=== PATIENT | female | born 1990 | race Caucasian/White ===

== ENCOUNTER → 2022-05-18 | Outpatient (CLI) | payer OTHER, SELFPAY ==
[2022-05-18 09:34] LABS: Absolute Lymphocyte Count 2.34 X10^3/uL (0.83-4.51); Absolute Neutrophil Count 5.2 X10^3/uL (2.0-7.7); Basophil# 0.05 X10^3/uL; Basophil% 0.6 % (0-1); Eosinophil# 0.34 X10^3/uL; Eosinophils% 3.9 % (0-5); Hematocrit 41.1 % (37-47); Hemoglobin 13.8 g/dL (12.0-15.0); Lymphocyte # 2.34 X10^3/ul (0.83-4.51); Lymphocyte % 26.8 % (19-41); Mean Corp Hgb Conc 33.6 g/dL (32-36); Mean Corpuscular Volume 83.5 fL (81-99); Mean Platelet Vol. 8.9 fl (6.2-12.0); Monocyte# 0.73 X10^3/uL; Monocyte% 8.4 % (0-10); NRBC Flagged by Analyzer 0 % (0-5); Neutrophil # 5.24 X10^3/uL (2.7-7.7); Platelet Count 380 K/mm3 (150-450); RBC Distribution Width CV 12.9 % (11.6-14.6); Red Blood Count 4.92 M/mm3 (4.2-5.4); White Blood Count 8.7 K/mm3 (4.4-11.0)
[2022-05-18 09:44] LABS: Partial Thromboplast Time 32.9 Seconds (24.1-36.2); Prothrombin Time (Protime)PT. 12.7 SECONDS (11.7-14.9)
[2022-05-18 16:27] LABS: AST(SGOT) 22 U/L (15-37); Alanine Aminotransfer ALT/SGPT 38 U/L (13-56); Albumin, Serum 3.5 g/dL (3.2-5.0); Alkaline Phosphatase 101 U/L (45-117); Bilirubin, Direct 0.11 mg/dL (0.00-0.30); Globulin 3.8 g/dL (2.2-4.2); Magnesium 1.8 mg/dL (1.6-2.6); Protein, Total 7.3 g/dL (6.4-8.2)
== END | disposition home or self-care (01) ==
LOC: LAB 09:08
PROVIDERS: Anesthesiology; Referring Provider Obstetrics & Gynecology; Visit Provider Obstetrics & Gynecology
DX: Z01.812 Encounter for preprocedural laboratory examination (principal)
CPT/HCPCS: 80076; 83735; 85025; 85610; 85730; 86850; 86900; 86901

== ENCOUNTER 2022-05-24 05:27 | Day surgery (SDC) | payer OTHER, SELFPAY ==
--- NOTE | 2022-05-20 22:54 | HP.PCM_ITS ---
History and Physical Intake Vital Signs ? 04/18/2215:18 Height 5 ft 4 in Weight:B 212 lb BMI 36.3 BP 132/86 H Intake Visit Reasons:?Surgical consult 2nd opinion *TK's daughter Chief Complaint: NEW surgical consult for hyst Sports Equipment Racker Required: No Is patient in pain?: No Allergies adhesive tape Allergy (Mild, Verified 04/18/22 15:19) Rash Medications cetirizine 10 mg capsule (Zyrtec) 10 mg PO DAILY PRN 04/18/22 [History Confirmed 04/18/22] Is last menstrual period known: Yes Last Menstrual Period: 04/11/22 Post menopausal: No Patient : No : No PFSH Medical History?(Updated 04/18/22 @ 16:[address] Angela Pressley MD) Anxiety History of endometrial biopsy Mitral valve prolapse Surgical History?(Updated 04/18/22 @ 15:21 by Ioana Robledo) delivery delivered Family History?(Updated 04/18/22 @ 15:22 by Ioana Robledo) Grandfather Diabetes Heart diseaseMother Thyroid disorder Social History?(Updated 04/18/22 @ 15:23 by Ioana Robledo) Smoking Status:? Never smoker details:? social substance use type:? does not use what type of physical activity do you participate in:? walking seatbelt use:? always do you feel safe at home:? Yes additional social history:? 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 patient works for [employer] ? HPI Surgical consult 2nd opinion *TK's daughter Details: RENEA WHITMORE is a 32 year old who presents for long history of heavy painful menses lasting 10-14 days failed nuvaring, nl EMB and US. she has struggled for years and is ready for a hysterectomy.? she was seeing another physician and is here for second opionion and management. records reviewed. she denies dyspareunia postcoital bleeding and chronic pelvic pain, just has pain with menses. Female Reproductive History Last Menstrual Period: 04/11/22 Cycle Length: 21-35 Bleeding Duration: 10 Questions: metorrhagia: No, sexually active: Yes, dyspareunia: Yes (deep) and PCB: No Menopausal Symptoms: No hot flashes, No night sweats, No weight change, No mood changes, No difficulty concentrating, No sleep problems and No change in libido History Past Pregnancies Del. Date Name GA/Weeks Outcome Route Bth Weight Gen Labor Lgth Anesthesia Del Locatn Provider FOB Unknown 2013 Maggie ? live - full term NS VD ? Unknown 2014 Westyn ? live - full term C-s ection ? ROS Const Constitutional: Denies fatigue, night sweats, weight gain or weight loss ENT ENT: Reports system reviewed and no additional complaints, except as documented Cardio Card: Denies chest pain Resp Resp: Denies cough or dyspnea GI GI: Reports as per HPI; Denies constipation, nausea or vomiting : Reports as per HPI; Denies hot flashes, nipple discharge, vaginal discharge, vaginal dryness, vaginal odor or vaginal pruritus Musc Musc: Denies arthralgias, back pain or muscle weakness Skin Skin/Breast: Denies alopecia, change in hair, dry skin, breast mass, breast pain, breast skin changes or nipple discharge Neuro Neuro: Reports system reviewed and no additional complaints, except as documented Psych Psych: Reports system reviewed and no additional complaints, except as documented; Denies change in libido or difficulty concentrating Endo Endo: Denies cold intolerance, excessive sweating, heat intolerance or polydipsia Satnam/Lymph Hematologic/Lymphatic: Denies easy bleeding, Denies easy bruising and Denies lymphadenopathy Exam Const General: cooperative, healthy appearing, comfortable, no acute distress and well developed Orientation: alert [facility] Head: normal to inspection and normocephalic Ears: hearing grossly normal bilaterally and external ears normal Nose: external nose normal and nares normal Face and sinus: normal facial exam Neck Neck: normal visual inspection and no lymphadenopathy Thyroid: thyroid normal Chest Chest palpation & inspection: normal inspection of the chest Resp Effort & Inspection: normal respiratory effort Auscultation: clear to auscultation bilaterally Cardio Rate: regular rate Rhythm: regular rhythm Heart Sounds: S1 normal and S2 normal GI Inspection: normal to inspection and non-distended Palpation: soft and no hepatosplenomegaly General: bladder normal to palpation External Female Exam: normal external appearance and normal appearance of the urethra Urethra: normal appearance of the urethra, normal palpation and no discharge Speculum Exam - Vagina: normal appearance of the vagina and normal vaginal discharge Speculum Exam - Cervix: normal appearance of the cervix and nontender Bimanual Exam- Vagina & Uterus: normal bimanual exam, uterine size normal, bladder normal to palpation, uterine shape normal, No tender, uterine mobility normal, consistency normal, normal palpation and non-tender Bimanual Exam- Adnexa, other: normal adnexae, adnexae mobile, no masses and normal Pelvic Support: normal Musc Other: gross motor intact no deficits, full bilateral strength Skin General: no rashes or lesions noted Neuro General: patient alert, patient awake, moves all extremities and no focal motor deficits Motor: muscle tone normal throughout Extrem General: normal to inspection and no pedal edema Psych Appearance: grossly normal Mental Status: mental status grossly normal Affect: normal affect Speech and Movement: speech and movement normal Coding Level of Care Code Off vis,new,level 5 Diagnoses Abnormal uterine bleeding? N93.9 Assessment and Plan Assessment and Plan (1) Abnormal uterine bleeding: ?Status:?Acute ?Comment: suspect adenomyosis. failed nuvaring not an ablation candidate.? nl cbc tsh, US, EMB. plan LAVHBS. Plan After discussing the patient's diagnosis and treatment plan options, patient wishes to proceed with surgical management.? I have discussed with the patient the risks, benefits, and alternatives of the procedure which include but are not limited to risks of anesthesia, bleeding, infection, possible damage to bowel, bladder, or surrounding vasculature which could lead to additional surgery to evaluate any complications.? Patient agrees to procedure and wishes to proceed.? ACOG/uptodate references given for additional information regarding procedure.? UPDATE- I have seen the patient and performed any clinically relevant updates to the history and physical exam. Angela Pressley MD
[2022-05-24] VITALS (12 sets, daily range): BP systolic 78–118; BP diastolic 52–84; PULSE 56–93; RESP 12–20; TEMP 36.2–36.7; O2SAT 90–100; BMI 36.3
[2022-05-24 06:20] LABS: Internal QC Validated? YES +Cl - CLEAR BKGD; Pregnancy, Urine Negative Negative
[2022-05-24] MEDS: dexAMETHasone 10 MG/ML Vial 8 MG IV (06:24)
[2022-05-24] MEDS: Lactated Ringers 1,000 ML 40 ML IV ×3 (06:25→11:23)
[2022-05-24] MEDS: Magnesium 2 GM for ERAS IV (06:28)
[2022-05-24 06:35] LABS: Bedside Glucose 89 mg/dL (74-106)
[2022-05-24] MEDS: Scopolamine 1mg/72hr Patch 1 PATCH TD (06:39)
[2022-05-24] MEDS: Acetaminophen 500 MG Tablet 1000 MG PO ×2 (06:42→14:43)
[2022-05-24] MEDS: Enoxaparin 40 MG/0.4 ML Syringe SC (06:42)
[2022-05-24] MEDS: Phenazopyridine 95 MG Tablet 190 MG PO (06:42)
[2022-05-24] MEDS: Celecoxib 200 MG Capsule 400 MG PO (06:43)
[2022-05-24] MEDS: Gabapentin 600 MG Tablet PO (06:46)
[2022-05-24] MEDS: Cefazolin 2 GM in 0.9% Normal Saline 100 ML IV (07:30)
--- NOTE | 2022-05-24 07:30 | HYST_PTH ---
PATIENT: RENEA WHITMORE [place]: [facility] [place] U#:[id number] AGE/SX: 32/F ROOM: RE05/24/[address]: Dr. Angela Pressley MD : 1990 BED: DIS: 05/24/2022 SPEC #: [id number] RECD: 05/24/22 11:37 STATUS: CASTILLO REThomas #: [id number] CHERYL: 05/24/22 07:[address]: Angela Pressley DEPT: SURGICAL PATHOLOGY RECD BY: Delisa Tapia ENTERED: 05/24/22 12:48 SP TYPE: HYSTERECT OTHR DR: GHADA DIXON DO Tissues: Uterus, NOS Procedures: Surgery Specimen Level V HEADER OPERATION: ERAS, hysterectomy, LAVH, bilateral salpingectomy PRE-OP DIAGNOSIS: Abnormal uterine bleeding TISSUE SUBMITTED: Uterus, bilateral fallopian tubes MICROSCOPIC DIAGNOSIS Uterus, bilateral fallopian tubes, hysterectomy and bilateral salpingectomy: Cervix ? mild chronic inflammation. Endometrium ? secretory endometrium. Myometrium - no pathologic diagnosis. Bilateral fallopian tubes - no pathologic diagnosis. SJ:josefa 05/27/2022 MICROSCOPIC DESCRIPTION Slides are reviewed. GROSS DESCRIPTION Received in fixative is one container labeled with the patient's name and designated uterus. The specimen consists of a uterus with attached cervix and attached right and left fallopian tubes. The uterus with cervix measures 10 x 7 x 4.5 cm and weighs 119 gm. The ectocervix is unremarkable. The cervical os is ova in contour. The endocervical canal measures 3.3 cm in length and is grossly unremarkable. The triangular endometrial cavity measures 4.5 x 3 cm. The reddish-coyle, velvety endometrium measures up to 0.2 cm in thickness. The myometrium measures 2.5 cm in average thickness and is free of mass lesions. The fallopian tubes are similar in appearance and have an average length of 6 cm and an average diameter of 0.7 cm. Both fallopian tubes have normal fimbriated ends. No mass lesions are identified. 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 / AM:josefa 05/24/2022 TC:3 CPT: 37811
--- NOTE | 2022-05-24 07:31 | PCM.OPRPT ---
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 Patient was taken back to the operating room and placed in the dorsal lithotomy position. General anesthesia was induced and patient was prepped and draped in normal sterile fashion. Uterine manipulator was placed inside the uterus and Arellano catheter placed in the bladder. The umbilicus was grasped with towel clamps and an intraumbilical incision was made after injecting with quarter percent Marcaine and a Veress needle entered into the abdomen confirmed to be intra-abdominal with a low opening pressure. Abdomen was insufflated with CO2 gas and the Veress needle removed and the 5 mm trocar was placed under direct visualization without complication. Right and left lower quadrants were transilluminated and injected with quarter percent Marcaine and 5 mm ports placed under direct visualization. Pelvis was well visualized see operative findings for additional information. Bilateral fallopian tubes were identified and transected with the LigaSure device across the mesosalpinx to the level of the utero-ovarian ligament which was also transected with the LigaSure device. The broad ligament was opened up by transecting the round ligament bilaterally and skeletonizing the uterine vessels bilaterally and creating a bladder flap using the LigaSure device. The uterine arteries were transected bilaterally with good visualization of the bladder and the ureters were seen to be inferior lateral to the operative area. Attention was then paid to the vaginal portion of the procedure and the cervix was grasped with Nette clamps and circumferentially injected with dilute vasopressin. A circumferential incision was made and the vaginal mucosa was mobilized off posteriorly and the cul-de-sac entered into sharply and a longneck speculum placed. The anterior cul-de-sac was then identified and entered into sharply. The uterosacral ligaments were clamped cut and suture ligated with 0 Monocryl bilaterally followed by the cardinal ligaments which were clamped cut and suture ligated bilaterally with 0 Monocryl. The uterus serially descended and was removed without difficulty. Pelvic sidewall pedicles were checked and noted to have excellent hemostasis. The vaginal mucosa was reapproximated incorporating the posterior peritoneum. This was reapproximated using 0 Vicryl [id number] sutures. Excellent hemostasis was noted. The cystoscopy was then performed and bilateral ureteral strong spray was noted and the bladder was noted to have no abnormality or lesions seen. Arellano catheter was replaced and then attention paid to the abdominal portion of the procedure again. The pelvis and cul-de-sac were well visualized and no significant active bleeding noted but some raw areas were seen on the peritoneum and therefore floseal was applied and to the llq port site Pressure was taken down and the areas visualized and noted of excellent hemostasis. All ports were removed under direct visualization without complication and the abdomen was desufflated of air. The instruments were removed from the abdomen and the vaginal sweep was negative. Port sites on the abdomen were closed with 4-0 Monocryl interrupted sutures and Steri's and windows were applied. She was awoken and taken recovery in stable condition. Grafts/Implants Used: none Complications none Admit VTE Documentation VTE Present on Admission: No VTE Mechan Device Prophylaxis: SCD's VTE Pharm Prophylaxis ordered?: Yes Multi Select Codes Urinary/Genital Urinary/Genital CPT Codes: 44480 Cystoscopy and 63339 LAVH+BS/O <250gr Uterus
--- NOTE | 2022-05-24 07:32 | DCINST_ITS ---
Discharge Instructions Diet Discharge Diet: No restrictions Activity May resume sexual activity in: 6 weeks Weight Bearing Status: Full weight bearing Dressing / Incision Call your doctor if your incision/area has: Continuous Slow Oozing, Sudden Increased Bleeding, Increased Pain/ Swelling, Increased Redness and Foul Smelling Discharge Call your doctor if you observe: Fever of 101 or Higher, Using more than 1 pad per hour, Shortness of breath, Chest pain and Uncontrolled pain Suture Line Care: Avoid Pulling/Pushing and Avoid Pinching/Bending Remove Dressing in: 1 week (if present) Cleanse incision/area with: Soap & Water and Keep Dressing Clean & Dry Follow Up Care Please Follow Up With: Angela Pressley MD When: Call to make an appointment with your doctor for a postop visit in 2 and 6 weeks. Test Results: Test results from this visit will be discussed in further detail at your follow- up appointment, if applicable. Discharge Plan Admission Attending Provider: Angela Pressley Primary Care Provider: GHADA DIXON Discharge Orders/Prescriptions Prescriptions: New nystatin [Nystop] 100,000 unit/gram powder 1 applic topical TID Qty: 60 1RF oxycodone-acetaminophen [Percocet] 5-325 mg tablet 1 tab PO Q6H PRN (Reason: pain) 7 Days Qty: 20 0RF naproxen [naproxen] 500 mg tablet 500 mg PO BID PRN PRN (Reason: Pain) Qty: 30 1RF Continued Zyrtec 10 mg capsule 10 mg PO DAILY PRN (Reason: SEASONAL ALLERGIES) rizatriptan 10 mg tablet 10 mg PO DAILY PRN (Reason: MIGRAINES) Label Comments: TAKE 1 TABLET BY MOUTH ONCE NEEDED FOR MIGRAINE MAY REPEAT IN 2 HOURS IF NEEDED Referrals / Follow Up: GHADA DIXON DO [Primary Care Provider] - Disposition Disposition (needs filled in before D/C Order can be placed): Home, Self Care
[2022-05-24] MEDS: Bupivacaine 0.25% 30 ML Vial (09:28)
[2022-05-24] MEDS: Vasopressin 20 UNITS/ML Vial (09:28)
[2022-05-24] MEDS: Ketorolac 30 MG/ML Syringe IV (12:50)
[2022-05-24 13:05] LABS: Absolute Lymphocyte Count 0.93 X10^3/uL (0.83-4.51); Absolute Neutrophil Count 12.1 X10^3/uL (2.0-7.7); Basophil# 0.02 X10^3/uL; Basophil% 0.1 % (0-1); Eosinophil# 0.01 X10^3/uL; Eosinophils% 0.1 % (0-5); Hematocrit 38.4 % (37-47); Hemoglobin 12.3 g/dL (12.0-15.0); Lymphocyte # 0.93 X10^3/ul (0.83-4.51); Mean Corpuscular Hgb 27.6 pg (27.0-32.0); Mean Corpuscular Volume 86.3 fL (81-99); Mean Platelet Vol. 8.8 fl (6.2-12.0); Monocyte# 0.17 X10^3/uL; Monocyte% 1.3 % (0-10); NRBC Flagged by Analyzer 0 % (0-5); Neutrophil # 12.13 X10^3/uL (2.7-7.7); Neutrophil % 90.9 % (47-70); Platelet Count 301 K/mm3 (150-450); RBC Distribution Width SD 40.5 fl (35.1-43.9); Red Blood Count 4.45 M/mm3 (4.2-5.4); White Blood Count 13.3 K/mm3 (4.4-11.0)
[2022-05-24] MEDS: Lactated Ringers 500 ML 999 ML IV (13:30)
== END 2022-05-24 15:00 | disposition home or self-care (01) ==
LOC: SDC 05:28 → AC 05:29
PROVIDERS: Anesthesiology; PCP Family Medicine; Referring Provider Obstetrics & Gynecology; Visit Provider Obstetrics & Gynecology
PROC: 0UT9FZZ Resection of Uterus, Via Natural or Artificial Opening With Percutaneous Endoscopic Assistance (ICD-10-PCS; CPT 58552; principal; 2022-05-24 07:05)
DX: N93.9 Abnormal uterine and vaginal bleeding, unspecified (principal)
CPT/HCPCS: 58552; 00944; 81025; 82962; 85025; 88307; J7120; J2405

== ENCOUNTER → 2022-10-14 | Outpatient (CLI) | payer OTHER, SELFPAY ==
[2022-10-14 11:44] LABS: Anion Gap 6 (5-15); BUN 10 mg/dL (7-18); BUN/Creat Ratio 12.3 RATIO (10-20); Calcium,Total 9.3 mg/dL (8.5-10.1); Chloride 109 mmol/L (98-107); Cholesterol 187 mg/dL (200); Creatinine, Serum 0.81 mg/dL (0.55-1.02); EST Glomerular Filtration Rate 86 mL/min (>60); Est Glom Filt Rate - Afr Amer 104 mL/min (>60); Glucose 102 mg/dL (74-106); High Density Lipoprotein 50 mg/dL; Potassium 3.8 mmol/L (3.5-5.1); Sodium Level 139 mmol/L (136-145); Thyroid Stim Hormone (TSH) 0.56 uIU/mL (0.358-3.74); Triglycerides 140 mg/dL; Very Low Density Lipoprotein 28 mg/dL (5-40)
== END | disposition home or self-care (01) ==
LOC: PAVLAB 10:57
PROVIDERS: PCP Family Medicine; Referring Provider Obstetrics & Gynecology; Visit Provider Obstetrics & Gynecology
DX: E66.8 Other obesity (principal)
CPT/HCPCS: 36415; 80048; 80061; 84443

== ENCOUNTER → 2023-01-06 | Outpatient (CLI) | payer OTHER, SELFPAY ==
[2023-01-06 13:26] LABS: Anion Gap 7 (5-15); BUN 9 mg/dL (7-18); BUN/Creat Ratio 12.7 RATIO (10-20); Calcium,Total 8.9 mg/dL (8.5-10.1); Chloride 110 mmol/L (98-107); Creatinine, Serum 0.71 mg/dL (0.55-1.02); EST Glomerular Filtration Rate 101 mL/min (>60); Est Glom Filt Rate - Afr Amer 122 mL/min (>60); Glucose 95 mg/dL (74-106); Sodium Level 140 mmol/L (136-145)
== END | disposition home or self-care (01) ==
LOC: LAB 12:05
PROVIDERS: PCP Family Medicine; Referring Provider Obstetrics & Gynecology; Visit Provider Obstetrics & Gynecology
DX: E66.8 Other obesity (principal)
CPT/HCPCS: 36415; 80048

== ENCOUNTER → 2023-09-29 | Outpatient (CLI) | payer OTHER, SELFPAY ==
--- OUTSIDE RECORDS SUMMARY | 2023-09-29 09:10 | XMS RPT_ITS | CCD ---
Author Name Unknown Address [address] [place] [address] Organization [facility] [place] Care Team Providers Care Bedspring Assembler Name Role Phone CATHERINE BRAN D.O. Unavailable Unavail able DESTINY Quevedo, CATHERINE Ford Unavailable Unavail able DESTINY Quevedo, CATHERINE Ford Unavailable Unavail able Catherine Bran Primary Care Provider Catherine Bran DO Primary Care Provider Catherine Bran DO Primary Care Provider Catherine Bran DO Primary Care Provider Catherine Bran DO Primary Care Provider Catherine Bran DO Primary Care Provider CATHERINE BRAN Primary Care Unavailable KAMI BARTON Attending Unavailable CATHERINE BRAN Attending Unavailable CATHERINE BRAN Primary Care Unavailable CATHERINE BRAN Attending Unavailable CATHERINE BRAN Primary Care Unavailable CATHERINE BRAN Primary Care Unavailable Allergies Allergy Classification Reported Allergen(s) Allergy Type Date of Onset Reaction(s) Facility (3 sources) Wound Dressing Adhesive Propensity to adverse reactions 09-25-2022 [facility] Medications Current Medications Medication Drug Class(es) Dates Sig (Normalized) Sig (Original) [id number] 200 actuat albuterol 0.09 mg/actuat metered dose inhaler (6 sources) beta2-Adrenergic Agonist Start: 10-15-2021 take 2 puff(s) by inhalation once as needed albuterol 108 (90 Base) MCG/ACT inhaler Inhale 2 puffs Once as needed for shortness of breath. 0 10/15/2021 Active Completed/Discontinued Medications Medication Drug Class(es) Dates Sig (Normalized) Sig (Original) escitalopram 10 mg oral tablet (8 sources) Serotonin Reuptake Inhibitor Start: 10-15-2021 End: 03-18-2023 take 1 tablet by mouth once daily escitalopram (Lexapro) 10 MG tablet Take 1 tablet by mouth daily. 0 10/15/2021 03/18/2023 Discontinued (Med list cleanup) Problems Active Problems Problem Classification Problem Date Documented Da te Episodic/Chronic Deficiency and other anemia (2 sources) Iron deficiency anemia secondary to blood loss (chronic); Translations: [Iron deficiency anemia secondary to blood loss (chronic)] Onset: 03-28-2017 Chronic Deficiency and other anemia (6 sources) Iron deficiency anemia due to blood loss; Translations: [Iron deficiency anemia secondary to blood loss (chronic)] Onset: 11-05-2016 11-05-2016 Chronic Deficiency and other anemia (3 sources) Iron deficiency anemia due to blood loss; Translations: [Iron deficiency anemia due to chronic blood loss] Onset: 11-05-2016 11-05-2016 Diseases of white blood cells (1 source) Leukocytosis; Translations: [Other elevated white blood cell (WBC) count] Chronic Disorders of lipid metabolism (5 sources) Mixed hyperlipidemia; Translations: [Mixed hyperlipidemia] Onset: 03-18-2023 Chronic Immunizations and screening for infectious disease (1 source) Viral screening status; Translations: [Encounter for screening for other viral diseases] Episodic Malaise and fatigue (1 source) Fatigue; Translations: [Other fatigue] Episodic Menstrual disorders (9 sources) Menorrhagia; Translations: [Excessive and frequent menstruation with regular cycle] Onset: 11-05-2016 11-05-2016 Chronic Nutritional deficiencies (9 sources) Vitamin D deficiency; Translations: [Vitamin D deficiency, unspecified] Onset: 11-05-2016 11-05-2016 Chronic Other non-traumatic joint disorders (1 source) Joint pain; Translations: [Pain in other joint] Episodic Other nutritional; endocrine; and metabolic disorders (1 source) Weight gain; Translations: [Abnormal weight gain] Episodic Other screening for suspected conditions (not mental disorders or infectious disease) (7 sources) Patient encounter status; Translations: [Encounter for screening for lipoid disorders] Onset: 03-18-2023 Episodic Other skin disorders (2 sources) Loss of hair; Translations: [Nonscarring hair loss, unspecified] 03-18-2023 Episodic Other skin disorders (2 sources) Nonscarring hair loss, unspecified; Translations: [Nonscarring hair loss, unspecified] Onset: 03-18-2023 Episodic Other upper respiratory infections (10 sources) Laryngitis; Translations: [Acute laryngitis] Onset: 09-25-2022 06-01-2023 Episodic Unclassified (2 sources) Patient encounter status; Translations: [Screening, lipid] Past or Other Problems Problem Classification Problem Date Documented Da te Episodic/Chronic Syncope (11 sources) Syncope; Translations: [Vasovagal syncope] Onset: 11-05-2016 11-05-2016 Episodic Results Test Name Value Interpretation Reference Range Facil ity Vital Signs Date Time Vital Sign Value Performing Clinician Teo loving 06-01-2023 12:45-0500 Body height 163.8 cm Kami Sapper [employer]ING [employer] - [employer] MAIL [employer] Work Phone: [employer] 06-01-2023 12:45-0500 Body mass index (BMI) [Ratio] 28.39 kg/m2 Kami Sapper [employer]ING [employer] - [employer] MAIL [employer]RIER Work Phone: [employer] 06-01-2023 12:45-0500 Body temperature 97.5 [degF] Kami Sapper [employer]ING [employer] - [employer] MAIL [employer]RIER Work Phone: [employer] 06-01-2023 12:45-0500 Body weight 76.2 kg Kami Sapper [employer]ING [employer] - [employer] MAIL [employer]RIER Work Phone: [employer] 06-01-2023 12:45-0500 Diastolic blood pressure 81 mm[Hg] Kami Sapper [employer]AVING [employer]EM[employer] - [employer] MAIL [employer]RIER Work Phone: [employer] 06-01-2023 12:45-0500 Heart rate 96 /min Kami Sapper [employer]ING [employer]EM[employer] - [employer] MAIL [employer]RIER Work Phone: [employer] 06-01-2023 12:45-0500 SaO2% (BldA) [Mass fraction] 98 % Kami Sapper [employer]ING [employer] - [employer]AL MAIL [employer]RIER Work Phone: [employer] 06-01-2023 12:45-0500 Systolic blood pressure 115 mm[Hg] Kami Sapper [employer]ING [employer] - [employer]AL MAIL [employer]RIER Work Phone: [employer] 03-18-2023 08:40-0400 Body height 163.8 cm Catherine Bran DO Work Phone: [employer] 03-18-2023 08:40-0400 Body mass index (BMI) [Ratio] 28.22 kg/m2 Catherine Bran DO Work Phone: [employer] 03-18-2023 08:40-0400 Body weight 75.75 kg Catherine Bran DO Work Phone: [employer] 03-18-2023 08:40-0400 Diastolic blood pressure 68 mm[Hg] Catherine Bran DO Work Phone: [employer] 03-18-2023 08:40-0400 Heart rate 84 /min Catherine Bran DO Work Phone: [employer] 03-18-2023 08:40-0400 SaO2% (BldA) [Mass fraction] 99 % Catherine Bran DO Work Phone: [employer] 03-18-2023 08:40-0400 Systolic blood pressure 115 mm[Hg] Catherine Bran DO Work Phone: [employer] 03-24-2020 18:32-0400 BP Diastolic 67 mm[Hg] [facility] [place] [facility] [place] 03-24-2020 18:32-0400 BP Systolic 108 mm[Hg] [place] [employer] [facility] , [place] 03-24-2020 18:32-0400 Pulse (Heart Rate) 76 /min [place] [employer] [facility], [place] 03-24-2020 18:32-0400 Pulse Oximetry 98 % [place] [employer] [facility] , [place] 03-24-2020 18:32-0400 Respiratory Rate 17 /min [place] [employer] [facility] , [place] 03-24-2020 17:45-0400 BMI (Body Mass Index) 32.61 kg/m2 [place] [employer] [facility] 03-24-2020 17:45-0400 Body Temperature 98.2 [degF] [place] [facility] [place] 03-24-2020 17:45-0400 Body weight 86.18 kg [place] [employer] [facility] , [place] 03-24-2020 17:45-0400 Height 162.6 cm [facility] [place] , [place] Encounters Encounter Date Encounter Type Care Provider Facility Start: 06-01-2023 End: 06-01-2023 ambulatory [facility] Start: 06-01-2023 End: 06-01-2023 Office outpatient visit 15 minutes Kami Readcarmen P[employer]ING [employer]EMAN - [employer] MAIL [employer]RIER Work Phone: [facility] Procedures Date Procedure Procedure Detail Performing Clinician Start: 06-01-2023 Sars-cov-2 detection by dna/rna Kami Sapper [employer]ING [employer]EM[employer] - [employer] MAIL [employer]RIER Work Phone: Start: 03-18-2023 Adult depression scr eening assessment Catherine Brna DO Work Phone: Start: 03-18-2023 Lipid 1996 panel - S delmer or Plasma Catherine Bran DO Work Phone: Start: 03-18-2022 Basic metabolic pane l calcium total Catherine Bran DO Work Phone: Start: 03-18-2022 Lipid panel Catherine Bran DO Work Phone: Start: 12-07-2021 Microscopic observat ion [Identifier] in Cervix by Cyto stain Catherine Bran DO Work Phone: Start: 10-18-2021 Comprehensive metabo lic panel Catherine Bran DO Work Phone: Start: 10-18-2021 Lipid panel Catherine Bran DO Work Phone: Start: 03-20-2021 Basic metabolic pane l calcium total Catherine Bran DO Work Phone: Start: 03-20-2021 Lipid panel Catherine Bran DO Work Phone: Start: 08-16-2020 Microscopic observat ion [Identifier] in Cervix by Cyto stain Catherine Bran DO Work Phone: Start: 04-04-2020 Basic metabolic pane l calcium total Catherine Bran Work Phone: Start: 04-04-2020 Blood count complete automated Catherine Bran Work Phone: Start: 03-24-2020 Blood count complete automated Fabian Sanders Work Phone: Start: 03-24-2020 Gonadotropin chorion ic qualitative Fabian Juan Sanders Work Phone: Start: 03-04-2020 Basic metabolic pane l calcium total Catherine Bran Work Phone: Start: 03-04-2020 Lipid panel Catherine Bran Work Phone: Plan of Treatment Date Care Activity Detail Author Start: 2039 Zoster Vaccines (1 of 2) Zoster Vaccines (1 of 2) [facility] Start: 03-18-2028 Lipid panel Lipid Panel [facility] Start: 03-18-2027 Lipid panel Lipid Panel [facility] Start: 12-07-2026 Screening for malignant neoplasm of cervix [facility] Start: 12-07-2024 Screening for malignant neoplasm of cervix Pap smear [facility] Start: 03-18-2024 Depression Screening Depression Screening [facility] Start: 03-18-2024 End: 03-18-2024 Patient encounter procedure [facility] Start: 08-16-2023 Screening for malignant neoplasm of cervix [facility] Start: 03-21-2023 Influenza vaccination Influenza Vaccine (#1) [facility] Start: 03-18-2023 Depression Screen Depression Screen [facility] Start: 03-18-2023 End: 03-18-2023 Patient encounter procedure 03/18/2023 Office Visit Family Medicine Catherine Bran, DO [address] [place] [address] [facility] Start: 04-09-2022 End: 04-09-2022 Patient encounter procedure 04/09/2022 Office Visit Obstetrics and Gynecology Sandrine Christiansen MD [address] [place] [address], [address] [place] [address] [facility] Start: 03-21-2022 Influenza vaccination Flu vaccine (#1) [facility] Start: 02-28-2022 Depression Screen Depression Screen [facility] Start: 11-13-2021 End: 11-13-2021 Patient encounter procedure 11/13/2021 Office Visit Obstetrics and Gynecology Sandrine Christiansen MD [address] [place], [address] [place] [address] [facility] Start: 03-21-2021 Influenza vaccination Flu vaccine (#1) [facility] Start: 03-21-2020 Influenza vaccination Flu vaccine (#1) [place], [place] Start: 2019 Screening for malignant neoplasm of cervix HPV (without or with Pap) [facility] Start: 2010 Screening for malignant neoplasm of cervix Cervical cancer screen [place], [place] Start: 01-25-2008 DTaP/Tdap/Td vaccine (1 - Tdap) DTaP/Tdap/Td vaccine (1 - Tdap) [facility] Start: 01-25-2008 DTaP/Tdap/Td Vaccines (1 - Tdap) DTaP/Tdap/Td Vaccines (1 - Tdap) [facility] Start: 01-25-2004 HIV screening HIV screen [facility] Start: 2001 COVID-19 Vaccine (1) COVID-19 Vaccine (1) [facility] Work Phone: Start: 1994 COVID-19 Vaccine (1) COVID-19 Vaccine (1) [facility] Start: 1990 MMR Vaccines (1 of 1 - Standard series) MMR Vaccines (1 of 1 - Standard series) [facility] Start: 1990 Varicella vaccination Varicella Vaccines (1 of 2 - 2-dose childhood series) [facility] Start: 1990 Varicella vaccine (1 of 2 - 2-dose childhood series) Varicella vaccine (1 of 2 - 2-dose childhood series) [facility] Start: 1989 COVID-19 Vaccine (#1) COVID-19 Vaccine (#1) [facility] Start: 1989 Hepatitis B Vaccines (1 of 3 - 3-dose series) Hepatitis B Vaccines (1 of 3 - 3-dose series) [facility] Start: 1989 HIV screening HIV Screening [facility] End: 10-18-2021 Nuclear Ab [Titer] in Serum by Immunofluorescence [facility] Work Phone: Payers Date Payer Category Payer Unknown [id number] 1. [id number] 2013 Unknown Social History Date Type Detail Facility Start: 08-31-2019 End: 03-18-2023 Tobacco smoking status NHIS Never smoker [place] Start: 08-31-2019 End: 03-18-2023 Tobacco use and exposure Never used [place], [place] Start: 08-31-2019 End: 03-18-2022 Alcohol intake Current non-drinker of alcohol (finding) [place], [place] Start: 1989 Sex Assigned At Not on file [place] Start: 10-05-2021 End: 03-18-2023 Exposure to SARS-CoV-2 (event) Not sure [place] Start: 04-17-2020 Alcohol Comment occasional may be once per month [facility] Work Phone: Start: 11-13-2021 History SDOH Alcohol Frequency 2 [facility] Work Phone: Start: 11-13-2021 History SDOH Social Connections Phone 5 [employer] Work Phone: Start: 11-13-2021 History SDOH Social Connections Zoroastrian 3 [facility] Work Phone: Start: 11-13-2021 History SDOH Social Connections Membership 1 [facility] Work Phone: Start: 11-13-2021 History SDOH Financial 4 [facility] Work Phone: Start: 03-18-2023 End: 06-01-2023 Alcohol intake Current drinker of alcohol (finding) [facility] Start: 03-18-2023 End: 06-01-2023 Alcohol intake [facility] Start: 09-25-2022 End: 03-18-2023 Tobacco use panel [facility] Start: 03-18-2023 Tobacco Comment Never [facility] Clinical Notes 04-05-2020 to 06-01-2023 LAKSHMI Aquino NP - 06/01/2023 1:00 PM Siomara Logan Bran, DO - 03/18/2023 8:40 AM EDTAddendum Note - Kami Ray - 03/18/2023 8:40 AM EDT Note Date & Type Note Facility 06-01-2023 History of Presen t illness Narrative Images from the original note were not included. [facility] [address] [facility] [address] Dept: [phone] Dept Loc: [phone] Subjective Renea Vallecillo is a 33 y.o. year old female who presents to the office with the following complaint(s): Chief Complaint Patient presents with URI Cough, congestion, loss of voice, x3days Patient is here today for symptoms that started about 3 days ago. Patient reports some nasal congestion with laryngitis but no actual sore throat. Patient reports she does have a cough but states it is only at nighttime that is bothersome. No fever or chills reported. Patient has not taken any [id number] medications for her symptoms since they have been so minimal. History provided by: Patient URI Presenting symptoms: congestion and cough Presenting symptoms: no ear pain, no facial pain, no fatigue, no fever, no rhinorrhea and no sore throat Congestion: Location: Nasal Interferes with sleep: no Interferes with eating/drinking: no Cough: Cough characteristics: Non-productive Severity: Mild Timing: Intermittent Progression: Waxing and waning Relieved by: Nothing Worsened by: Certain positions (Cough is worse at nighttime when laying down) Ineffective treatments: None tried Associated symptoms: no headaches, no myalgias, no sinus pain, no swollen glands and no wheezing Risk factors: recent illness Review of Systems Constitutional: Negative for appetite change, chills, fatigue and fever. HENT: Positive for congestion and voice change. Negative for ear pain, nosebleeds, rhinorrhea, sinus pressure, sinus pain, sore throat and trouble swallowing. Respiratory: Positive for cough. Negative for chest tightness, shortness of breath and wheezing. Cardiovascular: Negative for chest pain, palpitations and leg swelling. Gastrointestinal: Negative for abdominal pain, constipation, diarrhea, nausea and vomiting. Musculoskeletal: Negative for myalgias. Skin: Negative for rash. Neurological: Negative for headaches. Allergies Allergen Reactions Wound Dressing Adhesive Rash Current Outpatient Medications on File Prior to Visit Medication Sig Dispense Refill biotin 10 MG tablet Take by mouth. Cetirizine HCl 10 MG capsule Take 10 mg by mouth. Multiple Vitamin (multivitamin) tablet Take 1 tablet by mouth daily. phentermine (Adipex-P) 37.5 MG tablet TAKE 37.5 MG BY MOUTH DAILY BMI 32.5 rizatriptan (Maxalt) 10 MG tablet Take 10 mg by mouth Once as needed. topiramate (Topamax) 25 MG tablet TAKE 1 TABLET BY MOUTH 1 TO 2 TIMES DAILY albuterol 108 (90 Base) MCG/ACT inhaler Inhale 2 puffs Once as needed for shortness of breath. No current facility-administered medications on file prior to visit. Patient Active Problem List Diagnosis Iron deficiency anemia due to chronic blood loss Menorrhagia with regular cycle Vitamin D deficiency Syncope, vasovagal Social History Socioeconomic History Marital status: Tobacco Use Smoking status: Never Smokeless tobacco: Never Tobacco comments: Never Substance and Sexual Activity Alcohol use: Yes Alcohol/week: 1.0 standard drink of alcohol Types: 1 Standard drinks or equivalent per week Drug use: No Sexual activity: Yes Partners: Male control/protection: Other Comment: Hysterectomy Past Surgical History: Procedure Laterality Date ABDOMINAL SURGERY 2013 & 2021 SECTION (HISTORICAL) SECTION, LOW TRANSVERSE 10/20/14 HYSTERECTOMY 05/24/22 Family History Problem Relation Name Age of Onset Substance Abuse Father Jaime Berumen Mental illness Father Jaime Berumen Thyroid disease Mother Leonora Sue Arthritis Mother Leonora Sue Arthritis Maternal Grandfather Chris Mason Cancer Maternal Grandfather Chris Mason Diabetes Maternal Grandfather Chris Mason Heart disease Maternal Grandfather Chris Mason Uterine cancer Neg Hx Colon cancer Neg Hx Breast cancer Neg Hx Ovarian cancer Neg Hx Objective BP 115/81 (BP Location: Right arm, Patient Position: Sitting, BP Cuff Size: Adult) Pulse 96 Temp 36.4 C (97.5 F) Ht 5' 4.5 (1.638 m) Wt 168 lb (76.2 kg) SpO2 98% BMI 28.39 kg/m Physical Exam Vitals reviewed. Constitutional: General: She is not in acute distress. Appearance: Normal appearance. She is not ill-appearing, toxic-appearing or diaphoretic. HENT: Right Ear: Tympanic membrane, ear canal and external ear normal. Tympanic membrane is not injected, scarred, perforated, erythematous, retracted or bulging. Left Ear: Tympanic membrane, ear canal and external ear normal. Tympanic membrane is not injected, scarred, perforated, erythematous, retracted or bulging. Nose: Congestion present. No rhinorrhea. Right Turbinates: Swollen. Left Turbinates: Swollen. Right Sinus: No maxillary sinus tenderness or frontal sinus tenderness. Left Sinus: No maxillary sinus tenderness or frontal sinus tenderness. Mouth/Throat: Mouth: Mucous membranes are moist. Pharynx: Oropharynx is clear. Uvula midline. Posterior oropharyngeal erythema (minimal) present. No pharyngeal swelling, oropharyngeal exudate or uvula swelling. Eyes: Conjunctiva/sclera: Conjunctivae normal. Cardiovascular: Rate and Rhythm: Normal rate and regular rhythm. Pulses: Normal pulses. Heart sounds: Normal heart sounds. No murmur heard. Pulmonary: Effort: Pulmonary effort is normal. No respiratory distress. Breath sounds: Normal breath sounds. No stridor. No decreased breath sounds, wheezing, rhonchi or rales. Musculoskeletal: Cervical back: Full passive range of motion without pain. Lymphadenopathy: Head: Right side of head: No submental, submandibular, tonsillar, preauricular, posterior auricular or occipital adenopathy. Left side of head: No submental, submandibular, tonsillar, preauricular, posterior auricular or occipital adenopathy. Skin: General: Skin is warm and dry. Capillary Refill: Capillary refill takes less than 2 seconds. Coloration: Skin is not pale. Findings: No rash. Neurological: Mental Status: She is alert and oriented to person, place, and time. Assessment: 1. Viral URI with cough 2. Laryngitis Plan: 1. Viral URI with cough - AMB POC COVID-19 COV 2. Laryngitis Results for orders placed or performed in visit on 06/01/23 AMB POC COVID-19 COV Result Value Ref Range POC SARS-CoV-2 Negative Negative Recommend throat lozenges along with salt water gargles. Patient was given information about laryngitis on her after visit summary. Treat symptoms as they come with [id number] medications as needed. Close follow-up with primary care provider There are no discontinued medications. Medication indications, directions, and side effects were discussed. Goals None No follow-ups on file. LAKSHMI Aquino NP 06/01/23 1:08 PM (Please note that portions of this note may have been completed with a voice recognition program. Efforts were made to edit the dictations but occasionally words are mis-transcribed.) documented in this encounter [facility] 03-18-2023 History of Presen t illness Narrative Images from the original note were not included. [facility] [address] [facility] [facility] [id number] Visit type: Established Patient Reason for Visit: Annual Exam Assessment and Plan Diagnoses and all orders for this visit: Well adult exam Screening for diabetes mellitus - Basic metabolic panel; Future - Hemoglobin A1c; Future Hypertriglyceridemia - Lipid panel; Future Hair loss UTD on immunizations. Encouraged avoidance of tobacco and alcohol, safe sexual practice. Healthy diet with plenty of fruits, vegetables, whole grains, and lean proteins. Exercise 3-5 times per week for 30-45 minutes. Wear seatbelts. Wear sunscreen. Reviewed age appropriate screening tests. Follow up in about 1 year (around 03/18/2024). Subjective HPI She is getting 7000 steps per day Had a hysterectomy in May She is on adipex and topamax through her tie tamper - has lost almost 50 lbs Also doing WW Has been having some hair loss Review of Systems Constitutional: Negative for appetite change, chills, fatigue and fever. HENT: Negative for congestion, ear pain, hearing loss, postnasal drip, sore throat and trouble swallowing. Eyes: Negative for discharge, itching and visual disturbance. Respiratory: Negative for cough, shortness of breath and wheezing. Cardiovascular: Negative for chest pain, palpitations and leg swelling. Gastrointestinal: Negative for abdominal pain, constipation, diarrhea, nausea and vomiting. Endocrine: Negative for cold intolerance, heat intolerance, polydipsia, polyphagia and polyuria. Genitourinary: Negative for difficulty urinating, frequency, urgency, vaginal bleeding, vaginal discharge and vaginal pain. Musculoskeletal: Negative for arthralgias, back pain, joint swelling and myalgias. Skin: Negative for color change, rash and wound. Neurological: Negative for dizziness, tremors, seizures, speech difficulty, weakness, numbness and headaches. Hematological: Negative for adenopathy. Does not bruise/bleed easily. Psychiatric/Behavioral: Negative for agitation, decreased concentration, dysphoric mood and sleep disturbance. The patient is not nervous/anxious. Allergies Allergen Reactions Wound Dressing Adhesive Rash Outpatient Medications Prior to Visit Medication Sig Dispense Refill albuterol 108 (90 Base) MCG/ACT inhaler Inhale 2 puffs Once as needed for shortness of breath. biotin 10 MG tablet Take by mouth. Multiple Vitamin (multivitamin) tablet Take 1 tablet by mouth daily. phentermine (Adipex-P) 37.5 MG tablet TAKE 37.5 MG BY MOUTH DAILY BMI 32.5 rizatriptan (Maxalt) 10 MG tablet Take 10 mg by mouth Once as needed. topiramate (Topamax) 25 MG tablet TAKE 1 TABLET BY MOUTH 1 TO 2 TIMES DAILY Cetirizine HCl 10 MG capsule Take 10 mg by mouth. escitalopram (Lexapro) 10 MG tablet Take 1 tablet by mouth daily. No facility-administered medications prior to visit. Past Medical History: Diagnosis Date 2018 novel coronavirus disease (COVID-19) 2019 & 2021 Allergic Teenager Anemia Anxiety Headache 17 years old IBS (irritable bowel syndrome) Irritable bowel syndrome 2021 Mitral valve prolapse 2013 & 2014 Syncope Varicella 1990s Social History Socioeconomic History Marital status: Tobacco Use Smoking status: Never Smokeless tobacco: Never Tobacco comments: Never Substance and Sexual Activity Alcohol use: Yes Alcohol/week: 1.0 standard drink of alcohol Types: 1 Standard drinks or equivalent per week Drug use: No Sexual activity: Yes Partners: Male control/protection: Other Comment: Hysterectomy Past Surgical History: Procedure Laterality Date ABDOMINAL SURGERY 2013 & 2021 SECTION (HISTORICAL) SECTION, LOW TRANSVERSE 10/20/14 HYSTERECTOMY 05/24/22 Past Surgical History: Procedure Laterality Date ABDOMINAL SURGERY 2013 & 2021 SECTION (HISTORICAL) SECTION, LOW TRANSVERSE 10/20/14 HYSTERECTOMY 05/24/22 Family History Problem Relation Name Age of Onset Substance Abuse Father Jaime Berumen Mental illness Father Jaime Berumen Thyroid disease Mother Leonora Sue Arthritis Mother Leonora Sue Arthritis Maternal Grandfather Chris Mason Cancer Maternal Grandfather Chris Mason Diabetes Maternal Grandfather Chris Mason Heart disease Maternal Grandfather Chris Mason Uterine cancer Neg Hx Colon cancer Neg Hx Breast cancer Neg Hx Ovarian cancer Neg Hx Objective BP 115/68 Pulse 84 Ht 5' 4.5 (1.638 m) Wt 167 lb (75.8 kg) SpO2 99% BMI 28.22 kg/m Physical Exam Vitals and nursing note reviewed. Constitutional: General: She is not in acute distress. Appearance: Normal appearance. She is not ill-appearing. HENT: Head: Normocephalic and atraumatic. Right Ear: Tympanic membrane, ear canal and external ear normal. Left Ear: Tympanic membrane, ear canal and external ear normal. Nose: Nose normal. Eyes: Extraocular Movements: Extraocular movements intact. Conjunctiva/sclera: Conjunctivae normal. Pupils: Pupils are equal, round, and reactive to light. Cardiovascular: Rate and Rhythm: Normal rate and regular rhythm. Heart sounds: No murmur heard. No friction rub. Pulmonary: Effort: Pulmonary effort is normal. No respiratory distress. Breath sounds: Normal breath sounds. No stridor. No wheezing, rhonchi or rales. Chest: Chest wall: No tenderness. Abdominal: General: Abdomen is flat. Bowel sounds are normal. There is no distension. Palpations: Abdomen is soft. There is no mass. Tenderness: There is no abdominal tenderness. There is no guarding or rebound. Hernia: No hernia is present. Musculoskeletal: General: Normal range of motion. Cervical back: Normal range of motion and neck supple. Right lower leg: No edema. Left lower leg: No edema. Skin: General: Skin is warm and dry. Neurological: General: No focal deficit present. Mental Status: She is alert and oriented to person, place, and time. Psychiatric: Mood and Affect: Mood normal. Behavior: Behavior normal. Thought Content: Thought content normal. Judgment: Judgment normal. Data Reviewed POCT: Labs: Imaging/Testing: Chart Clean Up: Medications Discontinued During This Encounter Medication Reason Cetirizine HCl 10 MG capsule Med list cleanup escitalopram (Lexapro) 10 MG tablet Med list cleanup Catherine Bran DO 03/18/2023 9:08 AM documented in this encounter [facility] 03-18-2023 Miscellaneous Notes Addended by: KAMI RAY on: 03/18/2023 09:25 AM Modules accepted: Orders documented in this encounter [facility] 03-18-2023 Note Addended by: KAMI MARINA on: 03/18/2023 09:25 AM Modules accepted: Orders [facility] 03-18-2023 Note Addended by: KAMI MARINA on: 03/18/2023 09:25 AM Modules accepted: Orders [facility] 09-11-2020 Note HNO ID: [id number] Author: Anival Calderon Service: ? 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 Otherwise, normal appearing pelvic ultrasound. Doing well with OCP. Menses was very light at end of first pack. Had a couple of AYOUB since starting Levora, but nothing that resembles her usual migraines. 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 Happy to continue with OCP. No pain with last menses. Obstetric History T1 L2 SAB0 TAB0 Ectopic0 Multiple0 Live Births0 OBJECTIVE ALLERGIES No Known Allergies Current Outpatient Medications Medication Sig - escitalopram oxalate (LEXAPRO) 20 mg tablet Take 20 mg by mouth once daily. - levonorgestrel-ethinyl estradiol (LEVORA-28) 0.15-0.03 mg per tab Take 1 tablet by mouth once daily. - ipratropium bromide (ATROVENT) 42 mcg (0.06 %) nasal spray Use 2 Sprays in the nose four times daily. - MULTIVITAMIN ORAL Take by mouth. - escitalopram oxalate (LEXAPRO) 10 mg tablet Take 10 mg by mouth once daily. No current facility-administered medications for this visit. Review of Systems Constitutional: Negative for fatigue and unintentional weight changes Gastrointestinal: Negative for diarrhea, bloody stool, nausea/vomiting and constipation Genitourinary: See HPI Medical, Surgical, Family and Social histories reviewed. Physical Exam BP 108/68 Ht 5' 4 (1.63m) Wt 197 lb (89.4kg) LMP 02/19/2020 BMI 33.80 kg/(m2). General: No Acute Distress, Well nourished, Well developed, No obvious deformities and Alert/Oriented x 3 Mood/Affect: Normal ASS/PLAN: - Menstrual normal on Levora - Monitor bleeding and if becomes abnormal, let me know - No migraines on Levora. Let me know if that changes MAD Total time in direct patient contact = 20 min. Greater than 50% of the time was spent in counseling and/or coordination of care. [facility] 08-24-2020 Note HNO ID: [id number] Author: Michaela Batres Service: ? Author Type: Physician Type: Progress Notes Filed: 08/24/2020 1:01 PM Note Text: Hematology/Oncology TeleVisit Renea Ford Ruth Ann 1990 Encounter Date: 08/24/2020 Patient name and date confirmed. Patient calling from home. Permission for telephone visit was obtained. Cancer Staging No matching staging information was found for the patient. HPI: Renea Berumen is a 30 year old woman with iron deficiency. Ms. Berumen reports that she has had issues with anemia. She is unable to tolerate oral iron secondary to nausea and constipation. She has no fevers, chills, night sweats, or weight loss. She has no chest pain or shortness of breath. She denies nausea, vomiting, diarrhea, constipation. She has heavy periods, which are somewhat improved with lysteda. She denies any family history of bleeding. She has no history of epistaxis, bleeding complications from surgery or child . Interval History Ms. Berumen presents today in follow up of her iron deficiency. She is back to feeling fatigued, craving red meat. Periods are occurring frequently and are quite heavy despite OCP use. She denies fevers, chills, night sweats. No ice pica. Denies restless leg. PAST MEDICAL HISTORY Diagnosis Date - Anemia - Anemia - Dysmenorrhea - Mitral valve prolapse - PMDD (premenstrual dysphoric disorder) PAST SURGICAL HISTORY Procedure Laterality Date - SECTION HX Current Outpatient Medications Medication Sig Dispense Refill - levonorgestrel-ethinyl estradiol (LEVORA-28) 0.15-0.03 mg per tab Take 1 tablet by mouth once daily. 3 Package 3 - ipratropium bromide (ATROVENT) 42 mcg (0.06 %) nasal spray Use 2 Sprays in the nose four times daily. 1 Bottle 0 - escitalopram oxalate (LEXAPRO) 10 mg tablet Take 10 mg by mouth once daily. - MULTIVITAMIN ORAL Take by mouth. No current facility-administered medications for this visit. ALLERGIES No Known Allergies FAMILY HISTORY Problem Relation Age of Onset - Arthritis Mother - other (Endometrosis) Mother Hysterectomy - Multiple Sclerosis Maternal Grandmother - other (ALS) Other MGGFA - Cancer Other Great Grandfather Social History Tobacco Use - Smoking status: Never Smoker - Smokeless tobacco: Never Used Substance Use Topics - Alcohol use: Yes Comment: Occasionally - Drug use: No Review of Systems: Negative except as noted in HPI Physical Exam: LMP 02/19/2020 ECOG PS: 0 Pain Intensity: 0/10 General: Age-appropriate well developed. Appears well. HEENT: Normocephalic, no sclera icterus, external ears normal, oral cavity clear. Neck: Supple Chest: Not labored. Psychiatric: Alert and oriented x3. Emotional well-being assessment was performed. Pt denies depression, distress, and or problems with coping or adjustment. I have performed the physical exam today (12/29/2019) and have edited the note to correlate with current findings. Lab Results Component Value Date WBC 8.58 08/24/2020 HB 13.9 08/24/2020 MCV 88.9 08/24/2020 PLT 359 08/24/2020 Lab Results Component Value Date NA 137 06/25/2016 K 3.4 (L) 06/25/2016 CO2 24 06/25/2016 BUN 8 06/25/2016 CREAT 0.62 06/25/2016 TBILI 0.6 06/25/2016 TPROT 8.4 (H) 06/25/2016 ALB 3.9 06/25/2016 ALKPHOS 99 06/25/2016 ALT 20 06/25/2016 AST 14 (L) 06/25/2016 Assessment and Plan: Ms. Berumen is a pleasant 28 year old woman with iron deficiency anemia. Iron deficiency anemia -Secondary to heavy menses -Unable to tolerate oral iron secondary to nausea, contipation. -S/p Injectafer x 2 09/2019. -Hgb 13.8, ferritin pending. Will repeat if ferritin <75 -Patient is symptomatic with fatigue and pica currently. Would be useful to decrease her menorrhagea. OCPs have been only moderately effective. She is considering hysterectomy, which may be useful in decreasing need for IV iron. -RTC 1 year with repeat CBC, ferritin q3 months Menorrhagia -No evidence of VWD I spent 8 minutes in direct conversation with the patient and >50% was in counseling and coordination of care. Michaela Batres MD [facility] 08-16-2020 Note HNO ID: [id number] Author: Anival Calderon Service: ? Author Type: Physician Type: Progress Notes Filed: 08/16/2020 5:58 PM Note Text: Renea is a 30 year old who presents for an annual gynecologic exam with complaints, issues with OCP. Was having migraines in February around the time of her menses. Her OCP was changed, and she then began to bleed for a solid 10 days. She is currently talking Levora and has not had any difficulties, but has not yet had a menses on Levora. C/O LLQ pain. She is inquiring about a hyst to stop her bleeding and eliminate the need for the OCP. She has a history of one C/S followed by a successful . Had a normal US in 10/04. Menses: cycles every 28 days and 7 days of flow. Contraception: combined hormonal contraceptives and condoms HPV vaccine: No Last Pap: 09/27/2010 normal HPV: N/A History of abnormal pap: No Last mammogram: never Sexually active: Yes Pain with intercourse: No Postcoital bleeding: No Hot flashes: No Night sweats: No Vaginal dryness: No Mood swings: No Insomnia: No Exercise: No Medical, Surgical, Family and Social histories reviewed. OB History T1 L2 SAB0 TAB0 Ectopic0 Multiple0 Live Births0 PAST MEDICAL HISTORY Diagnosis Date - Anemia - Anemia - Dysmenorrhea - Mitral valve prolapse - PMDD (premenstrual dysphoric disorder) PAST SURGICAL HISTORY Procedure Laterality Date - SECTION HX FAMILY HISTORY Problem Relation Age of Onset - Arthritis Mother - other (Endometrosis) Mother Hysterectomy - Multiple Sclerosis Maternal Grandmother - other (ALS) Other MGGFA - Cancer Other Great Grandfather SOCIAL HISTORY Social History Tobacco Use - Smoking status: Never Smoker - Smokeless tobacco: Never Used Substance Use Topics - Alcohol use: Yes Comment: Occasionally - Drug use: No REVIEW OF SYSTEMS Abdomen: No abdominal pain, nausea, vomiting, diarrhea, or constipation. No bloating, early satiety, indigestion, or increased flatulence. Bladder: No dysuria, gross hematuria, urinary frequency, urinary urgency, or incontinence. Breast: No breast lumps, nipple d/c, overlying skin changes, redness or skin retraction. Allergies and current medication updated:Yes EXAM: Wt 195 lb (88.5kg) LMP 02/19/2020 GENERAL: pleasant, female in no apparent distress HEENT: Normocephalic, atraumatic, mucus membranes moist and no lesions NECK: Supple, full range of motion, no adenopathy and thyroid normal DERMATOLOGY: Normal, without lesions, non-icteric and non-hirsute BREAST: soft, non-tender, symmetric, no dominant mass, normal nipple-areolar complex, no lymphadenopathy and no nipple discharge CHEST: Clear to auscultation, Normal inspiratory effort, Regular rate and rhythm and No murmurs, clicks, rubs or gallops ABDOMEN: Benign, soft, non-tender, no hernia, no masses, no hepatosplenomegaly and no lymphadenopathy PELVIC: external genitalia normal, normal Bartholin's glands, urethra, Cochiti's glands, no vulvar lesions, no cervical lesions, good vaginal support, physiologic discharge present, normal appearing perineal body and perianal region BIMANUAL: no adnexal masses, non-tender and enlarged uterus 8 week size RECTOVAGINAL: deferred. NEURO: alert and oriented x3,exam grossly non-focal EXTREMITIES: normal ASSESSMENT/PLAN: 1) Health maintenance: Pap done with HPV. Nutrition, exercise and routine health maintenance exams reviewed. Calcium/Vitamin D supplementation information provided. Get US to check for cause of LLQ pain. 2) Contraception: combined hormonal contraceptives. Contraceptive options reviewed and information provided. 3) STD screening: Declined STD check. 4) Follow up one year or sooner as needed Anival Calderon MD [facility] 04-05-2020 Note HNO ID: [id number] Author: Anival Calderon Service: ? Author Type: Physician Type: Progress Notes Filed: 04/05/2020 5:33 PM Note Text: Renea Vallecillo is a 30 year old female who presents with a chief complaint of Consult (ED f/u passed out from abd pain. Recently started new BC. Irreg bleeding ) SUBJECTIVE Was seen in ER for syncope in early March. All testing was wnl. Patient states that her menses has been much recreational director since starting the OCP. Feels good at this time. Obstetric History T1 L2 SAB0 TAB0 Ectopic0 Multiple0 Live Births0 OBJECTIVE ALLERGIES No Known Allergies Current Outpatient Medications Medication Sig - Drospirenone-Ethinyl Estradiol (BRINDA, 28,) 3-0.03 mg per tablet Take 1 tablet by mouth once daily. - escitalopram oxalate (LEXAPRO) 10 mg tablet Take 10 mg by mouth once daily. - MULTIVITAMIN ORAL Take by mouth. No current facility-administered medications for this visit. Review of Systems Constitutional: Negative for fatigue and unintentional weight changes Gastrointestinal: Negative for diarrhea, bloody stool, nausea/vomiting and constipation Genitourinary: See HPI Physical Exam BP 122/72 Wt 190 lb (86.2kg) LMP 02/19/2020 General: No Acute Distress, Well nourished, Well developed, No obvious deformities and Alert/Oriented x 3 Mood/Affect: Normal ASS/PLAN: - Syncope - no tie tamper cause. - Call with any issues. MAD Total time in direct patient contact = 15 min. Greater than 50% of the time was spent in counseling and/or coordination of care. [facility] documented in this encounter [facility] Work Phone: Evaluation note* Diagnosis Mixed hyperlipidemia Other fatigue Pain in other joint documented in this encounter [facility] Work Phone: Evaluation note* Diagnosis Screening for diabetes mellitus Screening, lipid Screening for lipoid disorders documented in this encounter [facility] Work Phone: Evaluation note* Diagnosis Well adult exam- Primary Routine general medical examination at a health care facility Screening for diabetes mellitus Hypertriglyceridemia Pure hyperglyceridemia Hair loss Unspecified alopecia [facility]* Diagnosis Viral URI with cough- Primary Laryngitis Acute laryngitis, without mention of obstruction documented in this encounter [facility] HealthInstructions* Attachments The following attachments cannot be sent through Care Everywhere. * [facility]Vincentian[facility] Purpose Family History No Family History Records FoundNo Family History Records FoundNo Family History Records FoundNo Family History Records FoundNo Family History Records Found Advance Directives No Advanced Directives Records FoundDocuments on File Type Date Recorded Patient Supervisor Cell Room Expl anation Advance Directives and Living Will Power of Floor Refinisher Documents on File Type Date Recorded Patient Supervisor Cell Room Expl anation ACP-Advance Directive ACP-Power of Floor Refinisher Assessments Diagnosis Screening, lipid Screening for lipoid disorders Screening for diabetes mellitus Diagnosis Vasovagal syncope Syncope and collapse Diagnosis Vasovagal syncope Syncope and collapse Other elevated white blood cell (WBC) count Discharge Instructions * Attachments The following attachments cannot be sent through Care Everywhere. * Vasovagal Syncope (Vincentian) documented in this encounter Additional Source Comments INFORMATION SOURCE (unrecogn ized section and content) DATE CREATED AUTHOR AUTHOR'S ORGANIZ ATION 09/11/2020 [facility] DATE CREATED AUTHOR AUTHOR'S ORGANIZ ATION 02/01/2021 [facility] DATE CREATED AUTHOR AUTHOR'S ORGANIZ ATION 03/20/2022 [facility] DATE CREATED AUTHOR AUTHOR'S ORGANIZ ATION 06/02/2023 [facility] Reason for Visit (unrecogniz ed section and content) Reason Comments Annual Exam Reason Comments URI Cough, congestion, l oss of voice, x3days Care Teams (unrecognized sec tion and content) Bedspring Assembler Relationship Specialty Start Date End Date Catherine Bran DO [address] [place] [address] PCP - General Internal Medicine 10/22/16 Bedspring Assembler Relationship Specialty Start Date End Date Catherine Bran DO [address] [place] [address] PCP - General 10/22/16 Bedspring Assembler Relationship Specialty Start Date End Date Catherine Bran DO [address] [place] [address] PCP - General 10/22/16 FOR RECORDS PERTAINING TO PATIENTS WHO ARE OR HAVE BEEN ENROLLED IN A CHEMICAL DEPENDENCY/SUBSTANCEABUSE PROGRAM, SOME INFORMATION MAY BE OMITTED. This clinical summary was aggregated from multiple sources. Caution should be exercised in using it in the provision of clinical care. This summary normalizes information from multiple sources, and as a consequence, information in this document may materially change the coding, format and clinical context of patient data. In addition, data may be omitted in some cases. CLINICAL DECISIONS SHOULD BE BASED ON THE PRIMARY CLINICAL RECORDS. [facility] [employer] [facility]. provides no warranty or guarantee of the accuracy or completeness of information in this document.
[2023-09-29 09:40] LABS: Vitamin D,25 Hydroxy 15.5 ng/mL
[2023-09-29 09:42] LABS: Hemoglobin A1c 5.2 % (3.8-5.6)
[2023-09-29 10:12] LABS: Cholesterol 175 mg/dL (200); High Density Lipoprotein 64 mg/dL; Thyroid Stim Hormone (TSH) 0.99 uIU/mL (0.358-3.74); Triglycerides 87 mg/dL; Very Low Density Lipoprotein 17 mg/dL (5-40)
== END | disposition home or self-care (01) ==
LOC: PAVLAB 08:45
PROVIDERS: PCP Family Medicine; Referring Provider Obstetrics & Gynecology; Visit Provider Obstetrics & Gynecology
DX: E78.1 Pure hyperglyceridemia (principal)
CPT/HCPCS: 36415; 80061; 82306; 83036; 84443

== ENCOUNTER → 2024-04-03 | Outpatient (CLI) | payer OTHER, SELFPAY ==
[2024-04-03 12:10] LABS: Anion Gap 6 (5-15); BUN 12 mg/dL (7-18); BUN/Creat Ratio 14.7 RATIO (10-20); Calcium,Total 8.7 mg/dL (8.5-10.1); Chloride 110 mmol/L (98-107); Creatinine, Serum 0.82 mg/dL (0.55-1.02); EST Glomerular Filtration Rate 85 mL/min (>60); Est Glom Filt Rate - Afr Amer 103 mL/min (>60); Glucose 96 mg/dL (74-106); Potassium 4.2 mmol/L (3.5-5.1); Sodium Level 138 mmol/L (136-145)
== END | disposition home or self-care (01) ==
LOC: LAB 11:39
PROVIDERS: PCP Family Medicine; Referring Provider Obstetrics & Gynecology; Visit Provider Obstetrics & Gynecology
DX: E78.1 Pure hyperglyceridemia (principal); E66.8 Other obesity
CPT/HCPCS: 36415; 80048

== ENCOUNTER → 2024-10-09 | Outpatient (CLI) | payer OTHER, SELFPAY ==
--- NOTE | 2024-10-09 10:10 | US_ITS ---
EXAM: Pelvic ultrasound CLINICAL HISTORY: Ovarian cyst COMPARISON: None available TECHNIQUE: Transabdominal and transvaginal scanning of the pelvis FINDINGS: Uterus surgically absent. Bilateral ovaries are identified with symmetric preserved vascular flow. There is a large primarily cystic mass within the right ovary with septations measuring 8.3 x 8.1 x 5.3 cm. With a similar appearing cystic structure in the left ovary measuring 2.0 x 1.3 x 1.5 cm. US/Pelvic w/ Transvaginal IMPRESSION: Bilateral cystic ovarian structures on the right measuring up to 8.3 cm, on the left measuring up to 2.0 cm. Consider surgical consultation for possible excision as deemed clinically necessary. Reading Location: [facility]
== END | disposition home or self-care (01) ==
LOC: US 10:08
PROVIDERS: PCP Family Medicine; Referring Provider Obstetrics & Gynecology; Visit Provider Obstetrics & Gynecology
DX: N83.299 Other ovarian cyst, unspecified side (principal)
CPT/HCPCS: 76830; 76856

== ENCOUNTER 2024-10-26 12:35 | Day surgery (SDC) | payer OTHER, SELFPAY ==
--- NOTE | 2024-10-19 09:43 | PAT.ANE_ITS ---
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 When Was Last Pacemaker Check QUESTION #4 FULL TEXT: You/Your Family Experience fever (hyperthermia) with Anesthesia Last Oral Intake Last Oral intake: Last Oral Intake NPO since Meds taken in AM with sips of water? 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 engineer Female Yes 10/18/24 15:38 HX of Motion Sickness No 10/18/24 15:38 HX of N/V After Surgery No 10/18/24 15:38 Non-Smoker Yes 10/18/24 15:38 Duration of Surgery greater Yes 10/18/24 15:38 than 60 minutes Number of Risk Factors 3 10/18/24 15:38 PONV Score Moderate Risk 10/18/24 15:38 Height & Weight Height & Weight: Anesthesia: Height & Weight Height 5 ft 6 in 05/31/24 13:54 Respiratory Assessment Respiratory Assessment - electrical products sales engineer: Respiratory Tract Infection Hx - electrical products sales engineer Hx Respiratory Tract Infection No 10/18/24 15:38 STOP Sleep Apnea STOP Sleep Apnea - electrical products sales engineer: STOP Sleep Apnea - electrical products sales engineer Hx Hypertension No 10/18/24 15:38 Hx Sleep Apnea No 10/18/24 15:38 CPAP BIPAP Do you snore loudly (louder No 10/18/24 15:38 than talking or can be heard Do you often feel tired/ No 10/18/24 15:38 fatigued/ sleepy during daytime? Has anyone observed you stop No 10/18/24 15:38 breathing during sleep? STOP Results Negative 10/18/24 15:38 QUESTION #5 FULL TEXT : Do you snore loudly (louder than talking or can be heard through closed doors)? 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 Specify any problems Hx of Preganancy in last 3 No 10/18/24 15:38 Months Nurse Filling Out Transfusion MGRIFFITH 10/18/24 15:38 & Questions: Date: 10/18/24 10/18/24 15:38 Time: 15:40 10/18/24 15:38 Patient unable to answer at this time (ie. confused, unrespo /Reproduction History /Reproductive History - electrical products sales engineer: /Reproductive Hx- electrical products sales engineer Hx Now No 10/18/24 15:38 Gestational Age (in weeks): EDC: Hx Hx Para Hx Section SAB No 10/18/24 15:38 PFSH Medical History Wears contact lenses Wears glasses Alcohol use High cholesterol Low iron Easy bruising Injury of head and neck Migraine headache Syncope History of IBS Cardiology follow-up encounter Non-smoker History of echocardiogram Abnormal uterine bleeding Mitral valve prolapse Anxiety History of endometrial biopsy Home Medications ?Medication ?Instructions ?Recorded ?Last Taken ?Type cetirizine 10 mg capsule (Zyrtec) 10 mg PO DAILY PRN S EASONAL 04/18/22 Unknown History ALLERGIES rizatriptan 10 mg tablet 10 mg PO DAILY PRN MIGRAINES 05/17/22 Unknown History nystatin 100,000 unit/gram topical 1 applic topical TI D PRN YEAST 03/29/24 Unknown History powder (Nystop) INFECTION Allergy/AdvReac Type Severity Reaction Status Date / Time adhesive tape Allergy Mild Rash Verified 10/18/24 16:04 Family History Grandfather Diabetes Heart disease Mother Thyroid disorder Surgical History S/P laparoscopic assisted vaginal hysterectomy (LAVH) History of wisdom tooth extraction delivery delivered Social History Smoking Status: Never smoker details: social substance use type: does not use what type of physical activity do you participate in: walking seatbelt use: always do you feel safe at home: Yes additional social history: [employer] patient works for [employer] Audit: Pertinent Findings Pertinent Findings EKG Perinent findings: May 24, 2022. Sinus rhythm at 66 bpm. October 07, 2021. Sinus rhythm. Echo (EF%) pertinent findings: November 14, 2016. Ejection fraction 67%. Right ventricular systolic pressure is 11 mmHg. Consult pertinent findings: September 25, 2021. 1. Vasovagal syncope-blood pressure is controlled. Very infrequent symptoms at this point. Only 1 episode in the past year. She knows to staying well-hydrated and wear thigh-high compression hose. Continue conservative management. Recommendation Anesthesia Recommendation Anesthesia recommendation: OPTIMIZED for anesthesia
[2024-10-26] VITALS (9 sets, daily range): BP systolic 105–122; BP diastolic 71–95; PULSE 76–94; RESP 16–18; TEMP 36.6–36.8; O2SAT 96–100; BMI 29.5
--- NOTE | 2024-10-26 12:58 | PCM.HP.BLA ---
History and Physical Date of Admission: 10/26/24 Intake Vital Signs 05/31/2413:54 10/19/2515:03 10/19/2515:07 Height 5 ft 6 in 5 ft 6 in 5 ft 6 in Weight: 172 lb 171 lb 4 oz BMI 27.7 27.6 BP 121/80 H 120/82 H Intake Visit Reasons: US follow up surgical consult Crate Liner Required: No Is patient in pain?: No (has pain on and off, sporadic) Allergies adhesive tape Allergy (Mild, Verified 10/18/24 16:04) Rash Medications ?Medication ?Instructions ?Recorded ?Confirmed ?Type cetirizine 10 mg capsule (Zyrtec) 10 mg PO DAILY PRN SEASONAL 04/18/22 10/18/24 History ALLERGIES rizatriptan 10 mg tablet 10 mg PO DAILY PRN MIGRAINES 05/17/22 10/18/24 History nystatin 100,000 unit/gram topical 1 applic topical TID PRN YEAST 03/29/24 10/18/24 History powder (Nystop) INFECTION Post menopausal: No Patient : No : No PFSH Medical History Wears contact lenses Wears glasses Alcohol use High cholesterol Low iron Easy bruising Injury of head and neck Migraine headache Syncope History of IBS Cardiology follow-up encounter Non-smoker History of echocardiogram Abnormal uterine bleeding Mitral valve prolapse Anxiety History of endometrial biopsy Surgical History S/P laparoscopic assisted vaginal hysterectomy (LAVH) History of wisdom tooth extraction delivery delivered Family History Grandfather Diabetes Heart diseaseMother Thyroid disorder Social History Smoking Status: Never smoker details: social substance use type: does not use what type of physical activity do you participate in: walking seatbelt use: always do you feel safe at home: Yes additional social history: [employer] top patient works for [employer] US follow up surgical consult Details: RENEA WHITMORE is a 34 year old who presents for intermittent lower pelvic pain increasing over the last several months. Patient has had a complex ovarian cyst that is increased in size over the last 2 months and has not resolved. She is not acutely having pain today but it does come and go. Good blood flow was seen. She has a history of a hysterectomy. She denies any fevers abnormal discharge or vaginal bleeding. She denies any nausea vomiting or bowel complaints. History Past Pregnancies Del. Date Name GA/Weeks Outcome Route Bth Weight [facility] - full term Unknown 2014 Westyn live - full term ROS Const Constitutional: Denies fatigue, weight gain or weight loss ENT ENT: Reports system reviewed and no additional complaints, except as documented Cardio Card: Denies chest pain Resp Resp: Denies cough or dyspnea GI GI: Reports as per HPI; Denies constipation, nausea or vomiting : Reports as per HPI; Denies nipple discharge, vaginal discharge, vaginal dryness, vaginal odor or vaginal pruritus Musc Musc: Denies arthralgias, back pain or muscle weakness Skin Skin/Breast: Denies alopecia, change in hair, dry skin, breast mass, breast pain, breast skin changes or nipple discharge Neuro Neuro: Reports system reviewed and no additional complaints, except as documented Psych Psych: Reports system reviewed and no additional complaints, except as documented Endo Endo: Denies cold intolerance, excessive sweating, heat intolerance or polydipsia Satnam/Lymph Hematologic/Lymphatic: Denies easy bleeding, Denies easy bruising and Denies lymphadenopathy Exam Const General: cooperative, healthy appearing, comfortable, no acute distress and well developed Orientation: alert [facility] Head: normal to inspection and normocephalic Ears: hearing grossly normal bilaterally and external ears normal Nose: external nose normal and nares normal Face and sinus: normal facial exam Neck Neck: normal visual inspection and no lymphadenopathy Thyroid: thyroid normal Chest Chest palpation & inspection: normal inspection of the chest Resp Effort & Inspection: normal respiratory effort Auscultation: clear to auscultation bilaterally Cardio Rate: regular rate Rhythm: regular rhythm Heart Sounds: S1 normal and S2 normal GI Inspection: normal to inspection and non-distended Palpation: soft and no hepatosplenomegaly Musc Other: gross motor intact no deficits, full bilateral strength Skin General: no rashes or lesions noted Neuro General: patient alert, patient awake, moves all extremities and no focal motor deficits Motor: muscle tone normal throughout Extrem General: normal to inspection and no pedal edema Psych Appearance: grossly normal Mental Status: mental status grossly normal Affect: normal affect Speech and Movement: speech and movement normal Coding Level of Care Code Off vis,est,level 4 Diagnoses Complex ovarian cyst N83.299 Assessment and Plan Assessment and Plan (1) Complex ovarian cyst: Status: Acute Comment: now 8 cm recommend proceeding wtih laparoscopic ovarian cystectomy possible oophorectomy Plan After discussing the patient's diagnosis and treatment plan options, patient wishes to proceed with surgical management. I have discussed with the patient the risks, benefits, and alternatives of the procedure which include but are not limited to risks of anesthesia, bleeding, infection, possible damage to bowel, bladder, or surrounding vasculature which could lead to additional surgery to evaluate any complications. Patient agrees to procedure and wishes to proceed. ACOG/uptodate references given for additional information regarding procedure. UPDATE- I have seen the patient and performed any clinically relevant updates to the history and physical exam. Angela Pressley MD
[2024-10-26] MEDS: 0.9% Normal Saline (1000mL) 1,000 ML 15 ML IV (13:07)
[2024-10-26 13:17] LABS: Hematocrit 41.5 % (37-47); Hemoglobin 13.9 g/dL (12.0-15.0); Mean Corp Hgb Conc 33.5 g/dL (32-36); Mean Corpuscular Hgb 28.5 pg (27.0-32.0); Mean Platelet Vol. 8.7 fl (6.2-12.0); Platelet Count 304 K/mm3 (150-450); RBC Distribution Width CV 12.6 % (11.6-14.6); RBC Distribution Width SD 38.5 fl (35.1-43.9); Red Blood Count 4.88 M/mm3 (4.2-5.4); White Blood Count 8.7 K/mm3 (4.4-11.0)
--- NOTE | 2024-10-26 14:07 | PRE.ANES_ITS ---
ASA Classification* ASA Classification ASA Classification: 2 Assessment & Plan Anesthesia* Anesthesia Assessment Anesthesia Assessment: Discussed sedation and/or anesthesia options, risks, benefits, and alternatives with patient/parents/legal guardian/POA. Questions invited. The patient/parents/legal guardian/POA seems to understand and agrees to proceed with anesthesia plan. Reviewed the physical assessment, medical history, allergy history and patient home medications list prior to surgery/procedure/anesthetic and documented any changes. Performed airway and anesthesia risk assessments. Anesthesia Type Anesthesia Type: General History Source History Obtained from:: Patient and Chart Anesthesia Focused Assessment* Temperature: 97.8 F Pulse Rate: 76 Blood Pressure: 112/95 Respiratory Rate: 18 Pulse Ox: 100 Oxygen Delivery Method: Room Air Airway Assessment Mouth opens: >3 cm Mallampati Score: II Teeth Condition: Chipped/Broken (Patient has a broken tooth #10 on top. And a broken molar on the right lower jaw.) Neck Range of motion (ROM): Full ROM Focused Labs Anesthesia Preop lab: CBC WBC 8.7 K/mm3 (4.4-11.0) 10/26/24 13:00 10/26/24 RBC 4.88 M/mm3 (4.2-5.4) 10/26/24 13:00 10/26/24 Hgb 13.9 g/dL (12.0-15.0) 10/26/24 13:00 10/26/24 Hct 41.5 % (37-47) 10/26/24 13:00 10/26/24 Plt Count 304 K/mm3 (150-450) 10/26/24 13:00 10/26/24 CHEMISTRY Potassium 4.2 mmol/L (3.5-5.1) 04/03/24 11:41 04/03/24 Sodium 138 mmol/L (136-145) 04/03/24 11:41 04/03/24 Magnesium 1.8 mg/dL (1.6-2.6) 05/18/22 09:11 05/18/22 BUN 12 mg/dL (7-18) 04/03/24 11:41 04/03/24 Creatinine 0.82 mg/dL (0.55-1.02) 04/03/24 11:41 04/03/24 Glucose 96 mg/dL (74-106) 04/03/24 11:41 04/03/24 POC Glucose 89 mg/dL (74-106) 05/24/22 06:07 05/24/22 TSH 0.99 uIU/mL (0.358-3.74) 09/29/23 08:55 COAG PT 12.7 SECONDS (11.7-14.9) 05/18/22 09:11 Urine Test Negative Negative 05/24/22 05:55 05/24/22 Pre-Assessment Diagnosis/Proposed Procedure Planned Operative Procedure(s): (R) Laparoscopic, Ovarian Cystectomy Anesthesia History 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 When Was Last Pacemaker Check QUESTION #4 FULL TEXT: You/Your Family Experience fever (hyperthermia) with Anesthesia Last Oral Intake Last Oral intake: Last Oral Intake NPO since 08:30 10/26/24 13:01 Meds taken in AM with sips of No 10/26/24 13:01 water? Meds patient instructed to take am of surgery Any additional information?: Yes NPO since: 08:30 (Patient had Gatorade 8:30 AM.) PONV PONV - engineering production worker: PONV - engineering production worker Female Yes 10/18/24 15:38 HX of Motion Sickness No 10/18/24 15:38 HX of N/V After Surgery No 10/18/24 15:38 Non-Smoker Yes 10/18/24 15:38 Duration of Surgery greater Yes 10/18/24 15:38 than 60 minutes Number of Risk Factors 3 10/18/24 15:38 PONV Score Moderate Risk 10/18/24 15:38 Height & Weight Height & Weight: Anesthesia: Height & Weight Height 5 ft 4 in 10/26/24 13:01 Weight: 78 kg 10/26/24 13:01 Body Mass Index (BMI) 29.5 10/26/24 13:01 Respiratory Assessment Respiratory Assessment - engineering production worker: Respiratory Tract Infection Hx - engineering production worker Hx Respiratory Tract Infection No 10/18/24 15:38 STOP Sleep Apnea STOP Sleep Apnea - engineering production worker: STOP Sleep Apnea - engineering production worker Hx Hypertension No 10/18/24 15:38 Hx Sleep Apnea No 10/18/24 15:38 CPAP BIPAP Do you snore loudly (louder No 10/18/24 15:38 than talking or can be heard Do you often feel tired/ No 10/18/24 15:38 fatigued/ sleepy during daytime? Has anyone observed you stop No 10/18/24 15:38 breathing during sleep? STOP Results Negative 10/18/24 15:38 QUESTION #5 FULL TEXT : Do you snore loudly (louder than talking or can be heard through closed doors)? Tobacco Use History Tobacco Use History - engineering production worker: Tobacco Use History - engineering production worker Tobacco Use Smoking Status Never smoker 10/18/24 15:38 Hx Tobacco Use No 10/18/24 15:38 Years Smoking Packs Smoked per Day Smoking Cessation Date was within the last 15 years Hx Smoking Cessation Date Hx Smoking Cessation Counseling Hematologic Medial History Hematologic Hx - engineering production worker: Hematologic Medical Hx - resolution specialist Hx of Blood Transfusion No 10/18/24 15:38 Hx of Transfusion in last 3 No 10/18/24 15:38 Months Date of Last Transfusion (if within last 3 months) Ever experience any problems No 10/18/24 15:38 with transfusion(s)? Specify any problems Hx of Preganancy in last 3 No 10/18/24 15:38 Months Nurse Filling Out Transfusion MGRIFFITH 10/18/24 15:38 & Questions: Date: 10/18/24 10/18/24 15:38 Time: 15:40 10/18/24 15:38 Patient unable to answer at this time (ie. confused, unrespo /Reproduction History /Reproductive History - engineering production worker: /Reproductive Hx- engineering production worker Hx Now No 10/18/24 15:38 Gestational Age (in weeks): EDC: Hx Hx Para Hx Section SAB No 10/18/24 16:07 Active Medications Active Medications: Current Medications Generic Name Dose Route Start Last Admin Trade Name Freq PRN Reason Stop Dose Admin Sodium Chloride 1,000 mls @ 15 mls/hr 10/26/24 12:50 10/26/24 13:07 IV 15 mls/hr .Q48H TERESA Administration PFSH Medical History Wears contact lenses Wears glasses Alcohol use High cholesterol Low iron Easy bruising Injury of head and neck Migraine headache Syncope History of IBS Cardiology follow-up encounter Non-smoker History of echocardiogram Abnormal uterine bleeding Mitral valve prolapse Anxiety History of endometrial biopsy Home Medications ?Medication ?Instructions ?Recorded ?Last Taken ?Type cetirizine 10 mg capsule (Zyrtec) 10 mg PO DAILY PRN S EASONAL 04/18/22 Unknown History ALLERGIES rizatriptan 10 mg tablet 10 mg PO DAILY PRN MIGRAINES 05/17/22 Unknown History nystatin 100,000 unit/gram topical 1 applic topical TI D PRN YEAST 03/29/24 Unknown History powder (Nystop) INFECTION Allergy/AdvReac Type Severity Reaction Status Date / Time adhesive tape Allergy Mild Rash Verified 10/26/24 12:55 Family History Grandfather Diabetes Heart disease Mother Thyroid disorder Surgical History S/P laparoscopic assisted vaginal hysterectomy (LAVH) History of wisdom tooth extraction delivery delivered Social History Smoking Status: Never smoker details: social substance use type: does not use what type of physical activity do you participate in: walking seatbelt use: always do you feel safe at home: Yes additional social history: [employer] patient works for [employer] Review of Systems (Anesthesia) ROS Narrative System reviewed and no additional complaints, except as documented.
--- NOTE | 2024-10-26 14:10 | OV_PTH ---
PATIENT: RENEA WHITMORE LOC: [facility] [place] U#:[id number] AGE/SX: 34/F ROOM: RE10/26/[address]: Dr. Angela Pressley MD : 1990 BED: DIS: 10/26/2024 SPEC #: [id number] RECD: 10/27/24 07:13 STATUS: CASTILLO FELICITAS #: [id number] CHERYL: 10/26/24 14:[address]: Angela Pressley DEPT: SURGICAL PATHOLOGY RECD BY: Zachary Regan ENTERED: 10/27/24 08:54 SP TYPE: OVARY OTHR DR: GHADA DIXON DO Tissues: A - CYST Procedures: Immunohistochemical Stains Surgery Specimen Level III HEADER OPERATION: Laparoscopic, ovarian cystectomy PRE-OP DIAGNOSIS: Complex ovarian cyst TISSUE SUBMITTED: A- Right ovarian cyst wall MICROSCOPIC DIAGNOSIS A. Right ovary, complex ovarian cyst, cystectomy: * Cyst with bland epithelium surrounded by CD10+ stroma with abundant hemosiderin. * The findings are consistent with endometriotic cyst. MICROSCOPIC DESCRIPTION Slides are reviewed. All matched controls reacted appropriately. These tests were developed and their performance characteristics determined by [facility]. They may not have been cleared or approved by the [place]. Food and Drug Administration. The FDA has determined that such clearance or approval is not necessary. The above immunohistochemical/dualISH markers are ordered and reviewed by the Pathologist. GROSS DESCRIPTION A. Received in formalin in a container labeled with the patient's name, date of , and right ovarian cyst wall is a 14.4 g, unoriented and previously disrupted fragment of rubbery soft tissue measuring 5.0 x 3.0 x 2.4 cm. One aspect is white-wall, smooth and glistening (inked black) and the opposing surface is roughened with adherent red-brown hemorrhagic material. Serial sections reveal coyle-pink rubbery surfaces with an average thickness of 0.7 cm. No firm or papillary areas are identified. Fruit Packer Face And Fill sections are submitted in A1-3 (5 sections submitted; 1 section per centimeter in greatest dimension). [facility] 10-27-2024 CPT:39009, 68747
[2024-10-26] MEDS: Bupivacaine 0.25% 30 ML Vial (16:40)
--- NOTE | 2024-10-26 16:45 | OP.PCM_ITS ---
Problems Associated Problem List Diagnoses (1) Complex ovarian cyst: (2) BMI 26.0-26.9,adult: (3) Hypertriglyceridemia: (4) Other obesity: Operative Report (Standard) Operative Information Date of Procedure: 10/26/24 RN Documented Start/Stop Times: Operation Date: 10/26/24 14:10 Case Time Into Pre-Op 10/26/24 12:43 Out of Pre-Op 10/26/24 15:13 Anesthesia Start 10/26/24 15:21 Into Room 10/26/24 15:21 Procedure Start 10/26/24 15:42
--- NOTE | 2024-10-26 16:45 | PCM.OPRPT ---
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: Yes Manager Physical: Bijal Francis Tasks completed by first aid nurse: Opening & closing, Altering tissue and Insert Trochanter Additional department assistant?: No Type of Anesthesia: General RN Documented Start/Stop Times: Operation Date: 10/26/24 14:10 Case Time Into Pre-Op 10/26/24 12:43 Out of Pre-Op 10/26/24 15:13 Anesthesia Start 10/26/24 15:21 Into Room 10/26/24 15:21 Procedure Start 10/26/24 15:42 Procedure End 10/26/24 16:51 Anesthesia End 10/26/24 17:04 Out of Room 10/26/24 17:04 Into Recovery 10/26/24 17:07 Out of Recovery 10/26/24 17:46 Into Phase II Recovery 10/26/24 17:48 Out of Phase II 10/26/24 19:02 Procedure Start Time: 15:42 Procedure Stop Time: 16:51 Select all DRAINS/GRAFTS/IMPLANTS that apply: None Estimated Blood Loss: 50 Specimen collected: Yes Description of specimen(s) removed: right ovarian cyst wall Description of surgery: Patient was taken in the operating room and was placed under general anesthesia was prepped and draped in normal sterile fashion in the dorsal lithotomy position. Bladder was drained of clear urine and SCDs were on preoperatively. sponge stick placed in the vagina. Attention was then paid to the abdominal portion of the procedure and the umbilicus was elevated with towel clamps and injected with Marcaine and after a 5 mm incision was made and the Veress needle was entered into the abdomen confirmed to be intra-abdominal with a low opening pressure of less than 5 mmHg. Abdomen was insufflated with CO2 gas and a 5 mm optical trocar was placed under direct visualization. Left and right lower quadrant 5 mm ports were placed under direct visualization. Bilateral ovaries were inspected and the right ovary was noted to be significantly enlarged and encompassed with a large cyst. The left ovary was noted to be within normal limits. Sigmoid colon adhesions to the left pelvic sidewall were seen and taken down with the LigaSure device. Using monopolar energy the right ovary was opened and what was thought to be an endometrioma was encountered with chocolate cyst fluid erupting from the cyst contents. This was copiously irrigated and it was attempted to remove the cyst wall but there was no clear demarcation between the layers. Therefore part of the ovary was removed using the LigaSure device with remaining healthy ovary left in situ. Cauterization of any possible remaining cyst wall on the ovary was treated to reduce the risk of recurrence. Hemostasis was obtained by electrocautery and then Surgiflo hemostatic product. Hemostasis was noted. No other abnormalities were seen. An additional suprapubic trocar site was placed to obtain adequate visualization and manipulation during surgery. The umbilical site had been enlarged to a 12 mm trocar site to aid in surgical technique. The umbilical site was closed with an 0 Vicryl stitch in the fascia using a Tim Rodriguez.. Excellent hemostasis was noted in the pelvis. Liver and upper abdomen were visualized notably within normal limits and no other gross abnormalities were seen in the abdomen. All instruments removed from the abdomen after gas was desufflated. Port sites were closed with 3-0 Monocryl Steri's and op sites were applied. All instruments removed from the vagina and patient was awoken and taken recovery in stable condition. Surgical Findings: right ovarian endometrioma, left sigmoid colon adhesions. Complications Complications: No
--- NOTE | 2024-10-26 16:50 | DCINST_ITS ---
Discharge Instructions Diet Discharge Diet: No restrictions DC O2, CPAP, BIPAP needs Home O2 Discharge instructions: No Dressing / Incision Discharge Activity: Return to Normal Activity, May Not Drive ( while taking narcotic pain meds, when pain free), May Shower and May Take a Tub Bath (in 7 days) May resume sexual activity in: 1 week Weight Bearing Status: Full weight bearing Dressing / Incision Call your doctor if your incision/area has: Continuous Slow Oozing, Sudden Increased Bleeding, Increased Pain/ Swelling, Increased Redness and Foul Smelling Discharge Call your doctor if you observe: Fever of 101 or Higher, Using more than 1 pad per hour, Shortness of breath, Chest pain and Uncontrolled pain Suture Line Care: Avoid Pulling/Pushing and Avoid Pinching/Bending Remove Dressing in: 1 week (if present) Cleanse incision/area with: Soap & Water and Keep Dressing Clean & Dry Follow Up Care When: Call to make an appointment with your doctor for a fu/incision check in 1- 2 weeks. Test Results: Test results from this visit will be discussed in further detail at your follow- up appointment, if applicable. Discharge Plan Admission Attending Provider: Angela Pressley Primary Care Provider: GHADA DIXON Instructions Print Language: Bulgarian Discharge Orders/Prescriptions Prescriptions: New oxycodone-acetaminophen [Percocet] 5-325 mg tablet 1 tab PO Q4H PRN (Reason: pain) 7 Days Qty: 20 0RF naproxen 500 mg tablet 500 mg PO BID PRN PRN (Reason: Pain) Qty: 30 1RF No Action Zyrtec 10 mg capsule 10 mg PO DAILY PRN (Reason: SEASONAL ALLERGIES) nystatin [Nystop] 100,000 unit/gram powder 1 applic topical TID PRN (Reason: YEAST INFECTION) rizatriptan 10 mg tablet 10 mg PO DAILY PRN (Reason: MIGRAINES) Patient Comments: TAKE 1 TABLET BY MOUTH ONCE NEEDED FOR MIGRAINE MAY REPEAT IN 2 HOURS IF NEEDED Referrals / Follow Up: GHADA DIXON DO [Primary Care Provider] - Disposition Disposition (needs filled in before D/C Order can be placed): Home, Self Care
--- NOTE | 2024-10-26 17:13 | PCM.POST.ANE ---
Anesthesia: Postop Eval I Current Vital Signs Temperature: 98.1 F Pulse Rate: 89 Blood Pressure: 122/79 Respiratory Rate: 16 Pulse Ox: 96 Oxygen Delivery Method: Room Air Assessment Airway patent: Yes Spontaneous unlabored respirations: Yes Mental status: Asleep (Arousable) nausea: No Vomiting: No Anesthesia Complication: No Fluid Hydration Crystalloid volume administer (ml): 1,000 Total IV fluid infused: 1,000 Progress Note Anesthesia document: Postop Eval 1 completed: Yes
[2024-10-26] MEDS: HYDROcodone Bitartrate/Apap 5/325 Tablet PO (18:02)
--- NOTE | 2024-10-26 20:35 | PCM.POSTANE2 ---
Anesthesia Postop Eval I Sum Postop Eval Completion status Anesthesia document: Postop Eval 1 completed: Yes Anesthesia Postop Eval I Summary Anesthesia Postop Eval I Summary: Anesthesia Postop Eval I: Assessment Summary Airway patent Yes 10/26/24 17:14 Spontaneous unlabored Yes 10/26/24 17:14 respirations Mental status Asleep - Arousable 10/26/24 17:14 nausea No 10/26/24 17:14 Vomiting No 10/26/24 17:14 Anesthesia Postop Eval I: Fluid Summary Crystalloid volume administer 1,000 10/26/24 17:14 (ml) Colloids volume administered ( ml) Blood Product volume administered (ml) Total IV fluid infused 1,000 10/26/24 17:14 Anesthesia Postop Eval I: Summary Notes Anesthesia Complication No 10/26/24 17:14 Anesthesia Complication Comment: Post-operative progress note Anesthesia: Postop Eval II Evaluation Mental status: Awake and Calm Pain Level: 1 nausea: No Vomiting: No Complications Anesthesia Complication: No
== END 2024-10-26 19:03 | disposition home or self-care (01) ==
LOC: SDC 12:36 → AC 12:38
PROVIDERS: PCP Family Medicine; Referring Provider Obstetrics & Gynecology; Visit Provider Obstetrics & Gynecology
PROC: (CPT 58720; principal; 2024-10-26 13:55)
DX: N80.101 Endometriosis of right ovary, unspecified depth (principal); N73.6 Female pelvic peritoneal adhesions (postinfective); E78.1 Pure hyperglyceridemia; E66.89 Other obesity not elsewhere classified; Z68.26 Body mass index [BMI] 26.0-26.9, adult; Z90.710 Acquired absence of both cervix and uterus
CPT/HCPCS: 58662; 00840; 85027; 86850; 86900; 86901; 88304; 88342; J2405

== ENCOUNTER → 2025-04-12 | Outpatient (CLI) | payer OTHER, SELFPAY ==
--- NOTE | 2025-04-12 16:14 | US_ITS ---
PROCEDURE: PELVIC W/ TRANSVAGINAL 04/12/2025 REASON FOR EXAM: PELVIC PAIN TECHNIQUE: Procedure Code: [id number] Modality: US Procedure: PELVIC W/ TRANSVAGINAL COMPARISON: 10/09/2024 FINDINGS: Uterus is surgically removed. Right ovary measures 4 x 2 x 1.8 cm. Normal vasculature is noted within the right ovary. Left ovary measures 6.1 x 2 5 x 3.9 cm. Normal vascular flow is noted within the left ovary. The left ovary contains 2 complex cystic masses measuring 3.8 x 3.8 x 2.9 cm and 3.6 x 4.4 x 3.1 cm. The latter complex cystic lesion is more solid component. There is mild fluid within the cul-de-sac. Distended urinary bladder. US/Pelvic w/ Transvaginal IMPRESSION: Complex cystic masses with solid components within the left ovary as above. No ovarian torsion. CT/MR may be warranted to assess for neoplastic process. Reading Location: [id number]
== END | disposition home or self-care (01) ==
PROVIDERS: PCP Family Medicine; Referring Provider Nurse Practitioner Women's Health; Visit Provider Nurse Practitioner Women's Health
DX: R10.2 Pelvic and perineal pain (principal)
CPT/HCPCS: 76830; 76856

== ENCOUNTER → 2025-04-13 | Outpatient (CLI) | payer OTHER, SELFPAY ==
--- OUTSIDE RECORDS SUMMARY | 2025-04-13 18:57 | XMS RPT_ITS | CCD ---
Author Organization [facility] Care Team Providers Care Reaming Machine Tender Name Role Phone DESTINY Quevedo, CATHERINE Ford Unavailable Unavail able DESTINY D.Bulmaro, CATHERINE M Unavailable Unavail able DESTINY Snow.Bulmaro, CATHERINE M Unavailable Unavail able Catherine Dixon Primary Care Provider Catherine Dixon DO Primary Care Provider Catherine Dixon DO Primary Care Provider Catherine Dixon DO Primary Care Provider [phone] Dr. Angela Pressley Attending Provider Dr. Angela Pressley Referring Provider Dr. Angela Pressley Other Provider DO CATHERINE DIXON Primary Care Provider DO CATHERINE DIXON Primary Care Provider DO CATHERINE DIXON Referring Provider Dr. Angela Pressley Attending Provider Mark MOTOR DRIVER, DARIA-Abdullahi Miranda Attending Provider DO CATHERINE DIXON Primary Care Provider DO CATHERINE DIXON Referring Provider Dr. Angela Pressley Attending Provider Catherine Dixon DO Primary Care Provider Catherine Dixon DO Primary Care Provider DO CATHERINE DIXON Primary Care Provider DO CATHERINE DIXON Referring Provider Dr. Angela Pressley Attending Provider Dixon DO, Catherine M Primary Care Provider [phone] Teresa Bates Unavailable Katty Hernandez Unavailable Dixon DO, Catherine M Primary Care Provider [phone] DIXON, CATHERINE M Primary Care Unavailable DIXON DO, CATHERINE Primary Care Provider [phone] Wendie MORALEZ, Dr. Miller Attending Provider [phone] Wendie MORALEZ, Dr. Miller Referring Provider DIXON DO, CATHERINE Referring Provider Wendie MORALEZ, Dr. Miller Other Provider [phone] Henry MOTOR DRIVER-C, Eliana Attending Provider [phone] Unavailable Primary Care Provider Unavailabl e DIXON, CATHERINE Primary Care Unavailable OSKVAREK, MANUEL Attending Unavailable DIXON, CATHERINE Attending Unavailable DIXON, CATHERINE Primary Care Unavailable OSKVAREK, MANUEL Referring Unavailable DIXON, CATHERINE Primary Care Unavailable OSKVAREK, MANUEL Referring Unavailable DIXON, CATHERINE Primary Care Unavailable DIXON, CATHERINE Attending Unavailable DIXON, CATHERINE Referring Unavailable DIXON, CATHERINE Primary Care Unavailable DIXON, CATHERINE Primary Care Unavailable MarcanthonyAngela Attending Unavailable Marcanthony Angela Referring Unavailable DIXON, CATHERINE Primary Care Unavailable MarcanthonyAngela Attending Unavailable Marcanthony Angela Referring Unavailable Marcanthony Angela Attending Unavailable DIXON, CATHERINE Referring Unavailable DIXON, CATHERINE Primary Care Unavailable DIXON, CATHERINE Referring Unavailable DIXON, CATHERINE Primary Care Unavailable Eliana Figueroa Attending Unavailable DIXON, CATHERINE Primary Care Unavailable DIXON, CATHERINE Referring Unavailable BarkEliana landry Attending Unavailable DIXON, CATHERINE Primary Care Unavailable DIXON, CATHERINE Referring Unavailable MarcanthonyAngela Attending Unavailable Marcanthony Angela Attending Unavailable DIXON, CATHERINE Referring Unavailable DIXON, CATHERINE Primary Care Unavailable DIXON, CATHERINE Primary Care Unavailable [place] MOTOR DRIVER, Ruth Attending Unavailable Mark MOTOR DRIVER, Ruth Referring Unavailable RichardonyAngela Attending Unavailable DIXON, CATHERINE Referring Unavailable DIXON, CATHERINE Primary Care Unavailable Marcanthony, Angela Attending Unavailable DIXON, CATHERINE Primary Care Unavailable Marcanthony, Angela Referring Unavailable Satishanthony Angela Consulting Unavailable DIXON, CATHERINE Primary Care Unavailable DIXON, CATHERINE Referring Unavailable Angela Pressley Attending Unavailable Allergies Allergy Classification Reported Allergen(s) Allergy Type Date of Onset Reaction(s) Facility (9 sources) Adhesive Tape; Translations: [adhesive tape] Allergy to substance 2 [facility] (17 sources) Wound Dressing Adhesive Propensity to adverse reactions 3 [facility] (1 source) 2-octyl cyanoacrylate Allergy to substance 5 [facility] Comment on above: Dermabond allergy (4 sources) Cyanoacrylate Allergy to substance 5 [facility] (1 source) 2-octyl cyanoacrylate Drug allergy (disorder) 5 [facility] Repository Medications Current Medications Medication Drug Class(es) Dates Sig (Normalized) Sig (Original) [id number] actuat albuterol 0.09 mg/actuat metered dose inhaler (20 sources) beta2-Adrenergic Agonist Start: 03-22-2025 take 2 puff(s) by inhalation every four hours albuterol 90 mcg/actuation inhaler Inhale 2 puffs every 4 hours if needed. 03/22/2025 Active Start: 03-18-2024 End: 03-22-2025 take 2 puff(s) by inhalation once as needed albuterol 108 (90 Base) MCG/ACT inhaler Inhale 2 puffs Once as needed for shortness of breath. 18 g 3 03/22/2025 Active Start: 10-15-2021 End: 03-18-2024 take 2 puff(s) by inhalation once as needed albuterol 108 (90 Base) MCG/ACT inhaler Inhale 2 puffs Once as needed for shortness of breath. 10/15/2021 03/18/2024 Discontinued (Reorder) Start: 10-15-2021 take 2 puff(s) by in halation every six hours as needed albuterol 108 (90 Base) MCG/ACT inhaler Inhale 2 puffs every 6 hours as needed. 0 10/15/2021 Active Start: 05-04-2020 take 2 puff(s) by in halation every six hours as needed for wheezing albuterol sulfate HFA (PROAIR HFA) 108 (90 Base) MCG/ACT inhaler Indications: Exposure to SARS-associated coronavirus Inhale 2 puffs into the lungs every 6 hours as needed for Wheezing 1 Inhaler 3 05/04/2020 Active azithromycin 500 mg oral tablet (1 source) Macrolide Antimicrobial Start: 09-25-2022 End: 09-30-2022 take 1 tablet by mouth once daily azithromycin (Zithromax) 500 MG tablet Indications: Sore throat , Strep throat Take 1 tablet (500 mg) by mouth daily for 5 days. 5 tablet 0 09/25/2022 09/30/2022 Active brompheniramine maleate 0.4 mg/ml / dextromethorphan hydrobromide 2 mg/ml / pseudoephedrine hydrochloride 6 mg/ml oral solution (1 source) alpha-Adrenergic Agonist, Uncompetitive D-vauflf-G-aspartate Receptor Antagonist, Sigma-1 Agonist Start: 08-01-2024 take 5 mL by mouth four times daily as needed Brompheniramine-Pse udoeph-DM (BROMFED DM) 2-30-10 mg/5 mL syrup Indications: Viral URI with cough , Otalgia of both ears Take 5 mL by mouth four times a day as needed. 118 mL 08/01/2024 Active cephalexin 500 mg oral capsule (2 sources) Cephalosporin Antibacterial Start: 03-02-2024 End: 03-09-2024 cephalexin (Keflex) 500 MG capsule Indications: Cellulitis of right upper extremity Take 1 capsule (500 mg) by mouth in the morning and 1 capsule (500 mg) at noon and 1 capsule (500 mg) in the evening and 1 capsule (500 mg) before bedtime. Do all this for 7 days. 28 capsule 03/02/2024 03/09/2024 Active cetirizine hydrochloride 10 mg oral capsule (20 sources) Histamine-1 Receptor Antagonist Start: 04-18-2022 End: 03-18-2023 Cetirizine HCl 10 MG capsule Take 10 mg by mouth. 04/18/2022 Active cyclobenzaprine hydrochloride 10 mg oral tablet (1 source) Muscle Relaxant Start: 04-08-2025 End: 04-18-2025 take 0.5 tablet by mouth three times daily as needed for muscle spasms cyclobenzaprine (Flexeril) 10 mg tablet Indications: Muscle strain Take 0.5 tablets (5 mg) by mouth 3 times a day as needed for muscle spasms for up to 10 days. 20 tablet 04/08/2025 04/18/2025 Active desonide 0.5 mg/ml topical cream (1 source) Corticosteroid Start: 02-28-2021 desonide (DESOWEN) 0.05 % cream Apply topically 2 times daily. 1 Tube 0 02/28/2021 Active dicyclomine hydrochloride 20 mg oral tablet (2 sources) Anticholinergic Start: 04-09-2021 take 1 tablet by mouth four times daily dicyclomine (BENTYL) 20 MG tablet Indications: Other irritable bowel syndrome TAKE 1 TABLET BY MOUTH 4 TIMES DAILY 120 tablet 5 04/09/2021 Active Start: 03-15-2021 take 1 tablet by deep th four times daily dicyclomine (BENTYL) 20 MG tablet Indications: Other irritable bowel syndrome Take 1 tablet by mouth 4 times daily 120 tablet 3 03/15/2021 Active drospirenone 3 mg / ethinyl estradiol 0.03 mg oral tablet (2 sources) Progestin, Estrogen Start: 04-13-2020 take 1 tablet by mouth once daily drospirenone-ethinyl estradiol 3-0.03 MG TABS TAKE 1 TABLET BY MOUTH EVERY DAY 0 04/13/2020 Active Start: 02-23-2020 End: 03-24-2020 take 1 tablet by mouth once daily drospirenone-ethinyl estradiol 3-0.03 MG TABS Take 1 tablet by mouth daily 0 02/23/2020 03/24/2020 Discontinued (LIST CLEANUP) Ethinyl Estradiol / Ferrous fumarate / Norethindrone (3 sources) Estrogen Start: 09-21-2019 take 1 tablet by mouth once daily Norethin Zaheer-Eth Estrad-FE (MINASTRIN 24 FE) 1-20 MG-MCG(24) CHEW Take 1 tablet by mouth daily 0 09/21/2019 Active Ethinyl Estradiol / Levonorgestrel (1 source) Progestin, Estrogen, Progestin-containing Intrauterine Device Start: 08-16-2020 take 1 tablet by mouth once daily levonorgestrel-eth inyl estradiol (LEVORA-28) 0.15-0.03 mg per tab Indications: Encounter for surveillance of contraceptive pills Take 1 tablet by mouth once daily. 3 Package 3 08/16/2020 Active fluticasone propionate 0.05 mg/actuat metered dose nasal spray (5 sources) Corticosteroid Start: 08-31-2019 End: 03-12-2020 fluticasone (FLONASE) 50 MCG/ACT nasal spray Indications: Non-seasonal allergic rhinitis, unspecified trigger 1 spray by Nasal route daily 1 Bottle 5 02/11/2020 Active ibuprofen 800 mg oral tablet (6 sources) Nonsteroidal Anti-inflammatory Drug Start: 04-08-2025 End: 04-18-2025 take 1 tablet by mouth every eight hours for pain ibuprofen 800 mg tablet Indications: Muscle strain Take 1 tablet (800 mg) by mouth every 8 hours if needed for mild pain (1 - 3) for up to 10 days. 30 tablet 04/08/2025 04/18/2025 Active Start: 05-07-2019 take 1 tablet by deep th every six hours as needed for pain ibuprofen (ADVIL;MOTRIN) 600 MG tablet TAKE 1 TABLET BY MOUTH EVERY 6 HOURS NEEDED FOR PAIN 0 05/07/2019 Active ipratropium bromide 0.042 mg/actuat metered dose nasal spray (1 source) Anticholinergic Start: 05-03-2020 ipratropium bromide (ATROVENT) 42 mcg (0.06 %) nasal spray Indications: Sinus congestion Use 2 Sprays in the nose four times daily. 1 Bottle 05/03/2020 Active ketotifen 0.25 mg/ml ophthalmic solution (5 sources) Histamine-1 Receptor Inhibitor Start: 03-06-2020 [facility] ITCH [facility]IE[facility] 0.025 % ophthalmic solution Indications: Non-seasonal allergic rhinitis, unspecified trigger PLACE 1 DROP INTO BOTH EYES 2 TIMES DAILY FOR 10 DAYS 5 mL 3 03/06/2020 Active lactase 3000 unt oral tablet (5 sources) Start: 03-22-2025 End: 03-22-2026 take 1 tablet by mouth three times daily at mealtime lactase (Lactaid) 3000 units tablet Take 1 tablet (3,000 Units) by mouth 3 times daily (with meals). 90 tablet 03/22/2025 03/22/2026 Active loratadine 10 mg oral tablet (8 sources) Start: 08-31-2019 take 1 tablet by mouth once daily loratadine (CLARITIN) 10 MG tablet Indications: Non-seasonal allergic rhinitis, unspecified trigger Take 1 tablet by mouth daily 30 tablet 5 02/11/2020 Active Multiple Vitamin (multivitamin) tablet (16 sources) take 1 tablet by mouth once daily Multiple Vitamin (multivitamin) tablet Take 1 tablet by mouth daily. Active take 1 tablet by mouth once jessica y Multiple Vitamin (multivitamin) tablet Take 1 tablet by mouth daily. 0 Active MULTIVITAMIN ORAL (1 source) MULTIVITAMIN ORA L Take by mouth. Active naproxen 500 mg oral tablet (10 sources) Nonsteroidal Anti-inflammatory Drug Start: End: take 1 tablet by mouth twice daily naproxen (Naprosyn) 500 mg tablet Take 500 mg by mouth 2 times daily (morning and late afternoon). 10/26/2024 Active Start: 05-24-2022 End: 03-03-2023 take 1 tablet by mouth twice daily as needed for pain Naproxen 500 mg tablet Discontinued 500 mg PO TWICE DAILY NEEDED as needed for Pain May 24, 2022 12:00am March 03, 2023 9:43am nystatin 100 unt/mg topical powder (10 sources) Polyene Antifungal Start: 05-24-2022 End: 03-29-2024 Nystatin (Nystop) 100,000 unit/gram powder Active 1 NMA TOPICAL THREE TIMES A DAY as needed for YEAST INFECTION March 29, 2024 10:16am Start: 05-24-2022 Nystatin (Nyst op) 100,000 unit/gram powder Active 1 APPLIC TOPICAL THREE TIMES A DAY May 24, 2022 12:00am predniSONE 10 mg oral tablet (1 source) Start: 08-01-2024 End: 08-10-2024 take 3 tablets by mouth once daily, then take 2 tablets by mouth once daily, then take 1 tablet by mouth once daily predniSONE (DELTASONE) 10 mg tablet Indications: Viral URI with cough , Otalgia of both ears Take 3 tablets by mouth once daily for 3 days, THEN 2 tablets once daily for 3 days, THEN 1 tablet once daily for 3 days. 18 tablet 08/01/2024 08/10/2024 Active rizatriptan 10 mg oral tablet (20 sources) Serotonin-1b and Serotonin-1d Receptor Agonist Start: 10-15-2021 End: 03-22-2025 take 1 tablet by mouth once as needed rizatriptan (Maxalt) 10 MG tablet Take 1 tablet (10 mg) by mouth Once as needed for migraine. 9 tablet 3 03/22/2025 Active triamcinolone acetonide 1 mg/ml topical cream (1 source) Corticosteroid Start: 03-15-2021 triamcinolone (KENALOG) 0.1 % cream Indications: Poison saige Apply topically 2 times daily. 45 g 0 03/15/2021 Active Completed/Discontinued Medications Medication Drug Class(es) Dates Sig (Normalized) Sig (Original) acetaminophen 325 mg oral capsule (6 sources) Start: 06-06-2022 End: 03-03-2023 take 1 capsule by mouth once as needed Acetaminophen (Tylenol) 325 mg capsule Discontinued 325 mg PO ONCE as needed June 06, 2022 1:00am March 03, 2023 9:43am acetaminophen 325 mg / oxyCODONE hydrochloride 5 mg oral tablet (15 sources) Opioid Agonist Start: 10-26-2024 End: 11-02-2024 Oxycodone-Acetamino phen (Percocet) 5-325 mg tablet Discontinued 1 {tbl} PO Q4H as needed for pain 06 02October 26, 2024 November 02, 2024 2:05pm Start: 04-28-2024 End: 04-28-2024 Oxycodone-Acetaminophen (Per cocet) 5-325 mg tablet Discontinued 1 {tbl} PO EVERY 6 HOURS 04 26April 28, 2024 May 04, 2024 12:00am April 28, 2024 10:57am Start: 04-28-2024 End: 05-05-2024 Oxycodone-Acetaminophen (Per cocet) 5-325 mg tablet Discontinued 1 {tbl} PO EVERY 6 HOURS 04 26April 28, 2024 May 04, 2024 12:00am May 05, 2024 12:08am Start: 04-28-2024 End: 05-05-2024 Oxycodone-Acetaminophen (Per cocet) 5-325 mg tablet Discontinued 1 {tbl} PO EVERY 6 HOURS 04 26April 28, 2024 May 04, 2024 12:00am May 05, 2024 12:08am Start: 05-24-2022 End: 06-06-2022 Oxycodone-Acetaminophen (Per cocet) 5-325 mg tablet Discontinued 1 {tbl} PO EVERY 6 HOURS as needed for pain 20 May 24, 2022 June 06, 2022 11:48am biotin 10 mg oral tablet (13 sources) End: 03-22-2025 biotin 10 MG tablet Take by mouth. 03/22/2025 Discontinued (Med list cleanup) escitalopram 10 mg oral tablet (11 sources) Serotonin Reuptake Inhibitor Start: 08-26-2020 take 1 tablet by mouth once daily escitalopram (LEXAPRO) 20 MG tablet Indications: Anxiety TAKE 1 TABLET BY MOUTH EVERY DAY 30 tablet 3 12/25/2020 Active Start: 10-28-2019 End: 03-18-2023 take 1 tablet by mouth once daily escitalopram (Lexapro) 10 MG tablet Take 1 tablet by mouth daily. 0 10/15/2021 03/18/2023 Discontinued (Med list cleanup) 1 ml ketorolac tromethamine 15 mg/ml cartridge (2 sources) Nonsteroidal Anti-inflammatory Drug, Cyclooxygenase Inhibitor Start: 04-28-2024 End: 04-28-2024 15 mg, IntraVENous, Once, On Fri04/28/24 at 0800, For 1 dose nitrofurantoin, macrocrystals 25 mg / nitrofurantoin, monohydrate 75 mg oral capsule (7 sources) Nitrofuran Antibacterial Start: 03-24-2024 End: 05-31-2024 take 1 capsule by mouth twice daily at mealtime Nitrofurantoin Monohyd/M-Cryst (Macrobid) 100 mg capsule Discontinued 100 mg PO TWICE A DAY March 29, 2024 12:00am May 31, 2024 3:08pm must administer with a meal/food phentermine hydrochloride 37.5 mg oral tablet (20 sources) Sympathomimetic Amine Anorectic Start: 12-02-2023 End: 10-18-2024 Phentermine (Adipex-P) 37.5 mg tablet Discontinued 18.75 mg PO daily February 18, 2024 12:50pm March 29, 2024 10:54am current BMI 26 original BMI 42 at beginning of therapy. Start: 11-11-2022 End: 12-02-2023 Phentermine (Adipex-P) 37.5 mg tablet Discontinued 18.75 mg PO daily December 01, 2023 10:33am December 02, 2023 7:52am BMI 26 Start: 07-23-2022 End: 03-22-2025 phentermine (Adipex-P) 37.5 MG tablet TAKE 37.5 MG BY MOUTH DAILY BMI 32.5 09/18/2022 03/22/2025 Discontinued (Med list cleanup) topiramate 25 mg oral tablet (20 sources) Start: 09-18-2022 End: 03-22-2025 topiramate (Topamax) 25 MG t ablet TAKE 1 TABLET BY MOUTH 1 TO 2 TIMES DAILY 09/18/2022 03/22/2025 Discontinued (Med list cleanup) Start: 07-23-2022 End: 10-18-2024 take 1-2 tablets by mouth once daily Topiramate (Topamax) 25 mg tablet Discontinued 25 mg PO TWICE A DAY 60 February 18, 2024 12:51pm October 18, 2024 4:04pm 1-2 x daily. NEGATED: Highlighted row has not occurred! (4 sources) Start: 03-29-2024 End: 03-29-2024 Start: 03-26-2024 End: 03-26-2024 Problems Active Problems Problem Classification Problem Date Documented Date Episodic/Chronic Abdominal pain (5 sources) Right flank pain; Translations: [Unspecified abdominal pain] Onset: 04-28-2024 04-28-2024 Episodic Conditions associated with dizziness or vertigo (1 source) Vertigo; Translations: [Dizziness and giddiness] 03-18-2024 Episodic Deficiency and other anemia (2 sources) Iron deficiency anemia secondary to blood loss (chronic); Translations: [Iron deficiency anemia secondary to blood loss (chronic)] Onset: 03-28-2017 Chronic Deficiency and other anemia (20 sources) Iron deficiency anemia due to blood [...] (WBC) count] Chronic Disorders of lipid metabolism (17 sources) Mixed hyperlipidemia; Translations: [Mixed hyperlipidemia] Chronic Comment on above: weight loss achieved - 23% lost. 10/10 repeat labs WNL Endometriosis (1 source) Endometriosis (clinical); Translations: [Endometriosis, unspecified] 11-05-2024 Chronic Comment on above: right ovarian endome trioma Immunizations and screening for infectious disease (1 source) Viral screening status; Translations: [Encounter for screening for other viral diseases] Episodic Malaise and fatigue (1 source) Fatigue; Translations: [Other fatigue] Episodic Menstrual disorders (20 sources) Menorrhagia; Translations: [Excessive and frequent menstruation with regular cycle] Onset: 12-20-2011 Resolved: 11-06-2012 11-05-2016 Chronic Nutritional deficiencies (20 sources) Vitamin D deficiency; Translations: [Vitamin D deficiency, unspecified] Onset: 11-05-2016 11-05-2016 Chronic Other ear and sense organ disorders (1 source) Bilateral earache; Translations: [Otalgia, bilateral] 08-01-2024 Episodic Other female genital disorders (8 sources) Abnormal uterine bleeding; Translations: [Abnormal uterine and vaginal bleeding, unspecified] 05-28-2022 Chronic Comment on above: suspect adenomyosis. failed nuvaring not an ablation candidate. nl cbc tsh, US, EMB. plan LAVHBS. Other female genital disorders (3 sources) Abnormal uterine and vaginal bleeding, unspecified; Translations: [Unspecified disorders of menstruation and other abnormal bleeding from female genital tract] Chronic Other female genital disorders (2 sources) Cyst of uterine adnexa; Translations: [Unspecified condition associated with female genital organs and menstrual cycle] 04-28-2024 Episodic Other injuries and conditions due to external causes (1 source) Muscle strain; Translations: [Other injury of unspecified body region, initial encounter] 04-08-2025 Episodic Other nervous system disorders (2 sources) Other chronic pain; Translations: [Other chronic pain] Onset: 03-22-2025 Chronic Other non-traumatic joint disorders (1 source) Joint pain; Translations: [Pain in other joint] Episodic Other non-traumatic joint disorders (5 sources) Pain in left knee; Translations: [Pain in joint, lower leg] Onset: 03-22-2025 03-22-2025 Episodic Other nutritional; endocrine; and metabolic disorders (9 sources) Obesity; Translations: [Other obesity] 10-14-2022 Chronic Comment on above: Nutrition plan: [employer] nutritional plan. Medication plan: increased to full tab phentermine, 25-50 mg topamax BID. control- hystBehavior intervention: recommend daily journal of food intake with electronic methodsExercise plan: increase daily steps and NEAT activity, 30 min 3x weekly, add resistance training [facility]. Medication plan: previously on phent/topiramate. did okay with this. Would like to try without medication. control- hystBehavior intervention: recommend daily journal of food intake with electronic methodsExercise plan: increase daily steps and NEAT activity, 30 min 3x weekly, add resistance training Other nutritional; endocrine; and metabolic disorders (12 sources) Body mass index 30+ - obesity; Translations: [Body mass index (BMI) 30.0-30.9, adult] 10-14-2022 Chronic Other nutritional; endocrine; and metabolic disorders (8 sources) Other obesity; Translations: [Obesity, unspecified] 06-28-2022 Chronic Other nutritional; endocrine; and metabolic disorders (1 source) Body mass index (BMI) 32.0-32.9, adult; Translations: [Body Mass Index 32.0-32.9, adult] 08-20-2022 Chronic Other nutritional; endocrine; and metabolic disorders (3 sources) Body mass index (BMI) 30.0-30.9, adult; Translations: [Body Mass Index 30.0-30.9, adult] 10-14-2022 Chronic Other nutritional; endocrine; and metabolic disorders (1 source) Obese class I; Translations: [Obesity, Class I, BMI 30-34.9] Onset: 09-16-2018 09-16-2018 Chronic Other nutritional; endocrine; and metabolic disorders (1 source) Weight gain; Translations: [Abnormal weight gain] Episodic Other nutritional; endocrine; and metabolic disorders (7 sources) Overweight in adulthood with body mass index of 25 or more but less than 30; Translations: [Body mass index (BMI) 26.0-26.9, adult] 06-30-2023 Episodic Comment on above: - 216 07/23/21s/p 23 % weight reduction with nutritional and medication intervention recommendations. discussed weight maintenance. repeat labs next visit - 216 07/23/21; 168 lb. s/p 23% weight reduction with nutritional and medication intervention recommendations. discussed weight maintenance. Pursuing 5% weight loss over the course of 3 months. Other nutritional; endocrine; and metabolic disorders (2 sources) Body mass index (BMI) 26.0-26.9, adult; Translations: [Body Mass Index 26.0-26.9, adult] 06-30-2023 Episodic Other screening for suspected conditions (not mental disorders or infectious disease) (13 sources) Patient encounter status; Translations: [Encounter for screening for lipoid disorders] Onset: 03-22-2025 Episodic Other skin disorders (2 sources) Loss of hair; Translations: [Nonscarring hair loss, unspecified] 03-18-2023 Episodic Other upper respiratory infections (5 sources) Laryngitis; Translations: [Acute laryngitis] 06-01-2023 Episodic Residual codes; unclassified (7 sources) History of vaginal hysterectomy; Translations: [Acquired absence of both cervix and uterus] 05-28-2022 Episodic Unclassified (2 sources) Patient encounter status; Translations: [Screening, lipid] Past or Other Problems Problem Classification Problem Date Documented Date Episodic/Chronic Deficiency and other anemia (1 source) Iron deficiency anemia; Translations: [Iron deficiency anemia, unspecified] Onset: 11-08-2019 11-08-2019 Episodic E Codes: Adverse effects of medical drugs (4 sources) Iron adverse reaction; Translations: [Adverse effect of iron and its compounds, initial encounter] Onset: 09-25-2018 09-25-2018 Episodic Nutritional deficiencies (1 source) Iron deficiency; Translations: [Iron deficiency] Onset: 09-25-2018 09-25-2018 Episodic Other female genital disorders (2 sources) Unspecified condition associated with female genital organs and menstrual cycle; Translations: [Unspecified condition associated with female genital organs and menstrual cycle] Onset: 04-28-2024 Episodic Ovarian cyst (10 sources) Complex ovarian cyst; Translations: [Other ovarian cyst, unspecified side] Onset: 10-15-2024 04-29-2024 Episodic Comment on above: 6-7 cm repeat US In 6-8 weeks torsion precautions reviewed, percocet given. now 8 cm recommend p roceeding wtih laparoscopic ovarian cystectomy possible oophorectomy Poisoning by nonmedicinal substances (14 sources) Insect sting; Translations: [Toxic effect of venom of other arthropod, accidental (unintentional), initial encounter] Onset: 03-02-2024 03-02-2024 Episodic Skin and subcutaneous tissue infections (14 sources) Cellulitis of right upper limb; Translations: [Cellulitis of right upper limb] Onset: 03-02-2024 03-02-2024 Episodic Syncope (20 sources) Syncope; Translations: [Vasovagal syncope] Onset: 11-05-2016 11-05-2016 Episodic Urinary tract infections (8 sources) Urinary tract infection, site not specified; Translations: [Urinary tract infection, site not specified] Onset: 03-24-2024 Episodic Viral infection (1 source) Herpesvirus infection; Translations: [Herpesviral gingivostomatitis and pharyngotonsillitis] Onset: 12-31-2015 09-15-2018 Episodic Results Test Name Value Interpretation Reference Range Facility 36on 04-08-2025 36 Noted Normal [facility] 36 S Patient calling friday A patient calling with mid back pain. Worse towards the left but having pain on the right as well. Rates pain on average 7-8/10 Advil, takes the edge off. Trouble walking. No bowel or bladder issues R Nothing in pcps. Offered pod appt today but unable to make the time offered. Patient will monitor and may go to C. Advised ED if symptoms worsen and become severe. Advised to call back if follow up care is needed. Thank you. Reason for Disposition MODERATE back pain (e.g., interferes with normal activities) and present > 3 days Protocols used: Back [id number] Normal [facility] Office Visiton 03-22-2025 Follow-up visit [id number] Ashley Vallecillo 1990 F Date Provider Department Center 03/22/2025 [id number] DIXON [facility] Family History Problem Relation Age of Onset Substance Abuse Father Mental illness Father Thyroid disease Mother Arthritis Mother Arthritis Maternal Grandfather Cancer Maternal Grandfather Diabetes Maternal Grandfather Heart disease Maternal Grandfather Uterine cancer Neg Hx Colon cancer Neg Hx Breast cancer Neg Hx Ovarian cancer Neg Hx Alcohol abuse Father Diabetes Maternal Grandmother Immunodeficiency Son Autoimmune disease Son Family Status - Relation Status Age at Father Alive Mother Alive Maternal Grandfather Neg Hx Maternal Grandmother Alive Son Alive Level of Service:41300 HI PERIODIC PREVENTIVE MED EST PATIENT 18-39 YRS (25) Reason for Visit and Comments: Annual Exam [83] Normal [facility] Progress Noteon 03-22-2025 Progress Note [facility] [address] [facility] [id number] Visit type: Established Patient Reason for Visit: Annual Exam Assessment and Plan Assessment & Plan Well adult exam UTD on immunizations. Encouraged avoidance of tobacco and alcohol, safe sexual practice. Healthy diet with plenty of fruits, vegetables, whole grains, and lean proteins. Exercise 3-5 times per week for 30-45 minutes. Wear seatbelts. Wear sunscreen. Reviewed age appropriate screening tests. Screening, lipid Orders: Lipid panel; Future Screening for diabetes mellitus Orders: Hemoglobin A1c; Future Basic metabolic panel; Future Chronic pain of left knee Exercises given. Check xray. Naprosyn and tylenol prn Orders: XR knee 3 views left; Future Follow up in about 1 year (around 03/22/2026). Subjective HPI L knee is bothering her - can be painful when squatting No significant injury Not really swelling Making noise when moving knee She is walking regularly Review of Systems Constitutional: Negative for appetite [...] bleeding, vaginal discharge and vaginal pain. Musculoskeletal: Positive for arthralgias. Negative for back pain, joint swelling and myalgias. Skin: Negative for color change, rash and wound. Neurological: Negative for dizziness, tremors, seizures, speech difficulty, weakness, numbness and headaches. Hematological: Negative for adenopathy. Does not bruise/bleed easily. Psychiatric/Behavioral: Negative for agitation, decreased concentration, dysphoric mood and sleep disturbance. The patient is not nervous/anxious. Allergies[1] Current Medications[2] Medical History[3] Social History[4] Surgical History[5] Surgical History[6] Family History[7] Objective BP 101/70 Pulse 64 Temp 36.7 ?C (98 ?F) Ht 5' 4 (1.626 m) Wt 167 lb (75.8 kg) SpO2 98% BMI 28.67 kg/m? Physical Exam Vitals and nursing note reviewed. Constitutional: General: She is not in acute distress. Appearance: Normal appearance. She is not ill-appearing. HENT: Head: Normocephalic and atraumatic. Right Ear: Tympanic membrane, ear canal and external ear normal. Left Ear: Tympanic membrane, ear canal and external ear normal. Nose: Nose normal. Mouth/Throat: Mouth: Mucous membranes are dry. Eyes: Extraocular Movements: Extraocular movements intact. Conjunctiva/sclera: [...] Medications Discontinued During This Encounter Medication Reason phentermine (Adipex-P) 37.5 MG tablet Med list cleanup biotin 10 MG tablet Med list cleanup topiramate (Topamax) 25 MG tablet Med list cleanup rizatriptan (Maxalt) 10 MG tablet Reorder albuterol 108 (90 Base) MCG/ACT inhaler Reorder Catherine Dixon DO 03/22/2025 8:29 AM [1] Allergies Allergen Reactions Cyanoacrylate Rash Wound Dressing Adhesive Rash [2] Current Outpatient Medications: Cetirizine HCl 10 MG capsule, Take 10 mg by mouth., Disp: , Rfl: Multiple Vitamin (multivitamin) tablet, Take 1 tablet by mouth daily., Disp: , Rfl: albuterol 108 (90 Base) MCG/ACT inhaler, Inhale 2 puffs Once as needed for shortness of breath., (more content not included)... Normal [facility] Film Writer Office Visit Reporton 12-08-2024 Film Writer Office Visit Report [facility] [address], [address] [place] [address] OFFICE VISIT Date of Service: 12/08/24 MR#: [id number] Acct: [id number] Name: RENEA VALLECILLO Rep #: [id number] : 1990 Provider: EVGENY Moreno Age/Sex: 34/F [place] [facility] [place] Signed Intake Vital Signs 11/05/24 14:23 12/08/24 14:13 Height 5 ft 4 in 5 ft 4 in Weight: 172 lb 8 oz 168 lb 4 oz BMI 29.6 28.8 BP 115/76 99/67 Pulse 68 Temp 98.0 F Intake Visit Reasons: RESTART PROGRAM *copay $25 Chief Complaint: Restart program Diagnostic Technician Required: No Is patient in pain?: No Allergies adhesive tape Allergy (Mild, Verified 11/05/24 15:20) Rash 2-octyl cyanoacrylate Allergy (Verified 11/05/24 15:21) Rash Medications ???Medication ???Instructions ???Recorded ???Confirmed ???Type cetirizine 10 mg capsule (Zyrtec) 10 mg PO DAILY PRN SEASONAL 04/1812/08/24 History ALLERGIES rizatriptan 10 mg tablet 10 mg PO DAILY PRN MIGRAINES 05/1712/08/24 History nystatin 100,000 unit/gram topical 1 applic topical TID PRN YEAST 0 03/29/24 12/08/24 History powder (Nystop) INFECTION Last Menstrual Period: 04/11/22 Zika: Zika virus screening: Negative : No PFSH PFSH Medical History Wears contact lenses Wears glasses Alcohol use High cholesterol Low iron Easy bruising Injury of head and neck Migraine headache Syncope History of IBS Cardiology follow-up encounter Non-smoker History of echocardiogram Abnormal uterine bleeding Mitral valve prolapse Anxiety History of endometrial biopsy Surgical History H/O ovarian cystectomy S/P laparoscopic assisted vaginal hysterectomy (LAVH) History of wisdom tooth extraction delivery delivered Family History Grandfather Diabetes Heart disease Mother Thyroid disorder Social History Smoking Status: Never smoker details: social substance use type: does not use what type of physical activity do you participate in: walking seatbelt use: always do you feel safe at home: Yes additional social history: [employer] patient works for [employer] History Past Pregnancies Del. Date Name GA/Weeks Outcome Route Bth Weight Gen Labor Lgth Anesthesia Del Locatn Provider FOB Unknown 2013 Maggie live - full term Unknown 2014 Westyn live - full term HPI RESTART PROGRAM *copay $25 Details: RENEA VALLECILLO is a 34 year old Female presenting for a weight management follow up and to restart into program. She has not been following a nutritional fan, she has been mindfully watching what foods she is eating and trying to manage her diet this way. She previously took phen/top. While she did not have side effects and felt this was effective, she also did not feel great on them. Continues to walk 3 times a week for 30 minutes. Female Reproductive History Last Menstrual Period: 04/11/22 ROS Const Reports as per HPI, Denies difficulty sleeping, Denies excessive sweating, Denies fatigue (new onset severe) and Denies fever(s) Eyes Denies change in vision and Denies diplopia ENT Denies dizziness Card Denies chest pain, Denies dyspnea, Denies dyspnea on exertion, Denies palpitations and Denies rapid heart rate Resp Denies dyspnea and Denies dyspnea on exertion GI Reports as per HPI, Denies abdominal pain and Denies constipation Musc Denies numbness Neuro No confusion, No dizziness, No memory loss and No numbness Psych Denies confusion, Denies depression, Denies memory loss, Denies mood swings and Denies suicidal ideation Endo Denies excessive sweating, Denies fatigue (new onset severe), Denies palpitations and Reports other (denies symptoms of hypoglycemia) Exam Const General: cooperative, healthy appearing, comfortable and no acute distress Orientation: alert HENWI Head: normal to inspection and normocephalic Eyes General: appearance normal, both eyes and all related structures Neck Neck: normal visual inspection, no lymphadenopathy and trachea midline Thyroid: thyroid normal Resp Effort Inspection: normal respiratory effort Auscultation: clear to auscultation bilaterally Cardio Rate: regular rate Rhythm: regular rhythm Heart Sounds: S1 normal and S2 normal Musc Other: gross motor intact no deficits, full bilateral strength Skin General: no rashes or lesions noted Neuro Motor: muscle tone normal throughout Extrem General: no pedal edema Assessment and Plan Assessment and Plan (1) Hypertriglyceridemia: Status: Acute (more content not included)... Normal [facility] Film Writer Office Visit Reporton 11-05-2024 Film Writer Office Visit Report [address], [address] [place] [address] OFFICE VISIT Date of Service: 11/05/24 MR#: [id number] Acct: [id number] Name: RENEA VALLECILLO Rep #: [id number] : 1990 Provider: Dr. Angela roman MD Age/Sex: 34/F [place] [facility] [place] Signed Intake Vital Signs 11/02/24 14:04 11/05/24 14:23 Height 5 ft 4 in 5 ft 4 in Weight: 172 lb 2 oz 172 lb 8 oz BMI 29.5 29.6 BP 137/83 H 115/76 Temp 98.0 F Intake Visit Reasons: Post op redness, bumps, itchy rash Diagnostic Technician Required: No Is patient in pain?: No Allergies adhesive tape Allergy (Mild, Verified 11/05/24 14:26) Rash Medications ???Medication ???Instructions ???Recorded ???Confirmed ???Type cetirizine 10 mg capsule (Zyrtec) 10 mg PO DAILY PRN SEASONAL 04/1811/05/24 History ALLERGIES rizatriptan 10 mg tablet 10 mg PO DAILY PRN MIGRAINES 05/1711/05/24 History nystatin 100,000 unit/gram topical 1 applic topical TID PRN YEAST 0 03/29/24 11/05/24 History powder (Nystop) INFECTION Post menopausal: No Patient : No : No PFSH Medical History Wears contact lenses Wears glasses Alcohol use High cholesterol Low iron Easy bruising Injury of head and neck Migraine headache Syncope History of IBS Cardiology follow-up encounter Non-smoker History of echocardiogram Abnormal uterine bleeding Mitral valve prolapse Anxiety History of endometrial biopsy Surgical History H/O ovarian cystectomy S/P laparoscopic assisted vaginal hysterectomy (LAVH) History of wisdom tooth extraction delivery delivered Family History Grandfather Diabetes Heart disease Mother Thyroid disorder Social History Smoking Status: Never smoker details: social substance use type: does not use what type of physical activity do you participate in: walking seatbelt use: always do you feel safe at home: Yes additional social history: [employer]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 she does have a hisotry of adhesive tape allergy. History Past Pregnancies Del. Date Name GA/Weeks Outcome Route Bth Weight Gen Labor Lgth Anesthesia Del Locatn Provider FOB Unknown 2013 Maggie live - full term Unknown 2014 Westyn live - full term ROS Const Constitutional: Reports system reviewed and no additional complaints, except as documented GI GI: Denies abdominal pain, cramping, nausea or vomiting : Denies pelvic pain, urinary frequency, urinary incontinence, urinary urgency, vaginal discharge, vaginal dryness or vaginal odor Exam Const General: cooperative, healthy appearing, comfortable and no acute distress GI Inspection: normal to inspection Palpation: soft and nontender Other: Incisions: C/D/I erythema around each incision especially where dermabond was placed on skin papular rash over trunk Coding Level of Care Code No Charge Diagnoses Drug reaction T50.905A Assessment and Plan Assessment and Plan (1) Drug reaction: Status: Acute Plan Problem list updated and treatment plans were reviewed with the patient and relevant educational handouts given. See problem list details for specific plan information. 11/05/24 1505 Date [facility]: Date (if applicable) CC: Normal [facility] Film Writer Office Visit Reporton 11-02-2024 Film Writer Office Visit Report [facility] [address], [address] [place] [address] OFFICE VISIT Date of Service: 11/02/24 MR#: [id number] Acct: [id number] Name: RENEA VALLECILLO Rep #: [id number] : 1990 Provider: Dr. Angela roman MD Age/Sex: 34/F [place] [facility] [place]: Signed Intake Vital Signs 10/27/24 10:30 11/02/24 14:04 Height 5 ft 4 in 5 ft 4 in Weight: 172 lb 2 oz BMI 29.5 BP 137/83 H Intake Visit Reasons: cystectomy follow up Diagnostic Technician Required: No Is patient in pain?: Yes (rib pain) Allergies adhesive tape Allergy (Mild, Verified 10/26/24 12:55) Rash Medications ???Medication ???Instructions ???Recorded ???Confirmed ???Type cetirizine 10 mg capsule (Zyrtec) 10 mg PO DAILY PRN SEASONAL 04/1811/02/24 History ALLERGIES rizatriptan 10 mg tablet 10 mg PO DAILY PRN MIGRAINES 05/1711/02/24 History nystatin 100,000 unit/gram topical 1 applic topical TID PRN YEAST 0 03/29/24 11/02/24 History powder (Nystop) INFECTION Post menopausal: No Patient : No : No PFSH Medical History Wears contact lenses Wears glasses Alcohol use High cholesterol Low iron Easy bruising Injury of head and neck Migraine headache Syncope History of IBS Cardiology follow-up encounter Non-smoker History of echocardiogram Abnormal uterine bleeding Mitral valve prolapse Anxiety History of endometrial biopsy Surgical History H/O ovarian cystectomy S/P laparoscopic assisted vaginal hysterectomy (LAVH) History of wisdom tooth extraction delivery delivered Family History Grandfather Diabetes Heart disease Mother Thyroid disorder Social History Smoking Status: Never smoker details: social substance use type: does not use what type of physical activity do you participate in: walking seatbelt use: always do you feel safe at home: Yes additional social history: [employer] patient works for [employer] [facility] cystectomy follow up Details: RENEA VALLECILLO is a 34 year old who presents for postop improving now, had pain initially but recovering. History Past Pregnancies Del. Date Name GA/Weeks Outcome Route Bth Weight Gen Labor Lgth Anesthesia Del Locatn Provider FOB Unknown 2013 Maggie live - full term Unknown 2014 Westyn live - full term ROS Const Constitutional: Reports system reviewed and no additional complaints, except as documented GI GI: Denies abdominal pain, cramping, nausea or vomiting : Denies pelvic pain, urinary frequency, urinary incontinence, urinary urgency, vaginal discharge, vaginal dryness or vaginal odor Exam Const General: cooperative, healthy appearing, comfortable and no acute distress GI Inspection: normal to inspection Palpation: soft and nontender Other: Incisions: C/D/I Coding Level of Care Code No Charge Diagnoses Complex ovarian cyst N83.299 Assessment and Plan Assessment and Plan (1) Complex ovarian cyst: Status: Acute Comment: now 8 cm recommend proceeding wtih laparoscopic ovarian cystectomy possible oophorectomy Plan Problem list updated and treatment plans were reviewed with the patient and relevant educational handouts given. See problem list details for specific plan information. 11/02/24 1437 Date Angela Pressley MD Cosigner Signature: Date (if applicable) CC: Normal [facility] Automated blood erythrocyte countOrdered By: Angela Pressley on 10-26-2024 RBC (Bld) [#/Vol] 4.88 10*6/uL Normal 4.2-5.4 [facility] Comment on above: Performed By: #### L 100.0500, BTSPAT #### [facility] [address] [place], [address] Automated blood hematocrit ( percentage)Ordered By: Angela Pressley on 10-26-2024 Hematocrit (Bld) [Volume fraction] 41.5 % Normal 37-47 [facility] Comment on above: Performed By: #### L 100.0500, BTSPAT #### [facility] [address] [place], [place], [id number] CBC-Complete Blood Cnt No Di ffon 10-26-2024 RDW SD 38.5 fl Normal 35.1-43.9 [facility] Comment on above: Performed By: #### L 100.0500, BTSPAT #### [facility] [address] [place], [address] Discharge Instructionon -0 Discharge Instruction [facility] Medical Records Department [address] [place] [address] Instructions for Home/Discharge Instructions 10/26/24 1650 MR#: [id number] Acct: [id number] Name: RENEA VALLECILLO Rep #: [id number] : 1990 34 From: Angela Pressley MD PCP: CATHERINE DIXON DO Status:REG SDC Discharge Instructions Diet Discharge Diet: No restrictions DC O2, CPAP, BIPAP needs Home O2 Discharge instructions: No Dressing / Incision Discharge Activity: Return to Normal Activity, May Not Drive ( while taking narcotic pain meds, when pain free), May Shower and May Take a Tub Bath (in 7 days) May resume sexual activity in: 1 week Weight Bearing Status: Full weight bearing Dressing / Incision Call your doctor if your incision/area has: Continuous Slow Oozing, Sudden Increased Bleeding, Increased Pain/ Swelling, Increased Redness and Foul Smelling Discharge Call your doctor if you observe: Fever of 101 or Higher, Using more than 1 pad per hour, Shortness of breath, Chest pain and Uncontrolled pain Suture Line Care: Avoid Pulling/Pushing and Avoid Pinching/Bending Remove Dressing in: 1 week (if present) Cleanse incision/area with: Soap Water and Keep Dressing Clean Dry Follow Up Care When: Call to make an appointment with your doctor for a fu/incision check in 1-2 weeks. Test Results: Test results from this visit will be discussed in further detail at your follow-up appointment, if applicable. Discharge Plan Admission Attending Provider: Angela Pressley Primary Care Provider: CATHERINE DIXON Instructions Print Language: [place] Discharge Orders/Prescriptions Prescriptions: New oxycodone-acetaminophen [Percocet] 5-325 mg tablet 1 tab PO Q4H PRN (Reason: pain) 7 Days Qty: 20 0RF naproxen 500 mg tablet 500 mg PO BID PRN PRN (Reason: Pain) Qty: 30 1RF No Action Zyrtec 10 mg capsule 10 mg PO DAILY PRN (Reason: SEASONAL ALLERGIES) nystatin [Nystop] 100,000 unit/gram powder 1 applic topical TID PRN (Reason: YEAST INFECTION) rizatriptan 10 mg tablet 10 mg PO DAILY PRN (Reason: MIGRAINES) Patient Comments: TAKE 1 TABLET BY MOUTH ONCE NEEDED FOR MIGRAINE MAY REPEAT IN 2 HOURS IF NEEDED Referrals / Follow Up: CATHERINE DIXON DO [Primary Care Provider] - Disposition Disposition (needs filled in before D/C Order can be placed): Home, Self Care 10/26/24 7836 Angela Pressley MD CC: CATHERINE DIXON DO Signed Normal [facility] Erythrocyte distribution wid th (RBC) [Ratio]Ordered By: Angela Pressley on 10-26-2024 Erythrocyte distribution width (RBC) [Entitic vol] 38.5 fL 35.1-43.9 [facility] Erythrocyte distribution wid th ratioOrdered By: Angela Pressley on 10-26-2024 Erythrocyte distribution width (RBC) [Ratio] 12.6 % Normal 11.6-14.6 [facility] Comment on above: Performed By: #### L 100.0500, BTSPAT #### [facility] [address] [place], [address] Erythrocyte distribution wid th standard deviationOrdered By: Angela Pressley on 10-26-2024 Erythrocyte distribution width (RBC) [Ratio] 38.5 fl 35.1-43.9 [facility] Hemoglobin measurementOrdere d By: Angela Pressley on 10-26-2024 Hemoglobin (Bld) [Mass/Vol] 13.9 g/dL Normal 12.0-15.0 [facility] Comment on above: Performed By: #### L 100.0500, BTSPAT #### [facility] [address] [place], [address] Immunohistochemical Stainson 10-26-2024 Immunohistochemical Stains Patient Age/Sex Location Account Attending Physician ANGELITORENEA MEYER 34/F [facility] [id number] Dr. Angela Pressley MD Specimen: [id number] Received: 10/27/24 Status: CASTILLO Zepeda Num: [id number] Spec Type: OVARY Subm Dr: Dr. Angela Pressley MD HEADER OPERATION: Laparoscopic, ovarian cystectomy PRE-OP DIAGNOSIS: Complex ovarian cyst TISSUE SUBMITTED: A- Right ovarian cyst wall MICROSCOPIC DIAGNOSIS A. Right ovary, complex ovarian cyst, cystectomy: * Cyst with bland epithelium surrounded by CD10+ stroma with abundant hemosiderin. * The findings are consistent with endometriotic cyst. MICROSCOPIC DESCRIPTION Slides are reviewed. All matched controls reacted appropriately. These tests were developed and their performance characteristics determined by [facility]. They may not have been cleared or approved by the U.S. Food and Drug Administration. The FDA has determined that such clearance or approval is not necessary. The above immunohistochemical/dual YVONNE markers are ordered and reviewed by the Pathologist. GROSS DESCRIPTION A. Received in formalin in a container labeled with the patient's name, date of , and right ovarian cyst wall is a 14.4 g, unoriented and previously disrupted fragment of rubbery soft tissue measuring 5.0 x 3.0 x 2.4 cm. One aspect is white-wall, smooth and glistening (inked black) and the opposing surface is roughened with adherent red-brown hemorrhagic material. Serial sections reveal coyle-pink rubbery surfaces with an average thickness of 0.7 cm. No firm or papillary areas are identified. [employer] Techn[employer] sections are submitted in A1-3 (5 sections submitted; 1 section per centimeter in greatest dimension). [facility] 10-27-2024 [facility]:[id number], [address] Patient Age/Sex Location Account Attending Physician RENEA VALLECILLO 34/F [facility] [id number] Dr. Angela Pressley MD Signed (signature on file) Dr. Kaya Dodson MD 11/05/24 1147 Normal [facility] Comment on above: Performed By: #### P IMHI #### [facility] [address] [place], [place], [address] MCV (mean corpuscular volume ) determinationOrdered By: Angela Pressley on 10-26-2024 MCV (RBC) [Entitic vol] 85.0 fL Normal 81-99 [facility] Comment on above: Performed By: #### L 100.0500, BTSPAT #### [facility] [address] [place], [place], [address] MR/POSTOP.ANEon 10-26-2024 MR/POSTOP.[facility] Medical Records Department [address] [place] [address] Anesthesia Postop Eval I 10/26/241712 MR#: [id number] Acct: [id number] Name: RENEA VALLECILLO Rep #: [id number] : 1990 34 From: Roney Nagel MD PCP: CATHERINE DIXON, DO Status:REG SDC Y Race: C Location: [place] [address] Anesthesia: Postop Eval I Current Vital Signs Temperature: 98.1 F Pulse Rate: 89 Blood Pressure: 122/79 Respiratory Rate: 16 Pulse Ox: 96 Oxygen Delivery Method: Room Air Assessment Airway patent: Yes Spontaneous unlabored respirations: Yes Mental status: Asleep (Arousable) nausea: No Vomiting: No Anesthesia Complication: No Fluid Hydration Crystalloid volume administer (ml): 1,000 Total IV fluid infused: 1,000 Progress Note Anesthesia document: Postop Eval 1 completed: Yes 10/26/241713 Date Roney Nagel MD Cosigner Signature: Date CC: Signed Normal [facility] MR/[id number] 10-26-2024 MR/POSTOPAN2 [facility] Medical Records Department [address] [place] [address] Anesthesia Postop Eval II 10/26/242034 MR#: [id number] Acct: [id number] Name: RENEA VALLECILLO Rep #: [id number] : 1990 34 From: Roney Nagel MD PCP: CATHERINE DIXON, DO Status:[facility] Y Race: C Location: [facility] Anesthesia Postop Eval I Sum Postop Eval Completion status Anesthesia document: Postop Eval 1 completed: Yes Anesthesia Postop Eval I Summary Anesthesia Postop Eval I Summary: Anesthesia Postop Eval I: Assessment Summary Airway patent Yes 10/26/24 17:14 Spontaneous unlabored Yes 10/26/24 17:14 respirations Mental status Asleep - Arousable 10/26/24 17:14 nausea No 10/26/24 17:14 Vomiting No 10/26/24 17:14 Anesthesia Postop Eval I: Fluid Summary Crystalloid volume administer 1,000 10/26/24 17:14 (ml) Colloids volume administered ( ml) Blood Product volume administered (ml) Total IV fluid infused 1,000 10/26/24 17:14 Anesthesia Postop Eval I: Summary Notes Anesthesia Complication No 10/26/24 17:14 Anesthesia Complication Comment: Post-operative progress note Anesthesia: Postop Eval II Evaluation Mental status: Awake and Calm Pain Level: 1 nausea: No Vomiting: No Complications Anesthesia Complication: No 10/26/242035 Date Roney Nagel MD Cosigner Signature: CC: Signed Normal [facility] Mean corpuscular hemoglobin (MCH) determinationOrdered By: Angela Pressley on 10-26-2024 MCH (RBC) [Entitic mass] 28.5 pg Normal 27.0-32.0 [facility] Comment on above: Performed By: #### L 100.0500, BTSPAT #### [facility] [address] [place], [place], [id number] Mean corpuscular hemoglobin concentration (MCHC) determinationOrdered By: Angela Pressley on 10-26-2024 MCHC (RBC) [Mass/Vol] 33.5 g/dL Normal 32-36 [facility] Comment on above: Performed By: #### L 100.0500, BTSPAT #### [facility] [address] [place], [address] Mean platelet volume determi nationOrdered By: Angela Pressley on 10-26-2024 Platelet mean volume (Bld) [Entitic vol] 8.7 fL Normal 6.2-12.0 [facility] Comment on above: Performed By: #### L 100.0500, BTSPAT #### [facility] [address] [place], [address] Operative Reporton Operative Report [facility] Medical Records Department [address] [place] [address] Operative Report 10/26/24 1645 MR#: [id number] Acct: [id number] Name: RENEA VALLECILLO Rep #: [id number] : 1990 34 From: Angela Pressley MD PCP: CATHERINE DIXON, DO Status:[facility] Location: [facility] Problems Associated Problem List Diagnoses (1) Complex ovarian cyst: (2) BMI 26.0-26.9,adult: (3) Hypertriglyceridemia: (4) Other obesity: Multi Select Codes Urinary/Genital Urinary/Genital CPT Codes: 94552 Laproscopic BS/O Operative Report (Standard) Operative Information Date of Procedure: 10/26/24 Pre-Operative Diagnosis: see problem list Post-Operative Diagnosis: same Surgery/Procedure Performed: laparoscopic right ovarian cystectomy adhesioloysis magazine grinder loader: Yes Rn Training: Bijal Francis Tasks completed by benefits assistant: Opening closing, Altering tissue and Insert Trochanter Additional clinic office assistant?: No Type of Anesthesia: General RN Documented Start/Stop Times: Operation Date: 10/26/24 14:10 Case Time Into Pre-Op 10/26/24 12:43 Out of Pre-Op 10/26/24 15:13 Anesthesia Start 10/26/24 15:21 Into Room 10/26/24 15:21 Procedure Start 10/26/24 15:42 Procedure End 10/26/24 16:51 Anesthesia End 10/26/24 17:04 Out of Room 10/26/24 17:04 Into Recovery 10/26/24 17:07 Out of Recovery 10/26/24 17:46 Into Phase II Recovery 10/26/24 17:48 Out of Phase II 10/26/24 19:02 Procedure Start Time: 15:42 Procedure Stop Time: 16:51 Select all DRAINS/GRAFTS/IMPLANTS that apply: None Estimated Blood Loss: 50 Specimen collected: Yes Description of specimen(s) removed: right ovarian cyst wall Description of surgery: Patient was taken in the operating room and was placed under general anesthesia was prepped and draped in normal sterile fashion in the dorsal lithotomy position. Bladder was drained of clear urine and SCDs were on preoperatively. sponge stick placed in the vagina. Attention was then paid to the abdominal portion of the procedure and the umbilicus was elevated with towel clamps and injected with Marcaine and after a 5 mm incision was made and the Veress needle was entered into the abdomen confirmed to be intra-abdominal with a low opening pressure of less than 5 mmHg. Abdomen was insufflated with CO2 gas and a 5 mm optical trocar was placed under direct visualization. Left and right lower quadrant 5 mm ports were placed under direct visualization. Bilateral ovaries were inspected and the right ovary was noted to be significantly enlarged and encompassed with a large cyst. The left ovary was noted to be within normal limits. Sigmoid colon adhesions to the left pelvic sidewall were seen and taken down with the LigaSure device. Using monopolar energy the right ovary was opened and what was thought to be an endometrioma was encountered with chocolate cyst fluid erupting from the cyst contents. This was copiously irrigated and it was attempted to remove the cyst wall but there was no clear demarcation between the layers. Therefore part of the ovary was removed using the LigaSure device with remaining healthy ovary left in situ. Cauterization of any possible remaining cyst wall on the ovary was treated to reduce the risk of recurrence. Hemostasis was obtained by electrocautery and then Surgiflo hemostatic product. Hemostasis was noted. No other abnormalities were seen. An additional suprapubic trocar site was placed to obtain adequate visualization and manipulation during surgery. The umbilical site had been enlarged to a 12 mm trocar site to aid in surgical technique. The umbilical site was closed with an 0 Vicryl stitch in the fascia using a Tim Rodriguez.. Excellent hemostasis was noted in the pelvis. Liver and upper abdomen were visualized notably within normal limits and no other gross abnormalities were seen in the abdomen. All instruments removed from the abdomen after gas was desufflated. Port sites were closed with 3-0 Monocryl Steri's and op sites were applied. All instruments removed from the vagina and patient was awoken and taken recovery in stable condition. Surgical Findings: right ovarian endometrioma, left sigmoid colon adhesions. Complications Complications: No 10/27/24 0736 Cosigner Signature (if applicable): CC: CATHERINE DIXON DO; Dr. Angela Pressley MD Signed Normal [facility] Platelet countOrdered By: Verna Pressley on 10-26-2024 Platelets (Bld) [#/Vol] 304 10*3/uL Normal 150-450 [facility] Comment on above: Performed By: #### L 100.0500, BTSPAT #### [facility] [address] [place], [address] Type AND Screen - PAT ONLYon 10-26-2024 ABO and Rh group Nom (Bld) Blood group O Rh(D) positive Normal [facility] Comment on above: Order Comment: Surge ry Date: 10/26/24 Reason for Laboratory Test PREOP [id number] No N N S 1230 LAP RIGHT OVARIAN CYSTECTOMY Performed By: #### L 100.0500, BTSPAT #### [facility] [address] [place], [place], [address] White blood cell (WBC) count Ordered By: Angela Pressley on 10-26-2024 WBC (Bld) [#/Vol] 8.7 10*3/uL Normal 4.4-11.0 [facility] Comment on above: Performed By: #### L 100.0500, BTSPAT #### [facility] [address] [place], [place], [address] MR/PAT.Blaise 10-19-2024 MR/PAT.DOMINIC [facility] Medical Records Department [address] [address] PAT - Anesthesia 10/19/24 0943 MR#: [id number] Acct: [id number] Name: REENA VALLECILLO Rep #: [id number] : 1990 34 From: Roney Nagel MD PCP: CATHERINE DIXON, DO Status:PRE [facility] Y Race: C Location: [facility] Pre-Assessment Diagnosis/Proposed Procedure Planned Operative Procedure(s): (R) Laparoscopic, Ovarian Cystectomy Anesthesia History Anesthesia History - auto travel counselor: Anesthesia History - auto travel counselor Hx Hospitalization No 10/18/24 15:38 Any Problems With Anesthesia No 10/18/24 15:38 Cholinesterase deficiency No 10/18/24 15:38 You/Your Family Experience No 10/18/24 15:38 fever (hyperthermia) with Relationship Recent Exposure to Contagious No 06/06/22 11:30 Disease Does patient have nerve No 10/18/24 15:38 stimulator Patient instructed to have device shut off --Does patient have Pacemaker or ICD? When Was Last Pacemaker Check QUESTION #4 FULL TEXT: You/Your Family Experience fever (hyperthermia) with Anesthesia Last Oral Intake Last Oral intake: Last Oral Intake NPO since Meds taken in AM with sips of water? Meds patient instructed to take am of surgery PONV PONV - auto travel counselor: PONV - auto travel counselor Female Yes 10/18/24 15:38 HX of Motion Sickness No 10/18/24 15:38 HX of N/V After Surgery No 10/18/24 15:38 Non-Smoker Yes 10/18/24 15:38 Duration of Surgery greater Yes 10/18/24 15:38 than 60 minutes Number of Risk Factors 3 10/18/24 15:38 PONV Score Moderate Risk 10/18/24 15:38 Height Weight Height Weight: Anesthesia: Height Weight Height 5 ft 6 in 05/31/24 13:54 Respiratory Assessment Respiratory Assessment - auto travel counselor: Respiratory Tract Infection Hx - auto travel counselor Hx Respiratory Tract Infection No 10/18/24 15:38 STOP Sleep Apnea STOP Sleep Apnea - auto travel counselor: STOP Sleep Apnea - auto travel counselor Hx Hypertension No 10/18/24 15:38 Hx Sleep Apnea No 10/18/24 15:38 CPAP BIPAP Do you snore loudly (louder No 10/18/24 15:38 than talking or can be heard Do you often feel tired/ No 10/18/24 15:38 fatigued/ sleepy during daytime? Has anyone observed you stop No 10/18/24 15:38 breathing during sleep? STOP Results Negative 10/18/24 15:38 QUESTION #5 FULL TEXT : Do you snore loudly (louder than talking or can be heard through closed doors)? 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 Specify any problems Hx of Preganancy in last 3 No 10/18/24 15:38 Months Nurse Filling Out Transfusion MGRIFFITH 10/18/24 15:38 Questions: Date: 10/18/24 10/18/24 15:38 Time: 15:40 10/18/24 15:38 Patient unable to answer at this time (ie. confused, unrespo /Reproduction History /Reproductive History - auto travel counselor: /Reproductive Hx- auto travel counselor Hx Now No 10/18/24 15:38 Gestational Age (in weeks): EDC: Hx Hx Para Hx Section SAB No 10/18/24 15:38 PFSH Medical History Wears contact lenses Wears glasses Alcohol use High cholesterol Low iron Easy bruising Injury of head and neck Migraine headache Syncope History of IBS Cardiology follow-up encounter Non-smoker History of echocardiogram Abnormal uterine bleeding Mitral valve prolapse Anxiety History of endometrial biopsy Home Medications ???Medication ???Instructions ???Recorded ???Last Taken ???Type cetirizine 10 mg capsule (Zyrtec) 10 mg PO DAILY PRN SEASONAL 04/18 Unknown History ALLERGIES rizatriptan 10 mg tablet 10 mg PO DAILY PRN MIGRAINES 05/17 Unknown History nystatin 100,000 unit/gram topical 1 applic topical TID PRN YEAST 0 03/29/24 Unknown History powder (Nystop) INFECTION Allergy/AdvReac Type Severity Reaction Status Date / Time adhesive tape Allergy Mild Rash Verified 10/18/24 16:04 Family History (Reviewe (more content not included)... Normal [facility] Film Writer Office Visit Reporton 10-18-2024 Film Writer Office Visit Report [facility] [address], [address] [place] [address] OFFICE VISIT Date of Service: 10/18/24 MR#: [id number] Acct: [id number] Name: RENEA VALLECILLO Rep #: [id number] : 1990 Provider: Dr. Angela roman MD Age/Sex: 34/F [place] [facility] [place]: Signed Intake Vital Signs 05/31/24 13:54 10/18/24 16:03 10/18/24 16:07 Height 5 ft 6 in 5 ft 6 in 5 ft 6 in Weight: 172 lb 171 lb 4 oz BMI 27.7 27.6 BP 121/80 H 120/82 H Intake Visit Reasons: US follow up surgical consult Diagnostic Technician Required: No Is patient in pain?: No (has pain on and off, sporadic) Allergies adhesive tape Allergy (Mild, Verified 10/18/24 16:04) Rash Medications ???Medication ???Instructions ???Recorded ???Confirmed ???Type cetirizine 10 mg capsule (Zyrtec) 10 mg PO DAILY PRN SEASONAL 04/1810/18/24 History ALLERGIES rizatriptan 10 mg tablet 10 mg PO DAILY PRN MIGRAINES 05/1710/18/24 History nystatin 100,000 unit/gram topical 1 applic topical TID PRN YEAST 0 03/29/24 10/18/24 History powder (Nystop) INFECTION Post menopausal: No Patient : No : No PFSH Medical History Wears contact lenses Wears glasses Alcohol use High cholesterol Low iron Easy bruising Injury of head and neck Migraine headache Syncope History of IBS Cardiology follow-up encounter Non-smoker History of echocardiogram Abnormal uterine bleeding Mitral valve prolapse Anxiety History of endometrial biopsy Surgical History S/P laparoscopic assisted vaginal hysterectomy (LAVH) History of wisdom tooth extraction delivery delivered Family History Grandfather Diabetes Heart disease Mother Thyroid disorder Social History Smoking Status: Never smoker details: social substance use type: does not use what type of physical activity do you participate in: walking seatbelt use: always do you feel safe at home: Yes additional social history: [employer]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 Patient has had a complex ovarian cyst that is increased in size over the last 2 months and has not resolved. She is not acutely having pain today but it does come and go. Good blood flow was seen. She has a history of a hysterectomy. She denies any fevers abnormal discharge or vaginal bleeding. She denies any nausea vomiting or bowel complaints. History Past Pregnancies Del. Date Name GA/Weeks Outcome Route Bth Weight Gen Labor Lgth Anesthesia Del Locatn Provider FOB Unknown 2013 Maggie live - full term Unknown 2014 Daniele live - full term ROS Const Constitutional: Denies fatigue, weight gain or weight loss ENT ENT: Reports system reviewed and no additional complaints, except as documented Cardio Card: Denies chest pain Resp Resp: Denies cough or dyspnea GI GI: Reports as per HPI; Denies constipation, nausea or vomiting : Reports as per HPI; Denies nipple discharge, vaginal discharge, vaginal dryness, vaginal odor or vaginal pruritus Musc Musc: Denies arthralgias, back pain or muscle weakness Skin Skin/Breast: Denies alopecia, change in hair, dry skin, breast mass, breast pain, breast skin changes or nipple discharge Neuro Neuro: Reports system reviewed and no additional complaints, except as documented Psych Psych: Reports system reviewed and no additional complaints, except as documented Endo Endo: Denies cold intolerance, excessive sweating, heat intolerance or polydipsia Satnam/Lymph Hematologic/Lymphatic: Denies easy bleeding, Denies easy bruising and Denies lymphadenopathy Exam Const General: cooperative, healthy appearing, comfortable, no acute distress and well developed Orientation: alert [facility] Head: normal to inspection and normocephalic Ears: hearing grossly normal bilaterally and external ears normal Nose: external nose normal and nares normal Face and sinus: normal facial exam Neck Neck: normal visual inspection and no lymphadenopathy Thyroid: thyroid normal Chest Chest palpation inspection: normal inspection of the chest Resp Effort Inspection: normal respiratory effort Auscultation: clear to auscultation bilaterally Cardio Rate: regular rate Rhythm: regular rhythm Heart Sounds: S1 normal and S2 normal GI Inspection: normal to inspection and non-distended Palpation: soft and no hepatosplenomegaly Musc (more content not included)... Normal [facility] Pelvic w/ Transvaginalon Pelvic w/ Transvaginal [facility] Imaging Services [address] [place] [address] Pelvic w/ Transvaginal MR#: [id number] Acct: [id number] Name: RENEA VALLECILLO Rep #: [id number] : 1990 F 34 From: Terry An MD PCP: CATHERINE DIXON, DO Status: REG CLI Study: Pelvic w/ Transvaginal Date of Exam: 10/09/24 Exam# [id number] Ordering Dr: Angela Pressley EXAM: Pelvic ultrasound CLINICAL HISTORY: Ovarian cyst COMPARISON: None available TECHNIQUE: Transabdominal and transvaginal scanning of the pelvis FINDINGS: Uterus surgically absent. Bilateral ovaries are identified with symmetric preserved vascular flow. There is a large primarily cystic mass within the right ovary with septations measuring 8.3 x 8.1 x 5.3 cm. With a similar appearing cystic structure in the left ovary measuring 2.0 x 1.3 x 1.5 cm. US/Pelvic w/ Transvaginal IMPRESSION: Bilateral cystic ovarian structures on the right measuring up to 8.3 cm, on the left measuring up to 2.0 cm. Consider surgical consultation for possible excision as deemed clinically necessary. Reading Location: [facility] CC: CATHERINE DIXON DO; Dr. Angela Pressley MD Speech Language Therapist: Signed [facility] Office Visit (ALICIA ) -------- RENEA VALLECILLO ([id number]) 1990 F Date Time Provider Department 08/01/24 9:55 AM AIME HAUSER During your visit today, we recorded the following information about you: Temperature Pulse Respiration Blood pressure 98.6 degrees 75/minute 16/minute 112/75 Weight 77.7 kg Aime Hauser APRN.OPTICAL DISPENSER 08/01/2024 10:23 AM Signed This note was created using NoteWriter. Subjective Renea Vallecillo is a 34 year old female. HPI by patient: Renea is a 34 year old presenting to the office with the complaint of URI Started approximately a week ago but got worse yesterday Associated symptoms include scracthy throat and ear pain that radiates down her neck Denies any other concerns Covid Immunization Dates Overdue - Covid-19 Vaccine ( season) Never done No completion, postpone, frequency change, or communication history exists for this topic. Sick contacts: no Smoking history/second hand smoke: no OTC nothing No antibiotic use in the last 60 days. ALLERGIES No Known Allergies Family History Reviewed Including Cardiac Diseases, Psychiatric Diseases, AND Substance Abuse Problem: Arthritis Relation: Mother Age of Onset: (Not Specified) Problem: other (Endometrosis) Relation: Mother Age of Onset: (Not Specified) Comment: Hysterectomy Problem: Multiple Sclerosis Relation: Maternal Grandmother Age of Onset: (Not Specified) Problem: other (ALS) Relation: Other Age of Onset: (Not Specified) Comment: MGGFA Problem: Cancer Relation: Other Age of Onset: (Not Specified) Comment: Great Grandfather Social History Tobacco Use Smoking status: Never Smokeless tobacco: Never Vaping Use Vaping status: Never Used Alcohol use: Yes Comment: Occasionally Drug use: No Review of Systems Constitutional: Negative for chills and fever. HENT: Positive for ear pain, rhinorrhea and sore throat. Negative for congestion. Respiratory: Negative for cough. Cardiovascular: Negative for chest pain. Allergic/Immunologic: Negative for immunocompromised state. Hematological: Negative for adenopathy. Objective BP 112/75 Pulse 75 Temp 37 ?C (98.6 ?F) (Tympanic) Resp 16 Wt 77.7 kg (171 lb 6.5 oz) LMP 02/19/2020 SpO2 99% BMI 29.42 kg/m? Physical Exam Vitals and nursing note reviewed. HENT: Right Ear: Tympanic membrane and ear canal normal. Left Ear: Tympanic membrane and ear canal normal. Nose: Rhinorrhea present. No congestion. Mouth/Throat: Pharynx: Uvula midline. Posterior oropharyngeal erythema present. No oropharyngeal exudate. Cardiovascular: Rate and Rhythm: Normal rate and regular rhythm. Heart sounds: Normal heart sounds. Pulmonary: Effort: Pulmonary effort is normal. No respiratory distress. Breath sounds: Normal breath sounds. No stridor. No wheezing, rhonchi or rales. Chest: Chest wall: No tenderness. Lymphadenopathy: Cervical: No cervical adenopathy. Skin: General: Skin is warm and dry. Neurological: Mental Status: She is alert and oriented to person, place, and time. Assessment and Plan ASSESSMENT/PLAN: 1. Viral URI with cough - ICD9: 465.9, ICD10: J06.9 (primary diagnosis) - Discussed viral etiology and rationale for treatment. - Symptomatic treatment with prn analgesia - Supportive care with fluids and rest - PREDNISONE 10 MG TABLET - BROMPHENIRAMINE-PSEUDOEP HEDRINE-DM 2 MG-30 MG-10 MG/5 ML ORAL SYRUP 2. Otalgia of both ears - ICD9: 388.70, ICD10: H92.03 - PREDNISONE 10 MG TABLET - BROMPHENIRAMINE-PSEUDOEP HEDRINE-DM 2 MG-30 MG-10 MG/5 ML ORAL SYRUP Aime Hauser APRN.CNP Medical Decision Making: Problems: Moderate: New problem with uncertain prognosis Data: Unique source(s) for external note(s) reviewed: 1 Risk: Moderate: Drug management Medical Decision Making Level: 4 - Moderate Aime Hauser APRN.CNP 08/01/2024 10:23 AM Signed -------- UPPER RESPIRATORY INFECTIONS Most cases are caused by viruses and most cases are mild, temporary, and harmless. Symptoms can last 2 to 3 weeks and can include: nasal congestion, sore throat, coughing, muscles aches, headaches, nausea, diarrhea, fatigue and fever. Rhinovirus, RSV, Covid, Influenza A and B, Parainfluenza are just a few COMMON respiratory viruses that cause sinus symptoms and cough. Antibiotics do NOT treat viruses. Taking 1 round of antibiotics can destroy your gut normal diana (good bacteria) for up to 6 months. This can affect your weight, skin, digestion, mental health and immune system. 1. Drink plenty of fluids. 2. Get lots of rest. 3. Avoid dehydrants such as caffeine and alcohol. 4. Nasal saline is an effective decongestant and be used frequently throughout the day. 5. To loosen phlegm and help coughing (more content not included)... Normal [facility] Film Writer Office Visit Reporton 05-31-2024 Film Writer Office Visit Report [facility] [address], [address] [place] [address] OFFICE VISIT Date of Service: 05/31/24 MR#: [id number] Acct: [id number] Name: RENEA VALLECILLO Rep #: [id number] : 1990 Provider: EVGENY Moreno Age/Sex: 34/F [place] [facility] [place]: Signed Intake Vital Signs 03/29/24 10:23 04/29/24 11:19 05/31/24 13:54 Height 5 ft 6 in 5 ft 6 in 5 ft 6 in Weight: 172 lb BMI 27.7 BP 121/80 H Intake Visit Reasons: Annual ([employer]) Diagnostic Technician Required: No Is patient in pain?: No Allergies adhesive tape Allergy (Mild, Verified 05/31/24 13:57) Rash Is last menstrual period known: No Post menopausal: No Patient : No PFSH Medical History Wears contact lenses Wears glasses Alcohol use High cholesterol Low iron Anemia Easy bruising Injury of head and neck Migraine headache Syncope History of IBS Shortness of breath on exertion Cardiology follow-up encounter Non-smoker History of echocardiogram Abnormal uterine bleeding Mitral valve prolapse Anxiety History of endometrial biopsy Surgical History S/P laparoscopic assisted vaginal hysterectomy (LAVH) History of wisdom tooth extraction delivery delivered Family History Grandfather Diabetes Heart disease Mother Thyroid disorder Social History Smoking Status: Never smoker details: social substance use type: does not use what type of physical activity do you participate in: walking seatbelt use: always do you feel safe at home: Yes additional social history: [employer] patient works for [employer] History Past Pregnancies Del. Date Name GA/Weeks Outcome Route Bth Weight Infant Gen Labor Lgth Anesthesia Del Locatn Provider FOB Unknown 2013 Maggie live - full term Unknown 2014 Westyn live - full term HPI Encounter for routine gynecological examination Details: RENEA VALLECILLO is a 34 year old who presents for annual exam. Recently diagnosed with ovarian cyst; has repeat scanning in 6 weeks. Last PAP: 2021; s/p hysterectomy. History of abnormal PAP: none Last mammogram: None History of abnormal mammogram: None Colon cancer screening: None Other preventative health care screenings: Dr. Dixon ([facility]). Female Reproductive History Questions: metorrhagia: No, sexually active: Yes, dyspareunia: No and PCB: No ROS Const Constitutional: Reports as per HPI; Denies fatigue, increased appetite, poor appetite, weight gain or weight loss Cardio Card: Denies chest pain Resp Resp: Denies cough or dyspnea GI GI: Reports as per HPI, abdominal pain and bloating; Denies constipation, nausea or vomiting : Reports as per HPI and other; Denies difficulty voiding, dysuria, hematuria, nipple discharge, pelvic pain, prolapse symptoms, urinary frequency, urinary incontinence, urinary urgency, vaginal discharge, vaginal dryness, vaginal odor or vaginal pruritus Skin Skin/Breast: Denies changing lesions, breast mass, breast pain, breast skin changes or nipple discharge Psych Psych: Denies anxiety or depression Exam Const General: cooperative, healthy appearing, comfortable, no acute distress, well groomed and well hydrated Nutritional Appearance: well nourished Orientation: alert, awake and oriented x3 HENMT Head: normal to inspection and normocephalic Ears: hearing grossly normal bilaterally and external ears normal Nose: external nose normal Face and sinus: normal facial exam Eyes General: appearance normal, both eyes and all related structures Neck Neck: normal visual inspection, full ROM and no lymphadenopathy Thyroid: thyroid normal Chest Chest palpation inspection: normal inspection of the chest Breast inspection: normal inspection of the breasts and normal inspection of the axillae Breast palpation: normal palpation of the breasts, normal palpation of the axillae and no axillary lymphadenopathy Resp Effort Inspection: normal respiratory effort, able to speak in complete sentences and symmetric chest movement GI Inspection: normal to inspection Palpation: soft and no hepatosplenomegaly General: bladder normal to palpation External Female Exam: normal external appearance and normal appearance of the urethra Urethra: normal appearance of the urethra Speculum Exam - Vagina: normal appearance of the vagina, normal vaginal discharge, no lesions and nontender Speculum Exam - Cervix: normal appearance of the cervix, no lesions and no masses Bimanual Exam- Vagina Uterus: normal bimanual exam, uterine size normal, bl (more content not included)... 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 Angela roman MD Age/Sex: 34/F [place] [facility] [place]: Signed Intake Vital Signs 03/29/24 10:23 04/29/24 11:16 04/29/24 11:19 Height 5 ft 6 in 5 ft 6 in 5 ft 6 in Weight: 162 lb BMI 26.1 BP 112/79 Intake Visit Reasons: ER Follow up Diagnostic Technician Required: No Is patient in pain?: Yes (Constant sharp back pain ) Pain scale (1-10): 6 Allergies adhesive tape Allergy (Mild, Verified 04/29/24 11:17) Rash Medications ???Medication ???Instructions ???Recorded ???Confirmed ???Type cetirizine 10 mg capsule (Zyrtec) 10 mg PO DAILY PRN SEASONAL 04/18/22 04/29/24 History ALLERGIES rizatriptan 10 mg tablet 10 mg PO DAILY PRN MIGRAINES 05/17/22 04/29/24 History topiramate 25 mg tablet (Topamax) 25 mg PO BID #60 tabs 02/18/24 04/29/24 Rx nitrofurantoin 100 mg PO BID 03/29/24 04/29/24 History monohydrate/macrocrystal s 100 mg capsule (Macrobid) nystatin 100,000 unit/gram topical 1 applic topical TID PRN 03/29/24 04/29/24 History powder (Nystop) phentermine 37.5 mg tablet 37.5 mg PO QDAY #30 tabs 03/29/24 04/29/24 Rx (Adipex-P) oxycodone-acetaminophen 5 mg-325 1 tab PO Q6H 7 days #10 tabs 04/28/24 04/29/24 Rx mg tablet (Percocet) Is last menstrual period known: No Post menopausal: No Patient : No : No Control Method: hyst PFSH Medical History Wears contact lenses Wears glasses Alcohol use High cholesterol Low iron Anemia Easy bruising Injury of head and neck Migraine headache Syncope History of IBS Shortness of breath on exertion Cardiology follow-up encounter Non-smoker History of echocardiogram Abnormal uterine bleeding Mitral valve prolapse Anxiety History of endometrial biopsy Surgical History S/P laparoscopic assisted vaginal hysterectomy (LAVH) History of wisdom tooth extraction delivery delivered Family History Grandfather Diabetes Heart disease Mother Thyroid disorder Social History Smoking Status: Never smoker details: social substance use type: does not use what type of physical activity do you participate in: walking seatbelt use: always do you feel safe at home: Yes additional social history: [employer] 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 She was seen in the ER yesterday and a CT scan and pelvic ultrasound that showed a complex 7 cm right ovarian cyst and a left 3 cm ovarian cyst. Torsion was ruled out and patient was sent home to follow-up. Pain was improved with Percocet overnight. She is still having intermittent nausea and lower pelvic pain. She denies any vaginal bleeding or abnormal discharge. History Past Pregnancies Del. Date Name GA/Weeks Outcome Route Bth Weight Infant Gen Labor Lgth Anesthesia Del Locatn Provider FOB Unknown 2013 Maggie live - full term Unknown 2014 Westyn live - full term ROS Const Constitutional: Reports as per HPI; Denies fatigue, increased appetite, poor appetite, weight gain or weight loss Cardio Card: Denies chest pain Resp Resp: Denies cough or dyspnea GI GI: Reports as per HPI, abdominal pain, bloating and nausea; Denies constipation or vomiting : Reports as per HPI and other; Denies difficulty voiding, dysuria, hematuria, nipple discharge, pelvic pain, prolapse symptoms, urinary frequency, urinary incontinence, urinary urgency, vaginal discharge, vaginal dryness, vaginal odor or vaginal pruritus Skin Skin/Breast: Denies changing lesions, breast mass, breast pain, breast skin changes or nipple discharge Psych Psych: Denies anxiety or depression Exam Const General: cooperative, healthy appearing, comfortable, no acute distress, well developed and well groomed [facility] Head: normal to inspection and normocephalic Ears: hearing grossly normal bilaterally and external ears normal Nose: external nose normal Face and sinus: normal facial exam Neck Neck: normal visual inspection, full ROM and no lymphadenopathy Thyroid: thyroid normal Resp Effort Inspection: normal respiratory effort GI Inspection: normal to inspection and non-distended Palpation: soft, no hepatosplenomegaly, no guarding and tender in the LLQ, in the RLQ and suprapubicly; wit (more content not included)... Normal [facility] Progress Noteon 04-29-2024 Progress Note Chart reviewed of ED follow up Seen in [facility] ED on 04/28/24 Reason: Back pain Discharge instructions: PATIENT REFERRED TO: Catherine Dixon, DO [address] [place] [address] [address] [place] [address] Schedule an appointment as soon as possible for a visit [facility] - [address] [place] [phone] Schedule an appointment as soon as possible for a visit ED message and education sent via [employer]. Normal [facility] CBC W Auto Differential pane l (Bld)on 04-28-2024 Basophils (Bld) [#/Vol] 0.1 10*3/uL 0.0 - 0.2 10*3/uL [facility] Basophils/100 WBC (Bld) 0.6 % 0.0 - 2.0 % [facility] Eosinophils (Bld) [#/Vol] 0.1 10*3/uL 0.0 - 0.5 10*3/uL [facility] [employer] Eosinophils/100 WBC (Bld) 1.6 % 0.0 - 6.0 % [facility] Erythrocyte distribution width (RBC) [Ratio] 12.4 % 11.5 - 15.0 % [facility] Hematocrit (Bld) [Volume fraction] 43.1 % 35.0 - 47.0 % [facility] Hemoglobin (Bld) [Mass/Vol] 14.5 g/dL 11.7 - 16.0 g/dL [facility] Immature granulocytes (Bld) [#/Vol] 0.0 10*3/uL NINF - 0.1 10*3/uL [facility] Immature granulocytes/100 WBC (Bld) 0.2 % 0.0 - 2.0 % [facility] Interpretation and review of laboratory results Abnormal [facility] Lymphocytes (Bld) [#/Vol] 1.6 10*3/uL 1.0 - 4.3 10*3/uL [facility] Lymphocytes/100 WBC (Bld) 20.1 % 15.0 - 45.0 % [facility] MCH (RBC) [Entitic mass] 28.9 pg 26.0 - 34.0 pg [facility] MCHC (RBC) [Mass/Vol] 33.6 % 30.5 - 36.0 % [facility] MCV (RBC) [Entitic vol] 85.9 fL 77.0 - 99.0 fL [facility] Monocytes (Bld) [#/Vol] 0.6 10*3/uL 0.0 - 0.9 10*3/uL [facility] Monocytes/100 WBC (Bld) 7.1 % 5.0 - 13.0 % [facility] Neutrophils (Bld) [#/Vol] 5.7 10*3/uL 1.8 - 7.5 10*3/uL [facility] Neutrophils/100 WBC (Bld) 70.4 % 38.0 - 82.0 % [facility] Nucleated RBC/100 WBC (Bld) [Ratio] 0.0 % [facility] Platelet mean volume (Bld) [Entitic vol] 8.8 fL Low 9.0 - 12.7 fL [facility] Comment on above: MPV is a calculated measurement using platelet volume ratio Platelets (Bld) [#/Vol] 280 10*3/uL 140 - 440 10*3/uL [facility] RBC (Bld) [#/Vol] 5.02 10*6/uL 3.80 - 5.2 0 10*6/uL [facility] WBC (Bld) [#/Vol] 8.2 10*3/uL 3.6 - 10.7 10*3/uL [facility] CBC WITH AUTO DIFFERENTIALon 04-28-2024 Basophils (Bld) [#/Vol] 0.1 10*3/uL Normal 0.0-0.2 [facility] Comment on above: Performed By: #### L [id number] #### Earth Sciences Professor: LESA MANZANO ([id number]) [facility] [place] ([place]) [address] [place] [address] [place] Basophils/100 WBC (Bld) 0.6 % Normal 0.0-2.0 [facility] Comment on above: Performed By: #### L [id number] #### Earth Sciences Professor: LESA MANZANO ([id number]) [facility] [place] ([place]) [address] [place] [address] [place] Eosinophils (Bld) [#/Vol] 0.1 10*3/uL Normal 0.0-0.5 [facility] Comment on above: Performed By: #### L [id number] #### Earth Sciences Professor: LESA MANZANO ([id number]) [facility] [place] ([place]) [address] [place] [address] [place] Eosinophils/100 WBC (Bld) 1.6 % Normal 0.0-6.0 [facility] Comment on above: Performed By: #### L [id number] #### Earth Sciences Professor: LESA MANZANO ([id number]) [facility] [place] ([place]) [address] [place] [address] [place] Erythrocyte distribution width (RBC) [Ratio] 12.4 % Normal 11.5-15.0 [facility] Comment on above: Performed By: #### L [id number] #### Earth Sciences Professor: LESA MANZANO ([id number]) [facility] [place] ([place]) [address] [place] [address] [place] Hematocrit (Bld) [Volume fraction] 43.1 % Normal 35.0-47.0 [facility] Comment on above: Performed By: #### L [id number] #### Earth Sciences Professor: LESA MANZANO ([id number]) [facility] [place] ([place]) [address] [place] [address] Hemoglobin (Bld) [Mass/Vol] 14.5 g/dL Normal 11.7-16.0 [facility] Comment on above: Performed By: #### L [id number] #### Earth Sciences Professor: LESA MANZANO ([id number]) [facility] [place] ([place]) [address] [place] [address] IMMATURE GRANS % 0.2 % Normal 0.0-2.0 [facility] Comment on above: Performed By: #### L [id number] #### Earth Sciences Professor: LESA MANZANO ([id number]) [facility] [place] ([place]) [address] [place] [address] IMMATURE GRANS ABSOLUTE 0.0 10*3/uL Normal <0.1 [facility] Comment on above: Performed By: #### L [id number] #### Earth Sciences Professor: LESA MANZANO ([id number]) [facility] [place] ([place]) [address] [place] [address] [place] Lymphocytes (Bld) [#/Vol] 1.6 10*3/uL Normal 1.0-4.3 [facility] Comment on above: Performed By: #### L [id number] #### Earth Sciences Professor: LESA MANZANO ([id number]) [facility] [place] ([place]) [address] [place] [address] [place] Lymphocytes/100 WBC (Bld) 20.1 % Normal 15.0-45.0 [facility] Comment on above: Performed By: #### L [id number] #### Earth Sciences Professor: LESA MANZANO ([id number]) [facility] [place] ([place]) [address] [place] [address] MCH (RBC) [Entitic mass] 28.9 pg Normal 26.0-34.0 [facility] Comment on above: Performed By: #### L [id number] #### Earth Sciences Professor: LESA MANZANO ([id number]) [facility] [place] ([place]) [address] [place] [address] MCHC 33.6 % Normal 30.5-36.0 [facility] Comment on above: Performed By: #### L [id number] #### Earth Sciences Professor: LESA MANZANO ([id number]) [facility] [place] ([place]) [address] [place] [address] MCV (RBC) [Entitic vol] 85.9 fL Normal 77.0-99.0 S [facility] Comment on above: Performed By: #### L [id number] #### Earth Sciences Professor: LESA MANZANO ([id number]) [facility] [place] ([place]) [address] [place] [address] Monocytes (Bld) [#/Vol] 0.6 10*3/uL Normal 0.0-0.9 [facility] Comment on above: Performed By: #### L [id number] #### Earth Sciences Professor: LESA MANZANO ([id number]) [facility] [place] ([place]) [address] [place] [address] Monocytes/100 WBC (Bld) 7.1 % Normal 5.0-13.0 [facility] Comment on above: Performed By: #### L [id number] #### Earth Sciences Professor: LESA MANZANO ([id number]) [facility] [place] ([place]) [address] [place] [address] NEUTROPHILS ABSOLUTE 5.7 10*3/uL Normal 1.8-7.5 [facility] Comment on above: Performed By: #### L [id number] #### Earth Sciences Professor: LESA MANZANO ([id number]) [facility] [place] ([place]) [address] [place] [address] [place] Neutrophils/100 WBC (Bld) 70.4 % Normal 38.0-82.0 [facility] Comment on above: Performed By: #### L [id number] #### Earth Sciences Professor: LESA MANZANO ([id number]) [facility] [place] ([place]) [address] [place] [address] NRBC 0.0 /100 WBCs Normal 0.0-2.0 [facility] Comment on above: Performed By: #### L [id number] #### Earth Sciences Professor: LESA MANZANO ([id number]) [facility] [place] ([place]) [address] [place] [address] Platelet mean volume (Bld) [Entitic vol] 8.8 fL Low 9.0-12.7 [facility] Comment on above: Result Comment: MPV is a calculated measurement using platelet volume ratio Performed By: #### L [id number] #### Earth Sciences Professor: LESA MANZANO ([id number]) [facility] [place] ([place]) [address] [place] [address] Platelets (Bld) [#/Vol] 280 10*3/uL Normal 140-440 [facility] Comment on above: Performed By: #### L [id number] #### Earth Sciences Professor: LESA MANZANO ([id number]) [facility] [place] ([place]) [address] [place] [address] RBC (Bld) [#/Vol] 5.02 10*6/uL Normal 3.80-5.20 [facility] Comment on above: Performed By: #### L [id number] #### Earth Sciences Professor: LESA MANZANO ([id number]) [facility] [place] ([place]) [address] [place] [address] WBC (Bld) [#/Vol] 8.2 10*3/uL Normal 3.6-10.7 [facility] Comment on above: Performed By: #### L [id number] #### Earth Sciences Professor: LESA MANZANO ([id number]) [facility] [place] ([place]) [address] [place] [address] COMPLETE URINALYSISon 2023 BACTERIA (#/HPF) IN URINE Moderate Abnormal Negative [facility] Comment on above: Performed By: #### L [id number] #### Earth Sciences Professor: LESA MANZANO ([id number]) [facility] [place] ([place]) [address] [place] [address] BILIRUBIN, TOTAL PRESENCE IN URINE Negative Normal Negative [facility] Comment on above: Performed By: #### L [id number] #### Earth Sciences Professor: LESA MANZANO ([id number]) [facility] [place] ([place]) [address] [place] [address] Clarity (U) Clear Normal Clear [facility] Comment on above: Performed By: #### L [id number] #### Earth Sciences Professor: LESA MANZANO ([id number]) [facility] [place] ([place]) [address] [place] [address] Color (U) Yellow Normal Lt. Yellow [facility] Comment on above: Performed By: #### L [id number] #### Earth Sciences Professor: LESA MANZANO ([id number]) [facility] [place] ([place]) [address] [place] [address] [place] GLUCOSE (MG/DL) IN URINE Normal Normal Normal (<70) [facility] Comment on above: Performed By: #### L [id number] #### Earth Sciences Professor: LESA MANZANO ([id number]) [facility] [place] ([place]) [address] [place] [address] HEMOGLOBIN PRESENCE IN URINE 0.03 mg/dL Abnormal Negative [facility] Comment on above: Performed By: #### L [id number] #### Earth Sciences Professor: LESA MANZANO ([id number]) [facility] [place] ([place]) [address] [place] [address] [place] Ketones Ql (U) Negative Normal Negative [facility] Comment on above: Performed By: #### L [id number] #### Earth Sciences Professor: LESA MANZANO ([id number]) [facility] [place] ([place]) [address] [place] [address] [place] LEUKOCYTE ESTERASE PRESENCE IN URINE BY TEST STRIP 75 [place]/uL Abnormal Negative [facility] Comment on above: Performed By: #### L [id number] #### Earth Sciences Professor: LESA MANZANO ([id number]) [facility] [place] ([place]) [address] [place] [address] [place] MUCUS (#/LPF) IN URINE SEDIMENT Moderate Abnormal Negative [facility] Comment on above: Performed By: #### L [id number] #### Earth Sciences Professor: LESA MANZANO ([id number]) [facility] [place] ([place]) [address] [place] [address] [place] NITRITE PRESENCE IN URINE Negative Normal Negative [facility] Comment on above: Performed By: #### L [id number] #### Earth Sciences Professor: LESA MANZANO ([id number]) [facility] [place] ([place]) [address] [place] [address] pH (U) 7.0 [pH] Normal 5.0-8.0 [facility] Comment on above: Performed By: #### L [id number] #### Earth Sciences Professor: LESA MANZANO ([id number]) [facility] [place] ([place]) [address] [place] [address] Protein (U) [Mass/Vol] 10 mg/dL Abnormal Negative [facility] Comment on above: Performed By: #### L [id number] #### Earth Sciences Professor: LESA MANZANO ([id number]) [facility] [place] ([place]) [address] [place] [address] [place] RBC (#/HPF) IN URINE SEDIMENT 0-2 Normal 0-2 [facility] Comment on above: Performed By: #### L [id number] #### Earth Sciences Professor: LESA MANZANO ([id number]) [facility] [place] ([place]) [address] [place] [address] Specific gravity (U) [Rel density] 1.026 Normal 1.005-1.030 [facility] Comment on above: Performed By: #### L [id number] #### Earth Sciences Professor: LESA MANZANO ([id number]) [facility] [place] ([place]) [address] [place] [address] [place] SQUAMOUS EPITHELIAL CELLS (#/HPF) IN URINE SEDIMENT 3-5 Normal 3-5 [facility] Comment on above: Performed By: #### L [id number] #### Earth Sciences Professor: LESA MANZANO ([id number]) [facility] [place] ([place]) [address] [place] [address] [place] UROBILINOGEN (MG/DL) IN URINE Normal Normal Normal (0-1) [facility] Comment on above: Performed By: #### L [id number] #### Earth Sciences Professor: LESA MANZANO ([id number]) [facility] [place] ([place]) [address] [place] [address] VOLUME OF URINE 8-12 mL Normal [facility] Comment on above: Performed By: #### L [id number] #### Earth Sciences Professor: LESA MANZANO ([id number]) [facility] [place] ([place]) [address] [place] [address] [place] WBC (LEUKOCYTE) (#/HPF) IN URINE SEDIMENT 0-2 Normal 0-5 [facility] Comment on above: Performed By: #### L [id number] #### Earth Sciences Professor: LESA MANZANO ([id number]) [facility] [place] ([place]) [address] [place] [address] COMPREHENSIVE METABOLIC PANE Jesus 04-28-2024 Albumin [Mass/Vol] 4.3 g/dL Normal 3.5-5.0 [facility] Comment on above: Performed By: #### L [id number] #### Earth Sciences Professor: LESA MANZANO ([id number]) [facility] [place] ([place]) [address] ALP [Catalytic activity/Vol] 62 U/L Normal 38-126 [facility] Comment on above: Performed By: #### L [id number] #### Earth Sciences Professor: LESA MANZANO ([id number]) [facility] [place] ([place]) [address] ALT [Catalytic activity/Vol] 18 U/L Normal 0-34 [facility] Comment on above: Performed By: #### L [id number] #### Earth Sciences Professor: LESA MANZANO ([id number]) [facility] [place] ([place]) [address] Anion gap [Moles/Vol] 6 mmol/L Normal 3-13 [facility] Comment on above: Performed By: #### L [id number] #### Earth Sciences Professor: LESA MANZANO ([id number]) [facility] [place] ([place]) [address] [place] [address] AST [Catalytic activity/Vol] 26 U/L Normal 15-46 [facility] Comment on above: Performed By: #### L [id number] #### Earth Sciences Professor: LESA MANZANO ([id number]) [facility] [place] ([place]) [address] [place] [address] [place] Bilirubin [Mass/Vol] 0.9 mg/dL Normal 0.2-1.3 [facility] Comment on above: Performed By: #### L [id number] #### Earth Sciences Professor: LESA MANZANO ([id number]) [facility] [facility] (SWRLAB) [address] Calcium [Mass/Vol] 9.0 mg/dL Normal 8.4-10.4 [facility] Comment on above: Performed By: #### L [id number] #### Earth Sciences Professor: LESA MANZANO ([id number]) [facility] (SWRL[facility]) [address] [place] [address] [place] Chloride [Moles/Vol] 108 mmol/L High 98-107 [facility] Comment on above: Performed By: #### L [id number] #### Earth Sciences Professor: LESA MANZANO ([id number]) [facility] (SWRLAB) [address] [place] [address] [place] CO2 [Moles/Vol] 24 mmol/L Normal 22-30 [facility] Comment on above: Performed By: #### L [id number] #### Earth Sciences Professor: LESA MANZANO ([phone]) [facility] (SWRL[place]) [address] [place] [address] Creatinine [Mass/Vol] 0.71 mg/dL Normal 0.52-1.04 [facility] Comment on above: Performed By: #### L [id number] #### Earth Sciences Professor: LESA MANZANO ([id number]) [facility] (SWRLAB) [address] [place] [address] GLOMERULAR FILTRATION RATE ML/MIN/1.73 SQ M.PREDICTED >90.0 Normal >60.0 [facility] Comment on above: Result Comment: Calc ulation based on the Chronic Kidney Disease Epidemiology Collaboration (CKD-EPI) equation refit without adjustment for race Performed By: #### L [id number] #### Earth Sciences Professor: LESA MANZANO ([id number]) [facility] (SWRLAB) [address] [place] [address] [place] Glucose [Mass/Vol] 114 mg/dL High 70-100 [facility] Comment on above: Performed By: #### L AB17 #### Earth Sciences Professor: LESA MANZANO ([id number]) [facility] (SWRL[facility]) [address] [place] [address] [place] Potassium [Moles/Vol] 3.8 mmol/L Normal 3.5-5.1 [facility] Comment on above: Performed By: #### L [id number] #### Earth Sciences Professor: LESA MANZANO ([id number]) [facility] (SWRLAB) [address] [place] [address] Protein [Mass/Vol] 7.5 g/dL Normal 6.3-8.2 [facility] Comment on above: Performed By: #### L [id number] #### Earth Sciences Professor: LESA MANZANO ([id number]) [facility]ITALA PERRI RITTMAN (SWRLAB) [address] [place] [address] Sodium [Moles/Vol] 138 mmol/L Normal 135-145 [facility] Comment on above: Performed By: #### L [id number] #### Earth Sciences Professor: LESA MANZANO ([id number]) [facility] (SWRLAB) [address] [place] [address] Urea nitrogen [Mass/Vol] 11 mg/dL Normal 7-17 [facility] Comment on above: Performed By: #### L AB17 #### Earth Sciences Professor: LESA MANZANO ([id number]) [facility] (SWRLAB) [address] [place] [address] CT ABDOMEN PELVIS WO IV CONT [facility] 04-28-2024 CT ABDOMEN PELVIS WO IV CONTRAST Patient Name[facility] RENEA [facility]CILLO : 1990 [id number] Exam Date/Time: 04/28/2024 08:20 Procedure: CT ABDOMEN PELVIS WO IV CONTRAST Ordering Provider: HAZEL JONATHAN Reason For Exam: FLANK PAIN EXAM: CT Abdomen and pelvis INDICATION: Flank pain COMPARISON: none TECHNIQUE: CT of the abdomen and pelvis was performed without intravenous contrast. Coronal and sagittal reformats were obtained. Dose reduction was employed with automated exposure control. FINDINGS: LOWER CHEST: within normal limits. ABDOMEN: LIVER: Subcentimeter hypoattenuated lesion noted in the inferior right hepatic lobe, likely a cyst. No routine follow-up is recommended.. BILE DUCTS: normal caliber. GALLBLADDER: No calcified gallstones. Normal caliber wall. PANCREAS: within normal limits. SPLEEN: within normal limits. ADRENALS: within normal limits. KIDNEYS: No renal calculi or hydronephrosis. PELVIS: REPRODUCTIVE ORGANS: Hysterectomy. Right adnexal cystic mass measuring 7.4 x 7.4 cm within adjacent 1.3 cm cyst noted anteriorly. URETERS: No ureteral calculi or hydroureter. BLADDER: Under distended. BOWEL: Bowel is normal in caliber. Appendix within normal limits. No enlarged mesenteric lymph nodes. PERITONEUM: no ascites or free air, no fluid collection. VESSELS: Within normal limits. LYMPH NODES: No enlarged nodes. RETROPERITONEUM: within normal limits. ABDOMINAL WALL: within normal limits. BONES: within normal limits. IMPRESSION: 1. Right adnexal cystic mass measuring up to 7.4 cm. Recommend pelvic ultrasound for further evaluation. 2. No urinary calculi or hydroureteronephrosis. Report Dictated on Electronically Signed By: Willi Parmar MD Electronically Signed Date/Time: 04/28/2024 8:29 AM EDT Pt ambulatory to ED4 with c/o right lower back pain that woke her in the middle of the night. Pain has been constant since, rated 7/10 at present, with no meds taken for this [employer]. Pt reports approx 1 mo ago having hematuria and being diagnosed with UTI. She took abx and s/s resolved. Pt denies n/v/dysuria/hematuria. LBM yesterday, pt states was rabbit poop like which is not normal for her. SX: HYSTER Normal [facility] CT Abdomen WO contraston Patient Name: RENEA VALLECILLO : 1990 Exam Date/Time: 04/28/2024 08:20 Procedure: CT ABDOMEN PELVIS WO IV CONTRAST Ordering Provider: HAZEL JONATHAN Reason For Exam: FLANK PAIN EXAM: CT Abdomen and pelvis INDICATION: Flank pain COMPARISON: none TECHNIQUE: CT of the abdomen and pelvis was performed without intravenous contrast. Coronal and sagittal reformats were obtained. Dose reduction was employed with automated exposure control. FINDINGS: LOWER CHEST: within normal limits. ABDOMEN: LIVER: Subcentimeter hypoattenuated lesion noted in the inferior right hepatic lobe, likely a cyst. No routine follow-up is recommended.. BILE DUCTS: normal caliber. GALLBLADDER: No calcified gallstones. Normal caliber wall. PANCREAS: within normal limits. SPLEEN: within normal limits. ADRENALS: within normal limits. KIDNEYS: No renal calculi or hydronephrosis. PELVIS: REPRODUCTIVE ORGANS: Hysterectomy. Right adnexal cystic mass measuring 7.4 x 7.4 cm within adjacent 1.3 cm cyst noted anteriorly. URETERS: No ureteral calculi or hydroureter. BLADDER: Under distended. BOWEL: Bowel is normal in caliber. Appendix within normal limits. No enlarged mesenteric lymph nodes. PERITONEUM: no ascites or free air, no fluid collection. VESSELS: Within normal limits. LYMPH NODES: No enlarged nodes. RETROPERITONEUM: within normal limits. ABDOMINAL WALL: within normal limits. BONES: within normal limits. [facility] Willi Parmar MD - 04/28/2024 Patient Name: REN[facility]LLO : 1990 [id number] Exam Date/Time: 04/28/2024 08:20 Procedure: CT ABDOMEN PELVIS WO IV CONTRAST Ordering Provider: HAZEL JONATHAN Reason For Exam: FLANK PAIN EXAM: CT Abdomen and pelvis INDICATION: Flank pain COMPARISON: none TECHNIQUE: CT of the abdomen and pelvis was performed without intravenous contrast. Coronal and sagittal reformats were obtained. Dose reduction was employed with automated exposure control. FINDINGS: LOWER CHEST: within normal limits. ABDOMEN: LIVER: Subcentimeter hypoattenuated lesion noted in the inferior right hepatic lobe, likely a cyst. No routine follow-up is recommended.. BILE DUCTS: normal caliber. GALLBLADDER: No calcified gallstones. Normal caliber wall. PANCREAS: within normal limits. SPLEEN: within normal limits. ADRENALS: within normal limits. KIDNEYS: No renal calculi or hydronephrosis. PELVIS: REPRODUCTIVE ORGANS: Hysterectomy. Right adnexal cystic mass measuring 7.4 x 7.4 cm within adjacent 1.3 cm cyst noted anteriorly. URETERS: No ureteral calculi or hydroureter. BLADDER: Under distended. BOWEL: Bowel is normal in caliber. Appendix within normal limits. No enlarged mesenteric lymph nodes. PERITONEUM: no ascites or free air, no fluid collection. VESSELS: Within normal limits. LYMPH NODES: No enlarged nodes. RETROPERITONEUM: within normal limits. ABDOMINAL WALL: within normal limits. BONES: within normal limits. IMPRESSION: 1. Right adnexal cystic mass measuring up to 7.4 cm. Recommend pelvic ultrasound for further evaluation. 2. No urinary calculi or hydroureteronephrosis. Report Dictated on Electronically Signed By: Willi Parmar MD Electronically Signed Date/Time: 04/28/2024 8:29 AM EDT [facility] [employer] Radiology Study observation (narrative) [facility] CT Abdomen WO contrastOrdere d By: Willi Parmar on 04-28-2024 [facility] [employer] Work Phone: Comprehensive metabolic 1998 panelon 04-28-2024 Albumin [Mass/Vol] 4.3 g/dL 3.5 - 5.0 g/dL [facility] [employer] ALP [Catalytic activity/Vol] 62 U/L 38 - 126 U/L [facility] [employer] ALT [Catalytic activity/Vol] 18 U/L 0 - 34 U/L [facility] [employer] Anion gap [Moles/Vol] 6 mmol/L 3 - 13 mmol/L [facility] [employer] AST [Catalytic activity/Vol] 26 U/L 15 - 46 U/L [facility] [employer] Bilirubin [Mass/Vol] 0.9 mg/dL 0.2 - 1 .3 mg/dL [facility] [employer] Calcium [Mass/Vol] 9.0 mg/dL 8.4 - 10. 4 mg/dL [facility] [employer] Chloride [Moles/Vol] 108 mmol/L High 98 - 10 7 mmol/L [facility] [employer] CO2 [Moles/Vol] 24 mmol/L 22 - 30 mmol/L [facility] [employer] Creatinine [Mass/Vol] 0.71 mg/dL 0.52 - 1.04 mg/dL [facility] [employer] GFR/1.73 sq M.predicted (S/P/Bld) [Vol rate/Area] - PINF [facility] [employer] Comment on above: Calculation based on the Chronic Kidney Disease Epidemiology Collaboration (CKD-EPI) equation refit without adjustment for race Glucose [Mass/Vol] 114 mg/dL High 70 - 100 mg/dL [facility] Interpretation and review of laboratory results Abnormal [facility] Potassium [Moles/Vol] 3.8 mmol/L 3.5 - 5.1 mmol/L [facility] Protein [Mass/Vol] 7.5 g/dL 6.3 - 8.2 g/dL [facility] Sodium [Moles/Vol] 138 mmol/L 135 - 145 mmol/L [facility] Urea nitrogen [Mass/Vol] 11 mg/dL 7 - 17 mg/dL [facility] ED Nursing Noteon 04-28-2024 ED Nursing Note Pt ambulatory to ED4 with c/o right lower back pain that woke her in the middle of the night. Pain has been constant since, rated 7/10 at present, with no meds taken for this [employer]. Pt reports approx 1 mo ago having hematuria and being diagnosed with UTI. She took abx and s/s resolved. Pt denies n/v/dysuria/hematuria. LBM yesterday, pt states was rabbit poop like which is not normal for her. Pt is A&Ox3, respirations even and unlabored, skin warm and dry, no distress noted. Normal [facility] ED Provider Noteon ED Provider Note [facility] ED EMERGENCY DEPARTMENT ENCOUNTER Pt Name: Renea Vallecillo Birthdate 1990 Date of evaluation: 04/28/2024 Provider: Manuel Hazel MD CHIEF COMPLAINT Chief Complaint Patient presents with Back Pain HISTORY OF PRESENT ILLNESS I wore proper PPE for the entirety of this encounter. Renea Vallecillo is a 34 y.o. female who presents to the emergency department with right flank pain started this morning. No dysuria, hematuria, vaginal bleeding, vaginal discharge. Pain does not radiate to the abdomen. No recent falls or injuries. Denies weakness or numbness, fever, night sweats, saddle anesthesia, incontinence, weight loss, history of cancer, history of IV drug use. Nursing Notes were reviewed. REVIEW OF SYSTEMS As above PAST MEDICAL HISTORY Past Medical History: Diagnosis Date 2019 novel coronavirus disease (COVID-19) 2019 & 2021 Allergic Teenager Anemia Anxiety Headache 17 years old IBS (irritable bowel syndrome) Irritable bowel syndrome 2021 Mitral valve prolapse 2013 & 2014 Syncope Varicella 1990s SURGICAL HISTORY Past Surgical History: Procedure Laterality Date ABDOMINAL SURGERY 2013 & 2021 SECTION (HISTORICAL) SECTION, LOW TRANSVERSE 10/20/14 HYSTERECTOMY 05/24/22 CURRENT MEDICATIONS Previous Medications ALBUTEROL 108 (90 BASE) MCG/ACT INHALER Inhale 2 puffs Once as needed for shortness of breath. BIOTIN 10 MG TABLET Take by mouth. CETIRIZINE HCL 10 MG CAPSULE Take 10 mg by mouth. MULTIPLE VITAMIN (MULTIVITAMIN) TABLET Take 1 tablet by mouth daily. PHENTERMINE (ADIPEX-P) 37.5 MG TABLET TAKE 37.5 MG BY MOUTH DAILY BMI 32.5 RIZATRIPTAN (MAXALT) 10 MG TABLET Take 10 mg by mouth Once as needed. TOPIRAMATE (TOPAMAX) 25 MG TABLET TAKE 1 TABLET BY MOUTH 1 TO 2 TIMES DAILY ALLERGIES Wound dressing adhesive FAMILY HISTORY Family History Problem Relation Name Age of [...] cancer Neg Hx Ovarian cancer Neg Hx SOCIAL HISTORY Social History Socioeconomic History Marital status: Other Tobacco Use Smoking status: Never Smokeless tobacco: Never Tobacco comments: Never Vaping Use Vaping status: Never Used Substance and Sexual Activity Alcohol use: Yes Alcohol/week: 1.0 standard drink of alcohol Types: 1 Standard drinks or equivalent per week Comment: occ Drug use: No Sexual activity: Yes Partners: Male control/protection: Other Comment: Hysterectomy Social Determinants of Health Financial Resource Strain: Low Risk (03/18/2024) Overall Financial Resource Strain (CARDIA) Difficulty of Paying Living Expenses: Not hard at all Food Insecurity: No Food Insecurity (03/18/2024) Hunger Vital Sign Worried About Running Out of Food in the Last Year: Never true Ran Out of Food in the Last Year: Never true Transportation Needs: No Transportation Needs (03/18/2024) PRAPARE - Transportation Lack of Transportation (Medical): No Lack of Transportation (Non-Medical): No Physical Activity: Inactive (03/18/2024) Exercise Vital Sign Days of Exercise per Week: 0 days Minutes of Exercise per Session: 0 min Stress: No Stress Concern Present (03/18/2024) [place] [employer] - Occupational Stress Questionnaire Feeling of Stress : Only a little Social Connections: Moderately Isolated (03/18/2024) Social Connection and Isolation Panel [NHANES] Frequency of Communication with Friends and Family: More than three times a week Frequency of Social Gatherings with Friends and Family: Twice a week Attends Restorationist Services: Never Active Member of Clubs or Organizations: Yes Attends Club or Organization Meetings: 1 to 4 times per year Marital Status: Intimate Partner Violence: Not At Risk (03/18/2024) Humiliation, Afraid, Rape, and Kick questionnaire Fear of Current or Ex-Partner: No Emotionally Abused: No Physically Abused: No Sexually Abused: No Housing Stability: Unknown (03/18/2024) Housing Stability Vital Sign Unable to Pay for Housing in the Last Year: No Homeless in the Last Year: No SCREENINGS PHYSICAL EXAM ED Triage Vitals [04/28/24 0742] Temp Heart Rate Resp BP 36.8 ?C (98.2 ?F) 95 16 117/78 SpO2 Temp Source Heart Rate Source Patient Position 100 % Oral -- -- BP Location FiO2 (%) -- -- Constitutional: No acute distress HEENT:Head: Atraumatic Eyes: Conjunctivae normal. ENT: Mucous membranes moist Neck: Normal ROM, supple CV: RRR RESP: CTAB, good respiratory effort, no increased wob GI: Abdomen soft, non-tende (more content not included)... Normal [facility] US PELVIS TRANSVAGINALon US PELVIS TRANSVAGINAL Patient Name: RENEA [facility]ACOBSEN : 1990 [id number] Exam Date/Time: 04/28/2024 09:53 Procedure: US PELVIS TRANSVAGINAL Ordering Provider: HAZEL JONATHAN Reason For Exam: Right adnexal mass ULTRASOUND PELVIS: CLINICAL INDICATION: Adnexal mass LMP: Unknown COMPARISON: 11/28/2021 TECHNIQUE: Grayscaletransvaginal and color Doppler flow signal imaging performed. FINDINGS: Uterus: Absent Right Ovary: Size: 7.8 x 7.7 x 5.8 cm Mass: none Cyst: Cystic structure with debris 7.1 x 5.5 x 5.5 cm. Color flow/Doppler waveform: normal Left Ovary: Size: 3.8 x 2.1 x 1.8 cm Mass: none Cyst: Complex appearing cystic structure 2.0 x 1.6 x 1.2 cm. Color flow/Doppler waveform: normal Cul-de-sac: No free fluid IMPRESSION: Nonsimple, nonspecific appearing adnexal cystic structures. Recommend follow-up or further evaluation. Report Dictated on Electronically Signed By: Rigoberto Gomez MD Electronically Signed Date/Time: 04/28/2024 10:14 AM EDT [facility] US Pelvis transvaginalon Patient Name: RENEA VALLECILLO : 1990 Exam Date/Time: 04/28/2024 09:53 Procedure: US PELVIS TRANSVAGINAL Ordering Provider: HAZEL JONATHAN Reason For Exam: Right adnexal mass ULTRASOUND PELVIS: CLINICAL INDICATION: Adnexal mass LMP: Unknown COMPARISON: 11/28/2021 TECHNIQUE: Grayscaletransvaginal and color Doppler flow signal imaging performed. FINDINGS: Uterus: Absent Right Ovary: Size: 7.8 x 7.7 x 5.8 cm Mass: none Cyst: Cystic structure with debris 7.1 x 5.5 x 5.5 cm. Color flow/Doppler waveform: normal Left Ovary: Size: 3.8 x 2.1 x 1.8 cm Mass: none Cyst: Complex appearing cystic structure 2.0 x 1.6 x 1.2 cm. Color flow/Doppler waveform: normal Cul-de-sac: No free fluid [facility] Rigoberto Gomez MD - 04/28/2024 Patient Name: RENEA VALLECILLO : 1990 Exam Date/Time: 04/28/2024 09:53 Procedure: US PELVIS TRANSVAGINAL Ordering Provider: HAZEL JONATHAN Reason For Exam: Right adnexal mass ULTRASOUND PELVIS: CLINICAL INDICATION: Adnexal mass LMP: Unknown COMPARISON: 11/28/2021 TECHNIQUE: Grayscaletransvaginal and color Doppler flow signal imaging performed. FINDINGS: Uterus: Absent Right Ovary: Size: 7.8 x 7.7 x 5.8 cm Mass: none Cyst: Cystic structure with debris 7.1 x 5.5 x 5.5 cm. Color flow/Doppler waveform: normal Left Ovary: Size: 3.8 x 2.1 x 1.8 cm Mass: none Cyst: Complex appearing cystic structure 2.0 x 1.6 x 1.2 cm. Color flow/Doppler waveform: normal Cul-de-sac: No free fluid IMPRESSION: Nonsimple, nonspecific appearing adnexal cystic structures. Recommend follow-up or further evaluation. Report Dictated on Electronically Signed By: Rigoberto Gomez MD Electronically Signed Date/Time: 04/28/2024 10:14 AM EDT [facility] Radiology Study observation (narrative) [facility] alth US Pelvis transvaginalOrdere d By: Rigoberto Gomez on 04-28-2024 [facility] Work Phone: Urinalysis complete panel (U )Ordered By: Bryson Dunbar on 04-28-2024 Bacteria LM.HPF (Urine sed) [#/Area] Moderate Abnormal Negative /HPF [facility] Bilirubin Ql (U) Negative Negative mg/dL [facility] Clarity (U) Clear Clear [facility] Color (U) Yellow Lt. Yellow [facility] Epithelial cells.squamous LM.HPF (Urine sed) [#/Area] 3-5 [facility] h Glucose Ql (U) Normal Normal (<70) mg/dL [facility] Hemoglobin Ql (U) 0.03 mg/dL Abnormal Negative [facility] Interpretation and review of laboratory results Abnormal [facility] Ketones (U) [Mass/Vol] Negative Negat linda mg/dL [facility] Leukocyte esterase Test strip Ql (U) 75 Abnormal Negative Froilan/uL [facility] Mucus LM.HPF (Urine sed) [#/Area] Moderate Abnormal Negative /LPF [facility] Nitrite Ql (U) Negative Negative [facility] th pH (U) 7.0 [pH] 5.0 - 8.0 pH [facility] Protein (U) [Mass/Vol] 10 mg/dL Abnormal Negative [facility] RBC LM.HPF (Urine sed) [#/Area] 0-2 [facility] Specific gravity (U) [Rel density] 1.026 1.005 - 1.030 [facility] Urobilinogen (U) [Mass/Vol] Normal Normal (0-1) mg/dL [facility] Volume, Urine 8-12 mL [facility]alt h WBC LM.HPF (Urine sed) [#/Area] 0-2 [facility] Bacteria identifiedon 2023 Bacteria identified Cx Nom (U) Test: Urine Culture Specimen Source: Clean Catch/Voided Specimen Type: Urine Specimen Date: 03/24/20241737 Result Date: 03/28/20241358 Result Status: Final result Abnormal: Yes Resulting Lab: [facility] [id number] [id number] CULTURE >100,000 Escherichia coli (Abnormal) SUSCEPTIBILITY Escherichia coli METHOD MICROSCAN --- AMOXICILLIN/CLAVULANATE >16/8 ug/mL Resistant AMPICILLIN >16.000 ug/mL Resistant AMPICILLIN/SULBACTAM 16/8 ug/mL Intermediate AZTREONAM <=4.000 ug/mL Susceptible CEFAZOLIN >16 ug/mL Resistant CEFAZOLIN (UNCOMPLICATED UTIS ONLY) >16 ug/mL Resistant CEFEPIME <=2 ug/mL Susceptible CEFOTAXIME 16.0 ug/mL Resistant CEFTAZIDIME 8.000 ug/mL Intermediate CEFTRIAXONE >2.000 ug/mL Resistant CIPROFLOXACIN <=0.250 ug/mL Susceptible ERTAPENEM <=0.500 ug/mL Susceptible GENTAMICIN <=2.000 ug/mL Susceptible MEROPENEM <=1.000 ug/mL Susceptible NITROFURANTOIN <=32 ug/mL Susceptible PIPERACILLIN/TAZOBACTAM <=8.000 ug/mL Susceptible TRIMETHOPRIM/SULFAMETHOX AZOLE <=2/38 ug/mL Susceptible Abnormal [facility] Comment on above: Performed By: #### 6 30-4 #### MAMTA Rich ([id number]) [facility] ([facility]) [address] [place] [address] Basophil percentageOrdered B y: Angela Pressley on 09-29-2023 Cholesterol [Mass/Vol] 175 mg/dL <200 [facility] Comment on above: <200 mg/dL Desirable 200-240 mg/dL Borderline >240 mg/dL High Risk Triglyceride [Mass/Vol] 87 mg/dL <199 [facility] Comment on above: The drugs N-Acetylcy steine and Metamizole may falsely depress this assay.Serum Triglycerides Reference Interval Normal <150 mg/dL Borderline high 150 - 199 mg/dL High 200 - 499 mg/dL Very High > or = 500 mg/dL Laboratory - Chemistry and C hemistry - challengeOrdered By: Angela Pressley on 09-29-2023 Cholesterol in HDL [Mass/Vol] 64 mg/dL >40 [facility] Comment on above: The drugs N-Acetylcy steine and Metamizole may falsely depress this assay. Reference Range HDL <40 mg/dL Low HDL Cholesterol HDL >or= 60 mg/dL High HDL Cholesterol Cholesterol in LDL [Mass/Vol] 94 mg/dL 0-130 [facility] No Panel InformationOrdered By: Angela Pressley on 09-29-2023 Vitamin D 25-Hydroxy 15.5 ng/mL [facility] Comment on above: Vitamin D 25(OH) Sta tus Range Deficiency <20 ng/mL (50nmol/L) Insufficiency 20 - 30 ng/mL (50 - 75 nmol/L) Sufficiency 30 - 100 ng/mL (75 - 250 nmol/L) Toxicity >100 ng/mL (>250 nmol/L) VLDL Cholesterol 17 mg/dL 5-40 [facility] Serum or plasma thyroid stim ulating hormone (TSH) measurement (units/volume)Ordered By: Angela Pressley on 09-29-2023 TSH Qn 0.99 uIU/mL 0.358-3.74 [facility] Whole blood hemoglobin A1c/t otal hemoglobin ratio (mass fraction)Ordered By: Angela Pressley on 09-29-2023 HbA1c (Bld) [Mass fraction] 5.2 % 3.8-5.6 [facility] Comment on above: Normal < 5.7 % Predi abetic 5.7 - 6.4 % Diabetic >or= 6.5 % Please note range changes. AMB POC COVID-19 COVon 06-01 Interpretation and review of laboratory results Normal [facility] SARS-CoV-2 (COVID-19) RNA ELY+non-probe Ql (Nph) Negative Negative [facility] Basic metabolic 1998 panelon 03-18-2023 Anion gap [Moles/Vol] 6 mmol/L 3 - 13 mmol/L [facility] Calcium [Mass/Vol] 8.8 mg/dL 8.4 - 10. 4 mg/dL [facility] Chloride [Moles/Vol] 107 mmol/L 98 - 10 7 mmol/L [facility] CO2 [Moles/Vol] 25 mmol/L 22 - 30 mmol/L [facility] Creatinine [Mass/Vol] 0.75 mg/dL 0.52 - 1.04 mg/dL [facility] GFR/1.73 sq M.predicted MDRD (S/P/Bld) [Vol rate/Area] - PINF [facility] Comment on above: Calculation based on the Chronic Kidney Disease Epidemiology Collaboration (CKD-EPI) equation refit without adjustment for race Glucose [Mass/Vol] 87 mg/dL 70 - 100 mg/dL [facility] Interpretation and review of laboratory results Normal [facility] Potassium [Moles/Vol] 4.0 mmol/L 3.5 - 5.1 mmol/L [facility] Sodium [Moles/Vol] 137 mmol/L 135 - 145 mmol/L [facility] Urea nitrogen [Mass/Vol] 11 mg/dL 7 - 17 mg/dL [facility] HbA1c (Bld) [Mass fraction]o n 03-18-2023 Average glucose Estimated from glycated hemoglobin (Bld) [Mass/Vol] 114 mg/dL [facility] Laboratory - Hematology and Cell countson 03-18-2023 HbA1c (Bld) [Mass fraction] 5.6 % NINF - 5.7 % [facility] Comment on above: Normal less than 5.7 % Prediabetes 5.7% to 6.4% Diabetes 6.5% or higher --HgbA1C levels may not be accurate in patients who have renal disease, received recent blood transfusions, are anemic, or who have dyshemoglobinemia. Lipid 1996 panelon 3 Cholesterol [Mass/Vol] 182 mg/dL NINF - 200 mg/dL [facility] Cholesterol in HDL [Mass/Vol] 38 mg/dL Low 40 - 60 mg/dL [facility] Cholesterol in LDL [Mass/Vol] 117 mg/dL High 0 - <100 [facility] Cholesterol.total/Eklley sterol in HDL [Mass ratio] 5 {ratio} [facility] Comment on above: Ref Range: < 3 Low Risk for CHD 3-6 Mod Risk for CHD > 6 High Risk for CHD Interpretation and review of laboratory results Abnormal [facility] Triglyceride [Mass/Vol] 135 mg/dL NINF - 150 mg/dL [facility] No Panel Informationon 03-18 [facility] Basophil percentageOrdered B y: Dr. Pressley on 01-06-2023 Chloride [Moles/Vol] 110 mmol/L 98-107 [facility] Glucose [Mass/Vol] 95 mg/dL 74-106 [facility] Potassium [Moles/Vol] 4.0 mmol/L 3.5-5.1 [facility] Sodium [Moles/Vol] 140 mmol/L 136-145 [facility] Laboratory - Chemistry and C hemistry - challengeOrdered By: Dr. Pressley on 01-06-2023 CO2 [Moles/Vol] 23.0 mmol/L 21.0-32.0 [facility] Urea nitrogen/Creatinine [Mass ratio] 12.7 mg/mg 10-20 [facility] No Panel InformationOrdered By: Dr. Pressley on 01-06-2023 Estimated GFR (MDRD) Amer 122 mL/min >60 [facility] Comment on above: GFR Calc Estimated GFR (MDRD) Non-Af Amer 101 mL/min >60 [facility] Comment on above: Non- GFR Calc Serum or plasma calcium elgin urement (mass/volume)Ordered By: Dr. Pressley on 01-06-2023 Calcium [Mass/Vol] 8.9 mg/dL 8.5-10.1 [facility] Serum or plasma creatinine m easurement (mass/volume)Ordered By: Dr. Pressley on 01-06-2023 Creatinine [Mass/Vol] 0.71 mg/dL 0.55-1.02 [facility] Comment on above: The validity of the calculated GFR & GFRAA in patients over 70 years has not been determined. Clinical correlation is essential. Serum or plasma urea nitroge n measurement (mass/volume)Ordered By: Dr. Pressley on 01-06-2023 Urea nitrogen [Mass/Vol] 9 mg/dL 7-18 [facility] Thin prep Papanicolaou smear with manual screeningOrdered By: Dr. Pressley on 01-06-2023 Thin prep Papanicolaou smear with manual screening 7 5-15 [facility] Basophil percentageOrdered B y: Dr. Pressley on 10-14-2022 Chloride [Moles/Vol] 109 mmol/L 98-107 [facility] Cholesterol [Mass/Vol] 187 mg/dL <200 [facility] Comment on above: <200 mg/dL Desirable 200-240 mg/dL Borderline >240 mg/dL High Risk Glucose [Mass/Vol] 102 mg/dL 74-106 [facility] Comment on above: Fasting Glucose resu lt from 100 to 125 mg/dL suggests IMPAIRED HOMEOSTASIS per A.D.A. criteria. Potassium [Moles/Vol] 3.8 mmol/L 3.5-5.1 [facility] Sodium [Moles/Vol] 139 mmol/L 136-145 [facility] Triglyceride [Mass/Vol] 140 mg/dL <199 [facility] Comment on above: The drugs N-Acetylcy steine and Metamizole may falsely depress this assay.Serum Triglycerides Reference Interval Normal <150 mg/dL Borderline high 150 - 199 mg/dL High 200 - 499 mg/dL Very High > or = 500 mg/dL Laboratory - Chemistry and C hemistry - challengeOrdered By: Dr. Pressley on 10-14-2022 CO2 [Moles/Vol] 24.0 mmol/L 21.0-32.0 [facility] Urea nitrogen/Creatinine [Mass ratio] 12.3 mg/mg 10-20 [facility] No Panel InformationOrdered By: Dr. Pressley on 10-14-2022 Estimated GFR (MDRD) Amer 104 mL/min >60 [facility] Comment on above: GFR Calc Estimated GFR (MDRD) Non-Af Amer 86 mL/min >60 [facility] Comment on above: Non- GFR Calc Thyroid Stimulating Hormone (TSH) 0.56 uIU/mL 0.358-3.74 [facility] Serum or plasma calcium elgin urement (mass/volume)Ordered By: Dr. Pressley on 10-14-2022 Calcium [Mass/Vol] 9.3 mg/dL 8.5-10.1 [facility] Serum or plasma cholesterol in HDL measurement (mass/volume)Ordered By: Dr. Pressley on 10-14-2022 Cholesterol in HDL [Mass/Vol] 50 mg/dL >40 [facility] Comment on above: The drugs N-Acetylcy steine and Metamizole may falsely depress this assay. Reference Range HDL <40 mg/dL Low HDL Cholesterol HDL >or= 60 mg/dL High HDL Cholesterol Serum or plasma cholesterol in VLDL measurement (mass/volume)Ordered By: Dr. Pressley on 10-14-2022 Cholesterol in VLDL [Mass/Vol] 28 mg/dL 5-40 [facility] Serum or plasma creatinine m easurement (mass/volume)Ordered By: Dr. Pressley on 10-14-2022 Creatinine [Mass/Vol] 0.81 mg/dL 0.55-1.02 [facility] Comment on above: The validity of the calculated GFR & GFRAA in patients over 70 years has not been determined. Clinical correlation is essential. Serum or plasma low density lipoprotein (LDL) cholesterol measurement (mass/volume)Ordered By: Dr. Pressley on 10-14-2022 Cholesterol in LDL [Mass/Vol] 109 mg/dL 0-130 [facility] Serum or plasma urea nitroge n measurement (mass/volume)Ordered By: Dr. Pressley on 10-14-2022 Urea nitrogen [Mass/Vol] 10 mg/dL 7-18 [facility] Thin prep Papanicolaou smear with manual screeningOrdered By: Dr. Pressley on 10-14-2022 Thin prep Papanicolaou smear with manual screening 6 5-15 [facility] AMB POC RAPID STREP Aon 03-0 8-2023 Interpretation and review of laboratory results Abnormal [facility] S. pyogenes Ag Ql (Throat) Positive Abnormal Negative, None Detected [facility] Absolute lymphocyte counton 05-24-2022 Lymphocytes Auto (Unsp spec) [#/Vol] 0.93 10*3/uL 0.83-4.51 [facility] Work Phone: Basophil percentageon 2021 Basophils/100 WBC (Bld) 0.1 % 0-1 [facility] Work Phone: Eosinophils/100 WBC (Bld) 0.1 % 0-5 [facility] Work Phone: Neutrophils (Bld) [#/Vol] 12.1 10*3/uL 2.0-7.7 [facility] Work Phone: Neutrophils/100 WBC (Bld) 90.9 % 47-70 [facility] Work Phone: WBC (Bld) [#/Vol] 13.3 10*3/uL 4.4-11.0 [facility] Work Phone: Blood erythrocytes count (nu mber/volume)on 05-24-2022 RBC (Bld) [#/Vol] 4.45 10*6/uL 4.2-5.4 [facility] Work Phone: Blood hemoglobin measurement (mass/volume)on 05-24-2022 Hemoglobin (Bld) [Mass/Vol] 12.3 g/dL 12.0-15.0 [facility] Work Phone: Blood lymphocytes/100 leukoc yteson 05-24-2022 Lymphocytes/100 WBC (Bld) 7.0 % 19-41 [facility] Work Phone: Blood monocytes/100 leukocyt eson 05-24-2022 Monocytes/100 WBC (Bld) 1.3 % 0-10 [facility] Work Phone: Blood platelet mean volumeon 05-24-2022 Platelet mean volume (Bld) [Entitic vol] 8.8 fL 6.2-12.0 [facility] Work Phone: [phone] Determination of erythrocyte mean corpuscular volume (MCV)on 05-24-2022 MCV (RBC) [Entitic vol] 86.3 fL 81-99 [facility] Work Phone: [phone] Glucose Glucometer (BldC) [M ass/Vol]on 05-24-2022 Glucose [Mass/Vol] 89 mg/dL 74-106 [facility] Work Phone: [phone] Comment on above: MANAGEMENT OF PATIEN T CARE PER NURSING PROTOCOL Hematocrit Auto (Bld) [Volum e fraction]on 05-24-2022 Hematocrit (Bld) [Volume fraction] 38.4 % 37-47 [facility] Work Phone: [phone] Laboratory - Chemistry and C hemistry - challengeon 05-24-2022 HCG ( test) Ql (U) Negative [facility] Work Phone: [phone] Comment on above: Very dilute urine sp ecimens, as indicated by a low specificgravity, may not contain business development representative levels of hCG. If is still suspected, a first morning urinespecimen should be collected 48 hours later and tested. Laboratory - Hematology and Cell countson 05-24-2022 Erythrocyte distribution width (RBC) [Entitic vol] 40.5 fL 35.1-43.9 [facility] Work Phone: [phone] Erythrocyte distribution width (RBC) [Ratio] 13.0 % 11.6-14.6 [facility] Work Phone: [phone] Immature granulocytes/100 WBC (Bld) 0.600 % 0.0-0.9 [facility] Work Phone: [phone] Comment on above: IG% - Immature Granu locytes (promyelocytes, myelocytes and metamyelocytes) > 1% indicates that a LEFT SHIFT is Present. MCH (RBC) [Entitic mass] 27.6 pg 27.0-32.0 [facility] Work Phone: [phone] Nucleated RBC/100 WBC (Bld) [Ratio] 0 % 0-5 [facility] Work Phone: [phone] MCHC Auto (RBC) [Mass/Vol]on 05-24-2022 MCHC (RBC) [Mass/Vol] 32.0 g/dL 32-36 [facility] Work Phone: Platelets bldon 05-24-2022 Platelets (Bld) [#/Vol] 301 10*3/uL 150-450 [facility] Work Phone: Absolute lymphocyte counton 05-18-2022 Lymphocytes Auto (Unsp spec) [#/Vol] 2.34 10*3/uL 0.83-4.51 [facility] Work Phone: Basophil percentageon 2021 Basophils/100 WBC (Bld) 0.6 % 0-1 [facility] Work Phone: Eosinophils/100 WBC (Bld) 3.9 % 0-5 [facility] Work Phone: Neutrophils (Bld) [#/Vol] 5.2 10*3/uL 2.0-7.7 [facility] Work Phone: Neutrophils/100 WBC (Bld) 60.0 % 47-70 [facility] Work Phone: WBC (Bld) [#/Vol] 8.7 10*3/uL 4.4-11.0 [facility] Work Phone: Bilirubin [Mass/Vol] 0.30 mg/dL 0.20-1.00 [facility] Work Phone: Comment on above: For patients on eltr ombopag therapy, use of Dimension [place] TBIL is not recommended. Protein [Mass/Vol] 7.3 g/dL 6.4-8.2 [facility] Work Phone: Blood erythrocytes count (nu mber/volume)on 05-18-2022 RBC (Bld) [#/Vol] 4.92 10*6/uL 4.2-5.4 [facility] Work Phone: Blood hemoglobin measurement (mass/volume)on 05-18-2022 Hemoglobin (Bld) [Mass/Vol] 13.8 g/dL 12.0-15.0 [facility] Work Phone: Blood lymphocytes/100 leukoc yteson 05-18-2022 Lymphocytes/100 WBC (Bld) 26.8 % 19-41 [facility] Work Phone: Blood monocytes/100 leukocyt eson 05-18-2022 Monocytes/100 WBC (Bld) 8.4 % 0-10 [facility] Work Phone: Blood platelet mean volumeon 05-18-2022 Platelet mean volume (Bld) [Entitic vol] 8.9 fL 6.2-12.0 [facility] Work Phone: Determination of erythrocyte mean corpuscular volume (MCV)on 05-18-2022 MCV (RBC) [Entitic vol] 83.5 fL 81-99 [facility] Work Phone: Direct bilirubinon Bilirubin.direct [Mass/Vol] 0.11 mg/dL 0.00-0.30 [facility] Work Phone: Hematocrit Auto (Bld) [Volum e fraction]on 05-18-2022 Hematocrit (Bld) [Volume fraction] 41.1 % 37-47 [facility] Work Phone: INR in Blood by Coagulation assayon 05-18-2022 INR Coag (Bld) [Relative time] 1.0 {INR} [facility] Work Phone: Laboratory - Chemistry and C hemistry - challengeon 05-18-2022 ALP [Catalytic activity/Vol] 101 U/L 45-117 [facility] Work Phone: ALT [Catalytic activity/Vol] 38 U/L 13-56 [facility] Work Phone: Globulin (S) [Mass/Vol] 3.8 g/dL 2.2-4.2 [facility] Work Phone: Magnesium [Mass/Vol] 1.8 mg/dL 1.6-2.6 [facility]: Laboratory - Coagulationon aPTT Coag (Bld) [Time] 32.9 s 24.1-36.2 [facility] Work Phone: [phone] PT Coag (PPP) [Time] 12.7 s 11.7-14.9 [facility] Work Phone: [phone] Laboratory - Hematology and Cell countson 05-18-2022 Erythrocyte distribution width (RBC) [Entitic vol] 39.0 fL 35.1-43.9 [facility] Work Phone: [phone] Erythrocyte distribution width (RBC) [Ratio] 12.9 % 11.6-14.6 [facility] Work Phone: [phone] Immature granulocytes/100 WBC (Bld) 0.300 % 0.0-0.9 [facility] Work Phone: [phone] Comment on above: IG% - Immature Granu locytes (promyelocytes, myelocytes and metamyelocytes) > 1% indicates that a LEFT SHIFT is Present. MCH (RBC) [Entitic mass] 28.0 pg 27.0-32.0 [facility] Work Phone: [phone] Nucleated RBC/100 WBC (Bld) [Ratio] 0 % 0-5 [facility] Work Phone: [phone] MCHC Auto (RBC) [Mass/Vol]on 05-18-2022 MCHC (RBC) [Mass/Vol] 33.6 g/dL 32-36 [facility] Work Phone: [phone] Platelets bldon 05-18-2022 Platelets (Bld) [#/Vol] 380 10*3/uL 150-450 [facility] Work Phone: [phone] Serum or plasma albumin elgin urement (mass/volume)on 05-18-2022 Albumin [Mass/Vol] 3.5 g/dL 3.2-5.0 [facility] Work Phone: [phone] Thin prep Papanicolaou smear with manual screeningon 05-18-2022 Thin prep Papanicolaou smear with manual screening 22 U/L 15-37 [facility] Work Phone: Basic Metabolic Panelon 08-2 Calcium [Mass/Vol] 9.1 mg/dL Normal 8.4-10.4 [facility] Comment on above: Performed By: #### B MP3, LIPD2 #### [facility] [address] [place] [address] Glucose [Mass/Vol] 98 mg/dL Normal 70-100 [facility] Comment on above: Performed By: #### Evita MP3, LIPD2 #### [facility] [address] [place] [address] Urea nitrogen [Mass/Vol] 11 mg/dL Normal 9-20 [facility] Comment on above: Performed By: #### Evita MP3, LIPD2 #### [facility] [address] [place] [address] Anion gap [Moles/Vol] 7 mmol/L Normal 3-13 [facility] Comment on above: Performed By: #### Evita MP3, LIPD2 #### [facility] [address] [place] [address] CO2 [Moles/Vol] 23 mmol/L Normal 22-30 [facility] Comment on above: Performed By: #### Evita MP3, LIPD2 #### [facility] [address] [place] [address] Creatinine [Mass/Vol] 0.69 mg/dL Normal 0.52-1.25 [facility] Comment on above: Performed By: #### Evita MP3, LIPD2 #### [facility] [address] [place] [address] eGFR OTHER > 90.0 Normal >60 [facility] Comment on above: Result Comment: KDIG O guidelines provide the following GFR categories: Stage GFR(ml/min/1.73 m2) Terms G1 >=90 Normal or high G2 60-89 Mildly decreased* G3a 45-59 Mildly to moderately decreased G3b 30-44 Moderately to severely decreased G4 15-29 Severely decreased G5 <15 Kidney failure *Relative to young adult level. In the absence of evidence of kidney damage, neither GFR category G1 nor G2 fulfill the criteria for CKD. The CKD-EPI equation is validated in individuals 18 years of age and older. Currently the best equation for estimating glomerular filtration rate (GFR) from serum creatinine in children is the Bedside Dickson equation. It is less accurate in patients with extremes of muscle mass, restriction of dietary protein, ingestion of creatine, extra-renal metabolism of creatinine, or treatment with medications that affect renal tubular creatinine secretion. Performed By: #### Evita BROOKS3, LIPD2 #### [facility] [address] [place] [address] GFR/1.73 sq M.predicted among blacks MDRD (S/P/Bld) [Vol rate/Area] mL/min/{1.73_m2} Normal >60 [facility] Comment on above: Performed By: #### Evita BROOKS3, LIPD2 #### [facility] [address] [place] [address] Potassium [Moles/Vol] 4.5 mmol/L Normal 3.5-5.1 [facility] Comment on above: Performed By: #### Evita BROOKS3, LIPD2 #### [facility] [address] [place] [address] Sodium [Moles/Vol] 138 mmol/L Normal 135-145 [facility] Comment on above: Performed By: #### Evita BROOKS3, LIPD2 #### [facility] [address] [place] [address] Chloride [Moles/Vol] 108 mmol/L High 98-107 [facility] Comment on above: Performed By: #### Evita BROOKS3, LIPD2 #### [facility] [address] [place] [address] Anion gap [Moles/Vol] 7 mmol/L 3 - 13 mmol/L [facility] Calcium [Mass/Vol] 9.1 mg/dL 8.4 - 10. 4 mg/dL [facility] Chloride [Moles/Vol] 108 mmol/L High 98 - 10 7 mmol/L [facility] CO2 [Moles/Vol] 23 mmol/L 22 - 30 mmol/L [facility] Creatinine [Mass/Vol] 0.69 mg/dL 0.52 - 1.25 mg/dL [facility] eGFR mL/min 60 - P INF mL/min [facility] EGFR IF NonAfrican Beninese mL/min 60 - PINF mL/min [facility] Comment on above: KDIGO guidelines pro vide the following GFR categories: Stage GFR(ml/min/1.73 m2) Terms G1 >=90 Normal or high G2 60-89 Mildly decreased* G3a 45-59 Mildly to moderately decreased G3b 30-44 Moderately to severely decreased G4 15-29 Severely decreased G5 <15 Kidney failure *Relative to young adult level. In the absence of evidence of kidney damage, neither GFR category G1 nor G2 fulfill the criteria for CKD. The CKD-EPI equation is validated in individuals 18 years of age and older. Currently the best equation for estimating glomerular filtration rate (GFR) from serum creatinine in children is the Bedside Dickson equation. It is less accurate in patients with extremes of muscle mass, restriction of dietary protein, ingestion of creatine, extra-renal metabolism of creatinine, or treatment with medications that affect renal tubular creatinine secretion. Glucose [Mass/Vol] 98 mg/dL 70 - 100 mg/dL [facility] Potassium [Moles/Vol] 4.5 mmol/L 3.5 - 5.1 mmol/L [facility] Sodium [Moles/Vol] 138 mmol/L 135 - 145 mmol/L [facility] Urea nitrogen (BldV) [Mass/Vol] 11 mg/dL 9 - 20 mg/dL [facility] Lipid Panelon 03-18-2022 Chol/HDL 4 Normal [facility] Comment on above: Result Comment: Ref Range: < 3 Low Risk for CHD 3-6 Mod Risk for CHD > 6 High Risk for CHD Performed By: #### B MP3, LIPD2 #### [facility] [address] [place] [address] Cholesterol in HDL [Mass/Vol] 44 mg/dL Normal 40-60 [facility] Comment on above: Performed By: #### B MP3, LIPD2 #### [facility] [address] [place] [address] Low Density Lipoprotein 95 mg/dL Normal <100 [facility] Comment on above: Performed By: #### B MP3, LIPD2 #### [facility] [address] [place] [address] Triglyceride [Mass/Vol] 237 mg/dL Abnormal <150 [facility] Comment on above: Performed By: #### B MP3, LIPD2 #### [facility] [address] [place] [address] Cholesterol [Mass/Vol] 186 mg/dL Normal < 200 [facility] Comment on above: Performed By: #### B MP3, LIPD2 #### [facility] [address] [place] [address] Cholesterol [Mass/Vol] 186 mg/dL NINF - 200 mg/dL [facility] Cholesterol in HDL [Mass/Vol] 44 mg/dL 40 - 60 mg/dL [facility] Cholesterol in LDL [Mass/Vol] 95 mg/dL NINF - 100 mg/dL [facility] Cholesterol.total/Kelley sterol in HDL [Mass ratio] 4 {ratio} [facility] Comment on above: Ref Range: < 3 Low Risk for CHD 3-6 Mod Risk for CHD > 6 High Risk for CHD Triglyceride [Mass/Vol] 237 mg/dL Abnormal NINF - 150 mg/dL [facility] No Panel Informationon 03-18 Interpretation and review of laboratory results Abnormal [facility] Test Performed by [facility], [address] , [place], [place] [id number] [place] [address] LAB [facility] Testo,Free/Total-Femaleon SHBG 51 nmol/L Normal 25-122 [facility] Comment on above: Result Comment: REFE RENCE INTERVAL: Sex Hormone Binding Globulin Access complete set of age- and/or gender-specific reference intervals for this test in the [facility] Test Directory ([email or web address]). Performed By: #### Q WNT5 #### [facility] [address] [place] [address] #### TSTFO, DHEAO, 17HPO #### The performing lab is in the report. #### PRLA3 #### [facility] [address] [place] [address] Testosterone [Mass/Vol] 31 ng/dL Normal 9-55 [facility] Comment on above: Result Comment: REFE RENCE INTERVAL: Testosterone by Screen Printing Machine Operator Females Premenopausal 9-55 ng/dL Postmenopausal 5-32 ng/dL INTERPRETIVE INFORMATION: Testosterone by Screen Printing Machine Operator Free or bioavailable testosterone measurements may provide supportive information. For individuals on testosterone-suppressing hormone therapies (e.g., antiandrogens or estrogens), refer to cisgender female reference intervals. For a complete set of all established reference intervals, refer to [email or web address]. This test was developed and its performance characteristics determined by [facility]. It has not been cleared or approved by the [place] Food and Drug Administration. This test was performed in a CLIA certified laboratory and is intended for clinical purposes. Performed By: #### Q WNT5 #### [facility] [address] [place] [address] #### TSTFO, DHEAO, 17HPO #### The performing lab is in the report. #### PRLA3 #### [facility] [address] [place] [address] Testosterone, Free 4.0 pg/mL Normal 1.3-9.2 [facility] Comment on above: Result Comment: REFE RENCE INTERVAL: Testosterone, Free by Screen Printing Machine Operator Females Postmenopausal: 0.6 - 3.8 pg/mL INTERPRETIVE INFORMATION: Testosterone, Free by Screen Printing Machine Operator Free testosterone concentration is calculated using total testosterone (measured by mass spectrometry) and the binding constant of testosterone and sex hormone-binding globulin (SHBG). For individuals on testosterone-suppressing hormone therapies (e.g., antiandrogens or estrogens), refer to cisgender female reference intervals. For a complete set of all established reference intervals, refer to [email or web address]. This test was developed and its performance characteristics determined by [facility]. It has not been cleared or approved by the [place] Food and Drug Administration. This test was performed in a CLIA certified laboratory and is intended for clinical purposes. Performed By: [facility] [address] [place] [address] [employer] Screen Watcher: Marilee Melchor MD Performed By: #### Q WNT5 #### [facility] [address] [place] [address] #### TSTFO, DHEAO, 17HPO #### The performing lab is in the report. #### PRLA3 #### [facility] [address] [place] [address] 17-Hydroxyprogesterone, Thomas ton 12-03-2021 17 [place] Progesterone 40.72 ng/dL Normal <=206.00 [facility] Comment on above: Result Comment: INTE RPRETIVE INFORMATION for 17-Hydroxyprogesterone in females: Follicular 15 to 70 ng/dL Luteal 35 to 290 ng/dL REFERENCE INTERVAL: 17-Hydroxyprogesterone Qnt, HPLC-MS/MS Access complete set of age- and/or gender-specific reference intervals for this test in the [facility] Test Directory ([email or web address]). This test was developed and its performance characteristics determined by [facility]. It has not been cleared or approved by the [place] Food and Drug Administration. This test was performed in a CLIA certified laboratory and is intended for clinical purposes. Performed By: [facility] [address] [place] [id number] [employer] Screen Watcher: Marilee Melchor MD Performed By: #### Q WNT5 #### [facility] [employer] [facility] [address] [place] [address] #### TSTFO, DHEAO, 17HPO #### The performing lab is in the report. #### PRLA3 #### [facility] [employer] [facility] [address] [place] [address] DHEA SO4on 11-30-2021 DHEA SO4 83 ug/dL Low 99-340 [facility] Comment on above: Result Comment: REFE RENCE INTERVAL: DHEAS Access complete set of age- and/or gender-specific reference intervals for this test in the [facility] Test Directory ([email or web address]). Performed By: Branch [address] [place] [id number] [employer] Screen Watcher: Marilee Melchor MD Performed By: #### Q WNT5 #### [facility] [address] [facility] [place] [address] #### TSTFO, DHEAO, 17HPO #### The performing lab is in the report. #### PRLA3 #### [facility] [address] [place] [address] Prolactinon 11-28-2021 Prolactin 9.1 ng/mL Normal 2.8-27.0 [facility] Comment on above: Result Comment: Valu es below 35 ng/mL may be of doubtful significance. Recommend send-out testing to rule out macroprolactin to confirm the result. Performed By: #### Q WNT5 #### [facility] [address] [place] [address] #### TSTFO, DHEAO, 17HPO #### The performing lab is in the report. #### PRLA3 #### [facility] [address] [place] [address] hCG Quantitativeon 2 hCG Quantitative < 2 Normal [facility] Comment on above: Result Comment: Fema les < 5 Values in should double every 2 to 3 days for the first 6 weeks.Elevated concentrations of human chorionic gonadotropin (hCG) measured in the first trimester of are observed in normal , but may serve as an indication of chorionic carcinoma, hydatiform mole, or multiple .Decreasing hCG concentrations indicate threatened or missed , recent termination of , ectopic , gestosis or intrauterine . [place]- and postmenopausal females may have detectable hCG concentrations (< or = to 14 mIU/mL) due to pituitary production of hCG. Serum follicle-stimulating hormone measurement may aid in ruling-out in this population. Cutoffs of greater than 20 to 45 mIU/mL have been suggested and are method dependent. False-elevations (called phantom human chorionic gonadotropin: hCG) may occur with patients who have human antianimal or heterophilic antibodies. Some specimens may not dilute linearly due to abnormal forms of hCG. Elevated hCG concentrations not associated with are found in patients with other diseases such as tumors of the germ cells, ovaries, bladder, pancreas, stomach, lungs, and liver. This test is not intended to detect or monitor tumors or gestational trophoblastic disease. Performed By: #### Q WNT5 #### [facility] [address] [place] [address] #### TSTFO, DHEAO, 17HPO #### The performing lab is in the report. #### PRLA3 #### [facility] [address] [place] [address] Anti-Nuclear Antibodyon 04-0 TARAN Pattern Midbody Normal [facility] Comment on above: Performed By: #### Q WNT5 #### [facility] [address] [place] [address] #### TSTFO, DHEAO, 17HPO #### The performing lab is in the report. #### PRLA3 #### [facility] [address] [place] [address] TARAN Titer 1 : 80 Abnormal <1:80 [facility] Comment on above: Result Comment: Test ed by Indirect Immunofluorescence Assay (IFA). Performed By: #### Q WNT5 #### [facility] [address] [facility] [place] [address] #### TSTFO, DHEAO, 17HPO #### The performing lab is in the report. #### PRLA3 #### [facility] [address] [place] [address] C-Reactive Proteinon 022 CRP [Mass/Vol] 7.2 mg/L Normal 0.0-9.9 [facility] Comment on above: Result Comment: . Performed By: #### Q WNT5 #### [facility] [address] [facility] [place] [address] #### TSTFO, DHEAO, 17HPO #### The performing lab is in the report. #### PRLA3 #### [facility] [address] [place] [address] CRP [Mass/Vol] 7.2 mg/L 0.0 - 9.9 mg/L [facility] Comment on above: . CBCon 10-18-2021 Hematocrit (Bld) [Volume fraction] 42.5 % 35.0 - 47.0 % [facility] Hemoglobin.gastrointest inal spec 1 Ql (Stl) 14.0 g/dL 11.7 - 16.0 g/dL [facility] Interpretation and review of laboratory results Abnormal [facility] MCH (RBC) [Entitic mass] 28.3 pg 26.0 - 34.0 pg [facility] MCHC (RBC) [Mass/Vol] 33.0 % 32.0 - 36.0 % [facility] MCV (RBC) [Entitic vol] 85.6 fL 79.0 - 98.0 fL [facility] Platelet distribution width (Bld) [Ratio] 13.2 % 11.5 - 14.5 % [facility] Platelet mean volume (Bld) [Entitic vol] 7.0 fL Low 7.4 - 10.4 fL [facility] Platelets (Bld) [#/Vol] 317 10*3/uL 140 - 440 10*3/uL [facility] RBC (Bld) [#/Vol] 4.97 10*6/uL 3.80 - 5.2 0 10*6/uL [facility] WBC (Bld) [#/Vol] 6.7 10*3/uL 3.6 - 10.7 10*3/uL [facility] Test Performed by [facility], [address] [facility] , [place], [place] [id number] [place] [address] LAB [facility] Comp Metabolic Panelon 10-18 Calcium [Mass/Vol] 9.3 mg/dL Normal 8.4-10.4 [facility] Comment on above: Performed By: #### Q WNT5 #### [facility] [address] [place] [address] #### TSTFO, DHEAO, 17HPO #### The performing lab is in the report. #### PRLA3 #### [facility] [address] [place] [address] ALP [Catalytic activity/Vol] 71 U/L Normal 38-126 [facility] Comment on above: Performed By: #### Q WNT5 #### [facility] [address] [place] [address] #### TSTFO, DHEAO, 17HPO #### The performing lab is in the report. #### PRLA3 #### [facility] [address] [place] [address] ALT [Catalytic activity/Vol] 29 U/L Normal 0-34 [facility] Comment on above: Result Comment: The ALT test is performed by an updated assay method. Please note that the reference intervals have been changed and are now sex specific. Performed By: #### Q WNT5 #### [facility] [address] [place] [address] #### TSTFO, DHEAO, 17HPO #### The performing lab is in the report. #### PRLA3 #### [facility] [address] [place] [address] Anion gap [Moles/Vol] 9 mmol/L Normal 3-13 [facility] Comment on above: Performed By: #### Q WNT5 #### [facility] [address] [place] [address] #### TSTFO, DHEAO, 17HPO #### The performing lab is in the report. #### PRLA3 #### [facility] [address] [place] [address] AST [Catalytic activity/Vol] 34 U/L Normal 15-46 [facility] Comment on above: Performed By: #### Q WNT5 #### [facility] [address] [place] [address] #### TSTFO, DHEAO, 17HPO #### The performing lab is in the report. #### PRLA3 #### [facility] [facility] [address] [place] [address] Bilirubin [Mass/Vol] 0.7 mg/dL Normal 0.2-1.3 [facility] Comment on above: Performed By: #### Q WNT5 #### [facility] [address] [place] [address] #### TSTFO, DHEAO, 17HPO #### The performing lab is in the report. #### PRLA3 #### [facility] [address] [place] [address] CO2 [Moles/Vol] 22 mmol/L Normal 22-30 [facility] Comment on above: Performed By: #### Q WNT5 #### [facility] [address] [place] [address] #### TSTFO, DHEAO, 17HPO #### The performing lab is in the report. #### PRLA3 #### [facility] [address] [place] [address] Glucose [Mass/Vol] 100 mg/dL Normal 70-100 [facility] Comment on above: Performed By: #### Q WNT5 #### [facility] [address] [place] [address] #### TSTFO, DHEAO, 17HPO #### The performing lab is in the report. #### PRLA3 #### [facility] [address] [place] [address] Protein [Mass/Vol] 7.3 g/dL Normal 6.3-8.2 [facility] Comment on above: Performed By: #### Q WNT5 #### [facility] [address] [place] [address] #### TSTFO, DHEAO, 17HPO #### The performing lab is in the report. #### PRLA3 #### [facility] [address] [place] [address] Urea nitrogen [Mass/Vol] 8 mg/dL Low 9-20 [facility] Comment on above: Performed By: #### Q WNT5 #### [facility] [address] [place] [address] #### TSTFO, DHEAO, 17HPO #### The performing lab is in the report. #### PRLA3 #### [facility] [address] [place] [address] Creatinine [Mass/Vol] 0.68 mg/dL Normal 0.52-1.25 [facility] Comment on above: Performed By: #### Q WNT5 #### [facility] [address] [place] [address] #### TSTFO, DHEAO, 17HPO #### The performing lab is in the report. #### PRLA3 #### [place] [address] [place] [address] eGFR OTHER > 90.0 Normal >60 [facility] Comment on above: Result Comment: KDIG O guidelines provide the following GFR categories: Stage GFR(ml/min/1.73 m2) Terms G1 >=90 Normal or high G2 60-89 Mildly decreased* G3a 45-59 Mildly to moderately decreased G3b 30-44 Moderately to severely decreased G4 15-29 Severely decreased G5 <15 Kidney failure *Relative to young adult level. In the absence of evidence of kidney damage, neither GFR category G1 nor G2 fulfill the criteria for CKD. The CKD-EPI equation is validated in individuals 18 years of age and older. Currently the best equation for estimating glomerular filtration rate (GFR) from serum creatinine in children is the Bedside Dickson equation. It is less accurate in patients with extremes of muscle mass, restriction of dietary protein, ingestion of creatine, extra-renal metabolism of creatinine, or treatment with medications that affect renal tubular creatinine secretion. Performed By: #### Q WNT5 #### [facility] [address] [facility] [place] [address] #### TSTFO, DHEAO, 17HPO #### The performing lab is in the report. #### PRLA3 #### [place] [address] [place] [address] GFR/1.73 sq M.predicted among blacks MDRD (S/P/Bld) [Vol rate/Area] mL/min/{1.73_m2} Normal >60 [facility] Comment on above: Performed By: #### Q WNT5 #### [address] [place] [address] #### TSTFO, DHEAO, 17HPO #### The performing lab is in the report. #### PRLA3 #### [place] [address] [place] [address] Potassium [Moles/Vol] 4.0 mmol/L Normal 3.5-5.1 [facility] Comment on above: Performed By: #### Q WNT5 #### [address] [place] [address] #### TSTFO, DHEAO, 17HPO #### The performing lab is in the report. #### PRLA3 #### [place] [address] [place] [address] Albumin [Mass/Vol] 4.2 g/dL Normal 3.5-5.0 [facility] Comment on above: Performed By: #### Q WNT5 #### [address] [place] [address] #### TSTFO, DHEAO, 17HPO #### The performing lab is in the report. #### PRLA3 #### [place] [address] [place] [address] Chloride [Moles/Vol] 108 mmol/L High 98-107 [facility] Comment on above: Performed By: #### Q WNT5 #### [facility] [address] [place] [address] #### TSTFO, DHEAO, 17HPO #### The performing lab is in the report. #### PRLA3 #### [facility] [address] [place] [address] Sodium [Moles/Vol] 139 mmol/L Normal 135-145 [facility] Comment on above: Performed By: #### Q WNT5 #### [facility] [address] [place] [address] #### TSTFO, DHEAO, 17HPO #### The performing lab is in the report. #### PRLA3 #### [facility] [address] [place] [address] Comprehensive Metabolic Pane jesus 10-18-2021 Albumin [Mass/Vol] 4.2 g/dL 3.5 - 5.0 g/dL [facility] ALP (Bld) [Catalytic activity/Vol] 71 U/L 38 - 126 U/L [facility] ALT [Catalytic activity/Vol] 29 U/L 0 - 34 U/L [facility] Comment on above: The ALT test is perf ormed by an updated assay method. Please note that the reference intervals have been changed and are now sex specific. Anion gap [Moles/Vol] 9 mmol/L 3 - 13 mmol/L [facility] AST [Catalytic activity/Vol] 34 U/L 15 - 46 U/L [facility] Bilirubin [Mass/Vol] 0.7 mg/dL 0.2 - 1 .3 mg/dL [facility] Calcium [Mass/Vol] 9.3 mg/dL 8.4 - 10. 4 mg/dL [facility] Chloride [Moles/Vol] 108 mmol/L High 98 - 10 7 mmol/L [facility] CO2 [Moles/Vol] 22 mmol/L 22 - 30 mmol/L [facility] Creatinine [Mass/Vol] 0.68 mg/dL 0.52 - 1.25 mg/dL [facility] EGFR IF NonAfrican Beninese >90.0 >60 mL/min [facility] Comment on above: KDIGO guidelines pro vide the following GFR categories: Stage GFR(ml/min/1.73 m2) Terms G1 >=90 Normal or high G2 60-89 Mildly decreased* G3a 45-59 Mildly to moderately decreased G3b 30-44 Moderately to severely decreased G4 15-29 Severely decreased G5 <15 Kidney failure *Relative to young adult level. In the absence of evidence of kidney damage, neither GFR category G1 nor G2 fulfill the criteria for CKD. The CKD-EPI equation is validated in individuals 18 years of age and older. Currently the best equation for estimating glomerular filtration rate (GFR) from serum creatinine in children is the Bedside Dickson equation. It is less accurate in patients with extremes of muscle mass, restriction of dietary protein, ingestion of creatine, extra-renal metabolism of creatinine, or treatment with medications that affect renal tubular creatinine secretion. Free PSA/Total PSA [Mass fraction] 7.3 g/dL 6.3 - 8.2 g/dL [facility] GFR/1.73 sq M.predicted among blacks MDRD (S/P/Bld) [Vol rate/Area] mL/min/{1.73_m2} >60 mL/min [facility] Glucose [Mass/Vol] 100 mg/dL 70 - 100 mg/dL [facility] Potassium [Moles/Vol] 4.0 mmol/L 3.5 - 5.1 mmol/L [facility] Sodium [Moles/Vol] 139 mmol/L 135 - 145 mmol/L [facility] Urea nitrogen (BldV) [Mass/Vol] 8 mg/dL Low 9 - 20 mg/dL [facility] Hemogramon 10-18-2021 Erythrocyte distribution width (RBC) [Ratio] 13.2 % Normal 11.5-14.5 [facility] [employer] [facility] Comment on above: Performed By: #### T SH5, CMP3, HEMOG, CRP2, ESR, LIPD2 #### [facility] [employer] [address] [place] [address] #### RFB #### [facility] [employer] [address] [facility] [place] [address] #### ANA3 #### [facility] [employer] [address] [place] [address] Hematocrit (Bld) [Volume fraction] 42.5 % Normal 35.0-47.0 [facility] [employer] [facility] Comment on above: Performed By: #### T SH5, CMP3, HEMOG, CRP2, ESR, LIPD2 #### [facility] [address] [place] [address] #### RFB #### [address] [place] [address] #### ANA3 #### [address] [address] Hemoglobin (Bld) [Mass/Vol] 14.0 g/dL Normal 11.7-16.0 [facility] Comment on above: Performed By: #### T SH5, CMP3, HEMOG, CRP2, ESR, LIPD2 #### [facility] [place] [address] #### RFB #### [address] [place] [address] #### ANA3 #### [address] [address] MCH (RBC) [Entitic mass] 28.3 pg Normal 26.0-34.0 [facility] Comment on above: Performed By: #### T SH5, CMP3, HEMOG, CRP2, ESR, LIPD2 #### [facility] [place] [address] #### RFB #### [address] [place] [address] #### ANA3 #### [address] [address] MCHC 33.0 % Normal 32.0-36.0 [facility] Comment on above: Performed By: #### T SH5, CMP3, HEMOG, CRP2, ESR, LIPD2 #### [facility] [place] [address] #### RFB #### [address] [place] [address] #### ANA3 #### [address] [address] MCV (RBC) [Entitic vol] 85.6 fL Normal 79.0-98.0 [facility] Comment on above: Performed By: #### T SH5, CMP3, HEMOG, CRP2, ESR, LIPD2 #### [facility] [address] [place] [address] #### RFB #### [facility] [address] [place] [address] #### ANA3 #### [address] Platelet mean volume (Bld) [Entitic vol] 7.0 fL Low 7.4-10.4 [facility] Comment on above: Performed By: #### T SH5, CMP3, HEMOG, CRP2, ESR, LIPD2 #### [facility] [place] [address] #### RFB #### [address] [place] [address] #### ANA3 #### [address] Platelets (Bld) [#/Vol] 317 10*3/uL Normal 140-440 [facility] Comment on above: Performed By: #### T SH5, CMP3, HEMOG, CRP2, ESR, LIPD2 #### [facility] [place] [address] #### RFB #### [address] [facility] [place] [address] #### ANA3 #### [address] RBC (Bld) [#/Vol] 4.97 10*6/uL Normal 3.80-5.20 [facility] Comment on above: Performed By: #### T SH5, CMP3, HEMOG, CRP2, ESR, LIPD2 #### [facility] [place] [address] #### RFB #### [facility] [address] [place] [address] #### ANA3 #### [address] WBC (Bld) [#/Vol] 6.7 10*3/uL Normal 3.6-10.7 [facility] Comment on above: Performed By: #### T SH5, CMP3, HEMOG, CRP2, ESR, LIPD2 #### [facility] [address] [place] [address] #### RFB #### [facility] [address] [place] [address] #### ANA3 #### [facility] [address] [place] [address] Lipid Panelon 10-18-2021 Chol/HDL 4 Normal [facility] Comment on above: Result Comment: Ref Range: < 3 Low Risk for CHD 3-6 Mod Risk for CHD > 6 High Risk for CHD Performed By: #### Q WNT5 #### [facility] [address] [place] [address] #### TSTFO, DHEAO, 17HPO #### The performing lab is in the report. #### PRLA3 #### [facility] [address] [place] [address] Cholesterol in HDL [Mass/Vol] 47 mg/dL Normal 40-60 [facility] Comment on above: Performed By: #### Q WNT5 #### [facility] [address] [place] [address] #### TSTFO, DHEAO, 17HPO #### The performing lab is in the report. #### PRLA3 #### [facility] [address] [place] [address] Low Density Lipoprotein 112 mg/dL Abnormal <100 [facility] Comment on above: Performed By: #### Q WNT5 #### [facility] [address] [place] [address] #### TSTFO, DHEAO, 17HPO #### The performing lab is in the report. #### PRLA3 #### [facility] [address] [place] [address] Triglyceride [Mass/Vol] 97 mg/dL Normal <150 [facility] Comment on above: Performed By: #### Q WNT5 #### [facility] [address] [place] [address] #### TSTFO, DHEAO, 17HPO #### The performing lab is in the report. #### PRLA3 #### [facility] [address] [place] [address] Cholesterol [Mass/Vol] 178 mg/dL Normal < 200 [facility] Comment on above: Performed By: #### Q WNT5 #### [facility] [address] [place] [address] #### TSTFO, DHEAO, 17HPO #### The performing lab is in the report. #### PRLA3 #### [facility] [address] [place] [address] Cholesterol [Mass/Vol] 178 mg/dL <200 [facility] Cholesterol in HDL [Mass/Vol] 47 mg/dL 40 - 60 mg/dL [facility] Cholesterol in LDL [Mass/Vol] 112 mg/dL Abnormal <[address] [facility] Cholesterol.total/Kelley sterol in HDL [Mass ratio] 4 {ratio} [facility] Comment on above: Ref Range: < 3 Low Risk for CHD 3-6 Mod Risk for CHD > 6 High Risk for CHD Triglyceride [Mass/Vol] 97 mg/dL <150 [facility] No Panel Informationon 10-18 Interpretation and review of laboratory results Abnormal [facility] Test Performed by [facility], [address] [place] [address]. [address] LAB [facility] Rheumatiod Factor, Bloodon 0 10-18-2021 Rheumatoid Factor-Blood < 9 Normal 0-12 [facility] Comment on above: Performed By: #### T SH5, CMP3, HEMOG, CRP2, ESR, LIPD2 #### [facility] [address] [place] [address] #### RFB #### [address] [place] [address] #### ANA3 #### [address] [address] Rheumatoid Factoron 10-19-19 22 Rheumatoid Factor <9 0 - 12 [IU]/mL [facility] Test Performed by [facility], [address], [place], [place] [id number] [place] [address] LAB [facility] Sed Rateon 10-18-2021 Sed Rate 12 mm/h Normal 0-20 [facility] Comment on above: Performed By: #### T SH5, CMP3, HEMOG, CRP2, ESR, LIPD2 #### [facility] [address] [place] [address] #### RFB #### [facility] [address] [place] [address] #### ANA3 #### [facility] [address] [place] [address] Sedimentation Rateon 022 Sed Rate 12 mm/h 0 - 20 mm/h [facility] Test Performed by [facility], [facility] [address] LAB [facility] TSHon 10-18-2021 TSH Qn 0.819 u[IU]/mL 0.465 - 4.680 u[IU]/mL [facility] Test Performed by [facility], [facility] [address] LAB [facility] Thyroid Stim. Hormoneon 09-20 Thyroid Stim. Hormone 0.819 u[IU]/mL Normal 0.465-4.68 0 [facility] Comment on above: Performed By: #### Q WNT5 #### [facility] [address] [place] [address] #### TSTFO, DHEAO, 17HPO #### The performing lab is in the report. #### PRLA3 #### [facility] [address] [place] [address] Basic Metabolic PanelOrdered By: Catherine Dixon on 03-20-2021 Anion gap [Moles/Vol] 9 mmol/L 3 - 13 mmol/L [facility] Work Phone: Calcium [Mass/Vol] 9.4 mg/dL 8.4 - 10. 4 mg/dL [facility] Work Phone: Chloride [Moles/Vol] 108 mmol/L High 98 - 10 7 mmol/L [facility] Work Phone: [phone] CO2 [Moles/Vol] 21 mmol/L Low 22 - 30 mmol/L [facility] Work Phone: [phone] Creatinine [Mass/Vol] 0.72 mg/dL 0.52 - 1.25 mg/dL [facility] Work Phone: [phone] EGFR IF NonAfrican Beninese >90.0 >60 mL/min [facility] Work Phone: [phone] Comment on above: KDIGO guidelines pro vide the following GFR categories: Stage GFR(ml/min/1.73 m2) Terms G1 >=90 Normal or high G2 60-89 Mildly decreased* G3a 45-59 Mildly to moderately decreased G3b 30-44 Moderately to severely decreased G4 15-29 Severely decreased G5 <15 Kidney failure *Relative to young adult level. In the absence of evidence of kidney damage, neither GFR category G1 nor G2 fulfill the criteria for CKD. The CKD-EPI equation is validated in individuals 18 years of age and older. Currently the best equation for estimating glomerular filtration rate (GFR) from serum creatinine in children is the Bedside Dickson equation. It is less accurate in patients with extremes of muscle mass, restriction of dietary protein, ingestion of creatine, extra-renal metabolism of creatinine, or treatment with medications that affect renal tubular creatinine secretion. GFR/1.73 sq M.predicted among blacks MDRD (S/P/Bld) [Vol rate/Area] mL/min/{1.73_m2} >60 mL/min [facility] Work Phone: [phone] Glucose [Mass/Vol] 96 mg/dL 70 - 100 mg/dL [facility] Work Phone: [phone] Potassium [Moles/Vol] 4.1 mmol/L 3.5 - 5.1 mmol/L [facility] Work Phone: [phone] Sodium [Moles/Vol] 139 mmol/L 135 - 145 mmol/L [facility] Work Phone: [phone] Urea nitrogen (BldV) [Mass/Vol] 11 mg/dL 7 - 20 mg/dL [facility] Work Phone: [phone] Hepatitis C AntibodyOrdered By: Catherine Dixon on 03-20-2021 Hepatitis C Ab Not detected Not Detected NA [facility] Work Phone: [phone] Comment on above: Patients with DETECTED Hepatitis C Ab results should have a new specimen submitted for supplemental testing with a Hepatitis C Quantitative RNA assay (viral load), if clinically indicated. Test Performed by [employer], [address] [place] [id number] [facility] Work Phone: [address] [facility] Work Phone: Lipid PanelOrdered By: Michael Dixon on 03-20-2021 Cholesterol [Mass/Vol] 254 mg/dL Abnormal <200 [facility] Work Phone: [phone] Cholesterol in HDL [Mass/Vol] 64 mg/dL High 40 - 60 mg/dL [facility] Work Phone: [phone] Cholesterol in LDL [Mass/Vol] 171 mg/dL Abnormal <[address] [facility] Work Phone: [phone] Cholesterol.total/Kelley sterol in HDL [Mass ratio] 4 {ratio} [facility] Work Phone: [phone] Comment on above: Ref Range: < 3 Low Risk for CHD 3-6 Mod Risk for CHD > 6 High Risk for CHD Triglyceride [Mass/Vol] 97 mg/dL <150 S [place] Work Phone: 1 No Panel InformationOrdered By: Catherine Dixon on 03-20-2021 Interpretation and review of laboratory results Abnormal [facility] Work Phone: 1 Test Performed by [facility], [address] [place] [address] [facility] Work Phone: [facility] Work Phone: 1 T4, FreeOrdered By: Tamara Dixon on 03-20-2021 Free T4 [Mass/Vol] 0.97 ng/dL 0.78 - 2. 19 ng/dL [facility] Work Phone: 1 Test Performed by [employer] [facility], [address] Work Phone: [address] [facility] Work Phone: 1 TSH without ReflexOrdered By : Catherine Dixon on 03-20-2021 TSH Qn 1.104 u[IU]/mL 0.465 - 4.680 u[IU]/mL [facility] Work Phone: Test Performed by [facility], [address] , [place], [place] [address] [facility] Work Phone: [phone] [facility] Work Phone: [phone] CBC W Auto Differential pane l (Bld)on 01-27-2021 Basophils (Bld) [#/Vol] 0.03 10*3/uL Normal <0.11 [facility] Comment on above: Order Comment: Speci men Type: BLOOD SPECIMEN Performed By: #### 5 7021-8 #### [facility] CLIA [id number] 1 [place] [address] Basophils/100 WBC (Bld) 0.4 % Normal [facility] Comment on above: Order Comment: Speci men Type: BLOOD SPECIMEN Performed By: #### 5 7021-8 #### [facility] CLIA [id number] 1 [place] [address] Differential cell count method Nom (Bld) Auto Normal [facility] Comment on above: Order Comment: Speci men Type: BLOOD SPECIMEN Performed By: #### 5 7021-8 #### [facility] CLIA [id number] 1 [place] [address] Eosinophils (Bld) [#/Vol] 0.29 10*3/uL Normal <0.46 [facility] Comment on above: Order Comment: Speci men Type: BLOOD SPECIMEN Performed By: #### 5 7021-8 #### [facility] CLIA [id number] 1 [place] [address] Eosinophils/100 WBC (Bld) 3.7 % Normal [facility] Comment on above: Order Comment: Speci men Type: BLOOD SPECIMEN Performed By: #### 5 7021-8 #### [facility] CLIA [id number] 1 [place] [address] Erythrocyte distribution width (RBC) [Ratio] 13.0 % Normal 11.5-15.0 [facility] Comment on above: Order Comment: Speci men Type: BLOOD SPECIMEN Performed By: #### 5 7021-8 #### [facility] CLIA [id number] 1 [place] [address] Hematocrit (Bld) [Volume fraction] 45.0 % Normal 36.0-46.0 [facility] Comment on above: Order Comment: Speci men Type: BLOOD SPECIMEN Performed By: #### 5 7021-8 #### [facility] CLIA [id number] 1 [place] [address] Hemoglobin (Bld) [Mass/Vol] 15.0 g/dL Normal 11.5-15.5 [facility] Comment on above: Order Comment: Speci men Type: BLOOD SPECIMEN Performed By: #### 5 7021-8 #### [facility] CLIA [id number] 1 [place] [address] IMMATURE GRAN % 0.4 % Normal [facility] Comment on above: Order Comment: Speci men Type: BLOOD SPECIMEN Performed By: #### 5 7021-8 #### [facility] CLIA [id number] 1 [place] [address] IMMATURE GRAN ABS 0.03 k/uL Normal <0.10 [facility] Comment on above: Order Comment: Speci men Type: BLOOD SPECIMEN Performed By: #### 5 7021-8 #### [facility] CLIA [id number] 1 [place] [address] Lymphocytes (Bld) [#/Vol] 1.80 10*3/uL Normal 1.00-4.00 [facility] Comment on above: Order Comment: Speci men Type: BLOOD SPECIMEN Performed By: #### 5 7021-8 #### [facility] CLIA [id number] 1 [place] [address] Lymphocytes/100 WBC (Bld) 23.0 % Normal [facility] Comment on above: Order Comment: Speci men Type: BLOOD SPECIMEN Performed By: #### 5 7021-8 #### [facility] CLIA [id number] 1 [place] [address] MCH (RBC) [Entitic mass] 29.1 pg Normal 26.0-34.0 [facility] Comment on above: Order Comment: Speci men Type: BLOOD SPECIMEN Performed By: #### 5 7021-8 #### [facility] CLIA [id number] 1 [place] [address] MCHC (RBC) [Mass/Vol] 33.3 g/dL Normal 30.5-36.0 [facility] Comment on above: Order Comment: Speci men Type: BLOOD SPECIMEN Performed By: #### 5 7021-8 #### [facility] CLIA [id number] 1 [place] [address] MCV (RBC) [Entitic vol] 87.4 fL Normal 80.0-100.0 [facility] Comment on above: Order Comment: Speci men Type: BLOOD SPECIMEN Performed By: #### 5 7021-8 #### [facility] CLIA [id number] 1 [place] [address] Monocytes (Bld) [#/Vol] 0.48 10*3/uL Normal <0.87 [facility] Comment on above: Order Comment: Speci men Type: BLOOD SPECIMEN Performed By: #### 5 7021-8 #### [facility] CLIA [id number] 1 [place] [address] Monocytes/100 WBC (Bld) 6.1 % Normal [facility] Comment on above: Order Comment: Speci men Type: BLOOD SPECIMEN Performed By: #### 5 7021-8 #### [facility] CLIA [id number] 1 [place] [address] Neutrophils (Bld) [#/Vol] 5.21 10*3/uL Normal 1.45-7.50 [facility] Comment on above: Order Comment: Speci men Type: BLOOD SPECIMEN Performed By: #### 5 7021-8 #### [facility] CLIA [id number] 1 [place] [address] Neutrophils/100 WBC (Bld) 66.4 % Normal [facility] Comment on above: Order Comment: Speci men Type: BLOOD SPECIMEN Performed By: #### 5 7021-8 #### [facility] CLIA [id number] 1 [place] [address] Nucleated RBC (Bld) [#/Vol] 10*3/uL Normal <0.01 [facility] Comment on above: Order Comment: Speci men Type: BLOOD SPECIMEN Performed By: #### 5 7021-8 #### [facility] CLIA [id number] 1 [place] [address] Nucleated RBC/100 WBC (Bld) [Ratio] 0.0 /100 WBC Normal 0.0 [facility] Comment on above: Order Comment: Speci men Type: BLOOD SPECIMEN Performed By: #### 5 7021-8 #### [facility] CLIA [id number] 1 [place] [address] Platelet mean volume (Bld) [Entitic vol] 8.8 fL Low 9.0-12.7 [facility] Comment on above: Order Comment: Speci men Type: BLOOD SPECIMEN Performed By: #### 5 7021-8 #### [facility] CLIA [id number] 1 [place] [address] Platelets (Bld) [#/Vol] 329 10*3/uL Normal 150-400 [facility] Comment on above: Order Comment: Speci men Type: BLOOD SPECIMEN Performed By: #### 5 7021-8 #### [facility] CLIA [id number] 1 [place] [address] RBC (Bld) [#/Vol] 5.15 10*6/uL Normal 3.90-5.20 [facility] Comment on above: Order Comment: Speci men Type: BLOOD SPECIMEN Performed By: #### 5 7021-8 #### [facility] CLIA [id number] 1 [place] [address] WBC (Bld) [#/Vol] 7.84 10*3/uL Normal 3.70-11.00 [facility] Comment on above: Order Comment: Speci men Type: BLOOD SPECIMEN Performed By: #### 5 7021-8 #### [facility] CLIA [id number] 1 [place] [address] FERRITIN BLDon 01-27-2021 Ferritin [Mass/Vol] 461.2 ng/mL High 14.7-205.1 [facility] Comment on above: Order Comment: Speci men Type: BLOOD SPECIMEN Performed By: #### F ERR #### [facility] CLIA [id number] 1 [place] [address] CNOVon 09-11-2020 CNOV Office Visit (CARLOS Stark) -------- RUTH ANNRENEA ([id number]) 1990 F Date Time Provider Department 09/11/20 10:45 AM KRIS CALDERON During your visit today, we recorded the following information about you: Blood pressure Weight Height 108/68 89.4 kg 1.626 m Kris Calderon MD 09/11/2020 12:37 PM Signed Renea Ford Ruth Ann is a 30 year old female who presents with a chief complaint of [employer] Ultrasound SUBJECTIVE Probable uterine fibroid (9 X 9 X 12 mm). Otherwise, normal appearing pelvic ultrasound. Doing well with OCP. Menses was very light at end of first pack. Had a couple of AYOUB since starting [facility], but nothing that resembles her usual migraines. Recent visit with branch credit counselor found her ferritin level to actually be [...] spent in counseling and/or coordination of care. Kris Calderon MD 09/11/2020 12:37 PM Signed ? Please call the office before going to the hospital. ? If you are , go to the ER at the [facility] main [facility]. Do not go to the outlying ER?s ([place], [place] or [place]). ? If you need to go to an ER and cannot or will not go downtown, please use one of [facility]?s ER?s (not [facility], [place] or [facility]). Referring Provider: SELF [200] Allergies As of Date: 09/11/2020 (No Known Allergies) Date Reviewed: 09/11/2020 Reviewed by: Christie Aranda - Fully Assessed Reason for Visit: [employer] Ultrasound [[id number]] Primary Visit Diagnosis:Menorrhagia with regular cycle [N92.0] Other Visit Diagnosis:Dysmenorrhea [N94.6] Prescriptions as of 09/11/2020 Sig: ESCITALOPRAM 20 MG TABLET Take 20 mg by mouth once jessica* LEVONORGESTREL 0.15 MG-ETHINY* Take 1 tablet by mouth once d* IPRATROPIUM BROMIDE 42 MCG (0* Use 2 Sprays in the nose four* MULTIVITAMIN ORAL Take by mouth. 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 Please call the office before going to the hospital. ? If you are , go to the ER at the [facility] main [facility]. Do not go to the outlying ER?s ([place] or [place]). ? If you need to go to an ER and cannot or will not go downtown, please use one of [facility]?s ER?s (not [facility], [place] or [facility]). Disposition: Return if symptoms worsen or fail to improve. 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 LE During your visit today, we recorded the following information about you: Referring Provider: SELF [200] Allergies As of Date: 09/11/2020 (No Known Allergies) Date Reviewed: 09/11/2020 Reviewed by: Christie Aranda - Fully Assessed Reason for Visit: Us Procedure [4086] Visit Diagnosis:LLQ pain [R10.32] Prescriptions as of 09/11/2020 Sig: ESCITALOPRAM 20 MG TABLET Take 20 mg by mouth once jessica* LEVONORGESTREL 0.15 MG-ETHINY* Take 1 tablet by mouth once d* IPRATROPIUM BROMIDE 42 MCG (0* Use 2 Sprays in the nose four* ESCITALOPRAM 10 MG TABLET Take 10 mg by mouth once jessica* MULTIVITAMIN ORAL Take by mouth. 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 [id number] [place] [address] Basophils/100 WBC (Bld) 0.2 % Normal [facility] Comment on above: Order Comment: Speci men Type: BLOOD SPECIMEN Performed By: #### 5 7021-8 ####[facility] [id number] [place] [address] Differential cell count method Nom (Bld) Auto Normal [facility] Comment on above: Order Comment: Speci men Type: BLOOD SPECIMEN Performed By: #### 5 7021-8 ####[facility] [id number] [facility] [place] [address] Eosinophils (Bld) [#/Vol] 0.37 10*3/uL Normal <0.46 [facility] Comment on above: Order Comment: Speci men Type: BLOOD SPECIMEN Performed By: #### 5 7021-8 ####[facility] [id number] [facility] [place] [address] Eosinophils/100 WBC (Bld) 4.3 % Normal [facility] Comment on above: Order Comment: Speci men Type: BLOOD SPECIMEN Performed By: #### 5 7021-8 ####[facility] [id number] [facility] [place] [address] Erythrocyte distribution width (RBC) [Ratio] 12.8 % Normal 11.5-15.0 [facility] Comment on above: Order Comment: Speci men Type: BLOOD SPECIMEN Performed By: #### 5 7021-8 ####[facility] [id number] [facility] [place] [address] Hematocrit (Bld) [Volume fraction] 42.5 % Normal 36.0-46.0 [facility] Comment on above: Order Comment: Speci men Type: BLOOD SPECIMEN Performed By: #### 5 7021-8 ####[facility] [id number] [facility] [place] [address] Hemoglobin (Bld) [Mass/Vol] 13.9 g/dL Normal 11.5-15.5 [facility] Comment on above: Order Comment: Speci men Type: BLOOD SPECIMEN Performed By: #### 5 7021-8 ####[facility] [id number] [facility] [place] [address] Lymphocytes (Bld) [#/Vol] 1.82 10*3/uL Normal 1.00-4.00 [facility] Comment on above: Order Comment: Speci men Type: BLOOD SPECIMEN Performed By: #### 5 7021-8 ####[facility] [id number] [place] [address] Lymphocytes/100 WBC (Bld) 21.2 % Normal [facility] Comment on above: Order Comment: Speci men Type: BLOOD SPECIMEN Performed By: #### 5 7021-8 ####[facility] [id number] [facility] [place] [address] MCH (RBC) [Entitic mass] 29.1 pg Normal 26.0-34.0 [facility] Comment on above: Order Comment: Speci men Type: BLOOD SPECIMEN Performed By: #### 5 7021-8 ####[facility] [id number] [facility] [place] [address] MCHC (RBC) [Mass/Vol] 32.7 g/dL Normal 30.5-36.0 [facility] Comment on above: Order Comment: Speci men Type: BLOOD SPECIMEN Performed By: #### 5 7021-8 ####[facility] [id number] [facility] [place] [address] MCV (RBC) [Entitic vol] 88.9 fL Normal 80.0-100.0 [facility] Comment on above: Order Comment: Speci men Type: BLOOD SPECIMEN Performed By: #### 5 7021-8 ####[facility] [id number] [place] [address] Monocytes (Bld) [#/Vol] 0.55 10*3/uL Normal <0.87 [facility] Comment on above: Order Comment: Speci men Type: BLOOD SPECIMEN Performed By: #### 5 7021-8 ####[facility] [id number] [place] [address] Monocytes/100 WBC (Bld) 6.4 % Normal A [facility] Comment on above: Order Comment: Speci men Type: BLOOD SPECIMEN Performed By: #### 5 7021-8 ####[facility] [id number] [facility] [place] [address] Neutrophils (Bld) [#/Vol] 5.82 10*3/uL Normal 1.45-7.50 [facility] Comment on above: Order Comment: Speci men Type: BLOOD SPECIMEN Performed By: #### 5 7021-8 ####[facility] [id number] [facility] [place] [address] Neutrophils/100 WBC (Bld) 67.9 % Normal [facility] Comment on above: Order Comment: Speci men Type: BLOOD SPECIMEN Performed By: #### 5 7021-8 ####[facility] [id number] [facility] [place] [address] Platelet mean volume (Bld) [Entitic vol] 8.8 fL Low 9.0-12.7 [facility] Comment on above: Order Comment: Speci men Type: BLOOD SPECIMEN Performed By: #### 5 7021-8 ####[facility] [id number] [facility] [place] [address] Platelets (Bld) [#/Vol] 359 10*3/uL Normal 150-400 [facility] Comment on above: Order Comment: Speci men Type: BLOOD SPECIMEN Performed By: #### 5 7021-8 ####[facility] [id number] [facility] [place] [address] RBC (Bld) [#/Vol] 4.78 10*6/uL Normal 3.90-5.20 [facility] Comment on above: Order Comment: Speci men Type: BLOOD SPECIMEN Performed By: #### 5 7021-8 ####[facility] [id number] [place] [address] WBC (Bld) [#/Vol] 8.58 10*3/uL Normal 3.70-11.00 [facility] Comment on above: Order Comment: Speci men Type: BLOOD SPECIMEN Performed By: #### 5 7021-8 ####[facility] [id number] [place] [address] FERRITIN BLDon 08-24-2020 Ferritin [Mass/Vol] 626.5 ng/mL High 14.7-205.1 [facility] Comment on above: Order Comment: Speci men Type: BLOOD SPECIMEN Performed By: #### F ERR #### [facility] CLIA [id number] [place] [address] CNOVon 08-16-2020 CNOV Office Visit (OBGWMA ) -------- RUTH ANNRENEA ([id number]) 1990 F Date Time Provider Department 08/16/20 4:45 PM KRIS CALDERON OBGWMA During your visit today, we recorded the following information about you: Weight 88.5 kg Kris Calderon MD 08/16/2020 5:58 PM Signed Renea is a 30 year old who [...] external genitalia normal, normal Bartholin's glands, urethra, [place]'s glands, no vulvar lesions, no cervical lesions, [...] up one year or sooner as needed MD Kris Aragon MD 08/16/2020 5:27 PM Signed Calcium and Vitamin D Supplementation (from the National Institutes of Health Office of Dietary Supplements 2010) Calcium is required by the body for blood vessel, muscle, hormone and nerve functioning. Most of the body's calcium is stored in the bones and teeth where it supports structure and function. Bone is continuously broken down and reformed. When bone breakdown exceeds formation, especially in postmenopausal women, bone loss can increase the risk of osteoporosis and fractures. In addition to low calcium intake, women who smoke, have a family history of osteoporosis, are thin, or , or who take certain medications such as cancer chemotherapy, seizure mediations and steroids are at increased risk of osteoporosis. The calcium requirements in women change with age. The National Institutes of Health (NIH) recommends: 1000mg elemental calcium (more content not included)... Normal [facility] HPV W/GENOTYPE THIN PREPon 0 08-16-2020 HPV 16 DNA ELY+probe Ql (Unsp spec) Negative Normal [facility] Comment on above: Order Comment: Speci men Type: FLUID SAMPLE Performed By: #### H PVHRT #### [facility] CLIA [id number] [address] [place] [address] HPV 18 DNA ELY+probe Ql (Unsp spec) Negative Normal [facility] Comment on above: Order Comment: Speci men Type: FLUID SAMPLE Performed By: #### H PVHRT #### [facility] CLIA [id number] [address] [place] [address] HPV 31+33+35+39+45+51+52+56 +58+59+66+68 DNA ELY+probe Ql (Cvx) Negative for HPV DNA high risk types: 31,33,35,39,45,51,52,56, 58,59,66,68 by PCR. Normal [facility] Comment on above: Order Comment: Speci men Type: FLUID SAMPLE Result Comment: This test was developed and its performance characteristics determined by [facility] [place] ([facility]). It has not been cleared or approved by the FDA. [facility] is regulated under CLIA as qualified to perform high-complexity testing. This test is used for clinical purposes. It should not be regarded as investigational or for research. Performed By: #### H PVHRT #### [facility] CLIA [id number] [address] [place] [address] PAP FLUID CERVICAL SCREENING on 08-16-2020 CASE REPORT Normal [facility] Comment on above: Order Comment: Speci men Type: FLUID SAMPLE Result Comment: Gyne cologic Cytology Report Case: [id number] Authorizing Provider: Kris Calderon Collected: 08/16/2020 05:28 PM Ordering Location: [facility] Received: 08/17/2020 05:11 AM General Obstetrics and Gynecology First Screen: Curly (Lab) [place] Specimen: PAP MANUAL SCREENING, CERVICAL SCREENING FLUID Performed By: #### L [id number] ####[facility] [id number] [place] [id number] CLINICAL HISTORY ROUTINE EXAM Normal [facility] Comment on above: Order Comment: Speci men Type: FLUID SAMPLE Performed By: #### L [id number] ####[facility] [id number] [place] [address] CYTOLOGY INTERPRETATION PAP Normal [facility] Comment on above: Order Comment: Speci men Type: FLUID SAMPLE Result Comment: Nega tive for Intraepithelial lesion or malignancy. Performed By: #### L [id number] ####[facility] [id number] [place] [address] FINAL DIAGNOSIS [facility] Comment on above: Order Comment: Speci men Type: FLUID SAMPLE Result Comment: A - CERVICAL SCREENING FLUID Satisfactory for interpretation, Transformation zone present Negative for Intraepithelial lesion or malignancy. Performed By: #### L [id number] ####[facility] [id number] [place] [address] FINAL PERFORMING LAB Normal [facility] Comment on above: Order Comment: Speci men Type: FLUID SAMPLE Result Comment: Tech nical component, landscape technician screening performed at [facility], [address] [place] [address] CLIA# [id number] Diagnostic interpretation performed at [facility], [address] [place] [address] CLIA# [id number] [employer] Screen Watcher: Austin Michelle M.D. Performed By: #### L [id number] ####[facility] [id number] [place] [address] HPV REQUESTED? Yes, automatic HPV patients over 30 [facility] Comment on above: Order Comment: Speci men Type: FLUID SAMPLE Performed By: #### L [id number] ####[facility] [id number] [place] [address] LMP Drug Induced Amenorrhea [facility] Comment on above: Order Comment: Speci men Type: FLUID SAMPLE Performed By: #### L [id number] ####[facility] [facility]ORY[facility]IA [id number] [place] [address] PAP DISCLAIMER COMMENT The Pap Smear is a screening test for cervical cancer. False negative results occur with all screening tests, emphasizing the need for rescreening at recommended intervals, and clinical correlation. [facility] Comment on above: Order Comment: Speci men Type: FLUID SAMPLE Performed By: #### L [id number] ####[facility] [id number] [place] [address] LORENAOVon 04-05-2020 CNOV Office Visit (OBGWMA ) -------- RENEA VALLECILLO ([id number]) 1990 F Date Time Provider Department 04/05/20 10:45 AM KRIS CALDERON OBGWMA During your visit today, we recorded the following information about you: Blood pressure Weight Last Period 122/72 86.2 kg 02/19/20 Kris Calderon MD 04/05/2020 5:33 PM Signed Renea Vallecillo is a 30 year old female who presents with a chief complaint of Consult (ED f/u passed out from abd pain. Recently started new BC. Irreg bleeding ) SUBJECTIVE Was seen in ER for syncope in early March. All testing was wnl. 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 Feels good at [...] Mood/Affect: Normal ASS/PLAN: - Syncope - no mid wife cause. - Call with any issues. MAD Total time in direct patient contact = 15 min. Greater than 50% of the time was spent in counseling and/or coordination of care. Kris Calderon MD 04/05/2020 5:33 PM Signed ? Please call the office before going to the hospital. ? If you are , go to the ER at the [facility]. Do not go to the outlying ER?s ([facility], [facility] or [facility]). ? If you need to go to an ER and cannot or will not go downtown, please use one of [facility]?s ER?s (not [facility], [facility] or [facility]). Referring Provider: SELF [[id number]] Allergies As of Date: 04/05/2020 (No Known Allergies) Date Reviewed: 04/05/2020 Reviewed by: Jackie (Jayla) Barbara - Fully Assessed Reason for Visit: Consult [173] Cmt: ED f/u passed out from abd pain. Recently started new BC. Irreg bleeding Reason For Visit History Recorded Primary Visit Diagnosis:Vasovagal syncope [R55] Prescriptions as of 04/05/2020 Sig: DROSPIRENONE 3 MG-ETHINYL EST* Take 1 tablet by mouth once d* ESCITALOPRAM 10 MG TABLET Take 10 mg by mouth once jessica* MULTIVITAMIN ORAL Take by mouth. 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 Please call the office before going to the hospital. ? If you are , go to the ER at the [facility]. Do not go to the outlying ER?s ([facility], [facility] or [place]). ? If you need to go to an ER and cannot or will not go downtown, please use one of [facility]?s ER?s (not [facility], [place] or [facility]). Disposition: Return if symptoms worsen or fail to improve. Follow-up and Disposition History Recorded Encounter Status:Closed by KRIS CALDERON MD on 04/05/20 Normal [facility] Basic Metabolic Panelon 03-21 Anion gap [Moles/Vol] 8 mmol/L [place], [place] Calcium [Mass/Vol] 9.2 mg/dL 8.4 - 10. 4 mg/dL [place] Chloride [Moles/Vol] 108 mmol/L High 98 - 10 7 mmol/L [place] CO2 [Moles/Vol] 21 mmol/L Low 22 - 30 mmol/L [place] Creatinine [Mass/Vol] 0.69 mg/dL 0.52 - 1.25 mg/dL [place] EGFR IF NonAfrican Beninese >90.0 >60 mL/min [place] Comment on above: KDIGO guidelines pro vide the following GFR categories: Stage GFR(ml/min/1.73 m2) Terms G1 >=90 Normal or high G2 60-89 Mildly decreased* G3a 45-59 Mildly to moderately decreased G3b 30-44 Moderately to severely decreased G4 15-29 Severely decreased G5 <15 Kidney failure *Relative to young adult level. In the absence of evidence of kidney damage, neither GFR category G1 nor G2 fulfill the criteria for CKD. The CKD-EPI equation is validated in individuals 18 years of age and older. Currently the best equation for estimating glomerular filtration rate (GFR) from serum creatinine in children is the Bedside Dickson equation. It is less accurate in patients with extremes of muscle mass, restriction of dietary protein, ingestion of creatine, extra-renal metabolism of creatinine, or treatment with medications that affect renal tubular creatinine secretion. GFR/1.73 sq M predicted among blacks MDRD (S/P/Bld) [Vol rate/Area] mL/min/{1.73_m2} >60 mL/min [place] Glucose [Mass/Vol] 91 mg/dL 70 - 100 mg/dL [place] Interpretation and review of laboratory results Abnormal [place] Potassium [Moles/Vol] 4.8 mmol/L 3.5 - 5.1 mmol/L [place] Sodium [Moles/Vol] 136 mmol/L 135 - 145 mmol/L [place] Urea nitrogen [Mass/Vol] 10 mg/dL 7 - 20 mg/dL [place] Test Performed by [facility], [address] , [address] CBCon 04-04-2020 Erythrocyte distribution width (RBC) [Ratio] 12.3 % 11.5 - 14.5 % [place] Hematocrit (Bld) [Volume fraction] 41.5 % 35 - 47 % [place] Hemoglobin (Bld) [Mass/Vol] 14.7 g/dL 11.7 - 16 g/dL [place] Interpretation and review of laboratory results Abnormal [place] MCH (RBC) [Entitic mass] 30.7 pg 26 - 34 pg [place] MCHC (RBC) [Mass/Vol] 35.4 % 32 - 36 % [place] MCV (RBC) [Entitic vol] 86.7 fL 79 - 98 fL [place] Platelet mean volume (Bld) [Entitic vol] 6.5 fL Low 7.4 - 10.4 fL [place] Platelets (Bld) [#/Vol] 337 10*3/uL 140 - 440 10*3/uL [place] RBC (Bld) [#/Vol] 4.78 10*6/uL 3.8 - 5.2 10*6/uL [place] WBC (Bld) [#/Vol] 8.7 10*3/uL 3.6 - 10.7 10*3/uL [place] Test Performed by [facility], [address] , [address] HCG Qualitative, Serumon hCG Qual Negative m[IU]/mL [place] Comment on above: Reference Range: NEG ATIVE Effective 10/26/2019, the reference interval for the qualitative test has been updated. This test detects hCG at concentrations of 10 mIU/mL or greater in serum. Test Performed by [facility], [address] , [address] Hemogram (CBC)on 03-24-2020 Erythrocyte distribution width (RBC) [Ratio] 12.2 % 11.5 - 14.5 % [place] Hematocrit (Bld) [Volume fraction] 40.8 % 35 - 47 % [place] Hemoglobin (Bld) [Mass/Vol] 14.2 g/dL 11.7 - 16 g/dL [place] Interpretation and review of laboratory results Abnormal [place] MCH (RBC) [Entitic mass] 30.3 pg 26 - 34 pg [place] MCHC (RBC) [Mass/Vol] 34.9 % 32 - 36 % [place] MCV (RBC) [Entitic vol] 86.8 fL 79 - 98 fL [place] Platelet mean volume (Bld) [Entitic vol] 6.5 fL Low 7.4 - 10.4 fL [place] Platelets (Bld) [#/Vol] 354 10*3/uL 140 - 440 10*3/uL [place] RBC (Bld) [#/Vol] 4.69 10*6/uL 3.8 - 5.2 10*6/uL [place] WBC (Bld) [#/Vol] 12.4 10*3/uL High 3.6 - 10.7 10*3/uL [place] Test Performed by [facility], [address] , [address] Basic Metabolic Panelon 02-18 Anion gap [Moles/Vol] 11 mmol/L [place] Calcium [Mass/Vol] 9.3 mg/dL 8.4 - 10. 4 mg/dL [place] Chloride [Moles/Vol] 106 mmol/L 98 - 10 7 mmol/L [place] CO2 [Moles/Vol] 20 mmol/L Low 22 - 30 mmol/L [place] Creatinine [Mass/Vol] 0.72 mg/dL 0.52 - 1.25 mg/dL [place] EGFR IF NonAfrican Beninese >90.0 >60 mL/min [place] Comment on above: KDIGO guidelines pro vide the following GFR categories: Stage GFR(ml/min/1.73 m2) Terms G1 >=90 Normal or high G2 60-89 Mildly decreased* G3a 45-59 Mildly to moderately decreased G3b 30-44 Moderately to severely decreased G4 15-29 Severely decreased G5 <15 Kidney failure *Relative to young adult level. In the absence of evidence of kidney damage, neither GFR category G1 nor G2 fulfill the criteria for CKD. The CKD-EPI equation is validated in individuals 18 years of age and older. Currently the best equation for estimating glomerular filtration rate (GFR) from serum creatinine in children is the Bedside Dickson equation. It is less accurate in patients with extremes of muscle mass, restriction of dietary protein, ingestion of creatine, extra-renal metabolism of creatinine, or treatment with medications that affect renal tubular creatinine secretion. GFR/1.73 sq M predicted among blacks MDRD (S/P/Bld) [Vol rate/Area] mL/min/{1.73_m2} >60 mL/min [place] Glucose [Mass/Vol] 90 mg/dL 70 - 100 mg/dL [place] Potassium [Moles/Vol] 4.7 mmol/L 3.5 - 5.1 mmol/L [place] Sodium [Moles/Vol] 137 mmol/L 135 - 145 mmol/L [place] Urea nitrogen [Mass/Vol] 12 mg/dL 7 - 20 mg/dL [place] Lipid Panelon 03-04-2020 Cholesterol [Mass/Vol] 211 mg/dL Abnormal <200 [place] Cholesterol in HDL [Mass/Vol] 65 mg/dL High 40 - 60 mg/dL [place] Cholesterol in LDL [Mass/Vol] 117 mg/dL Abnormal <100 [place] Cholesterol.total/Kelley sterol in HDL [Mass ratio] 3 {ratio} [place] Comment on above: Ref Range: < 3 Low Risk for CHD 3-6 Mod Risk for CHD > 6 High Risk for CHD Triglyceride [Mass/Vol] 146 mg/dL <[address] [facility] OREN Otheron 03-04-2020 Interpretation and review of laboratory results Abnormal [place] Test Performed by [facility], [address] , [place], [place] [address] [place] Ferritinon 12-25-2019 Ferritin [Mass/Vol] 887.0 ng/mL High 14.7-205.1 [facility] Comment on above: Result Comment: Aranza ents taking a biotin dose of up to 5 mg/day should refrain from taking biotin for 4 hours prior to sample collection. Patients taking a biotin dose of 5 to 10 mg/day should refrain from taking biotin for 8 hours prior to sample collection. Patients taking a biotin dose > 10 mg/day should consult with their physician or the laboratory prior to having a sample taken. Clinicians should consider biotin interference as a source of error, when clinically suspicious of the laboratory result. Performed By: #### F ERR2 #### [place] [address] Oncology Hemogram/Diffon Abs. Baso 0.01 thou/cmm Normal 0.00-0.08 [facility] Comment on above: Performed By: #### G OHEM #### [place] [address] Abs. [place] 0.57 thou/cmm Normal 0.19-0.80 [facility] Comment on above: Performed By: #### G OHEM #### [place] [address] Abs. Neut (ANC) 4.76 thou/cmm Normal 1.35-7.21 [facility] Comment on above: Performed By: #### G OHEM #### [place] [address] Basophils/100 WBC (Bld) 0.1 % Normal [facility] Comment on above: Performed By: #### G OHEM #### [address] [place], [place] [address] Eosinophils (Bld) [#/Vol] 0.23 thou/cmm Normal 0.00-0.36 [facility] Comment on above: Performed By: #### G OHEM #### [facility] [address] [place], [place] [address] Eosinophils/100 WBC (Bld) 3.2 % Normal [facility] Comment on above: Performed By: #### G OHEM #### [facility] [address] [place] [address] Erythrocyte distribution width (RBC) [Ratio] 13.1 % Normal 11.8-14.5 [facility] Comment on above: Performed By: #### G OHEM #### [facility] [address] [place] [address] Hematocrit (Bld) [Volume fraction] 41.2 % Normal 34.7-43.3 [facility] Comment on above: Performed By: #### G OHEM #### [facility] [address] [place] [address] Hemoglobin (Bld) [Mass/Vol] 14.8 g/dL High 11.7-14.7 [facility] Comment on above: Performed By: #### G OHEM #### [facility] [address] [place] [address] Lymphocytes (Bld) [#/Vol] 1.62 thou/cmm Normal 0.68-2.93 [facility] Comment on above: Performed By: #### G OHEM #### [facility] [address] [place], [place] [address] Lymphocytes/100 WBC (Bld) 22.5 % Normal [facility] Comment on above: Performed By: #### G OHEM #### [facility] [address] [place] [address] MCH (RBC) [Entitic mass] 30.7 pg Normal 27.4-32.8 [facility] Comment on above: Performed By: #### G OHEM #### [place] [address] MCHC (RBC) [Mass/Vol] 35.9 % High 31.9-35.6 [facility] Comment on above: Performed By: #### G OHEM #### [facility] [address] [place] [address] MCV (RBC) [Entitic vol] 85.5 fL Normal 82.1-97.4 [facility] Comment on above: Performed By: #### G OHEM #### [facility] [address] [place] [address] Monocytes/100 WBC (Bld) 7.9 % Normal [facility] Comment on above: Performed By: #### G OHEM #### [place] [address] Platelet mean volume (Bld) [Entitic vol] 8.5 fL Low 8.8-12.0 [facility] Comment on above: Performed By: #### G OHEM #### [place] [address] Platelets (Bld) [#/Vol] 279 thou/cmm Normal 150-370 [facility] Comment on above: Performed By: #### G OHEM #### [place] [address] RBC (Bld) [#/Vol] 4.82 mil/cmm Normal 3.79-4.93 [facility] Comment on above: Performed By: #### G OHEM #### [place] [address] Seg Neutrophil 66.3 % Normal [facility] Comment on above: Performed By: #### G OHEM #### [place] [address] WBC (Bld) [#/Vol] 7.2 thou/cmm Normal 4.4-9.7 [facility] Comment on above: Performed By: #### G OHEM #### [place] [address] US Pelvis Completeon 017 US Pelvis Complete Patient Name: RENEA PANDEY Ultrasound Exam Date/Time 03/28/2017 09:02:30 EDT Exam US Pelvis Complete Ordering Physician CATHERINE DIXON D.O. Accession Number [id number] CPT4 Codes 36965 () Reason For Exam Iron deficiency anemia secondary to blood loss (chronic) Report COMPLETE TRANSABDOMINAL PELVIC SONOGRAM History: Menorrhagia, anemia Findings: Transabdominal pelvic sonogram without transvaginal sonogram is submitted. The uterus is retroverted measuring 8.8 x 6.2 x 3.8 cm. There is suboptimal visualization of the uterine parenchyma details but the endometrial thickness appears within normal limits measuring 3.6 mm. There is no free fluid in the cul-de-sac. To the extent visualized, the right ovary measures 2.9 x 2.4 x 1.6 cm and the left ovary 2.2 x 2.5 x 1.5 cm. Color Doppler and spectral flow to both ovaries is detected. IMPRESSION: Unremarkable suboptimal exam as described. Report Dictated on Final Dictated: 03/28/2017 9:52 am Dictating Physician: MD TANG AHMAD Signed Date and Time: 03/28/2017 9:59 am Signed by: MD TANG AHMAD Transcribed Date and Time: 03/28/2017 9:52 Normal [facility] Vital Signs Date Time Vital Sign Value Performing Clinician Teo loving 04-08-2025 12:44-0400 Body height 162.6 cm TeresaSnehta-C Work Phone: [facility] 04-08-2025 12:44-0400 Body mass index (BMI) [Ratio] 28.84 kg/m2 Teresa Paulo PA-C Work Phone: [facility] 04-08-2025 12:44-0400 Body temperature 98.71 [degF] Teresa Paulo PA-C Work Phone: [facility] 04-08-2025 12:44-0400 Body weight 76.2 kg Teresa Paulo PA-C Work Phone: [facility] 04-08-2025 12:44-0400 Diastolic blood pressure 68 mm[Hg] Teresa Paulo PA-C Work Phone: [facility] 04-08-2025 12:44-0400 Heart rate 69 /min Teresa Paulo PA-C Work Phone: [facility] 04-08-2025 12:44-0400 Respiratory rate 18 /min Teresa Paulo PA-C Work Phone: [facility] 04-08-2025 12:44-0400 SaO2% (BldA) [Mass fraction] 99 % Teresa Paulo PA-C Work Phone: [facility] 04-08-2025 12:44-0400 Systolic blood pressure 99 mm[Hg] Teresa Paulo PA-C Work Phone: [facility] 03-22-2025 08:05-0400 Body height 162.6 cm Catherine Dixon DO Work Phone: [facility] [employer] 03-22-2025 08:05-0400 Body mass index (BMI) [Ratio] 28.67 kg/m2 Catherine Dixon DO Work Phone: [facility] 03-22-2025 08:05-0400 Body temperature 98.01 [degF] Catherine Dixon DO Work Phone: [facility] [employer] 03-22-2025 08:05-0400 Body weight 75.75 kg Catherine Dixon DO Work Phone: [facility] 03-22-2025 08:05-0400 Diastolic blood pressure 70 mm[Hg] Catherine Dixon DO Work Phone: [facility] 03-22-2025 08:05-0400 Heart rate 64 /min Catherine Dixon DO Work Phone: [facility] 03-22-2025 08:05-0400 SaO2% (BldA) [Mass fraction] 98 % Catherine Dixon DO Work Phone: [facility] [employer] 03-22-2025 08:05-0400 Systolic blood pressure 101 mm[Hg] Catherine Dixon DO Work Phone: [facility] 12-08-2024 14:130400 Body height 162.56 cm CATHERINE DIXON DO Work Phone: [facility] 12-08-2024 14:13-0400 Body mass index (BMI) [Ratio] 28.8 kg/m2 CATHERINE DIXON DO Work Phone: [facility] 12-08-2024 14:13-0400 Body weight 76.31 kg CATHERINE DIXON DO Work Phone: [facility] 12-08-2024 14:13-0400 Diastolic blood pressure 67 mm[Hg] CATHERINE DIXON DO Work Phone: [facility] 12-08-2024 14:13-0400 Heart rate 68 /min CATHERINE DIXON DO Work Phone: [facility] 12-08-2024 14:130400 Systolic blood pressure 99 mm[Hg] CATHERINE DIXON DO Work Phone: [facility] 11-05-2024 14:23-0400 Body mass index (BMI) [Ratio] 29.6 kg/m2 CATHERINE DIXON DO Work Phone: [facility] 11-05-2024 14:23-0400 Body temperature 98 [degF] CATHERINE DIXON DO Work Phone: [facility] 11-05-2024 14:23-0400 Body weight 78.24 kg CATHERINE DIXON DO Work Phone: [facility] 11-05-2024 14:23-0400 Diastolic blood pressure 76 mm[Hg] CATHERINE DIXON DO Work Phone: [facility] 11-05-2024 14:23-0400 Systolic blood pressure 115 mm[Hg] CATHERINE DIXON DO Work Phone: [facility] 11-02-2024 14:04-0400 Body mass index (BMI) [Ratio] 29.5 kg/m2 CATHERINE DIXON DO Work Phone: [facility] 11-02-2024 14:04-0400 Body weight 78.07 kg CATHERINE DIXON DO Work Phone: [facility] 11-02-2024 14:04-0400 Diastolic blood pressure 83 mm[Hg] CATHERINE DIXON DO Work Phone: [facility] 11-02-2024 14:04-0400 Systolic blood pressure 137 mm[Hg] CATHERINE DIXON DO Work Phone: [facility] 10-26-2024 17:46-0400 Body temperature 98.2 [degF] CATHERINE DIXON DO Work Phone: [facility] 10-26-2024 17:46-0400 Diastolic blood pressure 71 mm[Hg] CATHERINE DIXON DO Work Phone: [facility] 10-26-2024 17:46-0400 Heart rate 86 /min CATHERINE DIXON DO Work Phone: [facility] 10-26-2024 17:46-0400 Respiratory rate 16 /min CATHERINE DIXON DO Work Phone: [facility] 10-26-2024 17:46-0400 SaO2% (BldA) [Mass fraction] 99 % CATHERINE DIXON DO Work Phone: [facility] 10-26-2024 17:46-0400 Systolic blood pressure 115 mm[Hg] CATHERINE DIXON DO Work Phone: [facility] 10-26-2024 13:01-0400 Body height 162.56 cm CATHERINE DIXON DO Work Phone: [facility] 10-26-2024 13:01-0400 Body mass index (BMI) [Ratio] 29.5 kg/m2 CATHERINE DIXON DO Work Phone: [facility] 10-26-2024 13:01-0400 Body weight 78 kg CATHERINE DIXON DO Work Phone: [facility] 10-18-2024 16:03-0400 Body mass index (BMI) [Ratio] 27.6 kg/m2 CATHERINE DIXON DO Work Phone: [facility] 10-18-2024 16:03-0400 Body weight 77.67 kg CATHERINE DIXON DO Work Phone: [facility] 10-18-2024 16:03-0400 Diastolic blood pressure 82 mm[Hg] CATHERINE DIXON DO Work Phone: [facility] 10-18-2024 16:03-0400 Systolic blood pressure 120 mm[Hg] CATHERINE DIXON DO Work Phone: [facility] 08-01-2024 10:02-0500 Body mass index (BMI) [Ratio] 29.42 kg/m2 Aime Ball RAG WASHER.OPTICAL DISPENSER Work Phone: [facility] 08-01-2024 10:02-0500 Body temperature 98.6 [degF] Aime Ball RAG WASHER.OPTICAL DISPENSER Work Phone: [facility] 08-01-2024 10:02-0500 Body weight 77.75 kg Aime Ball RAG WASHER.OPTICAL DISPENSER Work Phone: [facility] 08-01-2024 10:02-0500 Diastolic blood pressure 75 mm[Hg] Aime Ball RAG WASHER.OPTICAL DISPENSER Work Phone: [facility] 08-01-2024 10:02-0500 Heart rate 75 /min Aime Ball RAG WASHER.OPTICAL DISPENSER Work Phone: [facility] 08-01-2024 10:02-0500 Respiratory rate 16 /min Aime Ball RAG WASHER.OPTICAL DISPENSER Work Phone: [facility] 08-01-2024 10:02-0500 SaO2% (BldA) [Mass fraction] 99 % Aime Ball RAG WASHER.OPTICAL DISPENSER Work Phone: [facility] 08-01-2024 10:02-0500 Systolic blood pressure 112 mm[Hg] Aime Ball RAG WASHER.OPTICAL DISPENSER Work Phone: [facility] 04-28-2024 10:31-0400 Diastolic blood pressure 73 mm[Hg] Manuel Hazel MD Work Phone: [facility] 04-28-2024 10:31-0400 Heart rate 84 /min Manuel Hazel MD Work Phone: [facility] 04-28-2024 10:31-0400 Respiratory rate 16 /min Manuel Hazel MD Work Phone: [facility] 04-28-2024 10:31-0400 SaO2% (BldA) [Mass fraction] 99 % Manuel Hazel MD Work Phone: [facility] 04-28-2024 10:31-0400 Systolic blood pressure 101 mm[Hg] Manuel Hazel MD Work Phone: [facility] 04-28-2024 07:42-0400 Body height 162.6 cm Manuel Hazel MD Work Phone: [facility] 04-28-2024 07:42-0400 Body mass index (BMI) [Ratio] 27.46 kg/m2 Manuel Hazel MD Work Phone: [facility] 04-28-2024 07:42-0400 Body temperature 98.2 [degF] Manuel Hazel MD Work Phone: [facility] 04-28-2024 07:42-0400 Body weight 72.58 kg Manuel Hazel MD Work Phone: [facility] 03-24-2024 17:19-0400 Body temperature 97.34 [degF] Teresa Paulo [facility] 03-24-2024 17:19-0400 Body weight 72.6 kg Teresa Paulo [facility] 03-24-2024 17:19-0400 Diastolic blood pressure 77 mm[Hg] Teresa Paulo [facility] 09-04-2024 17:19-0400 Heart rate 88 /min Teresa Paulo [facility] 03-24-2024 17:19-0400 Respiratory rate 16 /min Teresa Paulo [facility] 03-24-2024 17:19-0400 SaO2% (BldA) [Mass fraction] 98 % Teresa Paulo [facility] 03-24-2024 17:19-0400 Systolic blood pressure 116 mm[Hg] Teresa Paulo [facility] 03-18-2024 08:04-0400 Body height 163.8 cm Catherine Dixon DO Work Phone: [facility] [employer] 03-18-2024 08:04-0400 Body mass index (BMI) [Ratio] 27.72 kg/m2 Catherine Dixon DO Work Phone: [facility] [employer] 03-18-2024 08:04-0400 Body temperature 97.3 [degF] Catherine Dixon DO Work Phone: [facility] [employer] 03-18-2024 08:04-0400 Body weight 74.39 kg Catherine Dixon DO Work Phone: [facility] [employer] 03-18-2024 08:04-0400 Diastolic blood pressure 64 mm[Hg] Catherine Dixon DO Work Phone: [facility] [employer] 03-18-2024 08:04-0400 Heart rate 81 /min Catherine Dixon DO Work Phone: [facility] [employer] 03-18-2024 08:04-0400 SaO2% (BldA) [Mass fraction] 99 % Catherine Dixon DO Work Phone: [facility] [employer] 03-18-2024 08:04-0400 Systolic blood pressure 91 mm[Hg] Catherine Dixon DO Work Phone: [facility] 03-02-2024 09:46-0400 Body mass index (BMI) [Ratio] 27.45 kg/m2 Starla Yennyenthal RAG WASHER - OPTICAL DISPENSER Work Phone: [facility] [employer] 03-02-2024 09:46-0400 Body temperature 98.6 [degF] Starla Bridenthal RAG WASHER - OPTICAL DISPENSER Work Phone: [facility] 03-02-2024 09:46-0400 Body weight 73.66 kg Starla Bridenthal RAG WASHER - OPTICAL DISPENSER Work Phone: [facility] 03-02-2024 09:46-0400 Diastolic blood pressure 66 mm[Hg] Starla Bridenthal RAG WASHER - OPTICAL DISPENSER Work Phone: [facility] [employer] 03-02-2024 09:46-0400 Heart rate 76 /min Starla Bridenthal RAG WASHER - OPTICAL DISPENSER Work Phone: [facility] [employer] 03-02-2024 09:46-0400 Respiratory rate 18 /min Starla Bridenthal RAG WASHER - OPTICAL DISPENSER Work Phone: [facility] [employer] 03-02-2024 09:46-0400 SaO2% (BldA) [Mass fraction] 98 % Starla Bridenthal RAG WASHER - OPTICAL DISPENSER Work Phone: [facility] 03-02-2024 09:46-0400 Systolic blood pressure 99 mm[Hg] Starla Yennyenthal RAG WASHER - OPTICAL DISPENSER Work Phone: [facility] 09-29-2023 09:12-0400 Body height 167.64 cm DO CATHERINE DIXON Work Phone: [facility] 09-29-2023 09:12-0400 Body mass index (BMI) [Ratio] 26.8 kg/m2 DO CATHERINE DIXON Work Phone: [facility] 09-29-2023 09:12-0400 Body weight 75.4 kg DO CATHERINE DIXON Work Phone: [facility] 09-29-2023 09:12-0400 Diastolic blood pressure 73 mm[Hg] DO CATHERINE DIXON Work Phone: [facility] 09-29-2023 09:12-0400 Heart rate 76 /min DO CATHERINE DIXON Work Phone: [facility] 09-29-2023 09:12-0400 Respiratory rate 16 /min DO CATHERINE DIXON Work Phone: [facility] 09-29-2023 09:12-0400 Systolic blood pressure 116 mm[Hg] DO CATHERINE DIXON Work Phone: [facility] 06-30-2023 10:21-0500 Body mass index (BMI) [Ratio] 26.8 kg/m2 DO CATHERINE DIXON Work Phone: [facility] 06-30-2023 10:21-0500 Body weight 75.29 kg DO CATHERINE DIXON Work Phone: [facility] 06-30-2023 10:21-0500 Diastolic blood pressure 84 mm[Hg] DO CATHERINE DIXON Work Phone: [facility] 06-30-2023 10:21-0500 Heart rate 97 /min DO CATHERINE DIXON Work Phone: [facility] 06-30-2023 10:21-0500 Systolic blood pressure 117 mm[Hg] DO CATHERINE DIXON Work Phone: [facility] 06-01-2023 12:45-0500 Body height 163.8 cm Chelsey Sapper RAG WASHER - MOTOR DRIVER Work Phone: [facility] 06-01-2023 12:45-0500 Body mass index (BMI) [Ratio] 28.39 kg/m2 Chelsey Sapper RAG WASHER - MOTOR DRIVER Work Phone: [facility] 06-01-2023 12:45-0500 Body temperature 97.5 [degF] Chelsey Sapper RAG WASHER - MOTOR DRIVER Work Phone: [facility] 06-01-2023 12:45-0500 Body weight 76.2 kg Chelsey Sapper RAG WASHER - MOTOR DRIVER Work Phone: [facility] [employer] 06-01-2023 12:45-0500 Diastolic blood pressure 81 mm[Hg] Chelsey Sapper RAG WASHER - MOTOR DRIVER Work Phone: [facility] [employer] 06-01-2023 12:45-0500 Heart rate 96 /min Chelsey Sapper RAG WASHER - MOTOR DRIVER Work Phone: [facility] [employer] 06-01-2023 12:45-0500 SaO2% (BldA) [Mass fraction] 98 % Chelsey Sapper RAG WASHER - MOTOR DRIVER Work Phone: [facility] [employer] 06-01-2023 12:45-0500 Systolic blood pressure 115 mm[Hg] Chelsey Sapper RAG WASHER - MOTOR DRIVER Work Phone: [facility] [employer] 03-18-2023 08:40-0400 Body height 163.8 cm Catherine Dixon DO Work Phone: [facility] [employer] 03-18-2023 08:40-0400 Body mass index (BMI) [Ratio] 28.22 kg/m2 Catherine Dixon DO Work Phone: [employer] 03-18-2023 08:40-0400 Body weight 75.75 kg Catherine Dixon DO Work Phone: [facility] [employer] 03-18-2023 08:40-0400 Diastolic blood pressure 68 mm[Hg] Catherine Dixon DO Work Phone: [employer] 03-18-2023 08:40-0400 Heart rate 84 /min Catherine Dixon DO Work Phone: [employer] 03-18-2023 08:40-0400 SaO2% (BldA) [Mass fraction] 99 % Catherine Dixon [facility] 03-18-2023 08:40-0400 Systolic blood pressure 115 mm[Hg] Catherine Dixon DO Work Phone: [facility] [employer] 01-06-2023 11:16-0400 Body height 167.64 cm DO CATHERINE DIXON Work Phone: [facility] 01-06-2023 11:16-0400 Body mass index (BMI) [Ratio] 28.1 kg/m2 DO CATHERINE DIXON Work Phone: [facility] 01-06-2023 11:16-0400 Body weight 79.09 kg DO CATHERINE DIXON Work Phone: [facility] 01-06-2023 11:16-0400 Diastolic blood pressure 78 mm[Hg] DO CATHERINE DIXON Work Phone: [facility] 01-06-2023 11:16-0400 Heart rate 79 /min DO CATHERINE DIXON Work Phone: [facility] 01-06-2023 11:16-0400 Systolic blood pressure 115 mm[Hg] DO CATHERINE DIXON Work Phone: [facility] 12-09-2022 09:19-0400 Body mass index (BMI) [Ratio] 28.1 kg/m2 DO CATHERINE DIXON Work Phone: [phone] [place] [address] 12-09-2022 09:19-0400 Body weight 79.15 kg DO CATHERINE DIXON Work Phone: 7(331)[phone] [place] [address] 12-09-2022 09:19-0400 Diastolic blood pressure 79 mm[Hg] DO CATHERINE DIXON Work Phone: [facility] 12-09-2022 09:19-0400 Heart rate 76 /min DO CATHERINE DIXON Work Phone: [facility] 12-09-2022 09:19-0400 Systolic blood pressure 119 mm[Hg] DO CATHERINE DIXON Work Phone: [facility] 11-11-2022 11:23-0400 Body mass index (BMI) [Ratio] 29 kg/m2 DO CATHERINE DIXON Work Phone: [facility] 11-11-2022 11:23-0400 Body weight 81.41 kg DO CATHERINE DIXON Work Phone: [facility] 11-11-2022 11:23-0400 Diastolic blood pressure 85 mm[Hg] DO CATHERINE DIXON Work Phone: [facility] 11-11-2022 11:23-0400 Heart rate 89 /min DO CATHERINE DIXON Work Phone: [facility] 11-11-2022 11:23-0400 Systolic blood pressure 125 mm[Hg] DO CATHERINE DIXON Work Phone: [facility] 10-14-2022 10:00-0400 Body height 167.64 cm DO CATHERINE DIXON Work Phone: [facility] 10-14-2022 09:58-0400 Body mass index (BMI) [Ratio] 30 kg/m2 DO CATHERINE DIXON Work Phone: [facility] 10-14-2022 09:58-0400 Body weight 84.53 kg DO CATHERINE DIXON Work Phone: [facility] 10-14-2022 09:58-0400 Diastolic blood pressure 87 mm[Hg] DO CATHERINE DIXON Work Phone: [facility] 10-14-2022 09:58-0400 Systolic blood pressure 124 mm[Hg] DO CATHERINE DIXON Work Phone: [facility] 09-25-2022 18:35-0500 Body height 163.8 cm Eugenia Ortega MOTOR DRIVER Work Phone: [facility] 09-25-2022 18:35-0500 Body mass index (BMI) [Ratio] 33.12 kg/m2 Eugenia Ortega MOTOR DRIVER Work Phone: [facility] 09-25-2022 18:35-0500 Body temperature 97.2 [degF] Eugenia Ortega MOTOR DRIVER Work Phone: [facility] 09-25-2022 18:35-0500 Body weight 88.91 kg Eugenia Ortega MOTOR DRIVER Work Phone: [facility] [employer] 09-25-2022 18:35-0500 Diastolic blood pressure 73 mm[Hg] Eugenia Ortega MOTOR DRIVER Work Phone: [facility] [employer] 09-25-2022 18:35-0500 Heart rate 82 /min Eugenia Ortega MOTOR DRIVER Work Phone: [facility] 09-25-2022 18:35-0500 SaO2% (BldA) [Mass fraction] 100 % Eugenia Ortega MOTOR DRIVER Work Phone: [facility] 09-25-2022 18:35-0500 Systolic blood pressure 115 mm[Hg] Eugenia Ortega MOTOR DRIVER Work Phone: [facility] 09-17-2022 09:02-0500 Body mass index (BMI) [Ratio] 31 kg/m2 DO CATHERINE DIXON Work Phone: [facility] 09-17-2022 09:02-0500 Body weight 87.25 kg DO CATHERINE DIXON Work Phone: [facility] 09-17-2022 09:02-0500 Diastolic blood pressure 78 mm[Hg] DO CATHERINE DIXON Work Phone: [facility] 09-17-2022 09:02-0500 Heart rate 73 /min DO CATHERINE DIXON Work Phone: [facility] 09-17-2022 09:02-0500 Systolic blood pressure 114 mm[Hg] DO CATHERINE DIXON Work Phone: [facility] 08-20-2022 08:54-0500 Body mass index (BMI) [Ratio] 32.5 kg/m2 DO CATHERINE DIXON Work Phone: [facility] 08-20-2022 08:54-0500 Body weight 91.62 kg DO CATHERINE DIXON Work Phone: [facility] 08-20-2022 08:54-0500 Diastolic blood pressure 87 mm[Hg] DO CATHERINE DIXON Work Phone: [facility] 08-20-2022 08:54-0500 Heart rate 80 /min DO CATHERINE DIXON Work Phone: [facility] 08-20-2022 08:54-0500 Systolic blood pressure 128 mm[Hg] DO CATHERINE DIXON Work Phone: [facility] 07-23-2022 09:20-0500 Body mass index (BMI) [Ratio] 42.3 kg/m2 DO CATHERINE DIXON Work Phone: [facility] 07-23-2022 09:20-0500 Body weight 98.14 kg DO CATHERINE DIXON Work Phone: [facility] 07-23-2022 09:20-0500 Diastolic blood pressure 83 mm[Hg] DO CATHERINE DIXON Work Phone: [facility] 07-23-2022 09:20-0500 Heart rate 83 /min DO CATHERINE DIXON Work Phone: [facility] 07-23-2022 09:20-0500 Systolic blood pressure 129 mm[Hg] DO CATHERINE DIXON Work Phone: [facility] 06-06-2022 11:30-0500 Body mass index (BMI) [Ratio] 36.6 kg/m2 DO CATHERINE DIXON Work Phone: [facility] 06-06-2022 11:30-0500 Body weight 96.67 kg DO CATHERINE DIXON Work Phone: [facility] 06-06-2022 11:30-0500 Diastolic blood pressure 83 mm[Hg] DO CATHERINE DIXON Work Phone: [facility] 06-06-2022 11:30-0500 Systolic blood pressure 129 mm[Hg] DO CATHERINE DIXON Work Phone: [facility] 05-24-2022 14:09-0400 Diastolic blood pressure 67 mm[Hg] Dr. Angela Pressley Work Phone: [facility] Work Phone: 05-24-2022 14:09-0400 Heart rate 93 /min Dr. Angela Pressley Work Phone: [facility] Work Phone: 05-24-2022 14:09-0400 Systolic blood pressure 96 mm[Hg] Dr. Angela Pressley Work Phone: [facility] Work Phone: 05-24-2022 13:00-0400 Body temperature 97.1 [degF] Dr. Angela Pressley Work Phone: [facility] Work Phone: 05-24-2022 13:00-0400 Inhaled oxygen flow rate 2 L/min Dr. Angela Pressley Work Phone: [facility] Work Phone: 05-24-2022 13:00-0400 Respiratory rate 16 /min Dr. Angela Pressley Work Phone: [facility] Work Phone: 05-24-2022 13:00-0400 SaO2% (BldA) [Mass fraction] 100 % Dr. Angela Pressley Work Phone: [facility] Work Phone: 05-24-2022 06:30-0400 Body height 162.[address] Angela Pressley Work Phone: [facility] Work Phone: 05-24-2022 06:30-0400 Body mass index (BMI) [Ratio] 36.3 kg/m2 Dr. Angela Pressley Work Phone: [facility] Work Phone: 05-24-2022 06:30-0400 Body weight [address] Angela Pressley Work Phone: [facility] Work Phone: 04-18-2022 15:18-0400 Body height 162.[address] Angela Pressley Work Phone: [facility] Work Phone: 04-18-2022 15:18-0400 Body mass index (BMI) [Ratio] 36.3 kg/m2 Dr. Angela Pressley Work Phone: [facility] Work Phone: 04-18-2022 15:18-0400 Body weight 96.[address] Angela Pressley Work Phone: [facility] Work Phone: 04-18-2022 15:18-0400 Diastolic blood pressure 86 mm[Hg] Dr. Angela Pressley Work Phone: [facility] Work Phone: 04-18-2022 15:18-0400 Systolic blood pressure 132 mm[Hg] Dr. Angela Pressley Work Phone: [facility] Work Phone: 03-24-2020 18:32-0400 BP Diastolic 67 mm[Hg] [facility] , [place] 03-24-2020 18:32-0400 BP Systolic 108 mm[Hg] [place], [place] 03-24-2020 18:32-0400 Pulse (Heart Rate) 76 /min [place], [place] 03-24-2020 18:32-0400 Pulse Oximetry 98 % [place] 03-24-2020 18:32-0400 Respiratory Rate 17 /min [facility] [place] 03-24-2020 17:45-0400 BMI (Body Mass Index) 32.61 kg/m2 [facility], [place] 03-24-2020 17:45-0400 Body Temperature 98.2 [degF] [facility] [place] 03-24-2020 17:45-0400 Body weight 86.18 kg [place] 03-24-2020 17:45-0400 Height 162.6 cm [place] Encounters Encounter Date Encounter Type Care Provider Facility Start: 04-12-2025 ambulatory CATHERINE Villanueva ty:[facility] Start: 04-08-2025 End: 04-08-2025 Office outpatient new 30 minutes Teresa Bates PA-C Work Phone: [facility] Comment on above: Muscle strain (Prima ry Dx) Start: 03-23-2025 End: 04-08-2025 Follow-up encounter Catherine Dixon DO Work Phone: [facility] - Topic Comment on above: Lipid panel, Hemoglo bin A1c, Basic metabolic panel, XR knee 3 views left Start: 03-23-2025 End: 03-23-2025 Subsequent hospital visit by physician Catherine Dixon DO Work Phone: [facility] Radiology Comment on above: Chronic pain of left knee Start: 03-23-2025 End: 03-23-2025 ambulatory [facility] Start: 03-22-2025 End: 03-22-2025 Patient encounter status Catherine Logan Destiny DO [facility] Phone[facility]: Start: 03-22-2025 End: 03-22-2025 Periodic preventive med est patient 18-39 yrs Catherine Logan Destiny DO Work Phone: [facility] - Topic Comment on above: Well adult exam (Myrna yoli Dx); Screening, lipid; Screening for diabetes mellitus; Chronic pain of left knee Start: 03-22-2025 End: 03-22-2025 ambulatory [facility] Start: 12-08-2024 End: 12-08-2024 Patient encounter procedure Eliana PEPPER -[facility] Work Phone: Start: 12-08-2024 End: 12-08-2024 ambulatory CATHERINE DIXON DO Work Phone: [facility] Work Phone: Start: 11-05-2024 End: 11-05-[address] Angela Pressley MD -[facility] Work Phone: Start: 11-05-2024 End: 11-05-2024 ambulatory Angela Pressley Facility:[facility] Start: 11-05-2024 Encounter for other preprocedural examination Angela Pressley [facility] Start: 11-02-2024 ambulatory Angela Bruce lity:[facility] Start: 11-02-2024 End: 11-02-[address] Angela Pressley MD -[facility] Work Phone: Start: 11-02-2024 End: 11-02-2024 ambulatory Angela Pressley Facility:[facility] Start: 10-26-2024 Non-patient / Non-visit Dr. Verna Pressley MD -[facility] Start: 10-26-2024 End: 10-26-2024 Admission to same day surgery center Dr. Angela Pressley MD -[facility] Start: 10-26-2024 End: 10-26-2024 [facility] Work Phone: Start: 10-18-2024 End: 10-18-[address] Angela Pressley MD -[facility] Work Phone: Start: 10-18-2024 End: 10-18-2024 ambulatory [facility] Facility:[facility] Start: 10-09-2024 End: 10-09-2024 ambulatory [facility] DO Work Phone: [facility] Work Phone: Start: 10-09-2024 End: 10-09-[address] Angela Pressley MD -Ultrasound, [facility] Work Phone: Start: 10-09-2024 End: 10-09-2024 ambulatory CATHERINE [facility] Facility:[facility] Start: 08-01-2024 End: 08-01-[address] [facility] Facility:[facility] Start: 08-01-2024 End: 08-01-2024 Office outpatient new 30 minutes Aime Hauser APRN.CNP Work Phone: [facility] Comment on above: Viral URI with cough (Primary Dx); Otalgia of both ears Start: 05-31-2024 End: 05-31-2024 ambulatory CATHERINE DIXON Facility:[facility] Start: 04-29-2024 End: 04-29-2024 ambulatory [facility] Facility:[facility] Start: 04-28-2024 End: 04-28-2024 Emergency department patient visit MANUEL HAZEL [facility] Start: 04-28-2024 End: 04-28-2024 Subsequent hospital visit by physician [facility] Exam Room 1 [facility] US Comment on above: Arrived Start: 04-28-2024 End: 04-28-2024 Emergency department patient visit Manuel Hazel MD Work Phone: [facility] ED Comment on above: Right flank pain (Pr imary Dx); Adnexal cyst Start: 03-24-2024 Teresa Paulo [facility] Start: 03-18-2024 End: 03-18-2024 Patient encounter status Catherine Dixon DO Work Phone: [facility] Start: 03-18-2024 End: 03-18-2024 Periodic preventive med est patient 18-39 yrs Catherine Dixon DO Work Phone: [facility] Comment on above: Well adult exam (Myrna yoli Dx); Vertigo; Screening, lipid; Screening for diabetes mellitus Start: 03-02-2024 End: 03-04-2024 ambulatory [facility] Start: 03-02-2024 End: 03-04-2024 Patient encounter procedure [facility] Start: 03-02-2024 End: 03-02-2024 Office outpatient visit 15 minutes Starla Ortiz APRN - OPTICAL DISPENSER Work Phone: [facility] Comment on above: Cellulitis of right upper extremity (Primary Dx); Insect stings, accidental or unintentional, initial encounter Start: 09-29-2023 End: 09-29-2023 ambulatory DO CATHERINE DIXON Work Phone: [facility] Work Phone: Start: 09-29-2023 End: 09-29-2023 Patient encounter procedure DO CATHERINE DIXON Work Phone: [facility] Work Phone: Start: 06-30-2023 End: 06-30-2023 Patient encounter procedure DO CATHERINE DIXON Work Phone: [facility] Work Phone: Start: 06-01-2023 End: 06-01-2023 Office outpatient visit 15 minutes Chelsey Readcarmen RAG WASHER - MOTOR DRIVER Work Phone: [facility] Comment on above: Viral URI with cough (Primary Dx); Laryngitis Start: 03-18-2023 End: 03-18-2023 Patient encounter status Catherine Dixon DO Work Phone: [facility] [employer] Work Phone: Start: 03-18-2023 End: 03-18-2023 Periodic preventive med est patient 18-39 yrs Catherine Dixon DO Work Phone: [facility] Comment on above: Well adult exam (Myrna yoli Dx); Screening for diabetes mellitus; Hypertriglyceridemia; Hair loss Start: 01-06-2023 End: 01-06-2023 ambulatory DO CATHERINE DIXON Work Phone: [facility] Work Phone: Start: 01-06-2023 End: 01-06-2023 Patient encounter procedure DO CATHERINE DIXON Work Phone: [facility] Start: 01-06-2023 End: 01-06-2023 Patient encounter procedure DO CATHERINE DIXON Work Phone: [facility] Start: 12-09-2022 End: 12-09-2022 Patient encounter procedure DO CATHERINE DIXON Work Phone: [facility] Start: 11-11-2022 End: 11-11-2022 Patient encounter procedure DO CATHERINE DIXON Work Phone: [facility] Start: 10-14-2022 End: 10-14-2022 ambulatory DO CATHERINE DIXON Work Phone: [facility] Work Phone: Start: 10-14-2022 End: 10-14-2022 Patient encounter procedure DO CATHERINE DIXON Work Phone: [facility] Start: 10-14-2022 End: 10-14-2022 Patient encounter procedure DO CATHERINE DIXON Work Phone: [facility] Start: 09-25-2022 End: 09-25-2022 Office outpatient visit 15 minutes Eugenia Ortega NP Work Phone: [facility] Comment on above: Strep throat (Primar y Dx); Sore throat Start: 09-17-2022 End: 09-17-2022 Patient encounter procedure DO CATHERINE DIXON Work Phone: [facility] Start: 08-20-2022 End: 08-20-2022 Patient encounter procedure DO CATHERINE DIXON Work Phone: [facility] Start: 07-23-2022 End: 07-23-2022 Patient encounter procedure DO CATHERINE DIXON Work Phone: [facility] Start: 06-28-2022 End: 06-28-2022 Patient encounter procedure DO CATHERINE DIXON Work Phone: [facility] Start: 05-24-2022 Non-patient / Non-visit Dr. Verna Pressley Work Phone: [facility] Start: 05-24-2022 End: 05-24-2022 Admission to same day surgery center Dr. Angela Pressley Work Phone: [facility] Start: 05-24-2022 End: 05-24-[address] Angela Pressley Work Phone: [facility] Work Phone: Start: 05-20-2022 Non-patient / Non-visit Dr. Verna Pressley Work Phone: [facility] Start: 05-18-2022 End: 05-18-[address] Angela Pressley Work Phone: [facility] Work Phone: Start: 05-18-2022 End: 05-18-[address] Angela Pressley Work Phone: [facility] Start: 04-18-2022 End: 04-18-[address] Angela Pressley Work Phone: [facility] Start: 03-18-2022 End: 03-18-2022 Subsequent hospital visit by physician Catherine Dixon DO Work Phone: [facility] Laboratory Comment on above: Screening for diabet es mellitus; Screening, lipid Start: 10-18-2021 End: 10-18-2021 Subsequent hospital visit by physician Catherine Dixon DO Work Phone: [facility] Comment on above: Mixed hyperlipidemia ; Other fatigue; Pain in other joint Start: 03-20-2021 End: 03-20-2021 Subsequent hospital visit by physician Catherine Dixon DO Work Phone: [facility] Comment on above: Screening, lipid; Weight gain; Need for hepatitis C screening test Start: 04-04-2020 End: 04-04-2020 Subsequent hospital visit by physician Catherine Dixon Work Phone: [facility] Comment on above: Vasovagal syncope; Other elevated white blood cell (WBC) count Start: 03-24-2020 End: 03-24-2020 Emergency department patient visit Fabian Sanders Work Phone: [facility] ED Comment on above: Vasovagal syncope (P rimary Dx) Start: 03-04-2020 End: 03-04-2020 Subsequent hospital visit by physician Catherine Dixon Work Phone: [facility] Comment on above: Screening, lipid; Screening for diabetes mellitus Start: 03-28-2017 Ambulatory CATHERINE AHMADI D.O[facility] Procedures Date Procedure Procedure Detail Performing Clinician Start: 03-22-2025 Lipid 1996 panel - S delmer or Plasma Catherine Dixon DO Work Phone: Start: 03-21-2025 Adult depression scr eening assessment Catherine Dixon DO Work Phone: Start: 10-26-2024 Right salpingo-oophorectomy CATHERINE DIXON DO Work Phone: Start: 10-09-2024 Pelvic echography MICHAEL DIXON DO Work Phone: Start: 04-28-2024 Us transvaginal Juliana Hazel MD Work Phone: Start: 04-28-2024 Ct abdomen & pelvis w/o contrast material Manuel Hazel MD Work Phone: Start: 04-28-2024 Urinalysis complete panel - Urine Manuel Hazel MD Work Phone: Start: 04-28-2024 Urnls dip stick/tabl et reagent auto microscopy Manuel Hazel MD Work Phone: Start: 04-28-2024 Comprehensive metabo lic panel Manuel Hazel MD Work Phone: Start: 03-18-2024 Adult depression scr eening assessment Catherine Dixon DO Work Phone: Start: 03-18-2024 Lipid 1996 panel - S delmer or Plasma Manuel Hazel MD Work Phone: Start: 06-01-2023 Sars-cov-2 detection by dna/rna Chelsey Vaca RAG WASHER - MOTOR DRIVER Work Phone: Start: 03-18-2023 Adult depression scr eening assessment Catherine Dixon DO Work Phone: Start: 03-18-2023 Lipid 1996 panel - S delmer or Plasma Catherine Dixon DO Work Phone: Start: 09-25-2022 Iaadiadoo streptococ cus group a Eugenia Ortega MOTOR DRIVER Work Phone: Start: 05-24-[address] Codie Pressley Work Phone: Start: 03-18-2022 Basic metabolic pane l calcium total Catherine Dixon DO Work Phone: Start: 03-18-2022 Lipid panel Catherine Dixon DO Work Phone: Start: 12-07-2021 Microscopic observat ion [Identifier] in Cervix by Cyto stain Catherine Dixon DO Work Phone: Start: 10-18-2021 Comprehensive metabo lic panel Catherine Dixon DO Work Phone: Start: 10-18-2021 Lipid panel Catherine Dixon DO Work Phone: Start: 03-20-2021 Basic metabolic pane l calcium total Catherine Dixon DO Work Phone: Start: 03-20-2021 Lipid panel Catherine Dixon DO Work Phone: Start: 08-16-2020 Microscopic observat ion [Identifier] in Cervix by Cyto stain Catherine Destiny CH Work Phone: Start: 04-04-2020 Basic metabolic pane l calcium total Catherine Dixon Work Phone: Start: 04-04-2020 Blood count complete automated Catherine Logan Dixon Work Phone: Start: 03-24-2020 Blood count complete automated Fabian Sanders Work Phone: Start: 03-24-2020 Gonadotropin chorion ic qualitative Fabian Sanders Work Phone: Start: 03-04-2020 Basic metabolic pane l calcium total Catherine Dixon Work Phone: Start: 03-04-2020 Lipid panel Catherine Logan Dixon Work Phone: Plan of Treatment Date Care Activity Detail Author Start: 01-25-2064 RSV Immunization for Adults (1 - 1-dose 75+ series) RSV Immunization for Adults (1 - 1-dose 75+ series) [facility] [employer] Start: 2049 RSV Immunization age d 60 or older (1 - 1-dose 60+ series) RSV Immunization aged 60 or older (1 - 1-dose 60+ series) [facility] Start: 2039 Zoster Vaccines (1 of 2) Zoste r Vaccines (1 of 2) [facility] Start: 03-22-2030 Lipid panel Lipid Panel [facility] Start: 03-18-2029 Lipid panel Lipid Panel [facility] Start: 03-18-2028 Lipid panel Lipid Panel [facility] Start: 03-18-2027 Lipid panel Lipid Panel [facility] Start: 12-07-2026 Screening for malign ant neoplasm of cervix [facility] Start: 03-23-2026 End: 03-23-2026 Patient encounter procedure 03/23/2026 8:00 AM EDT Office Visit [address] [place] [address] Catherine Dixon DO [address] [place] [address] [address] [place], [place] [id number] [facility] Start: 03-21-2026 Depression Screening Depression Scre ening [facility] Start: 08-16-2025 Screening for malign ant neoplasm of cervix Cervical Cancer Screening [facility] Start: 03-22-2025 End: 03-22-2026 Basic metabolic 1998 panel - Serum or Plasma Basic metabolic panel Lab Routine Screening for diabetes mellitus Expected: 03/22/2025 (Approximate), Expires: 03/22/2026 [facility] Comment on above: Expected: 03/22/2025 (Approximate), Expires: 03/22/2026 Start: 03-22-2025 End: 03-22-2026 Hemoglobin A1c measurement Hemoglobin A1c Lab Routine Screening for diabetes mellitus Expected: 03/22/2025 (Approximate), Expires: 03/22/2026 [facility] Comment on above: Expected: 03/22/2025 (Approximate), Expires: 03/22/2026 Start: 03-22-2025 End: 03-22-2026 Lipid 1996 panel - Serum or Plasma Lipid panel Lab Routine Screening, lipid Expected: 03/22/2025 (Approximate), Expires: 03/22/2026 [facility] Work Phone: Comment on above: Expected: 03/22/2025 (Approximate), Expires: 03/22/2026 Start: 03-22-2025 End: 03-22-2026 XR Knee - left 3 Views XR knee 3 views left Imaging Routine Chronic pain of left knee Expected: 03/22/2025, Expires: 03/22/2026 [facility] Comment on above: Expected: 03/22/2025 , Expires: 03/22/2026 Start: 03-22-2025 End: 03-22-2025 Patient encounter procedure [facility] Start: 03-21-2025 COVID-19 Vaccine ( season) COVID-19 Vaccine () [facility] Start: 03-21-2025 Influenza vaccination Influenz a Vaccine (#1) [facility] Start: 03-18-2025 Depression Screening Depression Scre ening [facility] Start: 12-07-2024 Screening for malign ant neoplasm of cervix Pap smear [facility] Start: 10-26-2024 Patient discharge [facility] Start: 10-26-2024 Procedure discontinued [facility] Start: 10-26-2024 Ambulation without limitation [facility] Start: 10-26-2024 Medical regimen orde rs management [facility] Start: 10-26-2024 Medication education [facility] Start: 10-26-2024 Taking patient vital signs [facility] Start: 10-26-2024 Vital signs measurements [facility] Start: 10-26-2024 [facility] Start: 10-26-2024 Anesthesia intraperi toneal lower abd w/laps nos ANESTH SURG LOWER ABDOMEN [facility] Start: 10-26-2024 Laps fulg/exc ovary viscera/peritoneal surface LAPAROSCOPY EXCISE LESIONS [facility] Start: 03-21-2024 COVID-19 Vaccine ( season) COVID-19 Vaccine () [facility] Start: 03-21-2024 Covid-19 Vaccine ( season) Covid-19 Vaccine ( season) [facility] Start: 03-21-2024 Influenza vaccination Influenz a Vaccine (#1) [facility] Start: 03-18-2024 End: 03-18-2025 Basic metabolic 1998 panel - Serum or Plasma Basic metabolic panel Lab Routine Vertigo Expected: 03/18/2024 (Approximate), Expires: 03/18/2025 [facility] Comment on above: Expected: 03/18/2024 (Approximate), Expires: 03/18/2025 Start: 03-18-2024 End: 03-18-2025 CBC panel - Blood by Automated count CBC Lab Routine Vertigo Expected: 03/18/2024 (Approximate), Expires: 03/18/2025 [facility] Work Phone: Comment on above: Expected: 03/18/2024 (Approximate), Expires: 03/18/2025 Start: 03-18-2024 Depression Screening Depression Scre ening [facility] Start: 03-18-2024 End: 03-18-2025 Hemoglobin A1c measurement Hemoglobin A1c Lab Routine Screening for diabetes mellitus Expected: 03/18/2024 (Approximate), Expires: 03/18/2025 [facility] Comment on above: Expected: 03/18/2024 (Approximate), Expires: 03/18/2025 Start: 03-18-2024 End: 03-18-2025 Lipid 1996 panel - Serum or Plasma Lipid panel Lab Routine Screening, lipid Expected: 03/18/2024 (Approximate), Expires: 03/18/2025 [facility] Comment on above: Expected: 03/18/2024 (Approximate), Expires: 03/18/2025 Start: 03-18-2024 End: 03-18-2025 Thyrotropin [Units/volume] in Serum or Plasma TSH Lab Routine Vertigo Expected: 03/18/2024 (Approximate), Expires: 03/18/2025 [facility] Comment on above: Expected: 03/18/2024 (Approximate), Expires: 03/18/2025 Start: 03-18-2024 End: 03-18-2024 Patient encounter procedure [facility] Start: 08-16-2023 Screening for malign ant neoplasm of cervix [facility] Start: 03-21-2023 COVID-19 Vaccine () COVID-19 Vaccine () [facility] Start: 03-21-2023 Influenza vaccination Influenz a Vaccine (#1) [facility] Start: 03-18-2023 Depression Screen Depression Screen [facility] Start: 03-18-2023 End: 03-18-2023 Patient encounter procedure 03/18/2023 Office Visit Family Medicine Catherine Dixon, DO [address] [place] [address] [facility] Start: 05-24-2022 [facility] Work Phone: Start: 05-24-2022 Introduction of urin ad catheter [facility] Work Phone: Start: 05-24-2022 Ambulation therapy management [facility] Work Phone: Start: 05-24-2022 Continuous pulse oximetry [facility] Work Phone: Start: 05-24-2022 Elevation of head of bed [facility] Work Phone: Start: 05-24-2022 Incentive spirometry [facility] Work Phone: Start: 05-24-2022 Measuring intake and output [facility] Work Phone: Start: 05-24-2022 Notification of physician [facility] Work Phone: Start: 05-24-2022 End: 05-24-2022 Oxygen therapy [facility] Work Phone: Start: 05-24-2022 Patient education [facility] Work Phone: Start: 05-24-2022 Procedures relating to eating and drinking [facility] Work Phone: Start: 05-24-2022 Taking patient vital signs [facility] Work Phone: Start: 05-24-2022 [facility] Work Phone: Start: 05-24-2022 Patient discharge [facility] Work Phone: Start: 04-09-2022 End: 04-09-2022 Patient encounter procedure 04/09/2022 Office Visit Obstetrics and Gynecology Sandrine Christiansen MD [address], [place], [address] [facility] [place] [address] [facility] Start: 03-21-2022 Influenza vaccination [facility] Start: 02-28-2022 Depression Screen Depression Screen [facility] Start: 11-13-2021 End: 11-13-2021 Patient encounter procedure 11/13/2021 Office Visit Obstetrics and Gynecology Sandrine Christiansen MD [address], [place], [address] [place] [address] [facility] Start: 03-21-2021 Influenza vaccination Flu vaccine (# 1) [facility] Start: 03-21-2020 Influenza vaccination Flu vaccine (# 1) [place] Start: 2019 Screening for malign ant neoplasm of cervix HPV (without or with Pap) [facility] Start: 01-25-2016 HPV Vaccines (1 - 3- dose standard series) HPV Vaccines (1 - 3-dose standard series) [facility] Start: 2011 DTaP/Tdap/Td Vaccine s (1 - Tdap) DTaP/Tdap/Td Vaccines (1 - Tdap) [facility] Start: 2010 Screening for malign ant neoplasm of cervix [facility] Start: 01-25-2008 DTaP/Tdap/Td vaccine (1 - Tdap) DTaP/Tdap/Td vaccine (1 - Tdap) [facility] Start: 01-25-2008 DTaP/Tdap/Td Vaccine s (1 - Tdap) DTaP/Tdap/Td Vaccines (1 - Tdap) [facility] Start: 01-25-2008 Hepatitis B Vaccine (1 of 3 - 19+ 3-dose series) Hepatitis B Vaccine (1 of 3 - 19+ 3-dose series) [facility] Start: 01-25-2008 Hepatitis B Vaccines (1 of 3 - 19+ 3-dose series) Hepatitis B Vaccines (1 of 3 - 19+ 3-dose series) [facility] Start: 01-25-2008 Urine microalbumin profile DTa P,Tdap,Td Vaccine (1 - Tdap) [facility] Start: 2007 Anxiety Screening Anxiety Screening [facility] Start: 2007 Depression Screening Depression Scre ening [facility] Start: 2007 Hepatitis C screening Hepatitis C Sc [facility] Start: 2007 HIV screening HIV Screening [facility] Start: 01-25-2004 HIV screening HIV screen [facility] Start: 2002 Varicella vaccination Varicell a Vaccines (1 of 2 - 13+ 2-dose series) [facility] Start: 2001 COVID-19 Vaccine (1) COVID-19 Vaccin e (1) [facility] Work Phone: Start: 1994 COVID-19 Vaccine (1) COVID-19 Vaccin e (1) [facility] Start: 1990 MMR Vaccines (1 of 1 - Standard series) MMR Vaccines (1 of 1 - Standard series) [facility] Start: 1990 Varicella vaccination Varicell a Vaccines (1 of 2 - 2-dose childhood series) [facility] Start: 1990 Varicella vaccine (1 of 2 - 2-dose childhood series) Varicella vaccine (1 of 2 - 2-dose childhood series) [facility] Start: 1989 COVID-19 Vaccine (#1) COVID-19 Vacci ne (#1) [facility] Start: 1989 Hepatitis B Vaccines (1 of 3 - 3-dose series) Hepatitis B Vaccines (1 of 3 - 3-dose series) [facility] Start: 1989 HIV screening HIV Screening [facility] Start: 1989 Lipid panel Lipid Panel [facility] Start: 1989 Yearly Adult Physical Yearly Adult P [facility] End: 10-18-2021 Nuclear Ab [Titer] in Serum by Immunofluorescence [facility] Work Phone: Comment on above: 1 Occurrences starti ng 10/18/2021 until 10/18/2021 [facility] Work Phone: End: 03-23-2025 XR Knee - left 3 Views [facility] Work Phone: Comment on above: Once for 1 Occurrenc es starting 03/23/2025 until 03/23/2025 Payers Date Payer Category Payer Managed Care (Private) [employer] 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 2018 Unknown [id number] 2013 Unknown 2003 Unknown [facility] *DO NOT USE* [id number] Unknown [id number] Unknown [id number] Unknown [id number] Unknown [id number] Unknown [id number] Unknown [id number] Unknown [id number] Unknown [id number] Unknown [id number] Unknown [id number] 462 Unknown [id number] Social History Date Type Detail Facility Start: 08-31-2019 End: 03-18-2023 Tobacco smoking status NHIS Never smoker [place] Start: 08-31-2019 End: 03-18-2023 Tobacco use and exposure Never used [place] Start: 08-31-2019 End: 09-25-2022 Alcohol intake Current non-drinker of alcohol (finding) [place] Start: 1989 Sex Assigned At Not on file [place] Start: 10-05-2021 End: 03-18-2023 Exposure to SARS-CoV-2 (event) Not sure [place] Start: 04-17-2020 Alcohol Comment occasional may be once per month [facility] Work Phone: Start: 11-13-2021 History SDOH Alcohol Frequency 2 [facility] Work Phone: Start: 11-13-2021 History SDOH Social Connections Phone 5 [facility] Work Phone: Start: 11-13-2021 History SDOH Social Connections [employer] [address] [facility] Work Phone: Start: 04-26-2022 History SDOH Social Connections Membership [address] [facility] Work Phone: Start: 11-13-2021 History SDOH Financial 4 [facility] Work Phone: Start: 05-17-2022 End: 09-29-2023 Tobacco smoking status NHIS Unknown if ever smoked [facility] Start: 1989 Sex Assigned At Female W [facility] Start: 03-18-2023 End: 03-22-2025 Alcohol intake Current drinker of alcohol (finding) [facility] Start: 03-18-2023 End: 03-18-2024 Alcohol intake [facility] Start: 09-25-2022 End: 03-18-2024 Tobacco use panel [facility] Start: 03-18-2023 Tobacco Comment Never [facility] Start: 05-20-2024 How often do you nee d to have someone help you when you read instructions, pamphlets, or other written material from your doctor or pharmacy [SILS] Never [facility] Has the [employer], or [employer] threatened to shut off services in your home in past 12Mo No [facility] Do you belong to any clubs or organizations such as yarsani groups, unions, fraternal or athletic groups, or school groups? Yes [facility] Are you now , , , , never or living with a partner? [facility] How often to you hav e a drink containing alcohol? 2-4 times a month [facility] How many standard drinks containing alcohol do you have on a typical day? 1 or 2 [facility] How often do you hav e 6 or more drinks on 1 occasion? Never [facility] Do you feel stress - tense, restless, nervous, or anxious, or unable to sleep at night because your mind is troubled all the time - these days [OSQ] Only a little [facility] (I/We) worried wheth er (my/our) food would run out before (I/we) got money to buy more. Never true [facility] Start: 04-28-2024 Alcohol Comment occ [facility] Start: 09-21-2010 [facility] Start: 09-21-2019 Gender identity Identifies as female gender (finding) [facility] Start: 09-21-2019 Sexual orientation Heterosexual (pj roddy) [facility] Start: 02-18-2022 End: 10-15-2024 Sex Female (finding) [facility] NEGATED: Highlighted row Not [facility] Medical Equipment Procedure Code Equipment Code Equipment Origin al Text Equipment Identifier Dates Laparoscopy with vaginal hysterectomy SEALANT,FLOSEAL HEMOSTATIC 5ML FDA Start: 05-24-2022 Laparoscopy with vaginal hysterectomy SEALANT,FLOSEAL HEMOSTATIC 5ML FDA Start: 05-24-2022 Laparoscopy with vaginal hysterectomy SEALANT,FLOSEAL HEMOSTATIC 5ML FDA Start: 05-24-2022 Laparoscopy with vaginal hysterectomy SEALANT,FLOSEAL HEMOSTATIC 5ML FDA Start: 05-24-2022 Laparoscopy with vaginal hysterectomy SEALANT,FLOSEAL HEMOSTATIC 5ML FDA Start: 05-24-2022 Laparoscopy with vaginal hysterectomy SEALANT,FLOSEAL HEMOSTATIC 5ML FDA Start: 05-24-2022 Gelatin haemosta tic agent ([id number] FDA Start: 10-26-2024 Goals Date Patient Goal Desired Activity /State Functional Status Date Assessment Result Facility 04-08-2025 Patient Health [facility] ionnaire 2 item (PHQ-2) [Reported] [facility] Work Phone: Mental Status Date Assessment Result Facility 10-26-2024 Cognitive function Voice/Name;Touch/Shaki ng [facility] Work Phone: 05-24-2022 Cognitive function [facility] Work Phone: 05-24-2022 Cognitive function Patient Orien tation Person;Place;Time [facility] Work Phone: Clinical Notes 04-05-2020 to 04-08-2025 Teresa Bates PA-C - 04/08/2025 12:45 PM EDTPatient Venkata Dixon DO - 03/22/2025 8:00 AM EDT Note Date & Type Note Facility 04-08-2025 History of Present illness Narrative Subjective Patient ID: Renea Vallecillo is a 35 y.o. female. They present today with a chief complaint of Back Pain. History of Present Illness 35 years old female patient presented with acute left side back pain started 5 to 6 days ago. Denies acute injury. Denies weakness, numbness, tingling, UTI symptoms, loss of control of bowel movement or bladder. Reports pain is kind of constant and aggravated by movement. She is taking her friend's 800 mg ibuprofen and reports symptoms slightly improved with treatment. Back Pain Pertinent negatives include no abdominal pain, chest pain, fever, numbness or weakness. Past Medical History Allergies as of 04/08/2025 (No Known Allergies) Prescriptions Prior to Admission[1] Medical History[2] Surgical History[3] reports that she has never smoked. She has never used smokeless tobacco. She reports current alcohol use. Review of Systems Review of Systems Constitutional: Negative for chills, fatigue and fever. Respiratory: Negative for cough, chest tightness and shortness of breath. Cardiovascular: Negative for chest pain. Gastrointestinal: Negative for abdominal pain, diarrhea, nausea and vomiting. Musculoskeletal: Positive for back pain. Negative for arthralgias and joint swelling. Neurological: Negative for weakness and numbness. Objective Vitals: 04/08/25 1244 BP: 99/68 Pulse: 69 Resp: 18 Temp: 37.1 C (98.7 F) TempSrc: Oral SpO2: 99% Weight: 76.2 kg (168 lb) Height: 1.626 m (5' 4) No LMP recorded. Physical Exam Constitutional: Appearance: Normal appearance. HENT: Head: Normocephalic and atraumatic. Nose: Nose normal. Cardiovascular: Rate and Rhythm: Normal rate and regular rhythm. Heart sounds: No murmur heard. Pulmonary: Effort: Pulmonary effort is normal. Breath sounds: Normal breath sounds. Abdominal: General: Abdomen is flat. Palpations: Abdomen is soft. Musculoskeletal: General: Tenderness present. No swelling or signs of injury. Comments: Mild tenderness along the left side of back without appreciable swelling or muscle spasm. No deformity. Limited range of motion due to pain Skin: General: Skin is warm and dry. Neurological: Mental Status: She is alert and oriented to person, place, and time. Psychiatric: Mood and Affect: Mood normal. Procedures Point of Care Test & Imaging Results from this visit No results found for this visit on 04/08/25. Imaging No results found. Cardiology, Vascular, and Other Imaging No other imaging results found for the past 2 days Diagnostic study results (if any) were reviewed by Teresa Bates PA-C. Assessment/Plan Allergies, medications, history, and pertinent labs/EKGs/Imaging reviewed by Teresa Bates PA-C. Medical Decision Making Suspicious for acute musculoskeletal pain. Nephrolithiasis less likely given no history of kidney stone and denies blood in the urine. Low suspicion for medical emergency condition including cauda equina syndrome. Recommended a further evaluation with primary care team for persistent symptoms Case Staffing Case does not need staffing per [facility] case staffing policy Orders and Diagnoses Diagnoses and all orders for this visit: Muscle strain - cyclobenzaprine (Flexeril) 10 mg tablet; Take 0.5 tablets (5 mg) by mouth 3 times a day as needed for muscle spasms for up to 10 days. - ibuprofen 800 mg tablet; Take 1 tablet (800 mg) by mouth every 8 hours if needed for mild pain (1 - 3) for up to 10 days. Medical Admin Record Patient disposition: Home Electronically signed by Teresa Bates PA-C 1:22 PM [1] (Not in a hospital admission) [2] History reviewed. No pertinent past medical history. [3] History reviewed. No pertinent surgical history. documented in this encounter [facility] Work Phone: 04-08-2025 Instructions Teresa Bates PA-C - 04/08/2025 12:45 PM EDT Take muscle relaxer as instructed, no driving after taking med Continue Ibuprofen as needed F/U with PCP for lingering or worsening of condition ER for red flags documented in this encounter [facility] Work Phone: 03-22-2025 History of Present illness Narrative Images from the original note were not included. [facility] [facility] [id number] Visit type: Established Patient Reason for Visit: Annual Exam Assessment and Plan Assessment & Plan Well adult exam UTD on immunizations. Encouraged avoidance of tobacco and alcohol, safe sexual practice. Healthy diet with plenty of fruits, vegetables, whole grains, and lean proteins. Exercise 3-5 times per week for 30-45 minutes. Wear seatbelts. Wear sunscreen. Reviewed age appropriate screening tests. Screening, lipid Orders: Lipid panel; Future Screening for diabetes mellitus Orders: Hemoglobin A1c; Future Basic metabolic panel; Future Chronic pain of left knee Exercises given. Check xray. Naprosyn and tylenol prn Orders: XR knee 3 views left; Future Follow up in about 1 year (around 03/22/2026). Subjective HPI L knee is bothering her - can be painful when squatting No significant injury Not really swelling Making noise when moving knee She is walking regularly Review of Systems Constitutional: Negative for appetite [...] bleeding, vaginal discharge and vaginal pain. Musculoskeletal: Positive for arthralgias. Negative for back pain, joint swelling and myalgias. Skin: Negative for color change, rash and wound. Neurological: Negative for dizziness, tremors, seizures, speech difficulty, weakness, numbness and headaches. Hematological: Negative for adenopathy. Does not bruise/bleed easily. Psychiatric/Behavioral: Negative for agitation, decreased concentration, dysphoric mood and sleep disturbance. The patient is not nervous/anxious. Allergies[1] Current Medications[2] Medical History[3] Social History[4] Surgical History[5] Surgical History[6] Family History[7] Objective BP 101/70 Pulse 64 Temp 36.7 C (98 F) Ht 5' 4 (1.626 m) Wt 167 lb (75.8 kg) SpO2 98% BMI 28.67 kg/m Physical Exam Vitals and nursing note reviewed. Constitutional: General: She is not in acute distress. Appearance: Normal appearance. She is not ill-appearing. HENT: Head: Normocephalic and atraumatic. Right Ear: Tympanic membrane, ear canal and external ear normal. Left Ear: Tympanic membrane, ear canal and external ear normal. Nose: Nose normal. Mouth/Throat: Mouth: Mucous membranes are dry. Eyes: Extraocular Movements: Extraocular movements intact. Conjunctiva/sclera: [...] Medications Discontinued During This Encounter Medication Reason phentermine (Adipex-P) 37.5 MG tablet Med list cleanup biotin 10 MG tablet Med list cleanup topiramate (Topamax) 25 MG tablet Med list cleanup rizatriptan (Maxalt) 10 MG tablet Reorder albuterol 108 (90 Base) MCG/ACT inhaler Reorder Catherine Dixon DO 03/22/2025 8:29 AM [1] Allergies Allergen Reactions Cyanoacrylate Rash Wound Dressing Adhesive Rash [2] Current Outpatient Medications: Cetirizine HCl 10 MG capsule, Take 10 mg by mouth., Disp: , Rfl: Multiple Vitamin (multivitamin) tablet, Take 1 tablet by mouth daily., Disp: , Rfl: albuterol 108 (90 Base) MCG/ACT inhaler, Inhale 2 puffs Once as needed for shortness of breath., Disp: 18 g, Rfl: 3 lactase (Lactaid) 3000 units tablet, Take 1 tablet (3,000 Units) by mouth 3 times daily (with meals)., Disp: 90 tablet, Rfl: 11 rizatriptan (Maxalt) 10 MG tablet, Take 1 tablet (10 mg) by mouth Once as needed for migraine., Disp: 9 tablet, Rfl: 3 [3] Past Medical History: Diagnosis Date 2019 novel coronavirus disease (COVID-19) 2019 & 2021 Allergic Teenager Anemia Anxiety Headache 17 years old IBS (irritable bowel syndrome) Irritable bowel syndrome 2021 Mitral valve prolapse 2013 & 2015 Syncope Varicella 1990s [4] Social History Socioeconomic History Marital status: Other Tobacco Use Smoking status: Never Smokeless tobacco: Never Tobacco comments: Never Vaping Use Vaping status: Never Used Substance and Sexual Activity Alcohol use: Yes Alcohol/week: 2.0 standard drinks of alcohol Types: 1 Glasses of wine, 1 Standard drinks or equivalent per week Comment: occ Drug use: Never Sexual activity: Yes Partners: Male control/protection: Other Comment: Hysterectomy Social Drivers of Health Financial Resource Strain: Low Risk (03/18/2024) Overall Financial Resource Strain (CARDIA) Difficulty of Paying Living Expenses: Not hard at all Food Insecurity: No Food Insecurity (03/18/2024) Hunger Vital Sign Worried About Running Out of Food in the Last Year: Never true Ran Out of Food in the Last Year: Never true Transportation Needs: No Transportation Needs (03/18/2024) PRAPARE - Transportation Lack of Transportation (Medical): No Lack of Transportation (Non-Medical): No Physical Activity: Inactive (03/18/2024) Exercise Vital Sign Days of Exercise per Week: 0 days Minutes of Exercise per Session: 0 min Stress: No Stress Concern Present (03/18/2024) [place] [employer] - Occupational Stress Questionnaire Feeling of Stress : Only a little Social Connections: Moderately Isolated (03/18/2024) Social Connection and Isolation Panel [NHANES] Frequency of Communication with Friends and Family: More than three times a week Frequency of Social Gatherings with Friends and Family: Twice a week Attends Restorationist Services: Never Active Member of Clubs or Organizations: Yes Attends Club or Organization Meetings: 1 to 4 times per year Marital Status: Intimate Partner Violence: Not At Risk (03/18/2024) Humiliation, Afraid, Rape, and Kick questionnaire Fear of Current or Ex-Partner: No Emotionally Abused: No Physically Abused: No Sexually Abused: No Housing Stability: Unknown (03/18/2024) Housing Stability Vital Sign Unable to Pay for Housing in the Last Year: No Homeless in the Last Year: No [5] Past Surgical History: Procedure Laterality Date ABDOMINAL SURGERY 2013 & 2021 SECTION (HISTORICAL) SECTION, LOW TRANSVERSE 10/20/14 GYNECOLOGIC CRYOSURGERY 2021 & October 2024 HYSTERECTOMY 05/24/22 [6] Past Surgical History: Procedure Laterality Date ABDOMINAL SURGERY 2013 & 2021 SECTION (HISTORICAL) SECTION, LOW TRANSVERSE 10/20/14 GYNECOLOGIC CRYOSURGERY 2021 & October 2024 HYSTERECTOMY 05/24/22 [7] Family History Problem Relation Name Age of [...] cancer Neg Hx Ovarian cancer Neg Hx Alcohol abuse Father Jaime Berumen Diabetes Maternal Grandmother Immunodeficiency Son Autoimmune disease Son documented in this encounter [facility] 10-26-2024 Discharge summary Note Date/Time October 26, 2024 4:52 pm [facility] Medical Records Department [address] [place] [address] Instructions for Home/Discharge Instructions 10/26/24 1650 MR#: [id number] Acct: [id number] Name: RENEA VALLECILLO Rep #:[id number] : 1990 34 From: Angela stark MD PCP: CATHERINE DIXON DO Status:REG S DC Discharge Instructions Diet Discharge Diet: No restrictions DC O2, CPAP, BIPAP needs Home O2 Discharge instructions: No Dressing / Incision Discharge Activity: Return to Normal Activity, May Not Drive ( while taking narcotic pain meds, when pain free), May Shower and May Take a Tub Bath (in 7 days) May resume sexual activity in: 1 week Weight Bearing Status: Full weight bearing Dressing / Incision Call your doctor if your incision/area has: Continuous Slow Oozing, Sudden Increased Bleeding, Increased Pain/ Swelling, Increased Redness and Foul Smelling Discharge Call your doctor if you observe: Fever of 101 or Higher, Using more than 1 pad per hour, Shortness of breath, Chest pain and Uncontrolled pain Suture Line Care: Avoid Pulling/Pushing and Avoid Pinching/Bending Remove Dressing in: 1 week (if present) Cleanse incision/area with: Soap & Water and Keep Dressing Clean & Dry Follow Up Care When: Call to make an appointment with your doctor for a fu/incision check in 1-2 weeks. Test Results: Test results from this visit will be discussed in further detail at your follow-up appointment, if applicable. Discharge Plan Admission Attending Provider: Angela Pressley Primary Care Provider: CATHERINE DIXON Instructions Print Language: [place] Discharge Orders/Prescriptions Prescriptions: New oxycodone-acetaminophen [Percocet] 5-325 mg tablet 1 tab PO Q4H PRN (Reason: pain) 7 Days Qty: 20 0RF naproxen 500 mg tablet 500 mg PO BID PRN PRN (Reason: Pain) Qty: 30 1RF No Action Zyrtec 10 mg capsule 10 mg PO DAILY PRN (Reason: SEASONAL ALLERGIES) nystatin [Nystop] 100,000 unit/gram powder 1 applic topical TID PRN (Reason: YEAST INFECTION) rizatriptan 10 mg tablet 10 mg PO DAILY PRN (Reason: MIGRAINES) Patient Comments: TAKE 1 TABLET BY MOUTH ONCE NEEDED FOR MIGRAINE MAY REPEAT IN 2 HOURS IF NEEDED Referrals / Follow Up: CATHERINE DIXON DO [Primary Care Provider] - Disposition Disposition (needs filled in before D/C Order can be placed): Home, Self Care 10/26/24 5032<Electronically signed by Angela Pressley MD>Angela Pressley MD CC: CATHERINE DIXON DO ~ Signed [facility] Work Phone: 1(425) 964-587604-08-2025 Consult note [facility] Medical Records Department [address] [place] [address] Anesthesia Postop Eval I 10/26/24 1713 MR#: [id number] Acct: [id number] Name: RENEA VALLECILLO Rep #:[id number] : 1990 34 From: Roney Nagel MD PCP: CATHERINE DIXON, DO Status:REG S DC Y Race: C Location: [place] [address] Anesthesia: Postop Eval I Current Vital Signs Temperature: 98.1 F Pulse Rate: 89 Blood Pressure: 122/79 Respiratory Rate: 16 Pulse Ox: 96 Oxygen Delivery Method: Room Air Assessment Airway patent: Yes Spontaneous unlabored respirations: Yes Mental status: Asleep (Arousable) nausea: No Vomiting: No Anesthesia Complication: No Fluid Hydration Crystalloid volume administer (ml): 1,000 Total IV fluid infused: 1,000 Progress Note Anesthesia document: Postop Eval 1 completed: Yes 10/26/24 171 dillon MORALEZ> Date _ Roney Nagel MD Cosigner Signature: Date CC: ~ Signed [facility]04-08-2025 Discharge summary [facility] Medical Records Department [address] [place] [address] Instructions for Home/Discharge Instructions 10/26/24 1650 MR#: [id number] Acct: [id number] Name: WILLY VALLECILLONAHID SANTIAGO Rep #:[id number] : 1990 34 From: Angela stark MD PCP: CATHERINE DIXON, DO Status:REG S DC Discharge Instructions Diet Discharge Diet: No restrictions DC O2, CPAP, BIPAP needs Home O2 Discharge instructions: No Dressing / Incision Discharge Activity: Return to Normal Activity, May Not Drive ( while taking narcotic pain meds, when pain free), May Shower and May Take a Tub Bath (in 7 days) May resume sexual activity in: 1 week Weight Bearing Status: Full weight bearing Dressing / Incision Call your doctor if your incision/area has: Continuous Slow Oozing, Sudden Increased Bleeding, Increased Pain/ Swelling, Increased Redness and Foul Smelling Discharge Call your doctor if you observe: Fever of 101 or Higher, Using more than 1 pad per hour, Shortness of breath, Chest pain and Uncontrolled pain Suture Line Care: Avoid Pulling/Pushing and Avoid Pinching/Bending Remove Dressing in: 1 week (if present) Cleanse incision/area with: Soap & Water and Keep Dressing Clean & Dry Follow Up Care When: Call to make an appointment with your doctor for a fu/incision check in 1- 2 weeks. Test Results: Test results from this visit will be discussed in further detail at your follow- up appointment, if applicable. Discharge Plan Admission Attending Provider: Angela Pressley Primary Care Provider: CATHERINE DIXON Instructions Print Language: [place] Discharge Orders/Prescriptions Prescriptions: New oxycodone-acetaminophen [Percocet] 5-325 mg tablet 1 tab PO Q4H PRN (Reason: pain) 7 Days Qty: 20 0RF naproxen 500 mg tablet 500 mg PO BID PRN PRN (Reason: Pain) Qty: 30 1RF No Action Zyrtec 10 mg capsule 10 mg PO DAILY PRN (Reason: SEASONAL ALLERGIES) nystatin [Nystop] 100,000 unit/gram powder 1 applic topical TID PRN (Reason: YEAST INFECTION) rizatriptan 10 mg tablet 10 mg PO DAILY PRN (Reason: MIGRAINES) Patient Comments: TAKE 1 TABLET BY MOUTH ONCE NEEDED FOR MIGRAINE MAY REPEAT IN 2 HOURS IF NEEDED Referrals / Follow Up: CATHERINE DIXON DO [Primary Care Provider] - Disposition Disposition (needs filled in before D/C Order can be placed): Home, Self Care 10/26/24 1652Sisabel Pressley MD CC: CATHERINE DIXON DO ~ Signed [facility]04-08-2025 Consult note Author Roney Nagel [facility] Note Date/Time October 26, 2024 2:13 pm [facility] Medical Records Department [address] [place] [address] [place] [address] Pre-Anesthesia Evaluation 10/26/24 1407 MR#: [id number] Acct: [id number] Name: RENEA VALLECILLO Rep #:[id number] : 1990 34 From: Roney Nagel MD PCP: CATHERINE DIXON, DO Status:REG S DC Y Race: C Location: [place] [address] ASA Classification* ASA Classification ASA Classification: 2 Assessment & Plan Anesthesia* Anesthesia Assessment Anesthesia Assessment: Discussed sedation and/or anesthesia options, risks, benefits, and alternatives with patient/parents/legal guardian/POA. Questions invited. The patient/parents/legal guardian/POA seems to understand and agrees to proceedwith anesthesia plan. Reviewed the physical assessment, medical history, allergy history and patient home medications list prior to surgery/procedure/anesthetic and documented any changes. Performed airway and anesthesia risk assessments. Anesthesia Type Anesthesia Type: General History Source History Obtained from:: Patient and Chart Anesthesia Focused Assessment* Temperature: 97.8 F Pulse Rate: 76 Blood Pressure: 112/95 Respiratory Rate: 18 Pulse Ox: 100 Oxygen Delivery Method: Room Air Airway Assessment Mouth opens: >3 cm Mallampati Score: II Teeth Condition: Chipped/Broken (Patient has a broken tooth #10 on top. And a broken molar on the right lower jaw.) Neck Range of motion (ROM): Full ROM Focused Labs Anesthesia Preop lab: CBC WBC 8.7 K/mm3 (4.4-11.0) 10/26/24 13:00 10/26/24 RBC 4.88 M/mm3 (4.2-5.4) 10/26/24 13:00 10/26/24 Hgb 13.9 g/dL (12.0-15.0) 10/26/24 13:00 10/26/24 Hct 41.5 % (37-47) 10/26/24 13:00 10/26/24 Plt Count 304 K/mm3 (150-450) 10/26/24 13:00 10/26/24 CHEMISTRY Potassium 4.2 mmol/L (3.5-5.1) 04/03/24 11:41 04/03/24 Sodium 138 mmol/L (136-145) 04/03/24 11:41 04/03/24 Magnesium 1.8 mg/dL (1.6-2.6) 05/18/22 09:11 05/18/22 BUN 12 mg/dL (7-18) 04/03/24 11:41 04/03/24 Creatinine 0.82 mg/dL (0.55-1.02) 04/03/24 11:41 04/03/24 Glucose 96 mg/dL (74-106) 04/03/24 11:41 04/03/24 POC Glucose 89 mg/dL (74-106) 05/24/22 06:07 05/24/22 TSH 0.99 uIU/mL (0.358-3.74) 09/29/23 08:55 COAG PT 12.7 SECONDS (11.7-14.9) 05/18/22 09:11 Urine Test Negative Negative 05/24/22 05:55 05/24/22 Pre-Assessment Diagnosis/Proposed Procedure Planned Operative Procedure(s): (R) Laparoscopic, Ovarian Cystectomy Anesthesia History Anesthesia History - auto travel counselor: Anesthesia History - auto travel counselor Hx Hospitalization No 10/18/24 15:38 Any Problems With Anesthesia No 10/18/24 15:38 Cholinesterase deficiency No 10/18/24 15:38 You/Your Family Experience No 10/18/24 15:38 fever (hyperthermia) with Relationship Recent Exposure to Contagious No 10/26/24 13:01 Disease Does patient have nerve No 10/18/24 15:38 stimulator Patient instructed to have device shut off --Does patient have Pacemaker No 10/26/24 13:01 or ICD? When Was Last Pacemaker Check QUESTION #4 FULL TEXT: You/Your Family Experience fever (hyperthermia) with Anesthesia Last Oral Intake Last Oral intake: Last Oral Intake NPO since 08:30 10/26/24 13:01 Meds taken in AM with sips of No 10/26/24 13:01 water? Meds patient instructed to take am of surgery Any additional information?: Yes NPO since: 08:30 (Patient had Gatorade 8:30 AM.) PONV PONV - auto travel counselor: PONV - auto travel counselor Female Yes 10/18/24 15:38 HX of Motion Sickness No 10/18/24 15:38 HX of N/V After Surgery No 10/18/24 15:38 Non-Smoker Yes 10/18/24 15:38 Duration of Surgery greater Yes 10/18/24 15:38 than 60 minutes Number of Risk Factors 3 10/18/24 15:38 PONV Score Moderate Risk 10/18/24 15:38 Height & Weight Height & Weight: Anesthesia: Height & Weight Height 5 ft 4 in 10/26/24 13:01 Weight: 78 kg 10/26/24 13:01 Body Mass Index (BMI) 29.5 10/26/24 13:01 Respiratory Assessment Respiratory Assessment - auto travel counselor: Respiratory Tract Infection Hx - auto travel counselor Hx Respiratory Tract Infection No 10/18/24 15:38 STOP Sleep Apnea STOP Sleep Apnea - auto travel counselor: STOP Sleep Apnea - auto travel counselor Hx Hypertension No 10/18/24 15:38 Hx Sleep Apnea No 10/18/24 15:38 CPAP BIPAP Do you snore loudly (louder No 10/18/24 15:38 than talking or can be heard Do you often feel tired/ No 10/18/24 15:38 fatigued/ sleepy during daytime? Has anyone observed you stop No 10/18/24 15:38 breathing during sleep? STOP Results Negative 10/18/24 15:38 QUESTION #5 FULL TEXT : Do you snore loudly (louder than talking or can be heard through closed doors)? 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 Specify any problems Hx of Preganancy in last 3 No 10/18/24 15:38 Months Nurse Filling Out Transfusion MGRIFFITH 10/18/24 15:38 & Questions: Date: 10/18/24 10/18/24 15:38 Time: 15:40 10/18/24 15:38 Patient unable to answer at this time (ie. confused, unrespo /Reproduction History /Reproductive History - auto travel counselor: /Reproductive Hx- auto travel counselor Hx Now No 10/18/24 15:38 Gestational Age (in weeks): EDC: Hx Hx Para Hx Section SAB No 10/18/24 16:07 Active Medications Active Medications: Current Medications Generic Name Dose Route Start Last Admin Trade Name Freq PRN Reason Stop Dose Admin Sodium Chloride 1,000 mls @ 15 mls/hr 10/26/24 12:50 10/26/24 13:07 IV 15 mls/hr .Q48H TERESA Administration PFSH Medical History Wears contact lenses Wears glasses Alcohol use High cholesterol Low iron Easy bruising Injury of head and neck Migraine headache Syncope History of IBS Cardiology follow-up encounter Non-smoker History of echocardiogram Abnormal uterine bleeding Mitral valve prolapse Anxiety History of endometrial biopsy Home Medications ?Medication ?Instructions ?Recorded ?Last Taken ?Type cetirizine 10 mg capsule (Zyrtec) 10 mg PO DAILY PRN S EASONAL 04/18/22 Unknown History ALLERGIES rizatriptan 10 mg tablet 10 mg PO DAILY PRN MIGRAINES 05/17/22 Unknown History nystatin 100,000 unit/gram topical 1 applic topical TI D PRN YEAST 03/29/24 Unknown History powder (Nystop) INFECTION Allergy/AdvReac Type Severity Reaction Status Date / Time adhesive tape Allergy Mild Rash Verified 10/26/24 12:55 Family History Grandfather Diabetes Heart disease Mother Thyroid disorder Surgical History S/P laparoscopic assisted vaginal hysterectomy (LAVH) History of wisdom tooth extraction delivery delivered Social History Smoking Status: Never smoker details: social substance use type: does not use what type of physical activity do you participate in: walking seatbelt use: always do you feel safe at home: Yes additional social history: [employer] patient works for [email or web address] Review of Systems (Anesthesia) ROS Narrative System reviewed and no additional complaints, except as documented. 10/26/24 1413 <Electronically signed by Roney carranza MD> Date _ Roney Nagel MD Cosigner Signature: Date CC: ~ Signed [facility] Work Phone: 1(546) 574-683704-08-2025 History and physical note Author Angela Pressley [facility] Note Date/Time October 26, 2024 12:5 9pm [facility] Medical Records Department [address] [place] [address] History & Physical Exam 10/26/24 1258 MR#: [id number] Acct: [id number] Name: RENEA VALLECILLO Rep #:[id number] : 1990 34 From: Angela stark MD PCP: CATHERINE DIXON, DO Status:REG S DC Location: [place] [address] History and Physical Date of Admission: 10/26/24 Intake Vital Signs 05/31/2413:54 10/19/2515:03 10/19/2515:07 Height 5 ft 6 in 5 ft 6 in 5 ft 6 in Weight: 172 lb 171 lb 4 oz BMI 27.7 27.6 BP 121/80 H 120/82 H Intake Visit Reasons: US follow up surgical consult Diagnostic Technician Required: No Is patient in pain?: No (has pain on and off, sporadic) Allergies adhesive tape Allergy (Mild, Verified 10/18/24 16:04) Rash Medications ?Medication ?Instructions ?Recorded ?Confirmed ?Type cetirizine 10 mg capsule (Zyrtec) 10 mg PO DAILY PRN SEASONAL 04/18/22 History ALLERGIES rizatriptan 10 mg tablet 10 mg PO DAILY PRN MIGRAINES 05/17/22 History nystatin 100,000 unit/gram topical 1 applic topical TID PRN YEAST 03/29/24 10/18/24 History powder (Nystop) INFECTION Post menopausal: No Patient : No : No PFSH Medical History Wears contact lenses Wears glasses Alcohol use High cholesterol Low iron Easy bruising Injury of head and neck Migraine headache Syncope History of IBS Cardiology follow-up encounter Non-smoker History of echocardiogram Abnormal uterine bleeding Mitral valve prolapse Anxiety History of endometrial biopsy Surgical History S/P laparoscopic assisted vaginal hysterectomy (LAVH) History of wisdom tooth extraction delivery delivered Family History Grandfather Diabetes Heart diseaseMother Thyroid disorder Social History Smoking Status: Never smoker details: social substance use type: does not use what type of physical activity do you participate in: walking seatbelt use: always do you feel safe at home: Yes additional social history: [employer] patient works for [email or web address] [facility] [employer] [facility] follow up surgical consult Details: RENEA VALLECILLO is a 34 year old who presents for intermittent lower pelvic pain increasing over the last several months. Patient has had a complex ovarian cystthat is increased in size over the last 2 months and has not resolved. She is not acutely having pain today but it does come and go. Good blood flow was seen. She has a history of a hysterectomy. She denies any fevers abnormal discharge or vaginal bleeding. She denies any nausea vomiting or bowel complaints. History Past Pregnancies Del. Date Name GA/Weeks Outcome Route Bth Weight Infant Gen Labor Lgth Anesthesia Del Locatn Provider FOB Unknown 2013 Maggie live - full term NSV D Unknown 2014 Westyn live - full term C-se ction ROS Const Constitutional: Denies fatigue, weight gain or weight loss ENT ENT: Reports system reviewed and no additional complaints, except as documented Cardio Card: Denies chest pain Resp Resp: Denies cough or dyspnea GI GI: Reports as per HPI; Denies constipation, nausea or vomiting : Reports as per HPI; Denies nipple discharge, vaginal discharge, vaginal dryness, vaginal odor or vaginal pruritus Musc Musc: Denies arthralgias, back pain or muscle weakness Skin Skin/Breast: Denies alopecia, change in hair, dry skin, breast mass, breast pain, breast skin changes or nipple discharge Neuro Neuro: Reports system reviewed and no additional complaints, except as documented Psych Psych: Reports system reviewed and no additional complaints, except as documented Endo Endo: Denies cold intolerance, excessive sweating, heat intolerance or polydipsia Satnam/Lymph Hematologic/Lymphatic: Denies easy bleeding, Denies easy bruising and Denies lymphadenopathy Exam Const General: cooperative, healthy appearing, comfortable, no acute distress and welldeveloped Orientation: alert [facility] Head: normal to inspection and normocephalic Ears: hearing grossly normal bilaterally and external ears normal Nose: external nose normal and nares normal Face and sinus: normal facial exam Neck Neck: normal visual inspection and no lymphadenopathy Thyroid: thyroid normal Chest Chest palpation & inspection: normal inspection of the chest Resp Effort & Inspection: normal respiratory effort Auscultation: clear to auscultation bilaterally Cardio Rate: regular rate Rhythm: regular rhythm Heart Sounds: S1 normal and S2 normal GI Inspection: normal to inspection and non-distended Palpation: soft and no hepatosplenomegaly Musc Other: gross motor intact no deficits, full bilateral strength Skin General: no rashes or lesions noted Neuro General: patient alert, patient awake, moves all extremities and no focal motor deficits Motor: muscle tone normal throughout Extrem General: normal to inspection and no pedal edema Psych Appearance: grossly normal Mental Status: mental status grossly normal Affect: normal affect Speech and Movement: speech and movement normal Coding Level of Care Code Off vis,est,level 4 Diagnoses Complex ovarian cyst N83.299 Assessment and Plan Assessment and Plan (1) Complex ovarian cyst: Status: Acute Comment: now 8 cm recommend proceeding wt laparoscopic ovarian cystectomy possible oophorectomy Plan After discussing the patient's diagnosis and treatment plan options, patient wishes to proceed with surgical management. I have discussed with the patient the risks, benefits, and alternatives of the procedure which include but are notlimited to risks of anesthesia, bleeding, infection, possible damage to bowel, bladder, or surrounding vasculature which could lead to additional surgery to evaluate any complications. Patient agrees to procedure and wishes to proceed. ACOG/uptodate references given for additional information regarding procedure. UPDATE- I have seen the patient and performed any clinically relevant updates to the history and physical exam. Angela Pressley MD 10/26/24 5062 <Electronically signed by Angela Pressley MD> Cosigner Signature (if applicable): CC: CATHERINE DIXON DO; Dr. Angela Pressley MD~ Signed [facility] Work Phone: 1(331) 775-942304-08-2025 Consult note [facility] Medical Records Department [address] [place] [address] Pre-Anesthesia Evaluation 10/26/24 1407 MR#: [id number] Acct: [id number] Name: RENEA VALLECILLO Rep #:[id number] : 1990 34 From: Roney Nagel MD PCP: CATHERINE DIXON DO Status:REG S DC Y Race: C Location: [place] [address] ASA Classification* ASA Classification ASA Classification: 2 Assessment & Plan Anesthesia* Anesthesia Assessment Anesthesia Assessment: Discussed sedation and/or anesthesia options, risks, benefits, and alternatives with patient/parents/legal guardian/POA. Questions invited. The patient/parents/legal guardian/POA seems to understand and agrees to proceedwith anesthesia plan. Reviewed the physical assessment, medical history, allergy history and patient home medications list prior to surgery/procedure/anesthetic and documented any changes. Performed airway and anesthesia risk assessments. Anesthesia Type Anesthesia Type: General History Source History Obtained from:: Patient and Chart Anesthesia Focused Assessment* Temperature: 97.8 F Pulse Rate: 76 Blood Pressure: 112/95 Respiratory Rate: 18 Pulse Ox: 100 Oxygen Delivery Method: Room Air Airway Assessment Mouth opens: >3 cm Mallampati Score: II Teeth Condition: Chipped/Broken (Patient has a broken tooth #10 on top. And a broken molar on the right lower jaw.) Neck Range of motion (ROM): Full ROM Focused Labs Anesthesia Preop lab: CBC WBC 8.7 K/mm3 (4.4-11.0) 10/26/24 13:00 10/26/24 RBC 4.88 M/mm3 (4.2-5.4) 10/26/24 13:00 10/26/24 Hgb 13.9 g/dL (12.0-15.0) 10/26/24 13:00 10/26/24 Hct 41.5 % (37-47) 10/26/24 13:00 10/26/24 Plt Count 304 K/mm3 (150-450) 10/26/24 13:00 10/26/24 CHEMISTRY Potassium 4.2 mmol/L (3.5-5.1) 04/03/24 11:41 04/03/24 Sodium 138 mmol/L (136-145) 04/03/24 11:41 04/03/24 Magnesium 1.8 mg/dL (1.6-2.6) 05/18/22 09:11 05/18/22 BUN 12 mg/dL (7-18) 04/03/24 11:41 04/03/24 Creatinine 0.82 mg/dL (0.55-1.02) 04/03/24 11:41 04/03/24 Glucose 96 mg/dL (74-106) 04/03/24 11:41 04/03/24 POC Glucose 89 mg/dL (74-106) 05/24/22 06:07 05/24/22 TSH 0.99 uIU/mL (0.358-3.74) 09/29/23 08:55 COAG PT 12.7 SECONDS (11.7-14.9) 05/18/22 09:11 Urine Test Negative Negative 05/24/22 05:55 05/24/22 Pre-Assessment Diagnosis/Proposed Procedure Planned Operative Procedure(s): (R) Laparoscopic, Ovarian Cystectomy Anesthesia History Anesthesia History - auto travel counselor: Anesthesia History - auto travel counselor Hx Hospitalization No 10/18/24 15:38 Any Problems With Anesthesia No 10/18/24 15:38 Cholinesterase deficiency No 10/18/24 15:38 You/Your Family Experience No 10/18/24 15:38 fever (hyperthermia) with Relationship Recent Exposure to Contagious No 10/26/24 13:01 Disease Does patient have nerve No 10/18/24 15:38 stimulator Patient instructed to have device shut off --Does patient have Pacemaker No 10/26/24 13:01 or ICD? When Was Last Pacemaker Check QUESTION #4 FULL TEXT: You/Your Family Experience fever (hyperthermia) with Anesthesia Last Oral Intake Last Oral intake: Last Oral Intake NPO since 08:30 10/26/24 13:01 Meds taken in AM with sips of No 10/26/24 13:01 water? Meds patient instructed to take am of surgery Any additional information?: Yes NPO since: 08: (Patient had Gatorade 8:30 AM.) PONV PONV - auto travel counselor: PONV - auto travel counselor Female Yes 10/18/24 15:38 HX of Motion Sickness No 10/18/24 15:38 HX of N/V After Surgery No 10/18/24 15:38 Non-Smoker Yes 10/18/24 15:38 Duration of Surgery greater Yes 10/18/24 15:38 than 60 minutes Number of Risk Factors 3 10/18/24 15:38 PONV Score Moderate Risk 10/18/24 15:38 Height & Weight Height & Weight: Anesthesia: Height & Weight Height 5 ft 4 in 10/26/24 13:01 Weight: 78 kg 10/26/24 13:01 Body Mass Index (BMI) 29.5 10/26/24 13:01 Respiratory Assessment Respiratory Assessment - auto travel counselor: Respiratory Tract Infection Hx - auto travel counselor Hx Respiratory Tract Infection No 10/18/24 15:38 STOP Sleep Apnea STOP Sleep Apnea - auto travel counselor: STOP Sleep Apnea - auto travel counselor Hx Hypertension No 10/18/24 15:38 Hx Sleep Apnea No 10/18/24 15:38 CPAP BIPAP Do you snore loudly (louder No 10/18/24 15:38 than talking or can be heard Do you often feel tired/ No 10/18/24 15:38 fatigued/ sleepy during daytime? Has anyone observed you stop No 10/18/24 15:38 breathing during sleep? STOP Results Negative 10/18/24 15:38 QUESTION #5 FULL TEXT : Do you snore loudly (louder than talking or can be heard through closeddoors)? 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 Specify any problems Hx of Preganancy in last 3 No 10/18/24 15:38 Months Nurse Filling Out Transfusion MGRIFFITH 10/18/24 15:38 & Questions: Date: 10/18/24 10/18/24 15:38 Time: 15:40 10/18/24 15:38 Patient unable to answer at this time (ie. confused, unrespo /Reproduction History /Reproductive History - auto travel counselor: /Reproductive Hx- auto travel counselor Hx Now No 10/18/24 15:38 Gestational Age (in weeks): EDC: Hx Hx Para Hx Section SAB No 10/18/24 16:07 Active Medications Active Medications: Current Medications Generic Name Dose Route Start Last Admin Trade Name Freq PRN Reason Stop Dose Admin Sodium Chloride 1,000 mls @ 15 mls/hr 10/26/24 12:50 10/26/24 13:07 IV 15 mls/hr .Q48H TERESA Administration PFSH Medical History Wears contact lenses Wears glasses Alcohol use High cholesterol Low iron Easy bruising Injury of head and neck Migraine headache Syncope History of IBS Cardiology follow-up encounter Non-smoker History of echocardiogram Abnormal uterine bleeding Mitral valve prolapse Anxiety History of endometrial biopsy Home Medications ?Medication ?Instructions ?Recorded ?Last Taken ?Type cetirizine 10 mg capsule (Zyrtec) 10 mg PO DAILY PRN S EASONAL 04/18/22 Unknown History ALLERGIES rizatriptan 10 mg tablet 10 mg PO DAILY PRN MIGRAINES 05/17/22 Unknown History nystatin 100,000 unit/gram topical 1 applic topical TI D PRN YEAST 03/29/24 Unknown History powder (Nystop) INFECTION Allergy/AdvReac Type Severity Reaction Status Date / Time adhesive tape Allergy Mild Rash Verified 10/26/24 12:55 Family History Grandfather Diabetes Heart disease Mother Thyroid disorder Surgical History S/P laparoscopic assisted vaginal hysterectomy (LAVH) History of wisdom tooth extraction delivery delivered Social History Smoking Status: Never smoker details: social substance use type: does not use what type of physical activity do you participate in: walking seatbelt use: always do you feel safe at home: Yes additional social history: [employer]- [employer] patient works for [employer] Review of Systems (Anesthesia) ROS Narrative System reviewed and no additional complaints, except as documented. 10/26/24 1413 dillon MORALEZ> Date _ Roney Nagel MD Cosigner Signature: Date CC: ~ Signed [facility]04-08-2025 History and physical note [facility] Medical Records Department [address] [place] [address] History & Physical Exam 10/26/24 1258 MR#: [id number] Acct: [id number] Name: RENEA VALLECILLO Rep #:[id number] : 1990 34 From: Angela stark MD PCP: CATHERINE DIXON, DO Status:REG S DC Location: [place] [address] History and Physical Date of Admission: 10/26/24 Intake Vital Signs 05/31/2413:54 10/19/2515:03 10/19/2515:07 Height 5 ft 6 in 5 ft 6 in 5 ft 6 in Weight: 172 lb 171 lb 4 oz BMI 27.7 27.6 BP 121/80 H 120/82 H Intake Visit Reasons: US follow up surgical consult Diagnostic Technician Required: No Is patient in pain?: No (has pain on and off, sporadic) Allergies adhesive tape Allergy (Mild, Verified 10/18/24 16:04) Rash Medications ?Medication ?Instructions ?Recorded ?Confirmed ?Type cetirizine 10 mg capsule (Zyrtec) 10 mg PO DAILY PRN SEASONAL 04/18/22 History ALLERGIES rizatriptan 10 mg tablet 10 mg PO DAILY PRN MIGRAINES 05/17/22 History nystatin 100,000 unit/gram topical 1 applic topical TID PRN YEAST 03/29/24 10/18/24 History powder (Nystop) INFECTION Post menopausal: No Patient : No : No PFSH Medical History Wears contact lenses Wears glasses Alcohol use High cholesterol Low iron Easy bruising Injury of head and neck Migraine headache Syncope History of IBS Cardiology follow-up encounter Non-smoker History of echocardiogram Abnormal uterine bleeding Mitral valve prolapse Anxiety History of endometrial biopsy Surgical History S/P laparoscopic assisted vaginal hysterectomy (LAVH) History of wisdom tooth extraction delivery delivered Family History Grandfather Diabetes Heart diseaseMother Thyroid disorder Social History Smoking Status: Never smoker details: social substance use type: does not use what type of physical activity do you participate in: walking seatbelt use: always do you feel safe at home: Yes additional social history: [employer]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 Patient has had a complex ovarian cystthat is increased in size over the last 2months and has not resolved. She is not acutely having pain today but it does come and go. Good blood flow was seen. She has a history of a hysterectomy. She denies any fevers abnormal discharge or vaginal bleeding. She denies any nausea vomiting or bowel complaints. History Past Pregnancies Del. Date Name GA/Weeks Outcome Route Bth Weight Infant Gen Labor Lgth Anesthesia Del Locatn Provider FOB Unknown 2013 Maggie live - full term NSV D Unknown 2014 Westyn live - full term C-se ction ROS Const Constitutional: Denies fatigue, weight gain or weight loss ENT ENT: Reports system reviewed and no additional complaints, except as documented Cardio Card: Denies chest pain Resp Resp: Denies cough or dyspnea GI GI: Reports as per HPI; Denies constipation, nausea or vomiting : Reports as per HPI; Denies nipple discharge, vaginal discharge, vaginal dryness, vaginal odor or vaginal pruritus Musc Musc: Denies arthralgias, back pain or muscle weakness Skin Skin/Breast: Denies alopecia, change in hair, dry skin, breast mass, breast pain, breast skin changes or nipple discharge Neuro Neuro: Reports system reviewed and no additional complaints, except as documented Psych Psych: Reports system reviewed and no additional complaints, except as documented Endo Endo: Denies cold intolerance, excessive sweating, heat intolerance or polydipsia Satnam/Lymph Hematologic/Lymphatic: Denies easy bleeding, Denies easy bruising and Denies lymphadenopathy Exam Const General: cooperative, healthy appearing, comfortable, no acute distress and welldeveloped Orientation: alert HENMT Head: normal to inspection and normocephalic Ears: hearing grossly normal bilaterally and external ears normal Nose: external nose normal and nares normal Face and sinus: normal facial exam Neck Neck: normal visual inspection and no lymphadenopathy Thyroid: thyroid normal Chest Chest palpation & inspection: normal inspection of the chest Resp Effort & Inspection: normal respiratory effort Auscultation: clear to auscultation bilaterally Cardio Rate: regular rate Rhythm: regular rhythm Heart Sounds: S1 normal and S2 normal GI Inspection: normal to inspection and non-distended Palpation: soft and no hepatosplenomegaly Musc Other: gross motor intact no deficits, full bilateral strength Skin General: no rashes or lesions noted Neuro General: patient alert, patient awake, moves all extremities and no focal motor deficits Motor: muscle tone normal throughout Extrem General: normal to inspection and no pedal edema Psych Appearance: grossly normal Mental Status: mental status grossly normal Affect: normal affect Speech and Movement: speech and movement normal Coding Level of Care Code Off vis,est,level 4 Diagnoses Complex ovarian cyst N83.299 Assessment and Plan Assessment and Plan (1) Complex ovarian cyst: Status: Acute Comment: now 8 cm recommend proceeding wtih laparoscopic ovarian cystectomy possible oophorectomy Plan After discussing the patient's diagnosis and treatment plan options, patient wishes to proceed withsurgical management. I have discussed with the patient the risks, benefits, and alternatives of theprocedure which include but are notlimited to risks of anesthesia, bleeding, infection, possible damage to bowel, bladder, or surrounding vasculature which could lead to additional surgery to evaluate any complications. Patient agrees to procedure and wishes to proceed. ACOG/uptodate references given for additional information regarding procedure. UPDATE- I have seen the patient and performed any clinically relevant updates to the history and physical exam. Angela Pressley MD 10/26/24 1259 Cosigner Signature (if applicable): CC: CATHERINE DIXON DO; Dr. Angela Pressley MD~ Signed [facility]04-08-2025 [facility] Medical Records Department [address] [place] [address] History Physical Exam 10/26/24 1258 MR#: [id number] Acct: [id number] Name: RENEA VALLECILLO Rep #: [id number] : 1990 34 From: Angela Pressley MD PCP: CATHERINE DIXON DO Status:[facility] Location: [address] History and Physical Date of Admission: 10/26/24 Intake Vital Signs 05/31/2413:54 10/19/2515:03 10/19/2515:07 Height 5 ft 6 in 5 ft 6 in 5 ft 6 in Weight: 172 lb 171 lb 4 oz BMI 27.7 27.6 BP 121/80 H 120/82 H Intake Visit Reasons: US follow up surgical consult Diagnostic Technician Required: No Is patient in pain?: No (has pain on and off, sporadic) Allergies adhesive tape Allergy (Mild, Verified 10/18/24 16:04) Rash Medications ???Medication ???Instructions ???Recorded ???Confirmed ???Type cetirizine 10 mg capsule (Zyrtec) 10 mg PO DAILY PRN SEASONAL 04/18/22 10/18/24 Hist ory ALLERGIES rizatriptan 10 mg tablet 10 mg PO DAILY PRN MIGRAINES 05/17/22 10/18/24 His tory nystatin 100,000 unit/gram topical 1 applic topical TID PRN YEAST 03/29/24 10/18/24 H istory powder (Nystop) INFECTION Post menopausal: No Patient : No : No [facility] Medical History Wears contact lenses Wears glasses Alcohol use High cholesterol Low iron Easy bruising Injury of head and neck Migraine headache Syncope History of IBS Cardiology follow-up encounter Non-smoker History of echocardiogram Abnormal uterine bleeding Mitral valve prolapse Anxiety History of endometrial biopsy Surgical History S/P laparoscopic assisted vaginal hysterectomy (LAVH) History of wisdom tooth extraction delivery delivered Family History Grandfather Diabetes Heart diseaseMother Thyroid disorder Social History Smoking Status: Never smoker details: social substance use type: does not use what type of physical activity do you participate in: walking seatbelt use: always do you feel safe at home: Yes additional social history: [employer] patient works for [employer] [facility] US follow up surgical consult Details: RENEA VALLECILLO is a 34 year old who presents for intermittent lower pelvic pain increasing over the last several months. Patient has had a complex ovarian cyst that is increased in size over the last 2 months and has not resolved. She is not acutely having pain today but it does come and go. Good blood flow was seen. She has a history of a hysterectomy. She denies any fevers abnormal discharge or vaginal bleeding. She denies any nausea vomiting or bowel complaints. History Past Pregnancies Del. Date Name GA/Weeks Outcome Route Bth Weight Gen Labor Lgth Anesthesia Del Locatn Provider FOB Unknown 2013 Maggie live - full term Unknown 2014 Westyn live - full term ROS Const Constitutional: Denies fatigue, weight gain or weight loss ENT ENT: Reports system reviewed and no additional complaints, except as documented Cardio Card: Denies chest pain Resp Resp: Denies cough or dyspnea GI GI: Reports as per HPI; Denies constipation, nausea or vomiting : Reports as per HPI; Denies nipple discharge, vaginal discharge, vaginal dryness, vaginal odor or vaginal pruritus Musc Musc: Denies arthralgias, back pain or muscle weakness Skin Skin/Breast: Denies alopecia, change in hair, dry skin, breast mass, breast pain, breast skin changes or nipple discharge Neuro Neuro: Reports system reviewed and no additional complaints, except as documented Psych Psych: Reports system reviewed and no additional complaints, except as documented Endo Endo: Denies cold intolerance, excessive sweating, heat intolerance or polydipsia Satnam/Lymph Hematologic/Lymphatic: Denies easy bleeding, Denies easy bruising and Denies lymphadenopathy Exam Const General: cooperative, healthy appearing, comfortable, no acute distress and well developed Orientation: alert [facility] Head: normal to inspection and normocephalic Ears: hearing grossly normal bilaterally and external ears normal Nose: external nose normal and nares normal Face and sinus: normal facial exam Neck Neck: normal visual inspection and no lymphadenopathy Thyroid: thyroid normal Chest Chest palpation inspection: normal inspection of the chest Resp Effort Inspection: normal respiratory effort Auscultation: clear to auscultation bilaterally Cardio Rate: regular rate Rhythm: regular rhythm Heart Sounds: S1 normal and S2 normal GI Inspection: normal to inspection and non-distended Palpation: soft and no h (more content not included)...[facility]03-31-2025 Evaluation note* Diagnosis Onset Date Resolution Status Admit Date Complex ovarian cyst acute Satish h 2024 3:59pm BMI 26.0-26.9,adult acute October 26, 2024 12:35pm Complex ovarian cyst acute Apri l 2024 12:35pm Hypertriglyceridemia acute Apri l 2024 12:35pm Other obesity acute October 26, 2024 12:35pm [facility] Work Phone: 1(246) 312-561103-31-2025 Evaluation note* Diagnosis Onset Date Resolution Status Admit Date Complex ovarian cyst acute Satish h 2024 3:59pm BMI 26.0-26.9,adult acute October 26, 2024 12:35pm Complex ovarian cyst acute Apri l 2024 12:35pm Hypertriglyceridemia acute Apri l 2024 12:35pm Other obesity acute October 26, 2024 12:35pm Complex ovarian cyst acute Apri l 2024 1:59pm Drug reaction acute November 05, 2024 2:19pm BMI 26.0-26.9,adult acute November 192024 2:09pm Hypertriglyceridemia acute December 08, 2024 2:09pm Other obesity acute December 08, 2:09pm [facility] Work Phone: 1(119) 930-245603-26-2025 Radiology Diagnostic study note [facility] Imaging Services [address] [place], [place] [address] Pelvic w/ Transvaginal MR#: [id number] Acct: [id number] Name: RENEA VALLECILLO Rep #: [id number] : 1990 F 34 From: Mak An MD PCP: CATHERINE DIXON DO Status: REG C DUANE Study:Pelvic w/ Transvaginal Date of Exam: 10/09/24 Exam# [id number] Ordering Dr: Angela Erazo MD EXAM: Pelvic ultrasound CLINICAL HISTORY: Ovarian cyst COMPARISON: None available TECHNIQUE: Transabdominal and transvaginal scanning of the pelvis FINDINGS: Uterus surgically absent. Bilateral ovaries are identified with symmetric preserved vascular flow. There is a large primarily cystic mass within the right ovary with septations measuring 8.3 x 8.1 x 5.3 cm. With a similar appearing cystic structure in the left ovary measuring 2.0 x 1.3 x 1.5 cm. US/Pelvic w/ Transvaginal IMPRESSION: Bilateral cystic ovarian structures on the right measuring up to 8.3 cm, on the left measuring up to 2.0 cm. Consider surgical consultation for possible excision as deemed clinically necessary. Reading Location: [facility] CC: CATHERINE DIXON DO; Dr. Angela Pressley MD ~ Speech Language Therapist: Signed [facility]01-12-2025 Instructions* Patient Instructions* Aime Hauser APRN.OPTICAL DISPENSER - 08/01/2024 10:23 AM EST UPPER RESPIRATORY INFECTIONS Most cases are caused by viruses and most cases are mild, temporary, and harmless. Symptoms can last 2 to 3 weeks and can include: nasal congestion, sore throat, coughing, muscles aches, headaches, nausea, diarrhea, fatigue and fever. Rhinovirus, RSV, Covid, Influenza A and B, Parainfluenza are just a few COMMON respiratory viruses that cause sinus symptoms and cough. Antibiotics do NOT treat viruses. Taking 1 round of antibiotics can destroy your gut normal diana (good bacteria) for up to 6 months. This can affect your weight, skin, digestion, mental health and immune system. 1. Drink plenty of fluids. 2. Get lots of rest. 3. Avoid dehydrants such as caffeine and alcohol. 4. Nasal saline is an effective decongestant and be used frequently throughout the day. 5. To loosen phlegm and help coughing, drink plenty of fluids and using a humidifier. 6. For sore throats, it is ok to use cough drops, throat sprays, or gargling warm salt water. 7. Always cover your mouth when you cough or sneeze, and wash your hands frequently. Avoid crowded areas like shopping centers, movies while you are sick so you don't fern picker a different virus, or infect others. 8. Avoid exposure to cigarettes or fumes. 9. Avoid irritants such as potpourri, dust, perfumes, scented candles and scented sprays 10. Air conditioning is an effective allergen and irritant avoidance strategy in the spring, summerand fall. 11. Honey is an effective cough suppressant. Try one tsp 3-4 times per day. 12. Mucinex every 12 hours with a full 10-12 ounces of water 13. Afrin for 3-4 days for congestion and post nasal drainage is both safe and effective [facility] NoteHNO ID: [id number] Author: AIME HAUSER APRN.CNP Service: ? Author Type: Nurse Practitioner Type: Progress Notes Filed: 08/01/2024 10:23 Note Text: This note was created using [employer]. Subjective Renea Vallecillo is a 34 year old female. HPI by patient: Renea is a 34 year old presenting to the office with the complaint of URI Started approximately a week ago but got worse yesterday Associated symptoms include scracthy throat and ear pain that radiates down her neck Denies any other concerns Covid Immunization Dates Overdue - Covid-19 Vaccine ( season) Never done No completion, postpone, frequency change, or communication history exists for this topic. Sick contacts: no Smoking history/second hand smoke: no OTC nothing No antibiotic use in the last 60 days. ALLERGIES No Known Allergies Family History Reviewed Including Cardiac Diseases, Psychiatric Diseases, AND Substance Abuse Problem: Arthritis Relation: Mother Age of Onset: (Not Specified) Problem: other (Endometrosis) Relation: Mother Age of Onset: (Not Specified) Comment: Hysterectomy Problem: Multiple Sclerosis Relation: Maternal Grandmother Age of Onset: (Not Specified) Problem: other (ALS) Relation: Other Age of Onset: (Not Specified) Comment: MGGFA Problem: Cancer Relation: Other Age of Onset: (Not Specified) Comment: Great Grandfather Social History Tobacco Use Smoking status: Never Smokeless tobacco: Never Vaping Use Vaping status: Never Used Alcohol use: Yes Comment: Occasionally Drug use: No Review of Systems Constitutional: Negative for chills and fever. HENT: Positive for ear pain, rhinorrhea and sore throat. Negative for congestion. Respiratory: Negative for cough. Cardiovascular: Negative for chest pain. Allergic/Immunologic: Negative for immunocompromised state. Hematological: Negative for adenopathy. Objective BP 112/75 Pulse 75 Temp 37 ?C (98.6 ?F) (Tympanic) Resp 16 Wt 77.7 kg (171 lb 6.5 oz) LMP 02/19/2020 SpO2 99% BMI 29.42 kg/m? Physical Exam Vitals and nursing note reviewed. HENT: Right Ear: Tympanic membrane and ear canal normal. Left Ear: Tympanic membrane and ear canal normal. Nose: Rhinorrhea present. No congestion. Mouth/Throat: Pharynx: Uvula midline. Posterior oropharyngeal erythema present. No oropharyngeal exudate. Cardiovascular: Rate and Rhythm: Normal rate and regular rhythm. Heart sounds: Normal heart sounds. Pulmonary: Effort: Pulmonary effort is normal. No respiratory distress. Breath sounds: Normal breath sounds. No stridor. No wheezing, rhonchi or rales. Chest: Chest wall: No tenderness. Lymphadenopathy: Cervical: No cervical adenopathy. Skin: General: Skin is warm and dry. Neurological: Mental Status: She is alert and oriented to person, place, and time. Assessment and Plan ASSESSMENT/PLAN: 1. Viral URI with cough - ICD9: 465.9, ICD10: J06.9 (primary diagnosis) - Discussed viral etiology and rationale for treatment. - Symptomatic treatment with prn analgesia - Supportive care with fluids and rest - PREDNISONE 10 MG TABLET - [id number] 2 MG-30 MG-10 MG/5 ML ORAL SYRUP 2. Otalgia of both ears - ICD9: 388.70, ICD10: H92.03 - PREDNISONE 10 MG TABLET - [id number] 2 MG-30 MG-10 MG/5 ML ORAL SYRUP Aime Hauser APRN.OPTICAL DISPENSER Medical Decision Making: Problems: Moderate: New problem with uncertain prognosis Data: Unique source(s) for external note(s) reviewed: 1 Risk: Moderate: Drug management Medical Decision Making [facility]: [facility] of Present illness Narrative* Aime Hauser APRN.OPTICAL DISPENSER - 08/01/2024 10:09 AM EST This note was created using NoteWriter. Subjective Renea Vallecillo is a 34 year old female. HPI by patient: Renea is a 34 year old presenting to the office with the complaint of URI Started approximately a week ago but got worse yesterday Associated symptoms include scracthy throat and ear pain that radiates down her neck Denies any other concerns Covid Immunization Dates Overdue - Covid-19 Vaccine ( season) Never done No completion, postpone, frequency change, or communication history exists for this topic. Sick contacts: no Smoking history/second hand smoke: no OTC nothing No antibiotic use in the last 60 days. ALLERGIES No Known Allergies Family History Reviewed Including Cardiac Diseases, Psychiatric Diseases, & Substance Abuse Problem: Arthritis Relation: Mother Age of Onset: (Not Specified) Problem: other (Endometrosis) Relation: Mother Age of Onset: (Not Specified) Comment: Hysterectomy Problem: Multiple Sclerosis Relation: Maternal Grandmother Age of Onset: (Not Specified) Problem: other (ALS) Relation: Other Age of Onset: (Not Specified) Comment: MGGFA Problem: Cancer Relation: Other Age of Onset: (Not Specified) Comment: Great Grandfather Social History Tobacco Use Smoking status: Never Smokeless tobacco: Never Vaping Use Vaping status: Never Used Alcohol use: Yes Comment: Occasionally Drug use: No Review of Systems Constitutional: Negative for chills and fever. HENT: Positive for ear pain, rhinorrhea and sore throat. Negative for congestion. Respiratory: Negative for cough. Cardiovascular: Negative for chest pain. Allergic/Immunologic: Negative for immunocompromised state. Hematological: Negative for adenopathy. Objective BP 112/75 Pulse 75 Temp 37 C (98.6 F) (Tympanic) Resp 16 Wt 77.7 kg (171 lb 6.5 oz) LMP 02/19/2020 SpO2 99% BMI 29.42 kg/m Physical Exam Vitals and nursing note reviewed. HENT: Right Ear: Tympanic membrane and ear canal normal. Left Ear: Tympanic membrane and ear canal normal. Nose: Rhinorrhea present. No congestion. Mouth/Throat: Pharynx: Uvula midline. Posterior oropharyngeal erythema present. No oropharyngeal exudate. Cardiovascular: Rate and Rhythm: Normal rate and regular rhythm. Heart sounds: Normal heart sounds. Pulmonary: Effort: Pulmonary effort is normal. No respiratory distress. Breath sounds: Normal breath sounds. No stridor. No wheezing, rhonchi or rales. Chest: Chest wall: No tenderness. Lymphadenopathy: Cervical: No cervical adenopathy. Skin: General: Skin is warm and dry. Neurological: Mental Status: She is alert and oriented to person, place, and time. Assessment and Plan ASSESSMENT/PLAN: 1. Viral URI with cough - ICD9: 465.9, ICD10: J06.9 (primary diagnosis) - Discussed viral etiology and rationale for treatment. - Symptomatic treatment with prn analgesia - Supportive care with fluids and rest - PREDNISONE 10 MG TABLET - [id number] 2 MG-30 MG-10 MG/5 ML ORAL SYRUP 2. Otalgia of both ears - ICD9: 388.70, ICD10: H92.03 - PREDNISONE 10 MG TABLET - [id number] 2 MG-30 MG-10 MG/5 ML ORAL SYRUP Aime Hauser APRN.CNP Medical Decision Making: Problems: Moderate: New problem with uncertain prognosis Data: Unique source(s) for external note(s) reviewed: 1 Risk: Moderate: Drug management Medical Decision Making Level: 4 - Moderate [facility] Discharge instructions* Discharge Instructions* Manuel Hazel MD - 04/28/2024 10:16 AM EDT You were seen in the ED today for back pain. You should take Tylenol (1000 mg every 8 hours) as needed for pain and Motrin (600 mg every 8 hours) as needed for pain. You can also use lidocaine patches as needed. The 4% version is available overthe counter. You should follow up with your primary care doctor for further evaluation and treatment of the pain. You should return to the ED if: -You have worsening back pain that don't get better with medications -You begin to have weakness or numbness in your legs or feet -You feel that you cannot walk -You urinate without trying to -You have any other symptom that concerns you You had an incidental finding on your CT scan. Here is what the radiologist saw: Right adnexal cystic mass measuring up to 7.4 cm. You should follow-up with [facility]. Please sign up for MyChart and review all results from your visit today. [facility] with any questions or concerns about your results today. Thank you for choosing [facility] for your care. Sincerely, Manuel Hazel MD documented in this [facility]10-09-2024 NoteNonsimple, nonspecific appearing adnexal cystic structures. Recommend follow-up or further evaluation. Report Dictated on Electronically Signed By: Rigoberto Gomez MD Electronically Signed Date/Time: 04/28/2024 10:14 AM EDT [facility] [id number] Note 1. Right adnexal cystic mass measuring up to 7.4 cm. Recommend pelvic ultrasound for further evaluation. 2. No urinary calculi or hydroureteronephrosis. Report Dictated on Electronically Signed By: Willi Parmar MD Electronically Signed Date/Time: 04/28/2024 8:29 AM EDT [facility] [place] [id number] Emergency department Triage note* Aime Elliott RN - 04/28/2024 7:45 AM EDT Pt ambulatory to ED4 with c/o right lower back pain that woke her in the middle of the night. Pain has been constant since, rated 7/10 at present, with no meds taken for this [employer]. Pt reports approx 1mo ago having hematuria and being diagnosed with UTI. She took abx and s/s resolved. Pt denies n/v/d ysuria/hematuria. LBM yesterday, pt states was rabbit poop like which is not normal for her. Pt is A&Ox3, respirations even and unlabored, skin warm and dry, no distress noted. [id number]* Aime Elliott RN - 04/28/2024 7:45 AM EDT Pt ambulatory to ED4 with c/o right lower back pain that woke her in the middle of the night. Pain has been constant since, rated 7/10 at present, with no meds taken for this [employer]. Pt reports approx 1mo ago having hematuria and being diagnosed with UTI. She took abx and s/s resolved. Pt denies n/v/d ysuria/hematuria. LBM yesterday, pt states was rabbit poop like which is not normal for her. Pt is A&Ox3, respirations even and unlabored, skin warm and dry, no distress noted. * Manuel Hazel MD - 04/28/2024 7:38 AM EDT [facility] ED EMERGENCY DEPARTMENT ENCOUNTER Pt Name: Renea Vallecillo Birthdate 1990 Date of evaluation: 04/28/2024 Provider: Manuel Hazel MD CHIEF COMPLAINT Chief Complaint Patient presents with Back Pain HISTORY OF PRESENT ILLNESS I wore proper PPE for the entirety of this encounter. Renea Vallecillo is a 34 y.o. female who presents to the emergency department with right flank pain started this morning. No dysuria, hematuria, vaginal bleeding, vaginal discharge. Pain does not radiate to the abdomen. No recent falls or injuries. Denies weakness or numbness, fever, night sweats, saddle anesthesia, incontinence, weight loss, history of cancer, history of IV drug use. Nursing Notes were reviewed. REVIEW OF SYSTEMS As above PAST MEDICAL HISTORY Past Medical History: Diagnosis Date 2019 novel coronavirus disease (COVID-19) 2019 & 2021 Allergic Teenager Anemia Anxiety Headache 17 years old IBS (irritable bowel syndrome) Irritable bowel syndrome 2021 Mitral valve prolapse 2013 & 2014 Syncope Varicella 1990s SURGICAL HISTORY Past Surgical History: Procedure Laterality Date ABDOMINAL SURGERY 2013 & 2021 SECTION (HISTORICAL) SECTION, LOW TRANSVERSE 10/20/14 HYSTERECTOMY 05/24/22 CURRENT MEDICATIONS Previous Medications ALBUTEROL 108 (90 BASE) MCG/ACT INHALER Inhale 2 puffs Once as needed for shortness of breath. BIOTIN 10 MG TABLET Take by mouth. CETIRIZINE HCL 10 MG CAPSULE Take 10 mg by mouth. MULTIPLE VITAMIN (MULTIVITAMIN) TABLET Take 1 tablet by mouth daily. PHENTERMINE (ADIPEX-P) 37.5 MG TABLET TAKE 37.5 MG BY MOUTH DAILY BMI 32.5 RIZATRIPTAN (MAXALT) 10 MG TABLET Take 10 mg by mouth Once as needed. TOPIRAMATE (TOPAMAX) 25 MG TABLET TAKE 1 TABLET BY MOUTH 1 TO 2 TIMES DAILY ALLERGIES Wound dressing adhesive FAMILY HISTORY Family History Problem Relation Name Age of Onset Substance Abuse Father Jaime Berumen Mental illness Father Jaime Berumen Thyroid disease Mother Leonora Sue Arthritis Mother Leonora Kettere Arthritis Maternal Grandfather Chris Marlon Cancer Maternal Grandfather Chris Marlon Diabetes Maternal Grandfather Chris Mason Heart disease Maternal Grandfather Chris Mason Uterine cancer Neg Hx Colon cancer Neg Hx Breast cancer Neg Hx Ovarian cancer Neg Hx SOCIAL HISTORY Social History Socioeconomic History Marital status: Other Tobacco Use Smoking status: Never Smokeless tobacco: Never Tobacco comments: Never Vaping Use Vaping status: Never Used Substance and Sexual Activity Alcohol use: Yes Alcohol/week: 1.0 standard drink of alcohol Types: 1 Standard drinks or equivalent per week Comment: occ Drug use: No Sexual activity: Yes Partners: Male control/protection: Other Comment: Hysterectomy Social Determinants of Health Financial Resource Strain: Low Risk (03/18/2024) Overall Financial Resource Strain (CARDIA) Difficulty of Paying Living Expenses: Not hard at all Food Insecurity: No Food Insecurity (03/18/2024) Hunger Vital Sign Worried About Running Out of Food in the Last Year: Never true Ran Out of Food in the Last Year: Never true Transportation Needs: No Transportation Needs (03/18/2024) PRAPARE - Transportation Lack of Transportation (Medical): No Lack of Transportation (Non-Medical): No Physical Activity: Inactive (03/18/2024) Exercise Vital Sign Days of Exercise per Week: 0 days Minutes of Exercise per Session: 0 min Stress: No Stress Concern Present (03/18/2024) [place] [employer] - Occupational Stress Questionnaire Feeling of Stress : Only a little Social Connections: Moderately Isolated (03/18/2024) Social Connection and Isolation Panel [NHANES] Frequency of Communication with Friends and Family: More than three times a week Frequency of Social Gatherings with Friends and Family: Twice a week Attends Restorationist Services: Never Active Member of Clubs or Organizations: Yes Attends Club or Organization Meetings: 1 to 4 times per year Marital Status: Intimate Partner Violence: Not At Risk (03/18/2024) Humiliation, Afraid, Rape, and Kick questionnaire Fear of Current or Ex-Partner: No Emotionally Abused: No Physically Abused: No Sexually Abused: No Housing Stability: Unknown (03/18/2024) Housing Stability Vital Sign Unable to Pay for Housing in the Last Year: No Homeless in the Last Year: No SCREENINGS PHYSICAL EXAM ED Triage Vitals [04/28/24 0742] Temp Heart Rate Resp BP 36.8 C (98.2 F) 95 16 117/78 SpO2 Temp Source Heart Rate Source Patient Position 100 % Oral -- -- BP Location FiO2 (%) -- -- Constitutional: No acute distress HEENT:Head: Atraumatic Eyes: Conjunctivae normal. ENT: Mucous membranes moist Neck: Normal ROM, supple CV: RRR RESP: CTAB, good respiratory effort, no increased wob GI: Abdomen soft, non-tender, non-distended, +BS, no guarding or rebound tenderness MSK: Normal bulk and tone, no gross deformity BACK: Mild right CVA tenderness. No C/T/L-spine tenderness EXTR: Warm and well perfused, no edema SKIN: No rash/bruising/erythema PSYCH: Appropriate affect, cooperative behavior NEURO: Alert, face symmetric, no slurred speech L1-L2 Inner thigh sensation intact L2 Adduct Thigh (cross legs) 5/5 L3 Extend Knee 5/5 bilaterally L4 Dorsiflex Ankle (Up) 5/5 bilaterally L5 Point Great Toe Up 5/5 bilaterally L2 L3-L4 Knee Reflex intact S1 Flex Knee 5/5 bilaterally S2 Plantarflex Toes 5/5 bilaterally S3, 4, 5 Groin, Perianal Sensation intact DIAGNOSTIC RESULTS Interpretation per the Radiologist below, if available at the time of this note: US pelvis transvaginal Final Result Nonsimple, nonspecific appearing adnexal cystic structures. Recommend follow-up or further evaluation. Report Dictated on Electronically Signed By: Rigoberto Gomez MD Electronically Signed Date/Time: 04/28/2024 10:[address] abdomen pelvis wo IV contrast Final Result 1. Right adnexal cystic mass measuring up to 7.4 cm. Recommend pelvic ultrasound for further evaluation. 2. No urinary calculi or hydroureteronephrosis. Report Dictated on Electronically Signed By: Willi Parmar MD Electronically Signed Date/Time: 04/28/2024 8:29 AM EDT LABS: Labs Reviewed CBC WITH AUTO DIFFERENTIAL - Abnormal Result Value Auto WBC 8.2 RBC 5.02 Hemoglobin 14.5 Hematocrit 43.1 MCV 85.9 MCH 28.9 MCHC 33.6 RDW 12.4 Platelets 280 MPV 8.8 (*) nRBC 0.0 Neutrophils Relative 70.4 Lymphocytes Relative 20.1 Monocytes Relative 7.1 Eosinophils Relative 1.6 Basophils Relative 0.6 Immature Grans % 0.2 Neutrophils Absolute 5.7 Lymphocytes Absolute 1.6 Monocytes Absolute 0.6 Eosinophils Absolute 0.1 Basophils Absolute 0.1 Immature Grans Absolute 0.0 COMPREHENSIVE METABOLIC PANEL - Abnormal SODIUM 138 POTASSIUM 3.8 CHLORIDE 108 (*) CARBON DIOXIDE 24 ANION GAP 6 UREA NITROGEN 11 CREATININE 0.71 GLUCOSE 114 (*) CALCIUM 9.0 AST (SGOT) 26 ALT 18 ALKALINE PHOSPHATASE 62 ALBUMIN 4.3 BILIRUBIN, TOTAL 0.9 TOTAL PROTEIN 7.5 eGFR >90.0 COMPLETE URINALYSIS - Abnormal Color, Urine Yellow Clarity, Urine Clear pH, Urine 7.0 Leukocytes, Urine 75 (*) Nitrite, Urine Negative Protein, Urine 10 (*) Glucose, Urine Normal Bilirubin, Urine Negative Ketones, Urine Negative Urobilinogen, Urine Normal Blood, Urine 0.03 (*) Volume, Urine 8-12 mL RBC, Urine 0-2 WBC, Urine 0-2 Squamous Epithelial, Urine 3-5 Bacteria, Urine Moderate (*) Mucus, Urine Moderate (*) SPECIFIC GRAVITY OF URINE (NUMERIC) 1.026 COMPLETE URINALYSIS WITH REFLEX TO CULTURE Narrative: The following orders were created for panel order Urinalysis Complete with reflex to Culture. Procedure Abnormality Status --------- ------ Complete Urinalysis[[id number]] Abnormal Final result Please view results for these tests on the individual orders. EMERGENCY DEPARTMENT COURSE and DIFFERENTIAL DIAGNOSIS/MDM: Vitals: Vitals: 04/28/24 0742 BP: 117/78 Pulse: 95 Resp: 16 Temp: 36.8 C (98.2 F) TempSrc: Oral SpO2: 100% Weight: 72.6 kg (160 lb) Height: 1.626 m (5' 4) Medications ketorolac (Toradol) injection 15 mg (15 mg IntraVENous Given 04/28/24 0800) I personally saw the patient and performed a substantive portion of the visit including all aspectsof the medical decision making. Patient appears nontoxic and vital signs are normal. I ordered Toradol 15 mg IV for pain. CBC with no leukocytosis, anemia, thrombocytopenia. CMP is normal. UA with positive leuk esterase and moderate bacteria but no WBCs. No concern for UTI. CT abdomen pelvis showed a relatively large right adnexal cystic mass. Radiologist recommended an ultrasound to try obtained. It showed a complex nonspecific appearing adnexal cystic structure. I placed a follow-up order for [facility] for this. I doubt that this is the cause of the pain given its location. Given history, exam, and work up I have low suspicion for atypical appendicitis, genital torsion, acute cholecystitis, AAA, infected obstructed stone, pyelonephritis, or other emergent intraabdominalpathology. Symptoms and UA indicate no infection. I discussed test results and plan with the patient. Discharged home in good condition with PCP follow up recommended. ED Course as of 04/28/24 1031 Wed Apr 28, [address] abdomen pelvis wo IV contrast IMPRESSION: 1. Right adnexal cystic mass measuring up to 7.4 cm. Recommend pelvic ultrasound for further evaluation. 2. No urinary calculi or hydroureteronephrosis. [MIRTA] 1015 US pelvis transvaginal IMPRESSION: Nonsimple, nonspecific appearing adnexal cystic structures. Recommend follow-up or further evaluation. [MIRTA] ED Course User Index [MIRTA] Manuel Hazel MD Diagnoses as of 04/28/24 1031 Right flank pain Adnexal cyst PROCEDURES: Unless otherwise noted below, none Procedures Patients symptoms are consistent with sepsis, severe sepsis, or septic shock (If yes use .sepsiscoremeasure): no FINAL IMPRESSION 1. Right flank pain 2. Adnexal cyst DISPOSITION/PLAN Discharge 04/28/2024 10:15:45 AM PATIENT REFERRED TO: Catherine Dixon DO [address] [place] [address] [address] [address] Schedule an appointment as soon as possible for a visit [facility] - [address] [place] [phone] Schedule an appointment as soon as possible for a visit DISCHARGE MEDICATIONS: New Prescriptions No medications on file (Please note: Portions of this note were completed with a voice recognition program. Efforts were made to edit the dictations but occasionally words and phrases are mis-transcribed.) Manuel Hazel MD EVI Emergency Medicine Physician [facility] Manuel Hazel MD 04/28/24 1031 documented in this [facility]10-09-2024 Physician Emergency department Note* Manuel Hazel MD - 04/28/2024 7:38 AM EDT [facility] ED EMERGENCY DEPARTMENT ENCOUNTER Pt Name: Renea Vallecillo Birthdate 1990 Date of evaluation: 04/28/2024 Provider: Manuel Hazel MD CHIEF COMPLAINT Chief Complaint Patient presents with Back Pain HISTORY OF PRESENT ILLNESS I wore proper PPE for the entirety of this encounter. Renea Vallecillo is a 34 y.o. female who presents to the emergency department with right flank pain started this morning. No dysuria, hematuria, vaginal bleeding, vaginal discharge. Pain does not radiate to the abdomen. No recent falls or injuries. Denies weakness or numbness, fever, night sweats, saddle anesthesia, incontinence, weight loss, history of cancer, history of IV drug use. Nursing Notes were reviewed. REVIEW OF SYSTEMS As above PAST MEDICAL HISTORY Past Medical History: Diagnosis Date 2018 novel coronavirus disease (COVID-19) 2019 & 2021 Allergic Teenager Anemia Anxiety Headache 17 years old IBS (irritable bowel syndrome) Irritable bowel syndrome 2021 Mitral valve prolapse 2013 & 2014 Syncope Varicella 1990s SURGICAL HISTORY Past Surgical History: Procedure Laterality Date ABDOMINAL SURGERY 2013 & 2021 SECTION (HISTORICAL) SECTION, LOW TRANSVERSE 10/20/14 HYSTERECTOMY 05/24/22 CURRENT MEDICATIONS Previous Medications ALBUTEROL 108 (90 BASE) MCG/ACT INHALER Inhale 2 puffs Once as needed for shortness of breath. BIOTIN 10 MG TABLET Take by mouth. CETIRIZINE HCL 10 MG CAPSULE Take 10 mg by mouth. MULTIPLE VITAMIN (MULTIVITAMIN) TABLET Take 1 tablet by mouth daily. PHENTERMINE (ADIPEX-P) 37.5 MG TABLET TAKE 37.5 MG BY MOUTH DAILY BMI 32.5 RIZATRIPTAN (MAXALT) 10 MG TABLET Take 10 mg by mouth Once as needed. TOPIRAMATE (TOPAMAX) 25 MG TABLET TAKE 1 TABLET BY MOUTH 1 TO 2 TIMES DAILY ALLERGIES Wound dressing adhesive FAMILY HISTORY Family History Problem Relation Name Age of Onset Substance Abuse Father Jaime Berumen Mental illness Father Jaime Berumen Thyroid disease Mother Leonora Ketler Arthritis Mother Leonora Ketler Arthritis Maternal Grandfather Chris Marlon Cancer Maternal Grandfather Chris Mason Diabetes Maternal Grandfather Chris Mason Heart disease Maternal Grandfather Chris Marlon Uterine cancer Neg Hx Colon cancer Neg Hx Breast cancer Neg Hx Ovarian cancer Neg Hx SOCIAL HISTORY Social History Socioeconomic History Marital status: Other Tobacco Use Smoking status: Never Smokeless tobacco: Never Tobacco comments: Never Vaping Use Vaping status: Never Used Substance and Sexual Activity Alcohol use: Yes Alcohol/week: 1.0 standard drink of alcohol Types: 1 Standard drinks or equivalent per week Comment: occ Drug use: No Sexual activity: Yes Partners: Male control/protection: Other Comment: Hysterectomy Social Determinants of Health Financial Resource Strain: Low Risk (03/18/2024) Overall Financial Resource Strain (CARDIA) Difficulty of Paying Living Expenses: Not hard at all Food Insecurity: No Food Insecurity (03/18/2024) Hunger Vital Sign Worried About Running Out of Food in the Last Year: Never true Ran Out of Food in the Last Year: Never true Transportation Needs: No Transportation Needs (03/18/2024) PRAPARE - Transportation Lack of Transportation (Medical): No Lack of Transportation (Non-Medical): No Physical Activity: Inactive (03/18/2024) Exercise Vital Sign Days of Exercise per Week: 0 days Minutes of Exercise per Session: 0 min Stress: No Stress Concern Present (03/18/2024) [place] [employer] - Occupational Stress Questionnaire Feeling of Stress : Only a little Social Connections: Moderately Isolated (03/18/2024) Social Connection and Isolation Panel [NHANES] Frequency of Communication with Friends and Family: More than three times a week Frequency of Social Gatherings with Friends and Family: Twice a week Attends Restorationist Services: Never Active Member of Clubs or Organizations: Yes Attends Club or Organization Meetings: 1 to 4 times per year Marital Status: Intimate Partner Violence: Not At Risk (03/18/2024) Humiliation, Afraid, Rape, and Kick questionnaire Fear of Current or Ex-Partner: No Emotionally Abused: No Physically Abused: No Sexually Abused: No Housing Stability: Unknown (03/18/2024) Housing Stability Vital Sign Unable to Pay for Housing in the Last Year: No Homeless in the Last Year: No SCREENINGS PHYSICAL EXAM ED Triage Vitals [04/28/24 0742] Temp Heart Rate Resp BP 36.8 C (98.2 F) 95 16 117/78 SpO2 Temp Source Heart Rate Source Patient Position 100 % Oral -- -- BP Location FiO2 (%) -- -- Constitutional: No acute distress HEENT:Head: Atraumatic Eyes: Conjunctivae normal. ENT: Mucous membranes moist Neck: Normal ROM, supple CV: RRR RESP: CTAB, good respiratory effort, no increased wob GI: Abdomen soft, non-tender, non-distended, +BS, no guarding or rebound tenderness MSK: Normal bulk and tone, no gross deformity BACK: Mild right CVA tenderness. No C/T/L-spine tenderness EXTR: Warm and well perfused, no edema SKIN: No rash/bruising/erythema PSYCH: Appropriate affect, cooperative behavior NEURO: Alert, face symmetric, no slurred speech L1-L2 Inner thigh sensation intact L2 Adduct Thigh (cross legs) 5/5 L3 Extend Knee 5/5 bilaterally L4 Dorsiflex Ankle (Up) 5/5 bilaterally L5 Point Great Toe Up 5/5 bilaterally L2 L3-L4 Knee Reflex intact S1 Flex Knee 5/5 bilaterally S2 Plantarflex Toes 5/5 bilaterally S3, 4, 5 Groin, Perianal Sensation intact DIAGNOSTIC RESULTS Interpretation per the Radiologist below, if available at the time of this note: US pelvis transvaginal Final Result Nonsimple, nonspecific appearing adnexal cystic structures. Recommend follow-up or further evaluation. Report Dictated on Electronically Signed By: Rigoberto Gomez MD Electronically Signed Date/Time: 04/28/2024 10:[address] abdomen pelvis wo IV contrast Final Result 1. Right adnexal cystic mass measuring up to 7.4 cm. Recommend pelvic ultrasound for further evaluation. 2. No urinary calculi or hydroureteronephrosis. Report Dictated on Electronically Signed By: Willi Parmar MD Electronically Signed Date/Time: 04/28/2024 8:29 AM EDT LABS: Labs Reviewed CBC WITH AUTO DIFFERENTIAL - Abnormal Result Value Auto WBC 8.2 RBC 5.02 Hemoglobin 14.5 Hematocrit 43.1 MCV 85.9 MCH 28.9 MCHC 33.6 RDW 12.4 Platelets 280 MPV 8.8 (*) nRBC 0.0 Neutrophils Relative 70.4 Lymphocytes Relative 20.1 Monocytes Relative 7.1 Eosinophils Relative 1.6 Basophils Relative 0.6 Immature Grans % 0.2 Neutrophils Absolute 5.7 Lymphocytes Absolute 1.6 Monocytes Absolute 0.6 Eosinophils Absolute 0.1 Basophils Absolute 0.1 Immature Grans Absolute 0.0 COMPREHENSIVE METABOLIC PANEL - Abnormal SODIUM 138 POTASSIUM 3.8 CHLORIDE 108 (*) CARBON DIOXIDE 24 ANION GAP 6 UREA NITROGEN 11 CREATININE 0.71 GLUCOSE 114 (*) CALCIUM 9.0 AST (SGOT) 26 ALT 18 ALKALINE PHOSPHATASE 62 ALBUMIN 4.3 BILIRUBIN, TOTAL 0.9 TOTAL PROTEIN 7.5 eGFR >90.0 COMPLETE URINALYSIS - Abnormal Color, Urine Yellow Clarity, Urine Clear pH, Urine 7.0 Leukocytes, Urine 75 (*) Nitrite, Urine Negative Protein, Urine 10 (*) Glucose, Urine Normal Bilirubin, Urine Negative Ketones, Urine Negative Urobilinogen, Urine Normal Blood, Urine 0.03 (*) Volume, Urine 8-12 mL RBC, Urine 0-2 WBC, Urine 0-2 Squamous Epithelial, Urine 3-5 Bacteria, Urine Moderate (*) Mucus, Urine Moderate (*) SPECIFIC GRAVITY OF URINE (NUMERIC) 1.026 COMPLETE URINALYSIS WITH REFLEX TO CULTURE Narrative: The following orders were created for panel order Urinalysis Complete with reflex to Culture. Procedure Abnormality Status --------- ------ Complete Urinalysis[[id number]] Abnormal Final result Please view results for these tests on the individual orders. EMERGENCY DEPARTMENT COURSE and DIFFERENTIAL DIAGNOSIS/MDM: Vitals: Vitals: 04/28/24 0742 BP: 117/78 Pulse: 95 Resp: 16 Temp: 36.8 C (98.2 F) TempSrc: Oral SpO2: 100% Weight: 72.6 kg (160 lb) Height: 1.626 m (5' 4) Medications ketorolac (Toradol) injection 15 mg (15 mg IntraVENous Given 04/28/24 0800) I personally saw the patient and performed a substantive portion of the visit including all aspectsof the medical decision making. Patient appears nontoxic and vital signs are normal. I ordered Toradol 15 mg IV for pain. CBC with no leukocytosis, anemia, thrombocytopenia. CMP is normal. UA with positive leuk esterase and moderate bacteria but no WBCs. No concern for UTI. CT abdomen pelvis showed a relatively large right adnexal cystic mass. Radiologist recommended an ultrasound to try obtained. It showed a complex nonspecific appearing adnexal cystic structure. I placed a follow-up order for [employer] for this. I doubt that this is the cause of the pain given its location. Given history, exam, and work up I have low suspicion for atypical appendicitis, genital torsion, acute cholecystitis, AAA, infected obstructed stone, pyelonephritis, or other emergent intraabdominalpathology. Symptoms and UA indicate no infection. I discussed test results and plan with the patient. Discharged home in good condition with PCP follow up recommended. ED Course as of 04/28/24 1031 FriApr 28, [address] abdomen pelvis wo IV contrast IMPRESSION: 1. Right adnexal cystic mass measuring up to 7.4 cm. Recommend pelvic ultrasound for further evaluation. 2. No urinary calculi or hydroureteronephrosis. [MIRTA] 1015 US pelvis transvaginal IMPRESSION: Nonsimple, nonspecific appearing adnexal cystic structures. Recommend follow-up or further evaluation. [MIRTA] ED Course User Index [MIRTA] Manuel Hazel MD Diagnoses as of 04/28/24 1031 Right flank pain Adnexal cyst PROCEDURES: Unless otherwise noted below, none Procedures Patients symptoms are consistent with sepsis, severe sepsis, or septic shock (If yes use .sepsiscoremeasure): no FINAL IMPRESSION 1. Right flank pain 2. Adnexal cyst DISPOSITION/PLAN Discharge 04/28/2024 10:15:45 AM PATIENT REFERRED TO: Catherine Dixon DO [address] [place] [address] [address] [address] Schedule an appointment as soon as possible for a visit [facility] - [address] [address] Schedule an appointment as soon as possible for a visit DISCHARGE MEDICATIONS: New Prescriptions No medications on file (Please note: Portions of this note were completed with a voice recognition program. Efforts were made to edit the dictations but occasionally words and phrases are mis-transcribed.) Manuel Hazel MD EVI Emergency Medicine Physician [facility] Manuel Hazel MD 04/28/24 1031 [id number] History of Present illness Narrative* Catherine Dixon DO - 03/18/2024 8:20 AM EDT Images from the original note were not included. [facility] [address] [facility] [address] Visit type: Established Patient Reason for Visit: Employment Physical Assessment and Plan Diagnoses and all orders for this visit: Well adult exam Vertigo - CBC; Future - Basic metabolic panel; Future - TSH; Future New problem, check labs Bp is a bit low today. I suspect this is due to her recent weight loss. We will continue to monitorclosely. If she is having a lot more dizziness or fatigue, she should let me know. Screening, lipid - Lipid panel; Future Screening for diabetes mellitus - Hemoglobin A1c; Future Other orders - albuterol 108 (90 Base) MCG/ACT inhaler; Inhale 2 puffs Once as needed for shortness of breath. UTD on immunizations. Encouraged avoidance of tobacco and alcohol, safe sexual practice. Healthy diet with plenty of fruits, vegetables, whole grains, and lean proteins. Exercise 3-5 times per week for 30-45 minutes. Wear seatbelts. Wear sunscreen. Reviewed age appropriate screening tests. No follow-ups on file. Subjective HPI On Friday, would have dizziness with looking down and then back up Friday morning, got out of bed quickly, she fell into the wall Feels like vertigo Had a shock like feeling under her rib cage Had some on Friday but better since No chest pain or sob Was at her mom's and she's an RN - checked HR and BP - they were OK She started a weight loss program in beginning of 2022 Lost quite a bit of weight Adipex and topamax Has a hx of MVP Review of Systems Constitutional: Negative for appetite [...] for color change, rash and wound. Neurological: Positive for dizziness. Negative for tremors, seizures, speech difficulty, weakness, numbness and headaches. Hematological: Negative for adenopathy. Does not bruise/bleed easily. Psychiatric/Behavioral: Negative for agitation, decreased concentration, dysphoric mood and sleep disturbance. The patient is not nervous/anxious. Allergies Allergen Reactions Wound Dressing Adhesive Rash Outpatient Medications Prior to Visit Medication Sig Dispense Refill Cetirizine HCl 10 MG capsule Take 10 mg by mouth. Multiple Vitamin (multivitamin) tablet Take 1 tablet by mouth daily. phentermine (Adipex-P) 37.5 MG tablet TAKE 37.5 MG BY MOUTH DAILY BMI 32.5 rizatriptan (Maxalt) 10 MG tablet Take 10 mg by mouth Once as needed. topiramate (Topamax) 25 MG tablet TAKE 1 TABLET BY MOUTH 1 TO 2 TIMES DAILY biotin 10 MG tablet Take by mouth. albuterol 108 (90 Base) MCG/ACT inhaler Inhale 2 puffs Once as needed for shortness of breath. No facility-administered medications prior to visit. Past Medical History: Diagnosis Date 2019 novel coronavirus disease (COVID-19) 2019 & 2021 Allergic Teenager Anemia Anxiety Headache 17 years old IBS (irritable bowel syndrome) Irritable bowel syndrome 2021 Mitral valve prolapse 2014 & 2015 Syncope Varicella 1990s Social History Socioeconomic History Marital status: Other Tobacco Use Smoking status: Never Smokeless tobacco: Never Tobacco comments: Never Vaping Use Vaping status: Never Used Substance and Sexual Activity Alcohol use: Yes Alcohol/week: 1.0 standard drink of alcohol Types: 1 Standard drinks or equivalent per week Drug use: No Sexual activity: Yes Partners: Male control/protection: Other Comment: Hysterectomy Social Determinants of Health Financial Resource Strain: Low Risk (03/18/2024) Overall Financial Resource Strain (CARDIA) Difficulty of Paying Living Expenses: Not hard at all Food Insecurity: No Food Insecurity (03/18/2024) Hunger Vital Sign Worried About Running Out of Food in the Last Year: Never true Ran Out of Food in the Last Year: Never true Transportation Needs: No Transportation Needs (03/18/2024) PRAPARE - Transportation Lack of Transportation (Medical): No Lack of Transportation (Non-Medical): No Physical Activity: Inactive (03/18/2024) Exercise Vital Sign Days of Exercise per Week: 0 days Minutes of Exercise per Session: 0 min Stress: No Stress Concern Present (03/18/2024) [place] [employer] - Occupational Stress Questionnaire Feeling of Stress : Only a little Social Connections: Moderately Isolated (03/18/2024) Social Connection and Isolation Panel [NHANES] Frequency of Communication with Friends and Family: More than three times a week Frequency of Social Gatherings with Friends and Family: Twice a week Attends Restorationist Services: Never Active Member of Clubs or Organizations: Yes Attends Club or Organization Meetings: 1 to 4 times per year Marital Status: Intimate Partner Violence: Not At Risk (03/18/2024) Humiliation, Afraid, Rape, and Kick questionnaire Fear of Current or Ex-Partner: No Emotionally Abused: No Physically Abused: No Sexually Abused: No Housing Stability: Unknown (03/18/2024) Housing Stability Vital Sign Unable to Pay for Housing in the Last Year: No Homeless in the Last Year: No Past Surgical History: Procedure Laterality Date ABDOMINAL [...] Grandfather Chris Mason Diabetes Maternal Grandfather Chris Godfreyolph Heart disease Maternal Grandfather Chris Godfreyolph Uterine cancer Neg Hx Colon cancer Neg Hx Breast cancer Neg Hx Ovarian cancer Neg Hx Objective BP 91/64 (BP Location: Left arm, Patient Position: Sitting, BP Cuff Size: Large adult) Pulse 81 Temp 36.3 C (97.3 F) (Temporal) Ht 5' 4.5 (1.638 m) Wt 164 lb (74.4 kg) SpO2 99% BMI 27.72kg/m Physical Exam Vitals and nursing note reviewed. Constitutional: General: She is not in acute distress. Appearance: Normal appearance. She is not ill-appearing. HENT: Head: Normocephalic and atraumatic. Right Ear: Tympanic membrane, ear canal and external ear normal. Left Ear: Tympanic membrane, ear canal and external ear normal. Nose: Nose normal. Mouth/Throat: Mouth: Mucous membranes are dry. Eyes: Extraocular Movements: Extraocular movements intact. Conjunctiva/sclera: [...] Medications Discontinued During This Encounter Medication Reason albuterol 108 (90 Base) MCG/ACT inhaler Reorder Catherine Dixon DO 03/18/2024 10:59 AM documented in this encounterSLima Memorial [id number] Evaluation + Plan note* Assessment & Plan Note - LAKSHMI Perkins CNP - 03/02/2024 12:27 PM EDTAssociated Problem(s): Insect sting Local reaction. [facility] [id number] Evaluation + Plan note* Assessment & Plan Note - LAKSHMI Perkins CNP - 03/02/2024 12:27 PM EDTAssociated Problem(s): Cellulitis of right upper extremity Concern for developing cellulitis. Start antibiotic. [facility] [id number] Miscellaneous Notes* Assessment & Plan Note - LAKSHMI Perkins CNP - 03/02/2024 12:27 PM EDTAssociated Problem(s): Insect sting Local reaction. * Assessment & Plan Note - LAKSHMI Perkins CNP - 03/02/2024 12:27 PM EDTAssociated Problem(s): Cellulitis of right upper extremity Concern for developing cellulitis. Start antibiotic. documented in this [facility]08-13-2024 History of Present illness Narrative* Colleen Ballard - 03/02/2024 9:40 AM EDT Patient was identified by name and Date of . * LAKSHMI Perkins CNP - 03/02/2024 9:40 AM EDT Images from the original note were not included. 03/02/2024 Renea Vallecillo (: 1990) is a 34 y.o. female , POD scheduled, Established patient, here for evaluation of the following chief complaint(s): Insect Bite (Stung on Friday-yellow Jacket ) ASSESSMENT/PLAN: 1. Cellulitis of right upper extremity Assessment & Plan: Concern for developing cellulitis. Start antibiotic. Orders: - cephalexin (Keflex) 500 MG capsule; Take 1 capsule (500 mg) by mouth in the morning and 1 capsule(500 mg) at noon and 1 capsule (500 mg) in the evening and 1 capsule (500 mg) before bedtime. Do all this for 7 days., Starting Fri03/02/2024, Until Fri03/09/2024, Normal 2. Insect stings, accidental or unintentional, initial encounter Assessment & Plan: Local reaction. Reviewed and provided written patient education/instructions regarding diagnosis and management. Reviewed symptom management with non-pharmacological interventions and appropriate use of otc medications for relief of symptoms. Follow up for worsening or no improvement in symptoms. Follow up if symptoms worsen or fail to improve. SUBJECTIVE/OBJECTIVE: YUMIKO - Renea Vallecillo (: 1990) is a 34 y.o. female , Established patient of Dr. Dixon, here for evaluation of the following chief complaint(s): Insect Bite (Stung on Friday-yellow Jacket ) Was stung by a yellow jacket on Friday early afternoon. Reports mild redness to the sting site onlyon Friday and Friday, then woke up this morning with an area approx 4x4 cm in diameter- red and increased warmth surrounding the sting site. Tender to palpation, no fever or chills. Has put topical antibiotic ointment on it this morning. No significant change. No shortness of breath or chest pain. Prior to Admission medications Medication Sig Start Date End Date Taking? Authorizing Provider Cetirizine HCl 10 MG capsule Take 10 mg by mouth. 04/18/22 Yes Historical Provider, Multiple Vitamin (multivitamin) tablet Take 1 tablet by mouth daily. Yes Historical Provider, phentermine (Adipex-P) 37.5 MG tablet TAKE 37.5 MG BY MOUTH DAILY BMI 32.5 09/18/22 Yes Historical Provider, rizatriptan (Maxalt) 10 MG tablet Take 10 mg by mouth Once as needed. 10/15/21 Yes Historical Provider, topiramate (Topamax) 25 MG tablet TAKE 1 TABLET BY MOUTH 1 TO 2 TIMES DAILY 09/18/22 Yes Historical Provider, albuterol 108 (90 Base) MCG/ACT inhaler Inhale 2 puffs Once as needed for shortness of breath. 10/15/21 Historical Provider, biotin 10 MG tablet Take by mouth. Historical Provider, Review of Systems Constitutional: Negative for activity change, appetite change, chills, fatigue and fever. Respiratory: Negative. Cardiovascular: Negative. Skin: Positive for rash and wound. Vitals: 03/02/24 0946 BP: 99/66 Pulse: 76 Resp: 18 Temp: 37 C (98.6 F) TempSrc: Infrared SpO2: 98% Weight: 162 lb 6.4 oz (73.7 kg) Physical Exam Constitutional: General: She is not in acute distress. Appearance: Normal appearance. She is not ill-appearing. Cardiovascular: Rate and Rhythm: Normal rate and regular rhythm. Pulses: Normal pulses. Heart sounds: Normal heart sounds. Pulmonary: Effort: Pulmonary effort is normal. Breath sounds: Normal breath sounds. Skin: General: Skin is warm and dry. Findings: Erythema and rash present. Neurological: Mental Status: She is alert and oriented to person, place, and time. An electronic signature was used to authenticate this note. LAKSHMI Gómez CNP 03/02/2024 12:28 PM documented in this encounterSLima Memorial [id number] Telephone encounter Note* Telephone Encounter - Eugenia Montalvo MA - 03/02/2024 7:37 AM EDT Noted [facility] [id number] Miscellaneous Notes* Telephone Encounter - Eugenia Montalvo MA - 03/02/2024 7:37 AM EDT Noted * Telephone Encounter - Mally Manjarrez RN - 03/02/2024 7:17 AM EDT S-Pt has right arm bee sting that is red warm and B-was stung Friday and worsening redness and warmth A-states was stung on Friday and has worsened, very painful warm and red. No COVID symptoms, no fever Would like to be seen R-POD Scheduled for today 03/02/24 with R Bridenthal @ 9:40a. * Telephone Encounter - Mally Manjarrez RN - 03/02/2024 7:16 AM EDT Reason for Disposition [1] Red or very tender (to touch) area AND [2] getting larger over 48 hours after the sting Answer Assessment - Initial Assessment Questions . Protocols used: Bee or Yellow Jacket [id number] documented in this encounterSLima Memorial [id number] Telephone encounter Note* Telephone Encounter - Mally Manjarrez RN - 03/02/2024 7:17 AM EDT S-Pt has right arm bee sting that is red warm and B-was stung Friday and worsening redness and warmth A-states was stung on Friday and has worsened, very painful warm and red. No COVID symptoms, no fever Would like to be seen R-POD Scheduled for today 03/02/24 with R Bridenthal @ 9:40a. [facility] [id number] Telephone encounter Note* Telephone Encounter - Mally Manjarrez RN - 03/02/2024 7:16 AM EDT Reason for Disposition [1] Red or very tender (to touch) area AND [2] getting larger over 48 hours after the sting Answer Assessment - Initial Assessment Questions . Protocols used: Bee or Yellow Jacket [id number] [facility] [id number] History of Present illness Narrative* Chelsey Lio, RAG WASHER - MOTOR DRIVER - 06/01/2023 1:00 PM EST Images from the original note were not included. [facility] [address] [facility] [address] Dept: [phone] Dept Loc: [phone] Subjective Renea Vallecillo is a 33 y.o. [...] chills reported. Patient has not taken any over-the- counter medications for her symptoms since they have [...] external ear normal. Tympanic membrane is not injected,scarred, perforated, erythematous, retracted or bulging. Left Ear: [...] Uvula midline. Posterior oropharyngeal erythema (minimal) present. Nopharyngeal swelling, oropharyngeal exudate or uvula swelling. Eyes: [...] summary. Treat symptoms as they come with [id number] medications as needed. Close follow-up with primary [...] occasionally words are mis-transcribed.) documented in this [facility]08-29-2023 History of Present illness Narrative* Catherine Dixon DO - 03/18/2023 8:40 AM EDT Images from the original note were not included. [facility] [address] [place] [address] Visit type: Established Patient Reason for [...] is on adipex and topamax through her mid wife - has lost almost 50 lbs Also [...] Mother Leonora Sue Arthritis Maternal Grandfather Chris Godfreyolph Cancer Maternal Grandfather Chris Godfreyolph Diabetes Maternal Grandfather Chris Marlon Heart disease Maternal Grandfather Chris Godfreyolph Uterine cancer Neg Hx Colon cancer Neg [...] 10 MG tablet Med list cleanup Catherine Dixon DO 03/18/2023 9:08 AM documented in this [facility]08-29-2023 Miscellaneous Notes* Addendum Note - Chelsey Ray - 03/18/2023 8:40 AM EDTAddended by: CHELSEY RAY on: 03/18/2023 09:25 AM Modules accepted: Orders documented in this [facility]08-29-2023 Note* Addendum Note - Chelsey Ray - 03/18/2023 8:40 AM EDTAddended by: CHELSEY RAY on: 03/18/2023 09:25 AM Modules accepted: Orders [facility] [id number] Note* Addendum Note - Chelseynavi Ray - 03/18/2023 8:40 AM EDTAddended by: CHELSEY RAY on: 03/18/2023 09:25 AM Modules accepted: Orders [facility] [id number] History of Present illness Narrative* Eugenia Ortega NP - 09/25/2022 6:30 PM EST Images from the original note were not included. [facility] [facility] [facility] [address] [facility] [address] Dept: [phone] Dept Loc: [phone] Patient: Renea Vallecillo : 1990 Date of Evaluation: 09/25/2022 Urgent Care Provider: Eugenia Ortega NP Chief Complaint Chief Complaint Patient presents with Sore Throat Started today. No OTC medication. Subjective: Patient: Renea Vallecillo is a 32 y.o. female Patient presents to the urgent care for evaluation regarding concern for sore throat. She states that it started today. No symptom management medications has been attempted prior to arrival. Unknown sick contacts. Aside from symptoms listed above patient denies any other concerns at this time. Review of Systems Constitutional: Positive for activity change and fatigue. Negative for appetite change, chills, diaphoresis and fever. HENT: Positive for sore throat and trouble swallowing. Negative for congestion, ear discharge and ear pain. Respiratory: Negative for cough, chest tightness and shortness of breath. Cardiovascular: Negative for chest pain. Gastrointestinal: Negative for abdominal pain. Neurological: Negative for dizziness and headaches. All other systems reviewed and are negative. Allergies Allergen Reactions Wound Dressing Adhesive Rash Current Outpatient Medications on File Prior to Visit Medication Sig Dispense Refill albuterol 108 (90 Base) MCG/ACT inhaler Inhale 2 puffs every 6 hours as needed. Cetirizine HCl 10 MG capsule Take 10 mg by mouth. phentermine (Adipex-P) 37.5 MG tablet TAKE 37.5 MG BY MOUTH DAILY BMI 32.5 rizatriptan (Maxalt) 10 MG tablet Take 10 mg by mouth. topiramate (Topamax) 25 MG tablet TAKE 1 TABLET BY MOUTH 1 TO 2 TIMES DAILY escitalopram (Lexapro) 10 MG tablet Take 1 tablet by mouth daily. No current facility-administered medications on file prior to visit. Past Medical History: Diagnosis Date Anemia Anxiety IBS (irritable bowel syndrome) Mitral valve prolapse Syncope Social History Tobacco Use Smoking status: Never Smokeless tobacco: Never Substance Use Topics Alcohol use: No Objective: BP 115/73 (BP Location: Left arm, Patient Position: Sitting, BP Cuff Size: Large adult) Pulse 82 Temp 36.2 C (97.2 F) (Temporal) Ht 5' 4.5 (1.638 m) Wt 196 lb (88.9 kg) SpO2 100% BMI 33.12 kg/m Physical Exam Vitals and nursing note reviewed. Constitutional: General: She is not in acute distress. Appearance: Normal appearance. She is not ill-appearing, toxic-appearing or diaphoretic. HENT: Head: Normocephalic and atraumatic. Jaw: There is normal jaw occlusion. No trismus. Mouth/Throat: Lips: [place]. Mouth: Mucous membranes are moist. Pharynx: Uvula midline. Pharyngeal swelling and posterior oropharyngeal erythema present. No oropharyngeal exudate or uvula swelling. Tonsils: Tonsillar exudate present. No tonsillar abscesses. 2+ on the right. 2+ on the left. Cardiovascular: Rate and Rhythm: Normal rate. Pulmonary: Effort: Pulmonary effort is normal. Abdominal: General: Abdomen is flat. Tenderness: There is no guarding. Musculoskeletal: General: Normal range of motion. Cervical back: Normal range of motion. Tenderness present. Skin: General: Skin is warm and dry. Neurological: General: No focal deficit present. Mental Status: She is alert and oriented to person, place, and time. Mental status is at baseline. Gait: Gait normal. Psychiatric: Mood and Affect: Mood normal. Behavior: Behavior normal. Behavior is cooperative. Thought Content: Thought content normal. Judgment: Judgment normal. Diagnostics Labs: Results for orders placed or performed in visit on 09/25/22 AMB POC RAPID STREP A Result Value Ref Range Rapid Strep A Screen Positive (A) Negative, None Detected Radiographs: No image results found. Procedure Assessment 1. Strep throat - azithromycin (Zithromax) 500 MG tablet; Take 1 tablet (500 mg) by mouth daily for 5 days., Starting Fri09/25/2022, Until Fri09/30/2022, Normal 2. Sore throat - AMB POC RAPID STREP A - azithromycin (Zithromax) 500 MG tablet; Take 1 tablet (500 mg) by mouth daily for 5 days., Starting Fri09/25/2022, Until Fri09/30/2022, Normal 1. POCT rapid strep in clinic was collected and resulted as positive. Throat culture will not be sent to the lab.Pt will be treated for strep throat. 2. Prescribed Azithromycin 500 mg once daily for 5 days. Take with food, as prescribed, and to completion. 3. Utilize salt water gargles, change tooth brush, use throat numbing lozenges/sprays. 4. Okay for OTC tylenol/motrin PRN for symptoms. 5. F/U with PCP for new, worsening, or continued symptoms longer than 10-14 days after onset. Eugenia Ortega NP 09/25/2022 6:52 PM Patient's wellbeing is stable at this time. Patient is agreeable with plan and is cooperative with discharge at this time. Patient has been given information on their currently diagnosed illness fromthis visit as well as any other pertinent information based on their visit at this time. Pt has been educated on medications pertinent to this visit. Please see AVS. (Please note that portions of this note may have been completed with a voice recognition program. Efforts were made to edit the dictations but occasionally words aremis-transcribed.) All questions were answered during evaluation as verbalized by the patient during encounter. If symptoms do not improve, worsen, or new symptoms develop, see PCP for further evaluation. documented in this [facility]02-22-2021 NoteHNO ID: [id number] Author: Kris Calderon Service: ? Author Type: Physician Type: Progress Notes Filed: 09/11/2020 12:37 PM Note Text: Renea Vallecillo is a 30 year old female who presents with a chief complaint of [employer] Ultrasound SUBJECTIVE Probable uterine fibroid (9 X 9 X 12 mm). Otherwise, normal appearing pelvic ultrasound. Doing well with OCP. Menses was very light at end of first pack. Had a couple of AYOUB since starting Levora, but nothing that resembles her usual migraines. Recent visit with branch credit counselor found her ferritin level to actually be [...] was spent in counseling and/or coordination of care.[facility]02-04-2021 NoteHNO ID: [id number] Author: Michaela Batres Service: ? Author Type: Physician Type: Progress Notes Filed: 08/24/2020 1:01 PM Note Text: Hematology/Oncology TeleVisit Renea Vallecillo 1990 Encounter Date: 08/24/2020 Patient name and [...] in counseling and coordination of care. Michaela Batres, [facility]01-27-2021 NoteHNO ID: [id number] Author: Kris Calderon Service: ? Author Type: Physician Type: [...] external genitalia normal, normal Bartholin's glands, urethra, [place]'s glands, no vulvar lesions, no cervical lesions, [...] up one year or sooner as needed Kris Calderon, [facility]09-16-2020 NoteHNO ID: [id number] Author: Kris Calderon Service: ? Author Type: Physician Type: [...] states that her menses has been much wrong address clerk since starting the OCP. Feels good at [...] Mood/Affect: Normal ASS/PLAN: - Syncope - no mid wife cause. - Call with any issues. MAD Total time in direct patient contact = 15 min. Greater than 50% of the time was spent in counseling and/or coordination of care.[facility] Author Roney [facility] Note Date/Time October 26, 2024 5:14 pm [facility] Medical Records Department [address] [place] [address] Anesthesia Postop Eval I 10/26/241712 MR#: [id number] Acct: [id number] Name: RENEA VALLECILLO Rep #:[id number] : 1990 34 From: Roney Nagel MD PCP: CATHERINE DIXON, DO Status:REG S DC Y Race: C Location: [place] [address] Anesthesia: Postop Eval I Current Vital Signs Temperature: 98.1 F Pulse Rate: 89 Blood Pressure: 122/79 Respiratory Rate: 16 Pulse Ox: 96 Oxygen Delivery Method: Room Air Assessment Airway patent: Yes Spontaneous unlabored respirations: Yes Mental status: Asleep (Arousable) nausea: No Vomiting: No Anesthesia Complication: No Fluid Hydration Crystalloid volume administer (ml): 1,000 Total IV fluid infused: 1,000 Progress Note Anesthesia document: Postop Eval 1 completed: Yes 10/26/241713 <Electronically signed by Roney carranza MD> Date _ Roney Nagel MD Cosigner Signature: Date CC: ~ Signed [facility] Work Phone: Evaluation note* Diagnosis Screening, lipid Screening for lipoid disorders Weight gain Abnormal weight gain Need for hepatitis C screening test Special screening examination for other specified viral diseases documented in this encounter [facility] Work Phone: Evaluation note* Diagnosis Mixed hyperlipidemia Other fatigue Pain in other joint documented in this encounter [facility] Work Phone: Evaluation note* Diagnosis Screening for diabetes mellitus Screening, lipid Screening for lipoid disorders documented in this encounter [facility] Work Phone: Evaluation note* Diagnosis Onset Date Resolution Status Abnormal uterine bleeding ac [facility] Work Phone: Evaluation note* Diagnosis Onset Date Resolution Status Abnormal uterine bleeding ac [facility] Abnormal uterine bleeding ac [facility] Work Phone: Evaluation note* Diagnosis Onset Date Resolution Status Other obesity acute Other obesity acute Other obesity acute BMI 32.0-32.9,adult resolved [facility] Work Phone: Evaluation note* Diagnosis Onset Date Resolution Status BMI 30.0-30.9,adult acute Hypertriglyceridemia acute Other obesity acute BMI 30.0-30.9,adult acute Hypertriglyceridemia acute Other obesity acute BMI 30.0-30.9,adult acute Hypertriglyceridemia acute Other obesity acute [facility] Work Phone: Evaluation note* Diagnosis Well adult exam- Primary Routine general medical examination at a health care facility Screening for diabetes mellitus Hypertriglyceridemia Pure hyperglyceridemia Hair loss Unspecified alopecia [facility] Diagnosis Viral URI with cough- Primary Laryngitis Acute laryngitis, without mention of obstruction documented in this encounter [facility] [employer] [facility]* Diagnosis Onset Date Resolution Status BMI 26.0-26.9,adult acute Hypertriglyceridemia acute Other obesity acute BMI 26.0-26.9,adult acute Hypertriglyceridemia acute Other obesity acute [facility] Work Phone: Evaluation note* Diagnosis Cellulitis of right upper extremity- Primary Insect stings, accidental or unintentional, initial encounter [facility] Diagnosis Well adult exam- Primary Routine general medical examination at a [facility] facility Vertigo Dizziness and giddiness Screening, lipid Screening for diabetes mellitus documented [facility]* Diagnosis Right flank pain- Primary Abdominal pain, unspecified site Adnexal cyst [facility]* Diagnosis Strep throat- Primary Streptococcal sore throat Sore throat Acute pharyngitis [facility]* Diagnosis Viral URI with cough- Primary Acute upper respiratory infections of unspecified site Otalgia of both ears Otalgia, unspecified documented in this encounter [facility] noteNo assessment information availableWPremier Health [facility] Work Phone: Evaluation note* Diagnosis Cellulitis of right upper extremity- Primary Insect stings, accidental or unintentional, initial encounter Well adult exam- Primary Routine general medical examination at a [facility] Screening, lipid Screening for diabetes mellitus Chronic pain of left knee documented in this encounter [facility] note* Diagnosis Cellulitis of right upper extremity- Primary Insect stings, accidental or unintentional, initial encounter Chronic pain of left knee documented in this encounter [facility] note* Diagnosis Muscle strain- Primary Unspecified site of sprain and strain documented in this encounter [facility] Work Phone: Instructions* Attachments The following attachments cannot be sent through Care Everywhere. * Laryngitis ([place]) [facility] Attachments The following attachments cannot be sent through Care Everywhere. * Cellulitis (Skin Infection) Discharge Instructions, Adult ([place]) * Insect Bites and Stings Discharge Instructions ([place]) [facility]* Attachments The following attachments cannot be sent through Care Everywhere. * Bacterial Upper Respiratory Infection Discharge Instructions, Adult ([place]) * Strep Throat Discharge Instructions ([place]) * Azithromycin (Systemic), ADULT ([place]) [facility] Instruction Text No instruction information i s available. [facility] Instructions* Attachments The following attachments cannot be sent through Care Everywhere. * Chondromalacia Patella Exercises ([place]) [facility] (narrative)* Consultation (Routine) - Pending Review Specialty Diagnoses / Procedures Referred By Rufus lyons Referred To Contact Obstetrics and Gynecology Diagnoses Adnexal cyst Procedures HI OFFICE/OUTPATIENT NEW HIGH MDM 60 MINUTES Manuel Hazel MD [address] [place] [address] [facility] Br Program Advocate [address] [place] [address] Referral ID Status Reason Start Date Expiration Date Visits Requested Visits Authorized [id number] Pending Review Specialty Services Required 04/28/2024 04/28/2025 1 1 [facility] for referral (narrative)No reason for referral information availableWPremier Health [facility] Work Phone: Summary Purpose Family History No Family History Records Found Relationship Condition Age at Onset Recorded Date/T sami grandfather Diabetes mellitus Unknown Cardiac disease Unknown mother Disorder of thyroid Unknown Advance Directives No Advanced Directives Records FoundDocuments on File Type Date Recorded 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 Advance Directives and Living Will Power of Heater Engineer Helper Documents on File Type Date Recorded 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 No June 06, 2022 12:30pm Advance Directive Response Recorded Date/ Time Living Will No June 06 12:30pm Do you have a Healthcare Power of Heater Engineer Helper? No June 06, 2022 12:30pm Living Will No October 18, 2024 3:38pm Do you have a Healthcare Power of Heater Engineer Helper? No October 18, 2024 3:38pm Assessments Diagnosis Screening, lipid Screening for lipoid disorders Screening for diabetes mellitus Diagnosis Vasovagal syncope Syncope and collapse Diagnosis Vasovagal syncope Syncope and collapse Other elevated white blood cell (WBC) count Discharge Instructions * Attachments The following attachments cannot be sent through Care Everywhere. * Vasovagal Syncope ([place]) documented in this encounter Chief Complaint and Reason for Visit Chief Complaint Surgical consult 2nd opinion *TK's daughter E-ORDER Reason for Visit Abnormal uterine ble eding Chief Complaint Surgical consult 2nd opinion *TK's daughter E-ORDER LAVH, BS LAVH, BS LAVH, BS Reason for Visit Abnormal uterine ble eding Abnormal uterine bleeding Chief Complaint 6 WK POST OP get starting WT/BP/HR for medication adipex weight/BP/HR adipex weight/BP/HR Adipex f/u, completed 3 mos. Reason for Visit Other obesity Other obesity Other obesity BMI 32.0-32.9,adult Chief Complaint adipex weight/BP/HR Adipex f/u, completed 3 mos. WEIGHT/BP/HR WEIGHT/BP/HR 3 M FU EORDERS Reason for Visit BMI 30.0-30.9,adult Hypertriglyceridemia Other obesity BMI 30.0-30.9,adult Hypertriglyceridemia Other obesity BMI 30.0-30.9,adult Hypertriglyceridemia Other obesity Chief Complaint 1 M FU 3 M FU Reason for Visit BMI 26.0-26.9,adult Hypertriglyceridemia Other obesity BMI 26.0-26.9,adult Hypertriglyceridemia Other obesity Chief Complaint Admit Date OVARIAN CYST October 09, 2024 10: 05am Chief Complaint Admit Date OVARIAN CYST October 09, 2024 10: 05am US follow up surgical consult September 3:59pm Laparoscopic, Ovarian Cystectomy October 262024 12:35pm Laparoscopic, Ovarian Cystectomy October 262024 12:58pm Reason for Visit Admit Date Complex ovarian cyst October 18, 2024 3: 59pm BMI 26.0-26.9,adult October 26, 2024 12:3 5pm Complex ovarian cyst October 26, 2024 12: 35pm Hypertriglyceridemia October 26, 2024 12: 35pm Other obesity October 26, 2024 12:3 5pm Chief Complaint Admit Date OVARIAN CYST October 09, 2024 10: 05am US follow up surgical consult September 3:59pm Laparoscopic, Ovarian Cystectomy October 262024 12:35pm Laparoscopic, Ovarian Cystectomy October 262024 12:58pm cystectomy follow up November 02, 2024 1: 59pm Post op redness, bumps, itchy rash November 05, 2024 2:19pm RESTART PROGRAM *copay $25 December 08 2:09pm Reason for Visit Admit Date Complex ovarian cyst October 18, 2024 3: 59pm BMI 26.0-26.9,adult October 26, 2024 12:3 5pm Complex ovarian cyst October 26, 2024 12: 35pm Hypertriglyceridemia October 26, 2024 12: 35pm Other obesity October 26, 2024 12:3 5pm Complex ovarian cyst November 02, 2024 1: 59pm Drug reaction November 05, 2024 2:1 9pm BMI 26.0-26.9,adult December 08, 2024 2:09p m Hypertriglyceridemia December 08, 2024 2:09 pm Other obesity December 08, 2024 2:09p m Additional Source Comments INFORMATION SOURCE (unrecogn ized section and content) DATE CREATED AUTHOR [facility] DATE CREATED AUTHOR AUTHOR'S ORGANIZ ATION 09/11/2020 [facility] DATE CREATED AUTHOR AUTHOR'S ORGANIZ ATION 02/01/2021 [facility] DATE CREATED AUTHOR AUTHOR'S ORGANIZ ATION 03/20/2022 [facility] DATE CREATED AUTHOR AUTHOR'S ORGANIZ ATION 03/29/2024 [facility] DATE CREATED AUTHOR AUTHOR'S ORGANIZ ATION 08/04/2024 [facility] DATE CREATED AUTHOR AUTHOR'S ORGANIZ ATION 04/09/2025 [facility] [facility] DATE CREATED AUTHOR AUTHOR'S ORGANIZ ATION 04/12/2025 [facility] Reason for Visit (unrecogniz ed section and content) Reason Comments Loss of Consciousness Reason Comments Annual Exam Reason Comments URI Cough, congestion, l oss of voice, x3days Reason Comments Insect Bite Stung on Friday-yell ow Jacket Reason Onset Date Comments Insect Bite 03/02/2024 Reason Comments Employment Physical Reason Comments Back Pain Reason Comments Sore Throat Started today. No OT C medication. Reason Comments Ear Problem Bilateral ear pain t hat radiates down into her neck Reason Comments Back Pain Care Teams (unrecognized sec tion and content) Reaming Machine Tender Relationship Specialty Start Date End Date Catherine Dixon DO [address] [place] [address] PCP - General Internal Medicine 10/22/16 Reaming Machine Tender Relationship Specialty Start Date End Date Catherine Dixon DO [address] [place] [address] PCP - General Internal Medicine 10/22/16 Team Status: Active Member Role Status Migdalia DIXON DO Primary Care Provider Active Team Status: Inactive Member Role Status Migdalia DIXON DO Primary Care Provider, Referring Provider Active Dr. Angela Pressley MD Attending Provider Active Team Status: Inactive Member Role Status Migdalia DIXON DO Primary Care Provider, Referring Provider Active Ruth Flores MOTOR DRIVER, MOTOR DRIVER-C Attending Provider Active Team Status: Inactive Member Role Status Dates CATHERINE DIXON DO Primary Care Provider Active Dr. Angela Pressley MD Attending Provider, Referr ing Provider Active Reaming Machine Tender Relationship Specialty Start Date End Date Catherine Dixon DO [address] [place] [id number] PCP - General 10/22/16 Reaming Machine Tender Relationship Specialty Start Date End Date Catherine Dixon DO [address] [place] [address] PCP - General 10/22/16 Reaming Machine Tender Relationship Specialty Start Date End Date Catherine Dixon DO [address] [place] [address] PCP - General 10/22/16 Reaming Machine Tender Relationship Specialty Start Date End Date Catherine Dixon DO [address] [place] [id number] PCP - General 10/22/16 Reaming Machine Tender Relationship Specialty Start Date End Date Catherine Dixon DO [address] [place] [address] PCP - General 10/22/16 Reaming Machine Tender Relationship Specialty Start Date End Date Catherine Dixon DO [address] [place] [id number] PCP - General 10/22/16 Reaming Machine Tender Relationship Specialty Start Date End Date Catherine Dixon DO [address] [place] [id number] PCP - General 10/22/16 Reaming Machine Tender Relationship Specialty Start Date End Date Catherine Dixon DO [address] [place] [address] PCP - General 10/22/16 Reaming Machine Tender Relationship Specialty Start Date End Date Catherine Dixon DO [address] [place] [id number] PCP - General Internal Medicine 06/01/19 Team Status: Inactive Member Role Status Dates CATHERINE DIXON DO Primary Care Provider Active Start: October 09, 2024 End: October 09, 2024 Dr. Angela Pressley MD Attending Provider Active Start: October 09, 2024 End: October 09, 2024 Dr. Angela Pressley MD Referring Provider Active Start: October 09, 2024 End: October 09, 2024 Team Status: Inactive Member Role Status Dates CATHERINE DIXON DO Primary Care Provider Active Start: October 18, 2024 End: October 18, 2024 CATHERINE DIXON DO Referring Provider Active Start: October 18, 2024 End: October 18, 2024 Dr. Angela Pressley MD Attending Provider Active Start: October 18, 2024 End: October 18, 2024 Team Status: Inactive Member Role Status Dates CATHERINE DIXON DO Primary Care Provider Active Start: October 26, 2024 End: October 26, 2024 Dr. Angela Pressley MD Attending Provider Active Start: October 26, 2024 End: October 26, 2024 Dr. Angela Pressley MD Referring Provider Active Start: October 26, 2024 End: October 26, 2024 Team Status: Active Member Role Status Dates CATHERINE DIXON DO Primary Care Provider Active Start: October 26, 2024 Dr. Angela Pressley MD Attending Provider Active Start: October 26, 2024 Dr. Angela Pressley MD Referring Provider Active Start: October 26, 2024 Dr. Angela Pressley MD Other Provider Active Start: October 26, 2024 Team Status: Inactive Member Role Status Dates CATHERINE DIXON DO Primary Care Provider Active Start: November 02, 2024 End: November 02, 2024 CATHERINE DIXON DO Referring Provider Active Start: November 02, 2024 End: November 02, 2024 Dr. Angela Pressley MD Attending Provider Active Start: November 02, 2024 End: November 02, 2024 Team Status: Inactive Member Role Status Dates CATHERINE DIXON DO Primary Care Provider Active Start: November 05, 2024 End: November 05, 2024 CATHERINE DIXON DO Referring Provider Active Start: November 05, 2024 End: November 05, 2024 Dr. Angela Pressley MD Attending Provider Active Start: November 05, 2024 End: November 05, 2024 Team Status: Inactive Member Role Status Dates CATHERINE DIXON DO Primary Care Provider Active Start: December 08, 2024 End: December 08, 2024 CATHERINE DIXON DO Referring Provider Active Start: December 08, 2024 End: December 08, 2024 EVGENY Baker Attending Provider Active Start: December 08, 2024 End: December 08, 2024 Reaming Machine Tender Relationship Specialty Start Date End Date Catherine Dixon DO [address] [place] [id number] PCP - General 10/22/16 Reaming Machine Tender Relationship Specialty Start Date End Date Catherine Dixon DO [address] [address] PCP - General 10/22/16 Reaming Machine Tender Relationship Specialty Start Date End Date Catherine DixonDO [address] [address] PCP - General 10/22/16 Goals (unrecognized section and content) Goals may be documented in a n alternate sectionGoals may be documented in an alternate sectionGoals may be documented in an alternate sectionGoals may be documented in an alternate sectionGoals may be documented in an alternate section Scheduled Active and Recently Administ ered Medications (unrecognized section and content) Medication Order 04/26/2024 04/27/2024 04/28/2024 ketorolac (Toradol) injection 15 mg (COMPLETED) 15 mg, IntraVENous, Once, On Fri04/28/24 at 0800, For 1 dose 0800 (Given - Provid er: Aime Ellitot RN) Source Comments (unrecognize d section and content) In the event this informatio n is protected by the Federal Confidentiality of Alcohol and Drug Abuse Patient Records regulations: The Federal rules restrict any use of the information to criminally investigate or prosecute any alcohol or drug abuse patient.[facility] FOR RECORDS PERTAINING TO PATIENTS WHO ARE [...] BE BASED ON THE PRIMARY CLINICAL RECORDS. [employer] provides no warranty or guarantee of the accuracy or completeness of information in this document.
[2025-04-15 04:07] LABS: Carcinoembryonic Antigen 1.2 ng/mL (0.0-4.7)
== END | disposition home or self-care (01) ==
PROVIDERS: PCP Family Medicine; Referring Provider Obstetrics & Gynecology; Visit Provider Obstetrics & Gynecology
DX: N83.299 Other ovarian cyst, unspecified side (principal); R93.89 Abnormal findings on diagnostic imaging of other specified body structures
CPT/HCPCS: 36415; 82378; 86304

== ENCOUNTER → 2025-05-02 | Outpatient (CLI) | payer OTHER, SELFPAY ==
--- NOTE | 2025-05-02 08:00 | MRI_ITS ---
EXAM: PELVIS W/WO CONTRAST 05/02/2025 CLINICAL HISTORY: COMPLEX CYSTIC MASS ON ULTRASOUND. TECHNIQUE: Procedure Code: [id number] Modality: MR Procedure: PELVIS W/WO CONTRAST Multiplanar and multisequence images were obtained without and with intravenous gadolinium contrast. There are no dynamic contrast enhanced images or diffusion-weighted images performed through the pelvis. MR O-RADS cannot be given technique. CONTRAST: Clariscan VOLUME: 15 mL COMPARISON: Pelvic and endovaginal ultrasound of 04/12/2025 FINDINGS: The uterus has been surgically removed. Previously noted ascites has resolved. Urinary bladder is midline. Small Bartholin gland cyst in the right posterior inferior vaginal wall measuring 13 mm. Within the right ovary, there is a new cystic lesion measuring 2.8 x 3.6 cm with smooth enhancement of the wall. No suspicious septation or papillary projection. A small daughter cyst is present. Within the left ovary, there is a complex lesion measuring 3.3 x 3.4 by 3.6 cm. This is bright on T1 and bright on T2 weighted sequences with a central area of signal (shading). There is avid enhancement of the wall. Signal dropout noted in the periphery of the lesion on T2 weighted images. There is thick enhancement of the wall and papillary projection. An additional small benign cyst is noted in the left ovary. There is no ascites. No pelvic lymphadenopathy. Small shotty inguinal lymph nodes noted bilaterally [id number]-right. The largest lymph node in the left groin measured 1.2 x 1.6 cm. No additional mass. Stool-filled colon present. Osseous structures are within normal limits. MRI/Pelvis W/WO Contrast IMPRESSION: Newly unilocular cystic lesion in the right ovary measuring 3.6 cm without susp icious features. Complex hemorrhagic lesion in the left adnexa measuring 3.6 cm suspicious for a typical endometrioma. Given the thick enhancing rim with central apparent nodular component malignancy can not be excluded. Cl ose interval follow-up recommended with repeat imaging in 4-6 weeks and correlation with clinical laboratory data (CA-125) is recommended. Reading Location: [facility]
== END | disposition home or self-care (01) ==
PROVIDERS: PCP Family Medicine; Referring Provider Obstetrics & Gynecology; Visit Provider Obstetrics & Gynecology
DX: N83.292 Other ovarian cyst, left side (principal); R93.89 Abnormal findings on diagnostic imaging of other specified body structures
CPT/HCPCS: 72197; A9575

== ENCOUNTER → 2025-07-06 | Outpatient (CLI) | payer OTHER, SELFPAY | END | disposition home or self-care (01) | PROVIDERS: PCP Family Medicine; Visit Provider Obstetrics & Gynecology | DX: E66.89 Other obesity not elsewhere classified (principal) | CPT/HCPCS: 36415; 84443 ==